=== PATIENT | female | born 1950 | race Caucasian/White ===

== ENCOUNTER 2016-10-19 23:00 | Inpatient (IN) | payer MEDICARE, OTHER ==
[2016-10-19] MEDS ORDERED: SODIUM CHLORIDE 0.9% 1,000 ML IV ONE ×2 (23:15→23:16)
[2016-10-19] MEDS ORDERED: INSULIN REGULAR HUMAN 100 UNIT/1 ML 10 ML MDV IVP STA (23:16)
[2016-10-19] MEDS ORDERED: INSULIN REGULAR HUMAN 100 UNIT/1 ML 10 ML MDV ONE (23:39)
[2016-10-20] MEDS ORDERED: INSULIN REGULAR HUMAN 100 UNIT/1 ML 10 ML MDV IVP STA (01:10)
[2016-10-20] MEDS ORDERED: INSULIN REGULAR HUMAN 100 UNIT/1 ML 10 ML MDV ONE (01:14)
[2016-10-20] MEDS ORDERED: MORPHINE 2 MG/ML SYRINGE IVP PRN (04:02)
[2016-10-20] MEDS ORDERED: SODIUM CHLORIDE FLUSH 0.9% 10 ML SYRINGE IVP PRN (04:02)
[2016-10-20] MEDS ORDERED: ONDANSETRON 4 MG/2 ML VIAL IVP PRN (04:02)
[2016-10-20] MEDS ORDERED: MAGNESIUM SULFATE 5 GM/10 ML VIAL IV STA (04:02)
[2016-10-20] MEDS ORDERED: ACETAMINOPHEN 325 MG TABLET PO PRN (04:02)
[2016-10-20] MEDS ORDERED: BENZONATATE 100 MG CAPSULE PO PRN (04:02)
[2016-10-20] MEDS ORDERED: MAGNESIUM SULFATE 2 GRAM 50 ML IV ONE (04:51)
[2016-10-20] MEDS: SODIUM CHLORIDE 0.9% 1,000 ML IV SCH ×2 (04:55→18:15)
[2016-10-20] MEDS: SODIUM CHLORIDE FLUSH 0.9% 10 ML SYRINGE IVP SCH ×3 (05:05→20:53)
[2016-10-20] MEDS ORDERED: INSULIN ASPART 300 UNIT/3 ML PEN SUBQ STA (05:14)
[2016-10-20] MEDS: MAGNESIUM SULFATE 2 GRAM 2 GM/50 ML BAG IV SCH ×2 (05:15→06:17)
[2016-10-20] MEDS: ENOXAPARIN 40 MG/0.4 ML SYRINGE SUBQ SCH (08:10)
[2016-10-20] MEDS: hydroCHLOROthiazide 12.5 MG CAPSULE PO SCH (08:11)
[2016-10-20] MEDS: ATORVASTATIN 10 MG TABLET PO SCH (08:11)
[2016-10-20] MEDS: FLUoxetine 10 MG CAPSULE PO SCH (08:11)
[2016-10-20] MEDS: LISINOPRIL 5 MG TABLET PO SCH (08:11)
[2016-10-20] MEDS: SACCHAROMYCES BOULARDII 250 MG CAPSULE PO SCH ×2 (08:11→18:14)
[2016-10-20] MEDS: INSULIN ASPART 300 UNIT/3 ML PEN SUBQ SCH ×4 (08:13→21:45)
[2016-10-20] MEDS ORDERED: [UNRECOGNIZED DRUG - OTHER] PO SCH (09:00)
[2016-10-20] MEDS ORDERED: HYDROCHLOROTHIAZIDE PO SCH (09:00)
[2016-10-20] MEDS ORDERED: LISINOPRIL PO SCH (09:00)
[2016-10-20] MEDS: POLYETHYLENE GLYCOL 3350 17 GM PACKET PO SCH (10:48)
[2016-10-20] MEDS ORDERED: INSULIN GLARGINE 300 UNIT/3 ML PEN SUBQ SCH (21:00)
[2016-10-21] MEDS: SODIUM CHLORIDE 0.9% 1,000 ML IV SCH (04:03)
[2016-10-21] MEDS: SODIUM CHLORIDE FLUSH 0.9% 10 ML SYRINGE IVP SCH ×3 (04:05→22:37)
[2016-10-21] MEDS: SACCHAROMYCES BOULARDII 250 MG CAPSULE PO SCH ×2 (07:51→16:53)
[2016-10-21] MEDS: ENOXAPARIN 40 MG/0.4 ML SYRINGE SUBQ SCH (07:51)
[2016-10-21] MEDS: hydroCHLOROthiazide 12.5 MG CAPSULE PO SCH (07:51)
[2016-10-21] MEDS: FLUoxetine 10 MG CAPSULE PO SCH (07:51)
[2016-10-21] MEDS: LISINOPRIL 5 MG TABLET PO SCH (07:51)
[2016-10-21] MEDS: INSULIN ASPART 300 UNIT/3 ML PEN SUBQ SCH ×4 (07:55→21:09)
[2016-10-21] MEDS: ATORVASTATIN 10 MG TABLET PO SCH (07:55)
[2016-10-21] MEDS: POLYETHYLENE GLYCOL 3350 17 GM PACKET PO SCH (11:11)
[2016-10-21] MEDS ORDERED: POTASSIUM CHLORIDE 20 MEQ TABLET PO ONE (16:30)
[2016-10-21] MEDS: GLIMEPIRIDE 2 MG TABLET PO SCH (16:54)
[2016-10-22] MEDS: SODIUM CHLORIDE FLUSH 0.9% 10 ML SYRINGE IVP SCH (01:56)
[2016-10-22] MEDS: SACCHAROMYCES BOULARDII 250 MG CAPSULE PO SCH (07:59)
[2016-10-22] MEDS: FLUoxetine 10 MG CAPSULE PO SCH (07:59)
[2016-10-22] MEDS: GLIMEPIRIDE 2 MG TABLET PO SCH (07:59)
[2016-10-22] MEDS: ATORVASTATIN 10 MG TABLET PO SCH (07:59)
[2016-10-22] MEDS: LISINOPRIL 5 MG TABLET PO SCH (07:59)
[2016-10-22] MEDS: INSULIN ASPART 300 UNIT/3 ML PEN SUBQ SCH ×2 (07:59→13:20)
[2016-10-22] MEDS: ENOXAPARIN 40 MG/0.4 ML SYRINGE SUBQ SCH (07:59)
[2016-10-22] MEDS: hydroCHLOROthiazide 12.5 MG CAPSULE PO SCH (07:59)
[2016-10-22] MEDS: POLYETHYLENE GLYCOL 3350 17 GM PACKET PO SCH (08:02)
[2016-10-22] MEDS ORDERED: IOPAMIDOL-300 100 ML VIAL IVP ONE (10:03)
== END 2016-10-22 16:40 | disposition home or self-care (01) | DRG 871 ==
DX: A41.9 Sepsis, unspecified organism (principal); J18.9 Pneumonia, unspecified organism; N39.0 Urinary tract infection, site not specified; Z86.73 Personal history of transient ischemic attack (TIA), and cerebral infarction without residual deficits; N13.30 Unspecified hydronephrosis; N17.9 Acute kidney failure, unspecified; E87.1 Hypo-osmolality and hyponatremia; B95.2 Enterococcus as the cause of diseases classified elsewhere; R09.02 Hypoxemia; E11.65 Type 2 diabetes mellitus with hyperglycemia; D50.9 Iron deficiency anemia, unspecified; E87.6 Hypokalemia; E86.0 Dehydration; I10 Essential (primary) hypertension; E78.5 Hyperlipidemia, unspecified; F32.9 Major depressive disorder, single episode, unspecified; Z87.891 Personal history of nicotine dependence; Z79.84 Long term (current) use of oral hypoglycemic drugs; Z91.14 Patient's other noncompliance with medication regimen

== ENCOUNTER 2016-11-03 09:22 | Outpatient (CLI) | payer MEDICARE, OTHER | END 2016-11-03 09:23 | disposition home or self-care (01) | DX: N39.0 Urinary tract infection, site not specified (principal) ==

== ENCOUNTER 2016-11-03 09:27 | Outpatient (CLI) | payer MEDICARE, OTHER ==
[2016-11-03] MEDS ORDERED: IOPAMIDOL-300 100 ML VIAL IVP ONE (10:21)
== END 2016-11-03 09:28 | disposition home or self-care (01) ==
DX: J84.10 Pulmonary fibrosis, unspecified (principal); N39.0 Urinary tract infection, site not specified
CPT/HCPCS: 71260; 87077; 87086; 87181; Q9967

== ENCOUNTER 2016-11-05 10:37 | Outpatient (CLI) | payer MEDICARE, OTHER | END 2016-11-05 10:38 | disposition home or self-care (01) | DX: G31.9 Degenerative disease of nervous system, unspecified (principal); R90.82 White matter disease, unspecified; R41.3 Other amnesia ==

== ENCOUNTER 2016-11-18 18:47 | Outpatient (CLI) | payer MEDICARE, OTHER | END 2016-11-18 18:48 | disposition home or self-care (01) | DX: N39.0 Urinary tract infection, site not specified (principal) ==

== ENCOUNTER 2016-11-19 18:34 | Observation (INO) | payer MEDICARE, OTHER ==
[2016-11-19] MEDS ORDERED: SODIUM CHLORIDE 0.9% 1,000 ML IV ONE (19:58)
[2016-11-19] MEDS ORDERED: cefTRIAXone 1 GM in SODIUM CHLORIDE 0.9% MINIBAG 100 ML IV STA (19:58)
[2016-11-19] MEDS ORDERED: cefTRIAXone 1 GM VIAL ONE (20:15)
[2016-11-19] MEDS ORDERED: ACETAMINOPHEN 325 MG TABLET PO PRN (21:02)
[2016-11-19] MEDS ORDERED: SODIUM CHLORIDE FLUSH 0.9% 10 ML SYRINGE IVP PRN (21:02)
[2016-11-19] MEDS ORDERED: ONDANSETRON 4 MG/2 ML VIAL IVP PRN (21:02)
[2016-11-19] MEDS ORDERED: HYDROcod/ACETAM 5/325 MG TABLET PO PRN (21:02)
[2016-11-19] MEDS ORDERED: PROCHLORPERAZINE 10 MG/2 ML VIAL IVP PRN (21:02)
[2016-11-19] MEDS ORDERED: SODIUM CHLORIDE 0.9% 1,000 ML IV SCH (22:00)
[2016-11-19] MEDS: MAGNESIUM OXIDE 400 MG TABLET PO SCH (22:49)
[2016-11-19] MEDS: NS W/20 MEQ KCL 1,000 ML IV SCH (22:49)
[2016-11-19] MEDS: SODIUM CHLORIDE FLUSH 0.9% 10 ML SYRINGE IVP SCH (22:54)
[2016-11-20] MEDS: SODIUM CHLORIDE FLUSH 0.9% 10 ML SYRINGE IVP SCH (06:43)
[2016-11-20] MEDS: NS W/20 MEQ KCL 1,000 ML IV SCH (06:48)
[2016-11-20] MEDS ORDERED: PANTOPRAZOLE 40 MG TABLET PO SCH (07:00)
[2016-11-20] MEDS ORDERED: SACCHAROMYCES BOULARDII 250 MG CAPSULE PO SCH (08:00)
[2016-11-20] MEDS: INSULIN ASPART 300 UNIT/3 ML PEN SUBQ SCH ×2 (08:01→11:42)
[2016-11-20] MEDS ORDERED: cefTRIAXone 1 GM in SODIUM CHLORIDE 0.9% MINIBAG 100 ML IV SCH (09:00)
[2016-11-20] MEDS ORDERED: POLYETHYLENE GLYCOL 3350 17 GM PACKET PO SCH (09:00)
[2016-11-20] MEDS ORDERED: ASPIRIN EC 81 MG TABLET PO SCH (09:00)
[2016-11-20] MEDS ORDERED: FLUoxetine 10 MG CAPSULE PO SCH (09:00)
[2016-11-20] MEDS ORDERED: ENOXAPARIN 40 MG/0.4 ML SYRINGE SUBQ SCH (09:00)
[2016-11-20] MEDS: MAGNESIUM OXIDE 400 MG TABLET PO SCH (09:15)
[2016-11-20] MEDS ORDERED: ATORVASTATIN 10 MG TABLET PO SCH (21:00)
== END 2016-11-20 14:45 | disposition home or self-care (01) ==
DX: N39.0 Urinary tract infection, site not specified (principal); B96.20 Unspecified Escherichia coli [E. coli] as the cause of diseases classified elsewhere; N17.9 Acute kidney failure, unspecified; E87.6 Hypokalemia; E83.42 Hypomagnesemia; E11.65 Type 2 diabetes mellitus with hyperglycemia; E87.1 Hypo-osmolality and hyponatremia; I10 Essential (primary) hypertension; E78.5 Hyperlipidemia, unspecified; E86.0 Dehydration; N31.9 Neuromuscular dysfunction of bladder, unspecified; N39.490 Overflow incontinence; R33.9 Retention of urine, unspecified; F03.90 Unspecified dementia, unspecified severity, without behavioral disturbance, psychotic disturbance, mood disturbance, and anxiety; F32.9 Major depressive disorder, single episode, unspecified; Z87.891 Personal history of nicotine dependence; Z16.23 Resistance to quinolones and fluoroquinolones; Z79.84 Long term (current) use of oral hypoglycemic drugs; Z79.82 Long term (current) use of aspirin; Z87.01 Personal history of pneumonia (recurrent)
CPT/HCPCS: 36415; 51701; 71010; 80053; 81001; 83036; 83605; 83690; 83735; 85025; 87077; 87086; 87181; 96365; 96366; 96372; 99283; 99284; A9270; G0378; J1650

== ENCOUNTER 2016-11-27 16:20 | Outpatient (CLI) | payer MEDICARE, OTHER | END 2016-11-27 16:21 | disposition home or self-care (01) | DX: E78.5 Hyperlipidemia, unspecified (principal); I10 Essential (primary) hypertension; E11.9 Type 2 diabetes mellitus without complications; N39.0 Urinary tract infection, site not specified ==

== ENCOUNTER 2016-12-01 10:00 | Outpatient (CLI) | payer MEDICARE, OTHER | END 2016-12-01 23:59 | disposition home or self-care (01) | DX: R33.9 Retention of urine, unspecified (principal); N39.0 Urinary tract infection, site not specified ==

== ENCOUNTER 2016-12-19 08:08 | Outpatient (CLI) | payer MEDICARE, OTHER | END 2016-12-19 08:09 | disposition home or self-care (01) | DX: N39.0 Urinary tract infection, site not specified (principal) ==

== ENCOUNTER 2017-01-06 20:20 | Emergency (ER) | payer MEDICARE, OTHER ==
[2017-01-06] MEDS ORDERED: SODIUM CHLORIDE 0.9% 1,000 ML IV ONE (20:54)
[2017-01-06] MEDS ORDERED: cefTRIAXone 1 GM in SODIUM CHLORIDE 0.9% MINIBAG 100 ML IV STA (22:15)
[2017-01-06] MEDS ORDERED: cefTRIAXone 1 GM VIAL ONE (22:18)
== END 2017-01-06 23:20 | disposition home or self-care (01) ==
DX: N17.9 Acute kidney failure, unspecified (principal); N30.01 Acute cystitis with hematuria; D72.829 Elevated white blood cell count, unspecified; E87.1 Hypo-osmolality and hyponatremia; D64.9 Anemia, unspecified; J84.10 Pulmonary fibrosis, unspecified; N31.9 Neuromuscular dysfunction of bladder, unspecified; F03.90 Unspecified dementia, unspecified severity, without behavioral disturbance, psychotic disturbance, mood disturbance, and anxiety; I10 Essential (primary) hypertension; E11.9 Type 2 diabetes mellitus without complications; Z79.84 Long term (current) use of oral hypoglycemic drugs; M10.9 Gout, unspecified; Z79.82 Long term (current) use of aspirin; Z87.440 Personal history of urinary (tract) infections; Z87.891 Personal history of nicotine dependence

== ENCOUNTER 2017-01-08 22:09 | Outpatient (CLI) | payer MEDICARE, OTHER | END 2017-01-08 22:10 | disposition critical access hospital (66) | DX: R41.82 Altered mental status, unspecified (principal) | CPT/HCPCS: A0425; A0427 ==

== ENCOUNTER 2017-01-08 22:20 | Emergency (ER) | payer MEDICARE, OTHER ==
[2017-01-09] MEDS ORDERED: POTASSIUM BICARB 25 MEQ TABLET PO STA (02:02)
[2017-01-09] MEDS ORDERED: POTASSIUM BICARB 25 MEQ TABLET PO ONE (02:06)
== END 2017-01-09 02:25 | disposition home or self-care (01) ==
DX: D64.9 Anemia, unspecified (principal); E11.9 Type 2 diabetes mellitus without complications; I10 Essential (primary) hypertension; E78.00 Pure hypercholesterolemia, unspecified; Z79.82 Long term (current) use of aspirin; F03.90 Unspecified dementia, unspecified severity, without behavioral disturbance, psychotic disturbance, mood disturbance, and anxiety; M10.9 Gout, unspecified; Z87.891 Personal history of nicotine dependence
CPT/HCPCS: 36415; 51701; 80053; 81001; 83690; 85025; 87086; 99284; 99285; A9270

== ENCOUNTER 2017-01-15 10:30 | Outpatient (CLI) | payer MEDICARE, OTHER | END 2017-01-15 10:31 | disposition home or self-care (01) | DX: I10 Essential (primary) hypertension (principal) ==

== ENCOUNTER 2017-01-23 10:45 | Outpatient (CLI) | payer MEDICARE, OTHER | END 2017-01-23 10:46 | disposition home or self-care (01) | DX: N39.0 Urinary tract infection, site not specified (principal) ==

== ENCOUNTER 2017-02-27 08:00 | Outpatient (CLI) | payer MEDICARE, OTHER | END 2017-02-27 08:01 | disposition home or self-care (01) | LOC: LAB.R 08:00 | PROVIDERS: ATTEND Family Medicine | DX: N39.0 Urinary tract infection, site not specified (principal) | CPT/HCPCS: 87077; 87086 ==

== ENCOUNTER 2017-03-17 08:00 | Outpatient (CLI) | payer MEDICARE, OTHER | END 2017-03-17 08:01 | disposition home or self-care (01) | LOC: LAB.R 08:00 | PROVIDERS: ATTEND Family Medicine | DX: N39.0 Urinary tract infection, site not specified (principal) | CPT/HCPCS: 87077; 87086 ==

== ENCOUNTER 2017-07-08 10:50 | Outpatient (CLI) | payer MEDICARE, OTHER | END 2017-07-08 10:51 | disposition home or self-care (01) | LOC: LAB.R 10:50 | PROVIDERS: ATTEND Family Medicine | DX: N39.0 Urinary tract infection, site not specified (principal) | CPT/HCPCS: 87077; 87086 ==

== ENCOUNTER 2017-09-07 17:00 | Outpatient (CLI) | payer MEDICARE, OTHER | END 2017-09-07 17:01 | disposition home or self-care (01) | LOC: LAB.R 17:00 | PROVIDERS: ATTEND Family Medicine | DX: N39.0 Urinary tract infection, site not specified (principal) | CPT/HCPCS: 87086 ==

== ENCOUNTER 2017-10-07 12:30 | Outpatient (CLI) | payer MEDICARE, OTHER | END 2017-10-07 12:31 | disposition home or self-care (01) | LOC: LAB.WCP 12:30 | PROVIDERS: ATTEND Family Medicine | DX: N39.0 Urinary tract infection, site not specified (principal) | CPT/HCPCS: 87077; 87086 ==

== ENCOUNTER 2017-11-23 16:00 | Outpatient (CLI) | payer MEDICARE, OTHER | END 2017-11-23 16:01 | disposition home or self-care (01) | LOC: LAB.R 16:00 | PROVIDERS: ATTEND Family Medicine | DX: N39.0 Urinary tract infection, site not specified (principal) | CPT/HCPCS: 87077; 87086 ==

== ENCOUNTER 2017-12-10 16:03 | Emergency (ER) | payer MEDICARE, OTHER ==
--- NOTE | 2017-12-10 18:45 | ED Physician Documentation ---
History of Present Illness - Stated complaint Stated Complaint: FEMALE - Chief complaint Chief Complaint: General - History obtained from History obtained from: Patient, Family (daughter) - History of Present Illness Timing: Other (67-year-old woman with dementia and neurogenic bladder presents with 8 days of cloudy urine since finishing up a course of antibiotics for previous UTI. 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 - Present Medications Home Medications: Ambulatory Orders Medication Instructions Recorded Confirmed Atorvastatin [Lipitor] 20 mg PO QPM 07/23/16 08/17/17 FLUoxetine [PROzac] 20 mg PO DAILY 07/23/16 08/17/17 metFORMIN [Glucophage] 500 mg PO BIDWM 07/23/16 08/17/17 Lisinopril/Hydrochlorothiazide 1 tab PO DAILY 10/20/16 08/17/17 [Lisinopril-Hctz 20-12.5 mg Tab] Aspirin [Aspir-Low] 81 mg PO DAILY 11/19/16 08/17/17 Ferrous Sulfate 325 mg PO DAILY 11/20/16 08/17/17 Amoxicillin 200 mg PO DAILY 05/18/17 08/17/17 Ciprofloxacin HCl [Cipro] 500 mg PO BID #20 tablet 12/10/17 Oxybutynin [Ditropan] 5 mg PO BID #20 tablet 12/10/17 - Allergies Allergies/Adverse Reactions: Allergies Allergy/AdvReac Type Severity Reaction Status Date / Time No Known Drug Allergies Allergy Verified 01/08/17 22:24 - Social History Does the pt smoke?: No Smoking Status: Never smoker Does the pt drink ETOH?: Yes Does the pt have substance abuse?: No - Immunizations Immunizations are current?: Yes - POLST Patient has POLST: No PD ED PE NORMAL - Vitals Vital signs reviewed: Yes - General General: Other (She is alert and cooperative but somewhat demented and a poor historian for recent facts, she is uncomfortable because it has been 4 hours since she got cathed and is in pain because of that.) - Abdomen Abdomen: Soft, Non tender - 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 Eye Opening: Spontaneous Motor: Obeys Commands Verbal: Confused GCS Score: 14 Results - Vitals Vitals: Vital Signs - 24 hr 12/10/17 16:11 Temperature 36.9 C Heart Rate 100 Respiratory 20 Rate Blood Pressure 168/78 H O2 Saturation 94 Oxygen O2 Source Room air - Labs Labs: Laboratory Tests 12/10/17 12/10/17 12/10/17 18:50 19:04 19:04 WBC 9.8 RBC 3.92 L Hgb 11.2 L Hct 33.3 L MCV 84.8 MCH 28.6 MCHC 33.7 RDW 13.8 Plt Count 382 MPV 7.0 L Neut # 6.2 Lymph # 2.7 [place] # 0.7 Eos # 0.2 Baso # 0.1 Absolute Nucleated RBC 0.00 Nucleated RBC % 0.0 Sodium 132 L Potassium 3.9 Chloride 101 Carbon Dioxide 19 L Anion Gap 12.0 BUN 29 H Creatinine 1.1 H Estimated GFR (MDRD) 49 L Glucose 181 H Calcium 9.6 Total Bilirubin 0.7 AST 19 ALT 11 Alkaline Phosphatase 54 Total Protein 7.7 Albumin 4.0 Globulin 3.7 Albumin/Globulin Ratio 1.1 Lipase 30 Urine Color YELLOW Urine Clarity CLOUDY Urine pH 6.0 Ur Specific [place] 1.015 Urine Protein 100 H Urine Glucose (UA) NEGATIVE Urine Ketones NEGATIVE Urine Occult Blood MODERATE H Urine Nitrite POSITIVE H Urine Bilirubin NEGATIVE Urine Urobilinogen 0.2 (NORMAL) Ur Leukocyte Esterase LARGE H Urine RBC 11-25 H Urine WBC >25 H Ur Squamous Epith Cells RARE Squamous Urine Bacteria Moderate H Ur Microscopic Review INDICATED Urine Culture Comments INDICATED Departure - Departure Disposition: Home, Self Care Clinical Impression: Urinary tract infection Qualifiers: Urinary tract infection type: catheter-associated UTI Indwelling urinary catheter type: unspecified Encounter type: initial encounter Qualified Code(s): T83.511A - Infection and inflammatory reaction due to indwelling urethral catheter, initial encounter; N39.0 - Urinary tract infection, site not specified ; N39.0 - Urinary tract infection, site not specified Condition: Good Record reviewed to determine appropriate education?: Yes Instructions: ED UTI Cystitis Female Prescriptions: Ciprofloxacin HCl [Cipro] 500 mg PO BID #20 tablet Oxybutynin [Ditropan] 5 mg PO BID #20 tablet Comments: Follow-up with the urologist next week as scheduled. Return if worse or if you run a fever. We will culture your urine, the results should be done in 48-72 hours. If an antibiotic change is necessary we will call you. Return if worse in the meantime, especially if you develop increasing flank pain, fevers, or cannot keep down the medication. Your blood pressure was elevated today on check into the emergency department. This does not mean that you have hypertension, it is a common phenomenon to come to the emergency department and have elevated blood pressure. I recommend that you see your primary care physician within the week to have it rechecked when you are feeling better.
[2017-12-10 19:12] LABS: BILIRUBIN,URINE NEGATIVE (NEGATIVE); GLUCOSE, URINE (UA) NEGATIVE (NEGATIVE); KETONES,URINE (UA) NEGATIVE (NEGATIVE); LEUKOCYTE ESTERASE, URINE LARGE (NEGATIVE); NITRITE,URINE POSITIVE (NEGATIVE); OCCULT BLOOD,URINE MODERATE (NEGATIVE); PROTEIN,URINE 100 mg/dL (NEGATIVE); UROBILINOGEN,URINE 0.2 (NORMAL) E.U./dL (NORMAL)
[2017-12-10 19:14] LABS: CLARITY,URINE CLOUDY (CLEAR)
[2017-12-10 19:22] LABS: BACTERIA,URINE Moderate /HPF (None Seen); SQUAMOUS EPITHELIAL CELL,UR RARE Squamous (<= Few)
[2017-12-10 19:23] LABS: BASOPHILS # (AUTO) 0.1 10^3/uL (0.0-0.1); BASOPHILS % (AUTO) 0.7 %; EOSINOPHILS # (AUTO) 0.2 10^3/uL (0.0-0.7); EOSINOPHILS % (AUTO) 1.6 %; HGB - HEMOGLOBIN 11.2 g/dL (12.0-16.0); LYMPHOCYTES # (AUTO) 2.7 10^3/uL (1.5-3.5); LYMPHOCYTES % (AUTO) 27.5 %; MEAN CORPUSCULAR HEMOGLOBIN 28.6 pg (27.0-31.0); MEAN CORPUSCULAR HGB CONC 33.7 g/dL (32.0-36.0); MEAN CORPUSCULAR VOLUME 84.8 fL (81.0-99.0); MONOCYTES # (AUTO) 0.7 10^3/uL (0.0-1.0); MONOCYTES % (AUTO) 7.1 %; NEUTROPHILS # (AUTO) 6.2 10^3/uL (1.5-6.6); NEUTROPHILS % (AUTO) 63.1 %; PLT - PLATELET COUNT 382 10^3/uL (130-450); RED BLOOD COUNT 3.92 10^6/uL (4.20-5.40); RED CELL DISTRIBUTION WIDTH 13.8 % (12.0-15.0); WHITE BLOOD COUNT 9.8 x10^3/uL (4.8-10.8)
[2017-12-10 19:36] LABS: ALBUMIN/GLOBULIN RATIO 1.1 (1.0-2.2); BILIRUBIN,TOTAL 0.7 mg/dL (0.2-1.0); CALCIUM 9.6 mg/dL (8.5-10.3); CREATININE 1.1 mg/dL (0.4-1.0); TOTAL PROTEIN 7.7 g/dL (6.7-8.2)
[2017-12-10] MEDS ORDERED: HYDROcod/ACETAM 5/325 MG TABLET PO STA (19:45)
[2017-12-10] MEDS ORDERED: OXYBUTYNIN 5MG TABLET PO STA (19:48)
[2017-12-10] MEDS ORDERED: CIPROFLOXACIN 250 MG TABLET PO STA (19:48)
[2017-12-10 20:21] VITALS: BP 157/78
== END 2017-12-10 20:21 | disposition home or self-care (01) ==
LOC: ED 16:03
DX: T83.511A Infection and inflammatory reaction due to indwelling urethral catheter, initial encounter (principal); N39.0 Urinary tract infection, site not specified; I10 Essential (primary) hypertension; E11.9 Type 2 diabetes mellitus without complications; F03.90 Unspecified dementia, unspecified severity, without behavioral disturbance, psychotic disturbance, mood disturbance, and anxiety; Z79.84 Long term (current) use of oral hypoglycemic drugs
CPT/HCPCS: 36415; 51701; 80053; 81001; 83690; 85025; 87077; 87086; 87181; 99282; 99283; A9270; 81003

== ENCOUNTER 2018-02-02 19:12 | Emergency (ER) | payer MEDICARE, OTHER ==
--- NOTE | 2018-02-02 19:41 | ED Physician Documentation ---
History of Present Illness - Stated complaint Stated Complaint: WEAK/FEVER/L SIDE PX - Chief complaint Chief Complaint: Fever - History obtained from History obtained from: Family (daughter) - History of Present Illness Timing: Other (Recent dx UTI. Has neurogenic bladder and dementia. Cloudy urine x 2 weeks. Course of cipro without improvement. Increased confusion and fever to 101.7 this monring.) - Additonal information Additional information: Previous cultures reviewed, note made that it was intermediate to ciprofloxacin , sensitive only to IV medications and nitrofurantoin. 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 - Present Medications Home Medications: Ambulatory Orders Medication Instructions Recorded Confirmed Atorvastatin [Lipitor] 20 mg PO QPM 07/23/16 08/17/17 FLUoxetine [PROzac] 20 mg PO DAILY 07/23/16 08/17/17 metFORMIN [Glucophage] 500 mg PO BIDWM 07/23/16 08/17/17 Lisinopril/Hydrochlorothiazide 1 tab PO DAILY 10/20/16 08/17/17 [Lisinopril-Hctz 20-12.5 mg Tab] Aspirin [Aspir-Low] 81 mg PO DAILY 11/19/16 08/17/17 Ferrous Sulfate 325 mg PO DAILY 11/20/16 08/17/17 Amoxicillin 200 mg PO DAILY 05/18/17 08/17/17 Ciprofloxacin HCl [Cipro] 500 mg PO BID #20 tablet 12/10/17 Oxybutynin [Ditropan] 5 mg PO BID #20 tablet 12/10/17 Ciprofloxacin HCl [Cipro] 500 mg PO BID #20 tablet 02/02/18 - Allergies Allergies/Adverse Reactions: Allergies Allergy/AdvReac Type Severity Reaction Status Date / Time No Known Drug Allergies Allergy Verified 02/02/18 19:20 - Social History Does the pt smoke?: No Smoking Status: Never smoker Does the pt drink ETOH?: Yes Does the pt have substance abuse?: No - Immunizations Immunizations are current?: Yes - POLST Patient has POLST: No PD ED PE NORMAL - Vitals Vital signs reviewed: Yes - General General: No acute distress, Well developed/nourished, Other (pleasantly demented ) - HEENT HEENT: PERRL, EOMI - Neck Neck: Supple, no meningeal sign, No bony TTP - Cardiac Cardiac: RRR, No murmur - Respiratory Respiratory: No respiratory distress, Clear bilaterally - Abdomen Abdomen: Normal bowel sounds, Soft, Non tender - Back Back: No CVA TTP, No spinal TTP - Derm Derm: Normal color, Warm and dry - Extremities Extremities: No edema, No calf tenderness / cord - 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 Eye Opening: Spontaneous Motor: Obeys Commands Verbal: Confused GCS Score: 14 - Psych Psych: Normal mood, Normal affect Results - Vitals Vitals: Vital Signs - 24 hr 02/02/18 19:17 Temperature 37.6 C H Heart Rate 97 Respiratory 18 Rate Blood Pressure 114/70 O2 Saturation 96 Oxygen O2 Source Room air - Labs Labs: Laboratory Tests 02/02/18 02/02/18 02/02/18 19:56 20:09 20:09 WBC 9.8 RBC 3.34 L Hgb 9.9 L Hct 28.3 L MCV 84.7 MCH 29.7 MCHC 35.0 RDW 13.7 Plt Count 262 MPV 6.7 L Neut # 7.3 H Lymph # 1.7 [place] # 0.7 Eos # 0.1 Baso # 0.1 Absolute Nucleated RBC 0.00 Nucleated RBC % 0.0 Sodium 129 L Potassium 3.6 Chloride 93 L Carbon Dioxide 25 Anion Gap 11.0 BUN 23 H Creatinine 1.0 Estimated GFR (MDRD) 55 L Glucose 190 H Lactic Acid Calcium 9.1 Total Bilirubin 0.6 AST 15 ALT < 10 L Alkaline Phosphatase 57 Total Protein 7.2 Albumin 3.6 Globulin 3.6 Albumin/Globulin Ratio 1.0 Lipase 29 Urine Color YELLOW Urine Clarity CLOUDY Urine pH 6.0 Ur Specific [place] 1.020 Urine Protein NEGATIVE Urine Glucose (UA) 100 H Urine Ketones NEGATIVE Urine Occult Blood SMALL H Urine Nitrite POSITIVE H Urine Bilirubin NEGATIVE Urine Urobilinogen 0.2 (NORMAL) Ur Leukocyte Esterase MODERATE H Urine RBC 6-10 H Urine WBC >25 H Urine WBC Clumps PRESENT Ur Squamous Epith Cells MOD Squamous H Urine Bacteria Many H Ur Microscopic Review INDICATED Urine Culture Comments NOT INDICATED 02/02/18 20:20 WBC RBC Hgb Hct MCV MCH MCHC RDW Plt Count MPV Neut # Lymph # [place] # Eos # Baso # Absolute Nucleated RBC Nucleated RBC % Sodium Potassium Chloride Carbon Dioxide Anion Gap BUN Creatinine Estimated GFR (MDRD) Glucose Lactic Acid 1.5 Calcium Total Bilirubin AST ALT Alkaline Phosphatase Total Protein Albumin Globulin Albumin/Globulin Ratio Lipase Urine Color Urine Clarity Urine pH Ur Specific [place] Urine Protein Urine Glucose (UA) Urine Ketones Urine Occult Blood Urine Nitrite Urine Bilirubin Urine Urobilinogen Ur Leukocyte Esterase Urine RBC Urine WBC Urine WBC Clumps Ur Squamous Epith Cells Urine Bacteria Ur Microscopic Review Urine Culture Comments PD MEDICAL DECISION MAKING - ED course ED course: 67-year-old woman presents with UTI, fever this morning. She has been septic in the past but is afebrile with reassuring vital signs here, labs were checked without lactic acidosis or leukocytosis. Discussion with the family about whether to admit or discharge and they strongly wanted her discharged. They understand cultures are pending and may necessitate a change in treatment and will return for recurrent fever or if worse. Departure - Departure Disposition: 01 Home, Self Care Clinical Impression: Urinary tract infection Qualifiers: Urinary tract infection type: catheter-associated UTI Indwelling urinary catheter type: unspecified Encounter type: initial encounter Qualified Code(s): T83.511A - Infection and inflammatory reaction due to indwelling urethral catheter, initial encounter; N39.0 - Urinary tract infection, site not specified ; N39.0 - Urinary tract infection, site not specified Condition: Good Record reviewed to determine appropriate education?: Yes Prescriptions: Ciprofloxacin HCl [Cipro] 500 mg PO BID #20 tablet Comments: Return for any recurrent fevers or if worse in any way, otherwise follow-up with your primary care physician in 2 days for recheck, We will culture your urine, the results should be done in 48-72 hours. If an antibiotic change is necessary we will call you. Return if worse in the meantime, especially if you develop increasing flank pain, fevers, or cannot keep down the medication.
[2018-02-02] MEDS ORDERED: SODIUM CHLORIDE 0.9% 1,000 ML IV ONE (19:43)
[2018-02-02 20:24] LABS: BILIRUBIN,URINE NEGATIVE (NEGATIVE); GLUCOSE, URINE (UA) 100 mg/dL (NEGATIVE); KETONES,URINE (UA) NEGATIVE (NEGATIVE); LEUKOCYTE ESTERASE, URINE MODERATE (NEGATIVE); NITRITE,URINE POSITIVE (NEGATIVE); OCCULT BLOOD,URINE SMALL (NEGATIVE); PROTEIN,URINE NEGATIVE (NEGATIVE); UROBILINOGEN,URINE 0.2 (NORMAL) E.U./dL (NORMAL)
[2018-02-02 20:26] LABS: BASOPHILS # (AUTO) 0.1 10^3/uL (0.0-0.1); BASOPHILS % (AUTO) 0.7 %; EOSINOPHILS # (AUTO) 0.1 10^3/uL (0.0-0.7); EOSINOPHILS % (AUTO) 0.6 %; HGB - HEMOGLOBIN 9.9 g/dL (12.0-16.0); LYMPHOCYTES # (AUTO) 1.7 10^3/uL (1.5-3.5); MEAN CORPUSCULAR HEMOGLOBIN 29.7 pg (27.0-31.0); MEAN CORPUSCULAR VOLUME 84.7 fL (81.0-99.0); MEAN PLATELET VOLUME 6.7 fL (7.9-10.8); MONOCYTES # (AUTO) 0.7 10^3/uL (0.0-1.0); MONOCYTES % (AUTO) 7.2 %; NEUTROPHILS # (AUTO) 7.3 10^3/uL (1.5-6.6); NEUTROPHILS % (AUTO) 74.5 %; PLT - PLATELET COUNT 262 10^3/uL (130-450); RED BLOOD COUNT 3.34 10^6/uL (4.20-5.40); RED CELL DISTRIBUTION WIDTH 13.7 % (12.0-15.0); WHITE BLOOD COUNT 9.8 x10^3/uL (4.8-10.8)
[2018-02-02 20:32] LABS: CLARITY,URINE CLOUDY (CLEAR)
[2018-02-02 20:33] LABS: BACTERIA,URINE Many /HPF (None Seen); SQUAMOUS EPITHELIAL CELL,UR MOD Squamous (<= Few); WBC CLUMPS,URINE PRESENT
[2018-02-02 20:38] LABS: ALBUMIN 3.6 g/dL (3.2-5.5); ALKALINE PHOSPHATASE 57 IU/L (42-121); ALT ALANINE AMINOTRANSFERASE < 10 IU/L (10-60); AST ASPARTATE AMINOTRANSFERASE 15 IU/L (10-42); BILIRUBIN,TOTAL 0.6 mg/dL (0.2-1.0); BUN - BLOOD UREA NITROGEN 23 mg/dL (6-20); CALCIUM 9.1 mg/dL (8.5-10.3); CARBON DIOXIDE - CO2 25 mmol/L (21-32); CHLORIDE 93 mmol/L (101-111); GFR - MDRD 55 (>89); GLUCOSE 190 mg/dL (70-100); LIPASE 29 U/L (22-51); SODIUM 129 mmol/L (135-145); TOTAL PROTEIN 7.2 g/dL (6.7-8.2)
[2018-02-02] MEDS ORDERED: CIPROFLOXACIN 250 MG TABLET PO STA (21:02)
[2018-02-02 21:54] VITALS: BP 135/86
== END 2018-02-02 21:55 | disposition home or self-care (01) ==
LOC: ED 19:12
DX: T83.511A Infection and inflammatory reaction due to indwelling urethral catheter, initial encounter (principal); N39.0 Urinary tract infection, site not specified; N31.2 Flaccid neuropathic bladder, not elsewhere classified; F03.90 Unspecified dementia, unspecified severity, without behavioral disturbance, psychotic disturbance, mood disturbance, and anxiety; I10 Essential (primary) hypertension; E11.9 Type 2 diabetes mellitus without complications; Z79.84 Long term (current) use of oral hypoglycemic drugs
CPT/HCPCS: 80053; 81001; 83605; 83690; 85025; 87040; 96360; 99283; A9270; 36415; 81003; 87086

== ENCOUNTER 2018-02-12 16:00 | Outpatient (CLI) | payer MEDICARE, OTHER | END 2018-02-12 16:01 | disposition home or self-care (01) | LOC: LAB.R 16:00 | PROVIDERS: ATTEND Family Medicine | DX: R33.9 Retention of urine, unspecified (principal); N39.0 Urinary tract infection, site not specified | CPT/HCPCS: 87086 ==

== ENCOUNTER 2018-04-05 08:00 | Outpatient (CLI) | END 2018-04-05 08:01 | disposition home or self-care (01) ==

== ENCOUNTER 2018-06-01 17:25 | Emergency (ER) | payer MEDICARE, OTHER ==
[2018-06-01 18:19] LABS: BASOPHILS % (AUTO) 0.4 %; EOSINOPHILS # (AUTO) 0.2 10^3/uL (0.0-0.7); EOSINOPHILS % (AUTO) 2.3 %; HGB - HEMOGLOBIN 11.5 g/dL (12.0-16.0); LYMPHOCYTES # (AUTO) 1.5 10^3/uL (1.5-3.5); LYMPHOCYTES % (AUTO) 15.2 %; MEAN CORPUSCULAR HEMOGLOBIN 29.4 pg (27.0-31.0); MEAN CORPUSCULAR HGB CONC 34.3 g/dL (32.0-36.0); MEAN CORPUSCULAR VOLUME 85.6 fL (81.0-99.0); MEAN PLATELET VOLUME 6.4 fL (7.9-10.8); MONOCYTES # (AUTO) 0.6 10^3/uL (0.0-1.0); MONOCYTES % (AUTO) 5.9 %; NEUTROPHILS # (AUTO) 7.4 10^3/uL (1.5-6.6); NEUTROPHILS % (AUTO) 76.2 %; PLT - PLATELET COUNT 285 10^3/uL (130-450); WHITE BLOOD COUNT 9.7 x10^3/uL (4.8-10.8)
[2018-06-01 18:32] LABS: ALBUMIN 4.1 g/dL (3.2-5.5); ALBUMIN/GLOBULIN RATIO 1.1 (1.0-2.2); BILIRUBIN,TOTAL 0.9 mg/dL (0.2-1.0); CALCIUM 9.9 mg/dL (8.5-10.3); CREATININE 1.1 mg/dL (0.4-1.0); TOTAL PROTEIN 7.9 g/dL (6.7-8.2)
--- NOTE | 2018-06-01 18:48 | ED Physician Documentation ---
History of Present Illness - Stated complaint Stated Complaint: CATH ISS/VOM/FEMALE - Chief complaint Chief Complaint: General - History obtained from History obtained from: Patient, Family - History of Present Illness Timing: Today Pain level max: 8 Pain level now: 0 Improved by: unkinking the catheter Worsened by: kinking the carbajal - Additonal information Additional information: Patient is a 68-year-old demented female who lives at [facility]. She has an indwelling Carbajal catheter for the past 3 weeks. The catheter became kinked today and urine backed up. Staff states that the patient then experienced abdominal pain and vomited 1. The catheter was unkinked, urine flowed and she currently is asymptomatic. They state they are concerned that she may have a urinary tract infection. 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 - Present Medications Home Medications: Ambulatory Orders Medication Instructions Recorded Confirmed Atorvastatin [Lipitor] 20 mg PO QPM 07/23/16 06/01/18 FLUoxetine [PROzac] 20 mg PO DAILY 07/23/16 06/01/18 metFORMIN [Glucophage] 500 mg PO BIDWM 07/23/16 06/01/18 Lisinopril/Hydrochlorothiazide 1 tab PO DAILY 10/20/16 06/01/18 [Lisinopril-Hctz 20-12.5 mg Tab] Aspirin [Aspir-Low] 81 mg PO DAILY 11/19/16 06/01/18 Ferrous Sulfate 325 mg PO DAILY 11/20/16 06/01/18 Amox/Clav 875/125 [Augmentin 1 tab PO BID 06/01/18 06/01/18 875/125] Multivitamin [Multiple Vitamins] 1 tab PO DAILY 06/01/18 06/01/18 Omeprazole 1 tab PO DAILY 06/01/18 06/01/18 Potassium Citrate [Potassium 99 mg PO DAILY 06/01/18 06/01/18 Citrate ER] amLODIPine [Norvasc] 0.5 tab PO DAILY 06/01/18 06/01/18 - Allergies Allergies/Adverse Reactions: Allergies Allergy/AdvReac Type Severity Reaction Status Date / Time No Known Drug Allergies Allergy Verified 06/01/18 17:39 - Social History Does the pt smoke?: No Smoking Status: Never smoker Does the pt drink ETOH?: Yes Does the pt have substance abuse?: No - Immunizations Immunizations are current?: Yes - POLST Patient has POLST: No PD ED PE NORMAL - Vitals Vital signs reviewed: Yes - General General: No acute distress, Other (alert, oriented to person) - HEENT HEENT: PERRL, Moist mucous membranes, Pharynx benign - Neck Neck: Supple, no meningeal sign - Cardiac Cardiac: RRR, Strong equal pulses - Respiratory Respiratory: No respiratory distress, Clear bilaterally - Abdomen Abdomen: Soft, Non tender, Non distended - Back Back: No CVA TTP, No spinal TTP - Derm Derm: Warm and dry - Neuro Neuro: No motor deficit, No sensory deficit - Psych Psych: Normal mood, Normal affect Results - Vitals Vitals: Vital Signs - 24 hr 06/01/18 06/01/18 06/01/18 17:37 19:07 21:10 Temperature 36.6 C 37.1 C 35.9 C L Heart Rate 80 74 72 Respiratory 18 16 18 Rate Blood Pressure 137/77 H 142/67 H 146/74 H O2 Saturation 95 94 94 Oxygen O2 Source Room air - Labs Labs: Laboratory Tests 06/01/18 06/01/18 06/01/18 18:12 18:12 18:50 WBC 9.7 RBC 3.90 L Hgb 11.5 L Hct 33.4 L MCV 85.6 MCH 29.4 MCHC 34.3 RDW 14.0 Plt Count 285 MPV 6.4 L Neut # (Auto) 7.4 H Lymph # (Auto) 1.5 [place] # (Auto) 0.6 Eos # (Auto) 0.2 Baso # (Auto) 0.0 Absolute Nucleated RBC 0.00 Nucleated RBC % 0.0 Sodium 133 L Potassium 4.3 Chloride 96 L Carbon Dioxide 26 Anion Gap 11.0 BUN 24 H Creatinine 1.1 H Estimated GFR (MDRD) 49 L Glucose 151 H Calcium 9.9 Total Bilirubin 0.9 AST 19 ALT 12 Alkaline Phosphatase 58 Total Protein 7.9 Albumin 4.1 Globulin 3.8 Albumin/Globulin Ratio 1.1 Lipase 57 H Urine Color YELLOW Urine Clarity CLOUDY Urine pH 5.5 Ur Specific [place] 1.010 Urine Protein NEGATIVE Urine Glucose (UA) NEGATIVE Urine Ketones NEGATIVE Urine Occult Blood TRACE-INTA Urine Nitrite NEGATIVE Urine Bilirubin NEGATIVE Urine Urobilinogen 0.2 (NORMAL) Ur Leukocyte Esterase LARGE H Urine RBC 11-25 H Urine WBC >25 H Urine WBC Clumps PRESENT Ur Squamous Epith Cells FEW Squamous Amorphous Sediment Few Urine Bacteria Many H Urine Yeast PRESENT Ur Microscopic Review INDICATED Urine Culture Comments INDICATED 06/01/18 19:39 WBC RBC Hgb Hct MCV MCH MCHC RDW Plt Count MPV Neut # (Auto) Lymph # (Auto) [place] # (Auto) Eos # (Auto) Baso # (Auto) Absolute Nucleated RBC Nucleated RBC % Sodium Potassium Chloride Carbon Dioxide Anion Gap BUN Creatinine Estimated GFR (MDRD) Glucose Calcium Total Bilirubin AST ALT Alkaline Phosphatase Total Protein Albumin Globulin Albumin/Globulin Ratio Lipase Urine Color YELLOW Urine Clarity HAZY Urine pH 6.0 Ur Specific [place] <=1.005 Urine Protein NEGATIVE Urine Glucose (UA) NEGATIVE Urine Ketones NEGATIVE Urine Occult Blood TRACE-INTA Urine Nitrite NEGATIVE Urine Bilirubin NEGATIVE Urine Urobilinogen 0.2 (NORMAL) Ur Leukocyte Esterase SMALL H Urine RBC 11-25 H Urine WBC >25 H Urine WBC Clumps PRESENT Ur Squamous Epith Cells FEW Squamous Amorphous Sediment Urine Bacteria Many H Urine Yeast Ur Microscopic Review INDICATED Urine Culture Comments INDICATED PD MEDICAL DECISION MAKING - ED course Complexity details: reviewed results, re-evaluated patient, considered differential, d/w patient, d/w family ED course: Patient is a 68-year-old female who had a kinked catheter earlier today that caused slight urinary retention and abdominal pain. When the staff unkinked the catheter and the urine drained her symptoms resolved. Her catheter has not been changed for over 3 weeks and she is been placed on for antibiotics for UTIs despite not having symptoms. Likely that the catheter is colonized. Therefore the catheter was removed and a second urine culture was obtained after the new catheter was placed. As she is not having any leukocytosis, fever or symptoms of a UTI, will not treat at this time. We will have her follow-up with her PCP as needed for further care. Family counseled regarding signs and symptoms for which I believe and urgent re-evaluation would be necessary. Daughter with good understanding of and agreement to plan and is comfortable going home at this time This document was made in part using voice recognition software. While efforts are made to proofread this document, sound alike and grammatical errors may occur. - Sepsis Event Vital Signs: Vital Signs - 24 hr 06/01/18 06/01/18 06/01/18 17:37 19:07 21:10 Temperature 36.6 C 37.1 C 35.9 C L Heart Rate 80 74 72 Respiratory 18 16 18 Rate Blood Pressure 137/77 H 142/67 H 146/74 H O2 Saturation 95 94 94 Oxygen O2 Source Room air Departure - Departure Disposition: 01 Home, Self Care Clinical Impression: Carbajal catheter in place, Encounter for Carbajal catheter replacement Condition: Good Instructions: ED Catheter Care Carbajal Follow-Up: Randa Enciso MD [Primary Care Provider] - As Needed Comments: Return if you worsen. Your catheter was replaced today. Discharge Date/Time: 06/01/18 21:18
[2018-06-01 19:07] LABS: BILIRUBIN,URINE NEGATIVE (NEGATIVE); GLUCOSE, URINE (UA) NEGATIVE (NEGATIVE); KETONES,URINE (UA) NEGATIVE (NEGATIVE); LEUKOCYTE ESTERASE, URINE LARGE (NEGATIVE); NITRITE,URINE NEGATIVE (NEGATIVE); OCCULT BLOOD,URINE TRACE-INTA (NEGATIVE); PH,URINE 5.5 PH (5.0-7.5); PROTEIN,URINE NEGATIVE (NEGATIVE); UROBILINOGEN,URINE 0.2 (NORMAL) E.U./dL (NORMAL)
[2018-06-01 19:10] LABS: CLARITY,URINE CLOUDY (CLEAR)
[2018-06-01 19:17] LABS: BACTERIA,URINE Many /HPF (None Seen); SQUAMOUS EPITHELIAL CELL,UR FEW Squamous (<= Few); WBC CLUMPS,URINE PRESENT
[2018-06-01 19:18] LABS: AMORPHOUS SEDIMENT,UR Few /LPF; YEAST,URINE PRESENT
[2018-06-01 19:42] LABS: BILIRUBIN,URINE NEGATIVE (NEGATIVE); GLUCOSE, URINE (UA) NEGATIVE (NEGATIVE); KETONES,URINE (UA) NEGATIVE (NEGATIVE); LEUKOCYTE ESTERASE, URINE SMALL (NEGATIVE); NITRITE,URINE NEGATIVE (NEGATIVE); OCCULT BLOOD,URINE TRACE-INTA (NEGATIVE); PROTEIN,URINE NEGATIVE (NEGATIVE); UROBILINOGEN,URINE 0.2 (NORMAL) E.U./dL (NORMAL)
[2018-06-01 19:46] LABS: CLARITY,URINE HAZY (CLEAR)
[2018-06-01 19:50] LABS: BACTERIA,URINE Many /HPF (None Seen); SQUAMOUS EPITHELIAL CELL,UR FEW Squamous (<= Few); WBC CLUMPS,URINE PRESENT
[2018-06-01 21:11] VITALS: BP 146/74
== END 2018-06-01 21:18 | disposition home or self-care (01) ==
LOC: ED 17:25
DX: Z46.6 Encounter for fitting and adjustment of urinary device (principal); I10 Essential (primary) hypertension; E11.9 Type 2 diabetes mellitus without complications; Z79.84 Long term (current) use of oral hypoglycemic drugs
CPT/HCPCS: 36415; 51702; 80053; 81001; 81003; 83690; 85025; 87086; 99283

== ENCOUNTER 2018-09-29 08:47 | Outpatient (CLI) | payer MEDICARE, OTHER ==
[2018-09-29 10:51] LABS: CLARITY,URINE HAZY (CLEAR)
[2018-09-29 10:52] LABS: LEUKOCYTE ESTERASE, URINE SMALL (NEGATIVE); NITRITE,URINE POSITIVE (NEGATIVE)
[2018-09-29 10:55] LABS: BILIRUBIN,URINE NEGATIVE (NEGATIVE); GLUCOSE, URINE (UA) NEGATIVE (NEGATIVE); KETONES,URINE (UA) NEGATIVE (NEGATIVE); OCCULT BLOOD,URINE TRACE-LYSED (NEGATIVE); PROTEIN,URINE TRACE mg/dL (NEGATIVE); UROBILINOGEN,URINE 0.2 (NORMAL) E.U./dL (NORMAL)
[2018-09-29 10:56] LABS: BACTERIA,URINE Many /HPF (None Seen); RBC,URINE 0-5 /HPF (0-5); SQUAMOUS EPITHELIAL CELL,UR FEW Squamous (<= Few)
== END 2018-09-29 23:59 | disposition home or self-care (01) ==
LOC: LAB.R 08:47
PROVIDERS: ATTEND Family Medicine
DX: N39.0 Urinary tract infection, site not specified (principal)
CPT/HCPCS: 81001; 87086; 87181

== ENCOUNTER 2018-12-09 08:00 | Outpatient (CLI) | payer MEDICARE, OTHER ==
[2018-12-09 12:26] LABS: BASOPHILS # (AUTO) 0.1 10^3/uL (0.0-0.1); BASOPHILS % (AUTO) 0.8 %; EOSINOPHILS # (AUTO) 0.3 10^3/uL (0.0-0.7); EOSINOPHILS % (AUTO) 3.6 %; HGB - HEMOGLOBIN 12.1 g/dL (12.0-16.0); LYMPHOCYTES # (AUTO) 1.6 10^3/uL (1.5-3.5); LYMPHOCYTES % (AUTO) 21.4 %; MEAN CORPUSCULAR HGB CONC 35.2 g/dL (32.0-36.0); MEAN CORPUSCULAR VOLUME 85.1 fL (81.0-99.0); MEAN PLATELET VOLUME 7.3 fL (7.9-10.8); MONOCYTES # (AUTO) 0.5 10^3/uL (0.0-1.0); NEUTROPHILS # (AUTO) 5.1 10^3/uL (1.5-6.6); NEUTROPHILS % (AUTO) 68.2 %; PLT - PLATELET COUNT 270 10^3/uL (130-450); RED BLOOD COUNT 4.03 10^6/uL (4.20-5.40); RED CELL DISTRIBUTION WIDTH 13.8 % (12.0-15.0); WHITE BLOOD COUNT 7.5 x10^3/uL (4.8-10.8)
[2018-12-09 12:35] LABS: ALBUMIN 4.1 g/dL (3.2-5.5); ALBUMIN/GLOBULIN RATIO 1.2 (1.0-2.2); ALKALINE PHOSPHATASE 68 IU/L (42-121); ALT ALANINE AMINOTRANSFERASE 15 IU/L (10-60); AST ASPARTATE AMINOTRANSFERASE 20 IU/L (10-42); BILIRUBIN,TOTAL 0.7 mg/dL (0.2-1.0); BUN - BLOOD UREA NITROGEN 19 mg/dL (6-20); CALCIUM 9.7 mg/dL (8.5-10.3); CARBON DIOXIDE - CO2 26 mmol/L (21-32); CHLORIDE 94 mmol/L (101-111); CHOL/HDL RATIO 3.2 (<4.4); CHOLESTEROL 198 mg/dL; CREATININE 0.9 mg/dL (0.4-1.0); GFR - MDRD 62 (>89); GLUCOSE 255 mg/dL (70-100); HDL CHOLESTEROL 62 mg/dL; LDL CHOLESTEROL,CALCULATED 110 mg/dL; LDL/HDL RATIO 1.8 (<4.4); SODIUM 132 mmol/L (135-145); TOTAL PROTEIN 7.4 g/dL (6.7-8.2); VLDL CHOLESTEROL 26 mg/dL
[2018-12-09 12:45] LABS: HB2 TOTAL 13.2 g/dL; HEMOGLOBIN A1C 0.94 g/dL; HEMOGLOBIN A1C % 8.7 % (4.6-6.2)
== END 2018-12-09 23:59 | disposition home or self-care (01) ==
LOC: LAB.WCP 08:00
PROVIDERS: ATTEND Family Medicine
DX: I10 Essential (primary) hypertension (principal); E11.9 Type 2 diabetes mellitus without complications; N39.0 Urinary tract infection, site not specified; E78.5 Hyperlipidemia, unspecified; F03.90 Unspecified dementia, unspecified severity, without behavioral disturbance, psychotic disturbance, mood disturbance, and anxiety; D64.9 Anemia, unspecified
CPT/HCPCS: 36415; 80053; 80061; 83036; 83721; 84443; 85025; 87086

== ENCOUNTER 2018-12-20 08:00 | Outpatient (CLI) | payer MEDICARE, OTHER | END 2018-12-20 23:59 | disposition home or self-care (01) | LOC: LAB.R 08:00 | PROVIDERS: ATTEND Nurse Practitioner | DX: R05 Cough (principal) | CPT/HCPCS: 87275; 87276 ==

== ENCOUNTER 2018-12-21 07:28 | Outpatient (CLI) | payer MEDICARE, OTHER | END 2018-12-21 07:29 | disposition critical access hospital (66) | LOC: EMS 07:28 | PROVIDERS: ATTEND Surgery | DX: M25.551 Pain in right hip (principal); W18.2XXA Fall in (into) shower or empty bathtub, initial encounter; Y93.E1 Activity, personal bathing and showering; Y92.091 Bathroom in other non-institutional residence as the place of occurrence of the external cause | CPT/HCPCS: A0425; A0429 ==

== ENCOUNTER 2018-12-21 07:45 | Inpatient (IN) | payer MEDICARE, OTHER ==
--- NOTE | 2018-12-21 07:56 | ED Physician Documentation ---
History of Present Illness - Stated complaint Stated Complaint: HIP PX - Chief complaint Chief Complaint: Ext Problem - History obtained from History obtained from: Patient - History of Present Illness Timing: Today Pain level max: 9 Pain level now: 4 - Additonal information Additional information: 68-year-old female presents to the emergency department with right hip pain after a slip and fall in the shower this morning. She lives at [facility]. Has a chronic indwelling catheter. Unable to get up unassisted. EMS brought in for evaluation. An IV was started in the field. Better with rest and worse with movement Review of Systems Ten Systems: 10 systems reviewed and negative Constitutional: denies: Fever, Chills Cardiac: denies: Chest pain / pressure Respiratory: denies: Cough GI: denies: Vomiting, Diarrhea Skin: denies: Rash Musculoskeletal: denies: Neck pain, Back pain Neurologic: denies: Headache, Head injury, LOC PD PAST MEDICAL HISTORY - Past Medical History Cardiovascular: Hypertension Respiratory: None Endocrine/Autoimmune: Type 2 diabetes GI: None : None HEENT: None Psych: None Musculoskeletal: None Derm: None - Past Surgical History Past Surgical History: Yes 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 - Present Medications Home Medications: Ambulatory Orders Medication Instructions Recorded Confirmed Atorvastatin [Lipitor] 20 mg PO QPM 07/23/16 12/21/18 metFORMIN [Glucophage] 500 mg PO QID 07/23/16 12/21/18 Lisinopril/Hydrochlorothiazide 1 tab PO BID 10/20/16 12/21/18 [Lisinopril-Hctz 20-12.5 mg Tab] Aspirin [Aspir-Low] 81 mg PO DAILY 11/19/16 12/21/18 Ferrous Sulfate 325 mg PO DAILY 11/20/16 12/21/18 Multivitamin [Multiple Vitamins] 1 tab PO DAILY 06/01/18 12/21/18 Omeprazole 20 mg PO DAILY 06/01/18 12/21/18 amLODIPine [Norvasc] 2.5 mg PO BID 06/01/18 12/21/18 Benzonatate 100 mg PO Q8H PRN 12/21/18 12/21/18 Fluoxetine HCl 30 mg PO DAILY 12/21/18 12/21/18 Ibuprofen 200 mg PO Q8H PRN 12/21/18 12/21/18 Potassium Gluconate 99 mg PO DAILY 12/21/18 12/21/18 - Allergies Allergies/Adverse Reactions: Allergies Allergy/AdvReac Type Severity Reaction Status Date / Time No Known Drug Allergies Allergy Verified 12/21/18 07:52 - Social History Does the pt smoke?: No Smoking Status: Never smoker Does the pt drink ETOH?: Yes Does the pt have substance abuse?: No - Immunizations Immunizations are current?: Yes - POLST Patient has POLST: No PD ED PE NORMAL - Vitals Vital signs reviewed: Yes - General General: Alert and oriented X 3, No acute distress, Well developed/nourished - HEENT HEENT: PERRL, Moist mucous membranes - Neck Neck: Supple, no meningeal sign - Cardiac Cardiac: RRR, Strong equal pulses - Respiratory Respiratory: No respiratory distress, Clear bilaterally - Abdomen Abdomen: Soft, Non tender, Non distended - Back Back: No spinal TTP - Derm Derm: Warm and dry - Extremities Extremities: Other (Right hip is tender to palpation over the greater trochanter. Pain with range of motion. The leg is shortened and externally rotated. Neurovascularly intact) - Neuro Neuro: Alert and oriented X 3 - Psych Psych: Normal mood, Normal affect Results - Vitals Vitals: Vital Signs - 24 hr 12/21/18 12/21/18 12/21/18 07:50 07:52 08:53 Temperature 36.0 C L Heart Rate 93 91 Respiratory 18 18 Rate Blood Pressure 145/75 H 144/71 H O2 Saturation 94 86 L 95 Oxygen O2 Source Nasal cannula - Labs Labs: Laboratory Tests 12/21/18 12/21/18 12/21/18 08:10 08:11 08:11 WBC 4.8 RBC 3.82 L Hgb 11.3 L Hct 32.1 L MCV 84.2 MCH 29.6 MCHC 35.1 RDW 13.8 Plt Count 152 MPV 7.1 L Neut # (Auto) 4.1 Lymph # (Auto) 0.3 L [place] # (Auto) 0.3 Eos # (Auto) 0.0 Baso # (Auto) 0.0 Absolute Nucleated RBC 0.00 Nucleated RBC % 0.0 Sodium 125 L Potassium 3.2 L Chloride 91 L Carbon Dioxide 22 Anion Gap 12.0 BUN 24 H Creatinine 1.0 Estimated GFR (MDRD) 55 L Glucose 331 H Glycated Hemoglobin 8.8 H Estim Average Glucose 206 H Calcium 8.6 Total Bilirubin 0.9 AST 32 ALT 19 Alkaline Phosphatase 57 Total Protein 7.1 Albumin 3.6 Globulin 3.5 Albumin/Globulin Ratio 1.0 Lipase 35 - Rads (name of study) Right hip x-ray Radiology: Prelim report reviewed, EMP read contemporaneously, See rad report (Comminuted angulated intertrochanteric fracture with displacement of the lesser trochanter) Chest x-ray Radiology: Prelim report reviewed, EMP read contemporaneously, See rad report (Diffuse increase interstitial markings stable, edema versus infectious versus interstitial lung disease ) PD MEDICAL DECISION MAKING - ED course Complexity details: reviewed results, re-evaluated patient, considered differential, d/w patient, d/w senior recruitment consultant ED course: 814 - D/w Dr. Bess and will plan for OR this afternoon. 812 - D/w Dr. Gamboa, hospitalist who accepts. 68-year-old female with a right intertrochanteric fracture. Pain controlled. Interiano catheter was changed. Will admit This document was made in part using voice recognition software. While efforts are made to proofread this document, sound alike and grammatical errors may occur. Departure - Departure Disposition: [facility] DC/Xfer Clinical Impression: Intertrochanteric fracture of right hip Qualifiers: Encounter type: initial encounter Fracture type: closed Fracture alignment: displaced Qualified Code(s): S72.141A - Displaced intertrochanteric fracture of right femur, initial encounter for closed fracture Condition: Stable Discharge Date/Time: 12/21/18 10:28
[2018-12-21 08:15] LABS: BASOPHILS % (AUTO) 0.4 %; EOSINOPHILS % (AUTO) 0.1 %; HGB - HEMOGLOBIN 11.3 g/dL (12.0-16.0); LYMPHOCYTES # (AUTO) 0.3 10^3/uL (1.5-3.5); LYMPHOCYTES % (AUTO) 6.7 %; MEAN CORPUSCULAR HEMOGLOBIN 29.6 pg (27.0-31.0); MEAN CORPUSCULAR HGB CONC 35.1 g/dL (32.0-36.0); MEAN CORPUSCULAR VOLUME 84.2 fL (81.0-99.0); MEAN PLATELET VOLUME 7.1 fL (7.9-10.8); MONOCYTES # (AUTO) 0.3 10^3/uL (0.0-1.0); MONOCYTES % (AUTO) 6.6 %; NEUTROPHILS # (AUTO) 4.1 10^3/uL (1.5-6.6); NEUTROPHILS % (AUTO) 86.2 %; PLT - PLATELET COUNT 152 10^3/uL (130-450); RED BLOOD COUNT 3.82 10^6/uL (4.20-5.40); RED CELL DISTRIBUTION WIDTH 13.8 % (12.0-15.0); WHITE BLOOD COUNT 4.8 x10^3/uL (4.8-10.8)
[2018-12-21 08:27] LABS: ALBUMIN 3.6 g/dL (3.2-5.5); BILIRUBIN,TOTAL 0.9 mg/dL (0.2-1.0); CALCIUM 8.6 mg/dL (8.5-10.3); TOTAL PROTEIN 7.1 g/dL (6.7-8.2)
[2018-12-21] MEDS ORDERED: MORPHINE 2 MG/ML CARPUJECT IVP STA ×2 (08:53→09:56)
[2018-12-21] MEDS ORDERED: SODIUM CHLORIDE 0.9% 1,000 ML IV ONE ×3 (08:53→18:40)
--- NOTE | 2018-12-21 08:57 | XRAY Report ---
Reason: pre-op Procedure Date: 12/21/2018 Accession Number: [id number] / [id number] Procedure: XR - Chest 1 View X-Ray CPT Code: 39701 FULL RESULT: EXAM: CHEST RADIOGRAPHY EXAM DATE: 12/21/2018 08:19 AM. CLINICAL HISTORY: Pre-op. COMPARISON: CHEST 2 VIEW PA/LAT 12/09/2017 12:18 PM. TECHNIQUE: 1 view. FINDINGS: Lungs/Pleura: Diffuse increased interstitial infiltrates. Bibasilar atelectasis. No effusion. No pneumothorax. Mediastinum: Heart size normal. Calcified aorta. Other: None. IMPRESSION: Diffuse increase interstitial markings stable, edema versus infectious versus interstitial lung disease RADIA
[2018-12-21] MEDS ORDERED: ONDANSETRON 4 MG/2 ML VIAL IVP PRN (09:01)
--- NOTE | 2018-12-21 09:17 | HISTORY & PHYSICAL EXAMINATION ---
Chief Complaint - Chief Complaint Chief Complaint: fall and right hip pain History of Present Illness - History of Present Illness HPI Comment/Other: Ms. Boyd is 68-yrs-old female with a PMH significant for Dementia, multiple times of UTI with chronic indwelling catheter, HTN, DM2, CKD, chronic anemia, who presents to the emergency department complain of right hip pain after a slip and fall in the shower this morning. Pt is living at [facility]. Pt could not provide any medical history because of her medical condition. Pt's daughter is at pt's bedside but she also could not provide further information of pt's fall. Per ER report, Pt fall in the shower at this morning, and pt was unable to get up without assistance. EMS was called and she was brought in ER for evaluation. Pt's daughter report pt visited her PCP, she was found to have Influenza A positive. Daughter report pt had a fever at 100.5 degree with cough, nasal congestion, nausea and vomiting, and diarrhea. Xray of hip reveals comminuted angulated intertrochanteric fracture with displacement of the lesser trochanter. CXR reveals diffuse increase interstitial markings stable, edema versus infectious versus interstitial lung disease. Lab reveals Na 125, K 3.2, creatinine 1, glucose 331. UA reveals positive Ketone, possible UTI. Pt is afebrile at ER, 96% sat on 2 liter of O2. Orthopedic Dr. Bess was called by ER. 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: reports: Hysterectomy - Family & Social History Family History Comment/Other: pt could not provide any FHX information because of her dementia condition - POLST Patient has POLST: No POLST Status: DNR Meds/Allgy - Home Medications Home Medications: Ambulatory Orders Medication Instructions Recorded Confirmed Atorvastatin [Lipitor] 20 mg PO QPM 07/23/16 12/21/18 metFORMIN [Glucophage] 500 mg PO QID 07/23/16 12/21/18 Lisinopril/Hydrochlorothiazide 1 tab PO BID 10/20/16 12/21/18 [Lisinopril-Hctz 20-12.5 mg Tab] Aspirin [Aspir-Low] 81 mg PO DAILY 11/19/16 12/21/18 Ferrous Sulfate 325 mg PO DAILY 11/20/16 12/21/18 Multivitamin [Multiple Vitamins] 1 tab PO DAILY 06/01/18 12/21/18 Omeprazole 20 mg PO DAILY 06/01/18 12/21/18 amLODIPine [Norvasc] 2.5 mg PO BID 06/01/18 12/21/18 Benzonatate 100 mg PO Q8H PRN 12/21/18 12/21/18 Fluoxetine HCl 30 mg PO DAILY 12/21/18 12/21/18 Ibuprofen 200 mg PO Q8H PRN 12/21/18 12/21/18 Potassium Gluconate 99 mg PO DAILY 12/21/18 12/21/18 - Allergies Allergies/Adverse Reactions: Allergies Allergy/AdvReac Type Severity Reaction Status Date / Time No Known Drug Allergies Allergy Verified 12/21/18 07:52 Review of Systems - Constitutional Constitutional: reports: Fatigue, Fever, Chills. denies: Malaise, Weakness, Poor appetite, Diaphoresis, Night sweats - Eyes Eyes: denies: Pain, Irritation, Field loss, Vision loss, Dipolpia - Ears, Nose & Throat Ears, Nose & Throat: reports: Nasal congestion. denies: Ear pain, Hearing loss, Hearing aids, Vertigo, Nasal pain, Nasal discharge, Nosebleeds, Nasal obstruction, Dentures, Sore throat, Mouth lesions - Cardiovascular Cariovascular: denies: Irregular heart rate, Palpitations, Chest pain, Edema, Lightheadedness, Syncope, Exertional dyspnea, Decr. exercise tolerance - Respiratory Respiratory: reports: Cough. denies: Sputum production, Wheezing, Snoring, Hemoptysis, Orthopnea, SOB at rest, SOB with exertion - Gastrointestinal Gastrointestinal: reports: Diarrhea, Nausea, Vomiting. denies: Abdominal pain, Abdominal distention, Constipation, Change in bowel habits, Rectal bleeding, Black stools, Bloody stools, Bile emesis, Anam blood emesis, Coffee grounds emesis, Reflux/heartburn - Genitourinary Genitourinary: denies: Dysuria, Urgency, Hematuria, Incontinence, Flank pain - Musculoskeletal Musculoskeletal: denies: Muscle pain, Back pain, Muscle weakness - Integumentary Integumentary: denies: Pruritis, Lesions, Dryness, Acne, Pigment changes - Neurological Neurological: reports: Memory problems. denies: Focal weakness, Headache, Dizziness, Pre-existing deficit, Seizures, Incoordination, Slurred speech - Psychiatric Psychiatric: denies: Depression, Anxiety, Suicidal, Delusions, Hallucinations, Homicidal - Endocrine Endocrine: denies: Polyuria, Polydypsia, Polyphagia, Intolerance to cold - Hematologic/Lymphatic Hematologic/Lymphatic: denies: Anemia, Petechiae, Blood clots, Lymphadenopathy, Bleeding tendencies - Other Findings Other Findings: pt's daughter help provide some medical information for pt Exam - Vital Signs Reviewed Vital Signs: Yes Vital Signs: Vital Signs x48h Temp Pulse Resp BP Pulse Ox 12/21/18 08:53 95 12/21/18 07:52 91 18 144/71 H 86 L 12/21/18 07:50 36.0 C L 93 18 145/75 H 94 - Physical Exam General Appearance: positive: No acute distress, Alert. negative: Lethargic Eyes Bilateral: positive: Normal inspection, PERRL. negative: No lid inflammation, Conjunctivae nml ENT: positive: ENT inspection nml, Pharynx nml, Dry mucous membranes. negative: Purulent nasal drainage, Pharyngeal erythema, Oral lesions Neck: positive: Nml inspection, Thyroid nml, No JVD, Trachea midline. negative: Thyromegaly, Lymphadenopathy (R), Lymphadenopathy (L), Stiff neck, Swelling/bruising, Tracheal deviation Respiratory: positive: Chest non-tender, No respiratory distress, Breath sounds nml. negative: Wheezes, Rales, Rhonchi Cardiovascular: positive: Regular rate & rhythm, No murmur, No gallop. negative: Irregularly irregular, Extrasystoles, Tachycardia, Bradycardia, JVD present, Systolic murmur, Diastolic murmur Peripheral Pulses: positive: 2+ Abdomen: positive: Non-tender, No organomegaly, Nml bowel sounds, No distention. negative: Tenderness, Guarding, Rebound Back: positive: Nml inspection. negative: CVA tenderness (R), CVA tenderness (L) Skin: positive: Color nml, No rash, Warm, Dry. negative: Cyanosis, Diaphoresis, Pallor Extremities: positive: Non-tender. negative: Calf tenderness, Zulema's sign/cords Neurologic/Psychiatric: positive: Mood/affect nml. negative: Weakness, Sensory loss, Facial droop, Slurred/abnml speech, Depressed mood/affect Sepsis Event Note (H) - Evaluation Current Stage of Sepsis: Ruled out Conclusion/Plan - Problem List (1) Intertrochanteric fracture of right hip Conclusion/Plan: pt had a fall, Xray reveals intertrochanteric fracture of right hip. pain control orthopedics consult NPO and IVF of NS now DVT prophylaxis per orthopedics Pt's ECHO is unremarkable, EKG is pending. pt's daughter report pt except HTN, did not have hx of cardiac problem. pt has 6% revised cardiac risk index for pre-operative risk. Qualifiers: Encounter type: initial encounter Fracture type: closed Fracture alignment: displaced Qualified Code(s): S72.141A - Displaced intertrochanteric fracture of right femur, initial encounter for closed fracture (2) Pneumonia Conclusion/Plan: pt had positive Influenza A positive, reported fever at home, with nasal congestion, cough, N/V/D, but also CXR reveals edema versus infectious versus interstitial lung disease. treat with Tamiflu for 10 dosage treat with Azith and Rocephin Albuterol as PRN supple O2 as needed Qualifiers: Pneumonia type: due to unspecified organism (3) Diabetes Conclusion/Plan: pt has hyperglycemia at 330, with hx of DM2, and has ketone at urine test serium Ketone IVF of NS Pt is NPO now, will start slide scale, with ACHS after procedure. check A1C, hold Metformin now. (4) Electrolyte abnormality Conclusion/Plan: pt has chronic hyponatremia. Today Na 125, can be caused by uncontrolled hyperglycemia. Pt's potassium is 3.2 today IVF of NS, replacement with potassium lab monitor (5) Dehydration Conclusion/Plan: pt present dry mouth, and she ask water. BUN is slight increased start IVF of NS continue monitor (6) HTN (hypertension) Conclusion/Plan: pt has hx of HTN, now she is stable, resume home BP meds (7) Do not intubate, cardiopulmonary resuscitation (CPR)-only code status Conclusion/Plan: pt has POLST, state pt is DNR. pt's daughter confirm pt is DNR - Lab Results Fish Bones: 12/21/18 08:11 12/21/18 08:11 Core Measures - Anticipated LOS I expect patient to be DC'd or transferred within 96 hours.: Yes - DVT/VTE - Prophylaxis VTE/DVT Device ordered at admit?: Yes VTE/DVT Prophylaxis med ordered at admit?: Yes
[2018-12-21 09:36] LABS: HB2 TOTAL 12.1 g/dL; HEMOGLOBIN A1C 0.88 g/dL; HEMOGLOBIN A1C % 8.8 % (4.6-6.2)
[2018-12-21] MEDS ORDERED: cefTRIAXone 2 GM VIAL IVP SCH (10:00)
--- NOTE | 2018-12-21 10:20 | XRAY Report ---
Reason: fall, R hip pain Procedure Date: 12/21/2018 Accession Number: [id number] / [id number] Procedure: XR - Hip w/Pelvis 2-3V RT CPT Code: FULL RESULT: EXAM: RIGHT HIP RADIOGRAPHY EXAM DATE: 12/21/2018 08:19 AM. CLINICAL HISTORY: Fall, R hip pain. COMPARISON: None. TECHNIQUE: 2 views. FINDINGS: Bones: Comminuted angulated intertrochanteric fracture with lesser trochanter displaced 2.9 cm. The femoral head is within the joint. There is joint space narrowing. Osteopenia Soft Tissues: Soft tissue swelling. IMPRESSION: Comminuted angulated intertrochanteric fracture with displacement of the lesser trochanter. RADIA
[2018-12-21 10:54] LABS: BILIRUBIN,URINE NEGATIVE (NEGATIVE); GLUCOSE, URINE (UA) 500 mg/dL (NEGATIVE); KETONES,URINE (UA) 15 mg/dL (NEGATIVE); LEUKOCYTE ESTERASE, URINE NEGATIVE (NEGATIVE); NITRITE,URINE POSITIVE (NEGATIVE); OCCULT BLOOD,URINE NEGATIVE (NEGATIVE); PROTEIN,URINE NEGATIVE (NEGATIVE); UROBILINOGEN,URINE 0.2 (NORMAL) E.U./dL (NORMAL)
[2018-12-21 11:03] LABS: BACTERIA,URINE Few /HPF (None Seen); CLARITY,URINE HAZY (CLEAR); RBC,URINE 0-5 /HPF (0-5); SQUAMOUS EPITHELIAL CELL,UR FEW Squamous (<= Few)
[2018-12-21 11:04] LABS: CASTS, URINE 3-5 Hyaline Casts /LPF
--- NOTE | 2018-12-21 11:24 | ANESTHESIA ---
Pre-Anesthesia VS, & Labs - Diagnosis right hip fracture - Procedure ORIF right hip Vital Signs: Temp Pulse Resp BP Pulse Ox 36.5 C 79 18 139/61 H 96 12/21/18 10:25 12/21/18 10:25 12/21/18 10:25 12/21/18 10:25 12/21/18 10:25 Height 5 ft 3 in Weight (kg) 89 kg Body Mass Index 34.7 - NPO >8 hours - Is Patient ?: No - Lab Results Current Lab Results: Laboratory Tests 12/21/18 09:25: B-Natriuretic Peptide 16 12/21/18 08:11: Sodium 125 L, Potassium 3.2 L, Chloride 91 L, Carbon Dioxide 22, Anion Gap 12.0, BUN 24 H, Creatinine 1.0, Estimated GFR (MDRD) 55 L, Glucose 331 H, Calcium 8.6, Total Bilirubin 0.9, AST 32, ALT 19, Alkaline Phosphatase 57, Total Protein 7.1, Albumin 3.6, Globulin 3.5, Albumin/Globulin Ratio 1.0, Lipase 35 12/21/18 08:11: WBC 4.8, RBC 3.82 L, Hgb 11.3 L, Hct 32.1 L, MCV 84.2, MCH 29.6, MCHC 35.1, RDW 13.8, Plt Count 152, MPV 7.1 L, Neut # (Auto) 4.1, Lymph # (Auto) 0.3 L, Sutton # (Auto) 0.3, Eos # (Auto) 0.0, Baso # (Auto) 0.0, Absolute Nucleated RBC 0.00, Nucleated RBC % 0.0 12/21/18 08:10: Glycated Hemoglobin 8.8 H, Estim Average Glucose 206 H Fish Bones: 12/21/18 08:11 12/21/18 08:11 Home Medications and Allergies Home Medications: Ambulatory Orders Benzonatate 100 mg PO Q8H PRN 12/21/18 Fluoxetine HCl 30 mg PO DAILY 12/21/18 Ibuprofen 200 mg PO Q8H PRN 12/21/18 Potassium Gluconate 99 mg PO DAILY 12/21/18 Active Medications Acetaminophen (Tylenol) 650 mg PO Q4HR PRN PRN Reason: Pain 1 to 4 Ceftriaxone Sodium (Rocephin) 2 gm IVP DAILY [facility] Enoxaparin Sodium (Lovenox) 40 mg SUBQ DAILY [facility] Famotidine (Pepcid) 20 mg PO DAILY [facility] Sodium Chloride (Normal Saline 0.9%) 1,000 mls @ 100 mls/hr IV .Q10H [facility] Stop: 12/22/18 05:59 Azithromycin 500 mg/ Sodium (Chloride) 250 mls @ 250 mls/hr IV DAILY [facility] Insulin Aspart (Novolog) 2 - 10 unit SUBQ 0800,1200,1700,2100 [facility]; Protocol Morphine Sulfate (Morphine (Carpuject)) 2 mg IVP Q2HR PRN PRN Reason: Pain 8 to 10 Ondansetron HCl (Zofran Inj) 4 mg IVP Q6HR PRN PRN Reason: Nausea / Vomiting Oseltamivir Phosphate (Tamiflu) 30 mg PO BID [facility] Stop: 12/26/18 09:01 Oxycodone HCl (Roxicodone) 5 mg PO Q4HR PRN PRN Reason: Pain 8 to 10 Polyethylene Glycol (Miralax) 17 gm PO DAILY [facility] Sodium Chloride (Normal Saline Flush 0.9%) 10 ml IVP PRN PRN PRN Reason: NEEDED PER PROVIDER ORDERS Sodium Chloride (Normal Saline Flush 0.9%) 10 ml IVP 0100,0900,1700 [facility] Atorvastatin [Lipitor] 20 mg PO QPM 07/23/16 metFORMIN [Glucophage] 500 mg PO QID 07/23/16 Lisinopril/Hydrochlorothiazide [Lisinopril-Hctz 20-12.5 mg Tab] 1 tab PO BID 10/20/16 Aspirin [Aspir-Low] 81 mg PO DAILY 11/19/16 Ferrous Sulfate 325 mg PO DAILY 11/20/16 Multivitamin [Multiple Vitamins] 1 tab PO DAILY 06/01/18 Omeprazole 20 mg PO DAILY 06/01/18 amLODIPine [Norvasc] 2.5 mg PO BID 06/01/18 Benzonatate 100 mg PO Q8H PRN 12/21/18 Fluoxetine HCl 30 mg PO DAILY 12/21/18 Ibuprofen 200 mg PO Q8H PRN 12/21/18 Potassium Gluconate 99 mg PO DAILY 12/21/18 Allergies/Adverse Reactions: Allergies Allergy/AdvReac Type Severity Reaction Status Date / Time No Known Drug Allergies Allergy Verified 12/21/18 07:52 Anes History & Medical History - Anesthetic History Anesthesia Complications: reports: No previous complications - Medical History Cardiovascular: reports: Hypertension Pulmonary: reports: None Gastrointestinal: reports: GERD Urinary: reports: Chronic bladder infection, Indwelling catheter Neuro: reports: Dementia Musculoskeletal: reports: None Endocrine/Autoimmune: reports: Type 2 diabetes Blood Disorders: reports: Anemia Skin: reports: None Smoking Status: Former smoker - Surgical History General: Appendectomy Urologic: Bladder surgery Gynecologic: Hysterectomy Exam General: Alert, Mild distress Dental: WNL Mouth Opening: Greater than 4 Fingerbreadths Neck Mobility: Normal Mallampati classification: II Thyromental Distance: greater than 6 cm Respiratory: Lungs clear, Other (recovering from flu since thursday am) Plan Anesthesia Type: Spinal Consent for Procedure(s) Verified and Reviewed: Yes Code Status: Attempt Resuscitation ASA classification: 3-Severe systemic disease Is this case an emergency?: No
[2018-12-21] MEDS: SODIUM CHLORIDE 0.9% 1,000 ML IV SCH (12:19)
[2018-12-21] MEDS: INSULIN ASPART 300 UNIT/3 ML PEN SUBQ SCH ×3 (12:20→21:59)
[2018-12-21] MEDS ORDERED: POTASSIUM CHLORIDE 20 MEQ TABLET PO ONE ×2 (12:40→12:44)
[2018-12-21] MEDS ORDERED: ALBUTEROL NEB 2.5 MG/3 ML INH PRN (13:13)
[2018-12-21] MEDS: cefTRIAXone 2 GM in SODIUM CHLORIDE 0.9% MINIBAG 100 ML IV SCH (14:22)
[2018-12-21] MEDS ORDERED: POTASSIUM CHLOR 20 MEQ/100 ML 20 MEQ/100 ML BAG IV ONE (14:32)
[2018-12-21] MEDS: NYSTATIN POWDER 15 GM TOP SCH ×2 (15:01→21:06)
[2018-12-21] MEDS: AZITHROMYCIN INJ 500 MG in SODIUM CHLORIDE 0.9% 250 ML IV SCH (15:01)
--- NOTE | 2018-12-21 15:34 | CONSULTATION NOTE ---
Referring Provider Name of Referring Provider:: Paco Laughlin MD Consult Date: 12/21/18 Chief Complaint - Chief Complaint Chief Complaint: Asked to evaluate for right intertrochanteric femur fracture History of Present Illness - Admitted From Admitted From:: [facility] - History Obtained From History obtained from: Chart, patient, daughter Elyse, Carline Deric - History of Present Illness HPI Comment/Other: Lotus is a 68-year-old female with some dementia and multiple medical history in her usual state of health until she sustained a fall reportedly in the shower injuring her right hip. She was brought to the emergency room. Patient was found to have an intertrochanteric hip fracture and orthopedic consultation was sought. Patient report he lives in [facility]. Her daughter Elyse lives close by and [place]. Patient had just recently started to use a walking device in particular a walker for ambulation. She had been in [facility] for about 6 months. 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 - Family & Social History Family History Comment/Other: pt could not provide any FHX information because of her dementia condition - POLST Patient has POLST: No POLST Status: DNR Meds/Allgy - Home Medications Home Medications: Ambulatory Orders Medication Instructions Recorded Confirmed Atorvastatin [Lipitor] 20 mg PO QPM 07/23/16 12/21/18 metFORMIN [Glucophage] 500 mg PO QID 07/23/16 12/21/18 Lisinopril/Hydrochlorothiazide 1 tab PO BID 10/20/16 12/21/18 [Lisinopril-Hctz 20-12.5 mg Tab] Aspirin [Aspir-Low] 81 mg PO DAILY 11/19/16 12/21/18 Ferrous Sulfate 325 mg PO DAILY 11/20/16 12/21/18 Multivitamin [Multiple Vitamins] 1 tab PO DAILY 06/01/18 12/21/18 Omeprazole 20 mg PO DAILY 06/01/18 12/21/18 amLODIPine [Norvasc] 2.5 mg PO BID 06/01/18 12/21/18 Benzonatate 100 mg PO Q8H PRN 12/21/18 12/21/18 Fluoxetine HCl 30 mg PO DAILY 12/21/18 12/21/18 Ibuprofen 200 mg PO Q8H PRN 12/21/18 12/21/18 Potassium Gluconate 99 mg PO DAILY 12/21/18 12/21/18 - Allergies Allergies/Adverse Reactions: Allergies Allergy/AdvReac Type Severity Reaction Status Date / Time No Known Drug Allergies Allergy Verified 12/21/18 07:52 Exam - Vital Signs Vital Signs: Vital Signs x48h Temp Pulse Pulse Resp BP BP Pulse Ox 12/21/18 13:07 37.0 C 90 18 155/70 H 98 12/21/18 10:25 36.5 C 79 18 139/61 H 96 12/21/18 09:23 80 16 143/71 H 94 12/21/18 08:53 95 12/21/18 07:52 91 18 144/71 H 86 L 12/21/18 07:50 36.0 C L 93 18 145/75 H 94 - Physical Exam Comments/Other: Patient is a well-developed somewhat overweight 68-year-old female in mild distress with any type of movement right lower extremity. Right lower extremity has palpable dorsalis pedis she is able to flex and extend ankle her right lower extremity is in a shortened externally rotated position thigh calf soft. Skin overlying the hip and thigh is intact. Patient guarded with any hip motion on the right side. No tenderness appreciated knee leg foot or ankle on the right side. Conclusion/Plan - Diagnosis Diagnosis: Right unstable intertrochanteric femur fracture - Plan Plan: Lotus is a 68-year-old female with a displaced unstable right internal trochante gilbert femur fracture. I recommend appropriate medical risk stratification and optimization and then r ight femur cephalo-medullary nail/open reduction internal fixation. Discussed natural history and relevant literature of the injury with the patient the patient's daughter. We talked about all the literature and the potential risks not only with hip fractures in general but with the surgery including but not limited to infection wound problems nerve or blood vessel injury weakness pain stiffness decreased range of motion decreased function worsening of her ambulatory ability iatrogenic injury blood clot blood clot embolus anesthesia complications including but not limited to major cardiovascular neurovascular complications even . Talked about other potential risks not addressed here their questions were answered patient's daughter Elyse who is the medical power of staff attorney verbali zedevin their understanding above verbalize wish to proceed with operative intervention. Informed consent was given. Preoperative postoperative instructions expectations reviewed expected rehab course reviewed Proposed procedure is right femur cephalo-medullary nail placement/open reduction internal fixation. - Lab Results Fish Bones: 12/21/18 08:11 12/21/18 14:09
[2018-12-21] MEDS: SODIUM CHLORIDE FLUSH 0.9% 10 ML SYRINGE IVP SCH (15:53)
[2018-12-21] MEDS: MORPHINE 2 MG/ML CARPUJECT IVP PRN ×2 (15:53→20:33)
[2018-12-21] MEDS ORDERED: BUPIVACAINE 0.25%-EPI 1:200000 PF 30 ML VIAL ONE (16:08)
[2018-12-21] MEDS ORDERED: INSULIN REGULAR HUMAN 100 UNIT/1 ML 10 ML MDV ONE (16:29)
[2018-12-21] MEDS ORDERED: EPINEPHrine 1 MG/ML AMP IVP ONE (17:00)
[2018-12-21] MEDS ORDERED: MIDAZOLAM 2 MG/2 ML VIAL IVP ONE (17:00)
[2018-12-21] MEDS ORDERED: fentaNYL 100 MCG/2 ML VIAL IVP ONE (17:00)
[2018-12-21] MEDS ORDERED: GLYCOPYRROLATE 1 MG/5 ML VIAL IVP ONE (17:00)
[2018-12-21] MEDS ORDERED: PROPOFOL 200 MG/20 ML VIAL IVP ONE (17:00)
[2018-12-21] MEDS ORDERED: KETAMINE 500 MG/10 ML VIAL IVP ONE (17:00)
[2018-12-21] MEDS ORDERED: LIDOCAINE-MPF 2% 5 ML VIAL IM ONE (17:00)
[2018-12-21] MEDS ORDERED: PHENYLEPHRINE 10 MG/ML VIAL IV ONE (17:00)
[2018-12-21] MEDS ORDERED: BUPIVACAINE 0.25%-EPI 1:200000 PF 10 ML VIAL SUBQ ONE (17:33)
[2018-12-21] MEDS ORDERED: DOCUSATE SODIUM 100 MG CAPSULE PO PRN (18:59)
[2018-12-21] MEDS ORDERED: ACETAMINOPHEN 1,000 MG/100 ML 100 ML IV PRN (18:59)
--- NOTE | 2018-12-21 19:08 | IMMEDIATE POSTOPERATIVE NOTE ---
Immediate Postoperative Note - Procedure Note Procedure Date: 12/21/18 Pre-Op Diagnosis: RIGHT FEMUR IT FX Procedure: RIGHT LONG CEPHALOMEDULLARY NAIL Post-Op Diagnosis: SAME Primary Surgeon: ARNOLD Supervisor Paper Coating: RACQUEL Anesthesia Type: Local, Spinal Complications: No complications Estimated Blood Loss (in cc): 100 Plan of Care: PT SHERRIE PROCEDURE WELL. INST SPONG COUT CORRECT. XFER TO RR IN STABLE COND. PWB WITH ASSIST AND ASSIST DEVICE PRN RLE OOB WITH PT IS Q1H WHEN AWAKE MECH AND CHEM DVT PROPHYLAXIS ANALGESIA CONT MED MGT
[2018-12-21 19:33] LABS: HGB - HEMOGLOBIN 9.2 g/dL (12.0-16.0)
[2018-12-21 19:41] LABS: CALCIUM 7.6 mg/dL (8.5-10.3); CREATININE 1.1 mg/dL (0.4-1.0)
--- NOTE | 2018-12-21 19:43 | XRAY Report ---
Reason: RT HIP NAILING Procedure Date: 12/21/2018 Accession Number: [id number] / [id number] Procedure: XR - Hip w/Pelvis 1V RT CPT Code: FULL RESULT: EXAM: FLUOROSCOPIC GUIDANCE EXAM DATE: 12/21/2018 04:15 PM. CLINICAL HISTORY: RT HIP NAILING. COMPARISON: None. FINDINGS: Images demonstrate internal fixation of intertrochanteric fracture. IMPRESSION: Fluoroscopic guidance provided for Dr. Bess. Total fluoroscopy time: 1 minute 23 seconds. Number of images: 8. RADIA
--- NOTE | 2018-12-21 19:43 | XRAY Report ---
Reason: ORIF RIGHT HIP NAILING Procedure Date: 12/21/2018 Accession Number: [id number] / [id number] Procedure: FL - OR C-Arm Procedure CPT Code: FULL RESULT: EXAM: FLUOROSCOPIC GUIDANCE EXAM DATE: 12/21/2018 04:15 PM. CLINICAL HISTORY: RT HIP NAILING. COMPARISON: None. FINDINGS: Images demonstrate internal fixation of intertrochanteric fracture. IMPRESSION: Fluoroscopic guidance provided for Dr. Bess. Total fluoroscopy time: 1 minute 23 seconds. Number of images: 8. RADIA
[2018-12-21] MEDS: POTASSIUM CHLOR 10 MEQ/100 ML 10 MEQ/100 ML BAG IV SCH ×3 (20:19→20:37)
[2018-12-21] MEDS: ceFAZolin 2 GM/50 ML 2 GM/50 ML BAG IV SCH (20:20)
[2018-12-21] MEDS: FAMOTIDINE 20 MG TABLET PO SCH (21:03)
[2018-12-21] MEDS: LISINOPRIL 20 MG TABLET PO SCH (21:03)
[2018-12-21] MEDS: amLODIPine 5 MG TABLET PO SCH (21:03)
[2018-12-21] MEDS: OSELTAMIVIR 30 MG CAPSULE PO SCH (21:03)
[2018-12-21] MEDS: ATORVASTATIN 10 MG TABLET PO SCH (21:04)
[2018-12-21] MEDS: oxyCODONE 5 MG TABLET PO PRN (22:30)
[2018-12-22] MEDS: MORPHINE 2 MG/ML CARPUJECT IVP PRN ×3 (01:25→09:17)
[2018-12-22] MEDS: SODIUM CHLORIDE FLUSH 0.9% 10 ML SYRINGE IVP SCH ×3 (01:25→16:29)
[2018-12-22] MEDS: ceFAZolin 2 GM/50 ML 2 GM/50 ML BAG IV SCH (03:25)
[2018-12-22] MEDS: oxyCODONE 5 MG TABLET PO PRN ×4 (03:35→22:43)
[2018-12-22 05:36] LABS: BASOPHILS % (AUTO) 0.3 %; EOSINOPHILS % (AUTO) 0.1 %; HGB - HEMOGLOBIN 8.2 g/dL (12.0-16.0); LYMPHOCYTES # (AUTO) 0.7 10^3/uL (1.5-3.5); LYMPHOCYTES % (AUTO) 16.3 %; MEAN CORPUSCULAR HGB CONC 34.2 g/dL (32.0-36.0); MEAN CORPUSCULAR VOLUME 84.7 fL (81.0-99.0); MEAN PLATELET VOLUME 7.1 fL (7.9-10.8); MONOCYTES # (AUTO) 0.4 10^3/uL (0.0-1.0); NEUTROPHILS # (AUTO) 3.1 10^3/uL (1.5-6.6); NEUTROPHILS % (AUTO) 74.3 %; PLT - PLATELET COUNT 158 10^3/uL (130-450); RED BLOOD COUNT 2.83 10^6/uL (4.20-5.40); RED CELL DISTRIBUTION WIDTH 13.6 % (12.0-15.0); WHITE BLOOD COUNT 4.2 x10^3/uL (4.8-10.8)
[2018-12-22 05:45] LABS: ALBUMIN/GLOBULIN RATIO 1.1 (1.0-2.2); BILIRUBIN,TOTAL 0.5 mg/dL (0.2-1.0); CALCIUM 7.7 mg/dL (8.5-10.3); CREATININE 1.1 mg/dL (0.4-1.0); MAGNESIUM 1.6 mg/dL (1.7-2.8); TOTAL PROTEIN 5.7 g/dL (6.7-8.2)
[2018-12-22] MEDS: SODIUM CHLORIDE 0.9% 1,000 ML IV SCH ×3 (05:46→19:52)
[2018-12-22] MEDS: INSULIN ASPART 300 UNIT/3 ML PEN SUBQ SCH ×4 (07:59→21:35)
[2018-12-22] MEDS ORDERED: INSULIN ASPART 300 UNIT/3 ML PEN SUBQ ONE (08:00)
[2018-12-22 08:07] LABS: ABSOLUTE RETICS # AUTO 0.048 10^6/uL (0.020-0.110); MEAN RETIC VALUE 97.9; RED BLOOD COUNT 2.77 10^6/uL (4.20-5.40)
[2018-12-22] MEDS ORDERED: SODIUM CHLORIDE 0.9% 50 ML IV ONE (08:12)
[2018-12-22] MEDS: MULTIVITAMIN TABLET PO SCH (08:16)
[2018-12-22] MEDS: OSELTAMIVIR 30 MG CAPSULE PO SCH ×2 (08:16→20:49)
[2018-12-22] MEDS: ASPIRIN 325 MG TABLET PO SCH (08:16)
[2018-12-22] MEDS: FAMOTIDINE 20 MG TABLET PO SCH (08:16)
[2018-12-22] MEDS: LISINOPRIL 20 MG TABLET PO SCH ×2 (08:17→20:49)
[2018-12-22] MEDS: amLODIPine 5 MG TABLET PO SCH ×2 (08:17→20:50)
[2018-12-22] MEDS: FLUoxetine 10 MG CAPSULE PO SCH (08:17)
[2018-12-22] MEDS: hydroCHLOROthiazide 12.5 MG CAPSULE PO SCH (08:17)
[2018-12-22] MEDS: cefTRIAXone 2 GM in SODIUM CHLORIDE 0.9% MINIBAG 100 ML IV SCH (08:19)
[2018-12-22 08:25] LABS: FERRITIN 601.1 ng/mL (11.0-306.8)
[2018-12-22 08:49] LABS: % IRON SATURATION 6 % (20-50); IRON 12 ug/dL (28-170); TOTAL IRON BINDING CAPACITY 206 ug/dL (250-450); TRANSFERRIN 147 mg/dL (192-382)
[2018-12-22] MEDS ORDERED: ASPIRIN EC 81 MG TABLET PO SCH (09:00)
[2018-12-22] MEDS ORDERED: MAGNESIUM SULFATE 1 GM in SODIUM CHLORIDE 0.9% 50 ML IV ONE (09:00)
[2018-12-22] MEDS: AZITHROMYCIN INJ 500 MG in SODIUM CHLORIDE 0.9% 250 ML IV SCH (09:17)
[2018-12-22] MEDS: POLYETHYLENE GLYCOL 3350 17 GM PACKET PO SCH (09:20)
[2018-12-22] MEDS: NYSTATIN POWDER 15 GM TOP SCH ×2 (09:20→20:50)
--- NOTE | 2018-12-22 10:20 | OPERATIVE REPORT ---
DATE OF SERVICE: 12/21/2018 Physician: Russ Bess MD PREOPERATIVE DIAGNOSIS: Right displaced unstable intertrochanteric fracture POSTOPERATIVE DIAGNOSIS: Same PROCEDURE: Right femur cephalo-medullary nail placement, open reduction internal fixation SURGEON: Russ Bess MD. LOAN MANAGER: None. ANESTHESIA PROVIDER: Lila Bautista CRNA. ANESTHESIA TYPE: Spinal with sedation as well as 30 mL of 0.25% Marcaine with epinephrine local. ESTIMATED BLOOD LOSS: 100 mL. FLUIDS: 1000 mL lactated Ringer's. COMPRESSION DEVICE: Contralateral left calf SCD boot. PREOPERATIVE ANTIBIOTICS: Two grams weight-based IV Ancef. URINE OUTPUT: 180 mL. ORTHOPEDIC IMPLANTS: [employer] OSEI nail including 5 x 40 mm locking bolt, as well as 11.5 x 40 cm, 125 degree right, as well as a Trigen Intertan 105 lag screw, and 100 mm compression screw. INTRAOPERATIVE COMPLICATIONS: None. HISTORY OF PRESENT ILLNESS/INDICATIONS: Patient is a 68-year-old female with multiple medical history including dementia, who sustained a fall, injuring the right femur. She was found to have an unstable intertrochanteric fracture and was indicated for operative treatment. We discussed with her and her daughter, Elyse, the natural history of this type of injury and the relevant literature, and the potential for short-term and long-term problems with this injury. We talked about potential operative risks including, but not limited to infection, wound problems, nerve or blood vessel injury, numbness, tingling, pain, weakness, dysfunction, inability to return to previous level of function, iatrogenic injury, bleeding, blood loss, blood clot, blood clot embolus, positioning complications, anesthetic complications including but not limited to major cardiovascular and neurovascular complications, and even . We discussed the above and the patient's daughter, Elyse, her medical power of commonwealth attorney, had questions which were answered. She verbalized understanding of the above and verbalized her wish to proceed with operative treatment. Informed consent was given. PROCEDURE: On 12/21/2018, patient is identified in her hospital room. Patient identifies the right groin region as the location of her injury and surgery. This is signed over the right hip. She is given preoperative weight-based antibiotics, is brought to the operating room, placed supine on the hospital bed, and then a [id number] position after some sedation is performed to allow for spinal anesthesia to be administered by the [facility]. Once this is performed, patient is gently transferred to the fracture table and positioned with bilateral lower extremities, head and neck, and upper extremities in anatomically safe and comfortable positions to avoid peripheral nerve stretch and compression. Left lower extremity is placed in a maximal safe zone of hip flexion, internal rotation, and abduction in a gel-padded leg rest with an SCD boot in place. The patient's right lower extremity has reduction maneuver performed with a well- padded foot cavazos, some traction, hip flexion, and internal rotation to optimize position of the knee relative to the hip, and reduce the fracture via fluoroscopic image. At this point, right thigh and right hip region are prescrubbed with Hibiclens solution, and then prepped and draped in the usual sterile fashion. At this point, surgical pause identifies right side and right hip/femur as operative site, and then fluoroscopic images used to confirm starting position. A small incision is made. A guide pin is brought to the tip of the greater trochanter, which appears to be attached to the more proximal fragment. This soft tissue incision extended. Soft tissue protector is used and an opening reamer is used to enter the trochanteric tip. At this point, a bend was placed in a long guide wire, and entered through this tip. The reduction maneuver further pushes the shaft medially with a small open incision, a bit distally where the future trocar will be placed. This allows a Hernandez to be placed up against the bone to push medially, such that the wire could be placed into the intramedullary canal. At this point, with maintenance of reduction, appropriate reaming the length of the femur is performed, such that a size 11.5 mm nail could be placed. Once the guide wire was placed, it is measured in length, and a 41 is measured as such a length 40 cm nail is selected. At this point, the nail is placed into the canal initially with the anterior bow medially, and then this is translated to an anterior position with appropriate amount of version. Initially the guide pin for the head was very anterior. As such, it was aimed posterior and found to be approximately center-center on the lateral view. At this point, sequential reaming and placement of derotational bar are done for the two proximal screws, and fluoroscopic images checked in both views to confirm acceptable position. It is noted that initially there was some rotational instability at the fracture site, which accounts for variations in fluoroscopic appearance. Nonetheless, compression was ultimately achieved across the fracture site re-apposing the calcar fragments. It was noted that on the lateral view, the head screw was somewhat anterior, though with multiple reduction attempts prior to placement of this and placement of the nail and adjusting version, that reduction was noted to be quite good and it was not felt that additional repositioning or redrilling would be advantageous, but possibly increase morbidity operative time without offering significant benefit. As such, given the excellent purchase of the head screws, the head screws were retained in the position noted, and there was noted to be good integrity of the construct and excellent compression across the fracture. At this point, the proximal guide was removed and distal locking screw perfect- [place] technique was used to put a locking screw distally. This is through a small stab incision. Once this screw is placed and confirmed to be appropriately positioned, final images are taken. It is noted that while the nail is full length, it would offer full protection of the femur, and it was noted to be outside of any intra-articular position. At this point, fluoroscopic image confirms acceptable fracture and hardware position. Version was thought to be appropriate relative to the femoral neck and knee, and wounds were copiously irrigated, closed in a layered fashion using deep 0 Vicryl and then ultimately 2-0 Vicryl and jorge luis for skin. Skin is washed, dried, local anesthetic is placed, silver dressing placed proximally. Xeroform dressing placed in a small stab incision by the knee with a soft 4 x 4 and Itz wrap. Patient tolerated the procedure well. Instrument and sponge counts are correct. Patient transferred to recovery room in stable condition, noted to have leg length and rotation within 5 mm and 5 degrees. PLAN: Patient will follow a standard postoperative right hip protocol. She will be toe-touch weightbearing with ambulation assistance and assist device as necessary. She would be out of bed with physical therapy and occupational therapy. She would be advised to use incentive spirometer q.1 hour when awake. She would have SCD boots or foot pumps in place at all times while in bed. She would be on perioperative antibiotics for 24 hours, appropriate analgesics, and return to the medical service for close medical management, and orthopedic management as well. Patient's family, daughter Elyse, and friends are contacted in the waiting room, case was discussed. All questions were answered. Patient's daughter verbalizes understanding and satisfaction in the plan as outlined above. TD: 12/22/2018 09:40 PALLAVI
[2018-12-22] MEDS ORDERED: FERRIC GLUCONATE 62.5 MG/5 ML VIAL IVP ONE (10:24)
[2018-12-22] MEDS: KETOROLAC 15 MG/ML VIAL IVP PRN ×2 (10:45→20:08)
[2018-12-22] MEDS ORDERED: FERRIC GLUCONATE 125 MG in SODIUM CHLORIDE 0.9% 100ML 100 ML IV SCH (12:00)
[2018-12-22] MEDS ORDERED: ENOXAPARIN 40 MG/0.4 ML SYRINGE SUBQ SCH (12:00)
--- NOTE | 2018-12-22 12:03 | PROVIDER PROGRESS NOTE ---
Subjective - Prog Note Date Prog Note Date: 12/22/18 - Subjective Pt reports feeling: Improved Subjective: she state her pain is better controlled. Pt will have PT/OT Current Medications - Current Medications Current Medications: Active Medications Acetaminophen (Tylenol) 650 mg PO Q4HR PRN PRN Reason: Pain 1 to 4 Albuterol () 2.5 mg INH RTQ4H PRN PRN Reason: Wheezing Amlodipine Besylate (Norvasc) 2.5 mg PO BID [facility] Last Admin: 12/22/18 08:17 Dose: 2.5 mg Aspirin (Angella) 325 mg PO DAILYWM [facility] Last Admin: 12/22/18 08:16 Dose: 325 mg Atorvastatin Calcium (Lipitor) 20 mg PO QPM [facility] Last Admin: 12/21/18 21:04 Dose: 20 mg Docusate Sodium (Colace 100mg Capsule) 100 mg PO BID PRN PRN Reason: Constipation Enoxaparin Sodium (Lovenox) 40 mg SUBQ DAILY [facility] Famotidine (Pepcid) 20 mg PO DAILY [facility] Last Admin: 12/22/18 08:16 Dose: 20 mg Ferrous Sulfate (Feosol) 325 mg PO DAILYWM [facility] Fluoxetine HCl (Prozac) 30 mg PO DAILY [facility] Last Admin: 12/22/18 08:17 Dose: 30 mg Hydrochlorothiazide (Hydrodiuril) 12.5 mg PO DAILY [facility] Last Admin: 12/22/18 08:17 Dose: 12.5 mg Azithromycin 500 mg/ Sodium (Chloride) 250 mls @ 250 mls/hr IV DAILY [facility] Last Infusion: 12/22/18 10:30 Dose: Infused Ceftriaxone Sodium 2 gm/ (Sodium Chloride) 100 mls @ 200 mls/hr IV DAILY [facility] Last Infusion: 12/22/18 08:55 Dose: Infused Acetaminophen (Ofirmev) 100 mls @ 400 mls/hr IV Q8HR PRN PRN Reason: PAIN Last Infusion: 12/21/18 23:12 Dose: Infused Sodium Chloride (Normal Saline 0.9%) 1,000 mls @ 100 mls/hr IV .Q10H [facility] Stop: 12/23/18 03:59 Last Admin: 12/22/18 08:00 Dose: 100 mls/hr Ferric Sodium Gluconate Complex 125 mg/ Sodium Chloride 110 mls @ 100 mls/hr IV ONCE [facility] Stop: 12/22/18 13:05 Insulin Aspart (Novolog) 2 - 10 unit SUBQ 0800,1200,1700,2100 [facility]; Protocol Last Admin: 12/22/18 11:34 Dose: 6 unit Ketorolac Tromethamine (Toradol Inj (15mg)) 15 mg IVP Q6HR PRN PRN Reason: PAIN Stop: 12/27/18 10:22 Last Admin: 12/22/18 10:45 Dose: 15 mg Lisinopril (Zestril) 20 mg PO BID [facility] Last Admin: 12/22/18 08:17 Dose: 20 mg Morphine Sulfate (Morphine (Carpuject)) 2 mg IVP Q2HR PRN PRN Reason: Pain 8 to 10 Last Admin: 12/22/18 09:17 Dose: 2 mg Multivitamins (Theragran) 1 tab PO DAILY [facility] Last Admin: 12/22/18 08:16 Dose: 1 tab Nystatin (Nystop) 1 applic TOP BID [facility] Last Admin: 12/22/18 09:20 Dose: 1 applic Ondansetron HCl (Zofran Inj) 4 mg IVP Q6HR PRN PRN Reason: Nausea / Vomiting Oseltamivir Phosphate (Tamiflu) 30 mg PO BID [facility] Stop: 12/26/18 09:01 Last Admin: 12/22/18 08:16 Dose: 30 mg Oxycodone HCl (Roxicodone) 5 mg PO Q4HR PRN PRN Reason: Pain 8 to 10 Last Admin: 12/22/18 03:35 Dose: 5 mg Polyethylene Glycol (Miralax) 17 gm PO DAILY [facility] Last Admin: 12/22/18 09:20 Dose: Not Given Sodium Chloride (Normal Saline Flush 0.9%) 10 ml IVP PRN PRN PRN Reason: NEEDED PER PROVIDER ORDERS Sodium Chloride (Normal Saline Flush 0.9%) 10 ml IVP 0100,0900,1700 [facility] Last Admin: 12/22/18 05:33 Dose: 10 ml Atorvastatin [Lipitor] 20 mg PO QPM 07/23/16 metFORMIN [Glucophage] 500 mg PO QID 07/23/16 Lisinopril/Hydrochlorothiazide [Lisinopril-Hctz 20-12.5 mg Tab] 1 tab PO BID 10/20/16 Aspirin [Aspir-Low] 81 mg PO DAILY 11/19/16 Ferrous Sulfate 325 mg PO DAILY 11/20/16 Multivitamin [Multiple Vitamins] 1 tab PO DAILY 06/01/18 Omeprazole 20 mg PO DAILY 06/01/18 amLODIPine [Norvasc] 2.5 mg PO BID 06/01/18 Benzonatate 100 mg PO Q8H PRN 12/21/18 Fluoxetine HCl 30 mg PO DAILY 12/21/18 Ibuprofen 200 mg PO Q8H PRN 12/21/18 Potassium Gluconate 99 mg PO DAILY 12/21/18 Objective - Vital Signs/Intake & Output Reviewed Vital Signs: Yes Vital Signs: Vital Signs x48h Temp Pulse Resp BP Pulse Ox 12/22/18 11:51 36.6 C 79 18 123/60 95 12/22/18 07:25 36.4 C L 76 18 114/57 L 98 12/22/18 05:00 36.3 C L 80 18 127/56 L 99 Intake & Output: Intake & Output 12/19/18 12/20/18 12/21/18 12/22/18 23:59 23:59 23:59 23:59 Intake Total 2525.000 1680 Output Total 550 Balance 5746.147 7155 - Objective General Appearance: positive: No acute distress, Alert. negative: Lethargic Eyes Bilateral: positive: Normal inspection, PERRL, No lid inflammation, Conjunctivae nml ENT: positive: ENT inspection nml, Pharynx nml, No signs of dehydration. neg ative: Purulent nasal drainage, Pharyngeal erythema, Oral lesions Neck: positive: Nml inspection, Thyroid nml, No JVD, Trachea midline. negative: Thyromegaly, Lymphadenopathy (R), Lymphadenopathy (L), Stiff neck, Swelling/bruising, Tracheal deviation Respiratory: positive: Chest non-tender, No respiratory distress, Breath sounds nml. negative: Wheezes, Rales, Rhonchi Cardiovascular: positive: Regular rate & rhythm, No murmur, No gallop. negative: Irregularly irregular, Extrasystoles, Tachycardia, Bradycardia, JVD present, Systolic murmur, Diastolic murmur Peripheral Pulses: 2+ Radial (R), 2+ Radial (L), 2+ Dorsalis pedis (R), 2+ Dorsalis pedis (L) Abdomen: positive: Non-tender, No organomegaly, Nml bowel sounds, No distention. negative: Tenderness, Guarding, Rebound Back: positive: Nml inspection. negative: CVA tenderness (R), CVA tenderness (L) Skin: positive: Color nml, No rash, Warm, Dry. negative: Cyanosis, Diaphoresis, Pallor Extremities: positive: Non-tender. negative: Calf tenderness, Joint swelling, Zulema's sign/cords Neurologic/Psychiatric: positive: Sensation nml, Mood/affect nml. negative: Weakness, Sensory loss, Facial droop, Slurred/abnml speech, Depressed mood/affect - Lab Results Fish Bones: 12/22/18 05:00 12/22/18 05:00 Other Labs: Lab Results x24hrs 12/22/18 12/22/18 12/22/18 Range/Units 05:00 05:00 05:00 WBC (4.8-10.8) x10^3/uL RBC (4.20-5.40) 10^6/uL Hgb (12.0-16.0) g/dL Hct (37.0-47.0) % MCV (81.0-99.0) fL MCH (27.0-31.0) pg MCHC (32.0-36.0) g/dL RDW (12.0-15.0) % Plt Count (130-450) 10^3/uL MPV (7.9-10.8) fL Reticulocyte % (Auto) (0.5-2.3) % Neut # (Auto) (1.5-6.6) 10^3/uL Lymph # (Auto) (1.5-3.5) 10^3/uL [place] # (Auto) (0.0-1.0) 10^3/uL Eos # (Auto) (0.0-0.7) 10^3/uL Baso # (Auto) (0.0-0.1) 10^3/uL Absolute Nucleated RBC x10^3/uL Nucleated RBC % /100WBC Absolute Retic (0.020-0.110) 10^6/uL Sodium (135-145) mmol/L Potassium (3.5-5.0) mmol/L Chloride (101-111) mmol/L Carbon Dioxide (21-32) mmol/L Anion Gap (6-13) BUN (6-20) mg/dL Creatinine (0.4-1.0) mg/dL Estimated GFR (MDRD) (>89) Glucose (70-100) mg/dL Calcium (8.5-10.3) mg/dL Magnesium (1.7-2.8) mg/dL Iron 12 L (28-170) ug/dL TIBC 206 L (250-450) ug/dL % Saturation 6 L (20-50) % Transferrin 147 L (192-382) mg/dL Ferritin 601.1 H (11.0-306.8) ng/mL Total Bilirubin (0.2-1.0) mg/dL AST (10-42) IU/L ALT (10-60) IU/L Alkaline Phosphatase (42-121) IU/L Lactate Dehydrogenase 161 (91-225) IU/L B-Natriuretic Peptide (5-100) pg/mL Total Protein (6.7-8.2) g/dL Albumin (3.2-5.5) g/dL Globulin (2.1-4.2) g/dL Albumin/Globulin Ratio (1.0-2.2) Vitamin B12 629 (180-914) pg/mL Serum Ketones (NEGATIVE) 12/22/18 12/22/18 12/22/18 Range/Units 05:00 05:00 05:00 WBC (4.8-10.8) x10^3/uL RBC 2.77 L (4.20-5.40) 10^6/uL Hgb (12.0-16.0) g/dL Hct (37.0-47.0) % MCV (81.0-99.0) fL MCH (27.0-31.0) pg MCHC (32.0-36.0) g/dL RDW (12.0-15.0) % Plt Count (130-450) 10^3/uL MPV (7.9-10.8) fL Reticulocyte % (Auto) 1.74 (0.5-2.3) % Neut # (Auto) (1.5-6.6) 10^3/uL Lymph # (Auto) (1.5-3.5) 10^3/uL [place] # (Auto) (0.0-1.0) 10^3/uL Eos # (Auto) (0.0-0.7) 10^3/uL Baso # (Auto) (0.0-0.1) 10^3/uL Absolute Nucleated RBC x10^3/uL Nucleated RBC % /100WBC Absolute Retic 0.048 (0.020-0.110) 10^6/uL Sodium 128 L (135-145) mmol/L Potassium 3.6 (3.5-5.0) mmol/L Chloride 96 L (101-111) mmol/L Carbon Dioxide 22 (21-32) mmol/L Anion Gap 10.0 (6-13) BUN 24 H (6-20) mg/dL Creatinine 1.1 H (0.4-1.0) mg/dL Estimated GFR (MDRD) 49 L (>89) Glucose 299 H (70-100) mg/dL Calcium 7.7 L (8.5-10.3) mg/dL Magnesium 1.6 L (1.7-2.8) mg/dL Iron (28-170) ug/dL TIBC (250-450) ug/dL % Saturation (20-50) % Transferrin (192-382) mg/dL Ferritin (11.0-306.8) ng/mL Total Bilirubin 0.5 (0.2-1.0) mg/dL AST 28 (10-42) IU/L ALT 14 (10-60) IU/L Alkaline Phosphatase 41 L (42-121) IU/L Lactate Dehydrogenase (91-225) IU/L B-Natriuretic Peptide 9 (5-100) pg/mL Total Protein 5.7 L (6.7-8.2) g/dL Albumin 3.0 L (3.2-5.5) g/dL Globulin 2.7 (2.1-4.2) g/dL Albumin/Globulin Ratio 1.1 (1.0-2.2) Vitamin B12 (180-914) pg/mL Serum Ketones (NEGATIVE) 12/22/18 12/21/18 12/21/18 Range/Units 05:00 19:28 19:28 WBC 4.2 L (4.8-10.8) x10^3/uL RBC 2.83 L (4.20-5.40) 10^6/uL Hgb 8.2 L 9.2 L (12.0-16.0) g/dL Hct 24.0 L 26.2 L (37.0-47.0) % MCV 84.7 (81.0-99.0) fL MCH 29.0 (27.0-31.0) pg MCHC 34.2 (32.0-36.0) g/dL RDW 13.6 (12.0-15.0) % Plt Count 158 (130-450) 10^3/uL MPV 7.1 L (7.9-10.8) fL Reticulocyte % (Auto) (0.5-2.3) % Neut # (Auto) 3.1 (1.5-6.6) 10^3/uL Lymph # (Auto) 0.7 L (1.5-3.5) 10^3/uL [place] # (Auto) 0.4 (0.0-1.0) 10^3/uL Eos # (Auto) 0.0 (0.0-0.7) 10^3/uL Baso # (Auto) 0.0 (0.0-0.1) 10^3/uL Absolute Nucleated RBC 0.00 x10^3/uL Nucleated RBC % 0.1 /100WBC Absolute Retic (0.020-0.110) 10^6/uL Sodium 131 L (135-145) mmol/L Potassium 3.2 L (3.5-5.0) mmol/L Chloride 99 L (101-111) mmol/L Carbon Dioxide 22 (21-32) mmol/L Anion Gap 10.0 (6-13) BUN 22 H (6-20) mg/dL Creatinine 1.1 H (0.4-1.0) mg/dL Estimated GFR (MDRD) 49 L (>89) Glucose 187 H (70-100) mg/dL Calcium 7.6 L (8.5-10.3) mg/dL Magnesium (1.7-2.8) mg/dL Iron (28-170) ug/dL TIBC (250-450) ug/dL % Saturation (20-50) % Transferrin (192-382) mg/dL Ferritin (11.0-306.8) ng/mL Total Bilirubin (0.2-1.0) mg/dL AST (10-42) IU/L ALT (10-60) IU/L Alkaline Phosphatase (42-121) IU/L Lactate Dehydrogenase (91-225) IU/L B-Natriuretic Peptide (5-100) pg/mL Total Protein (6.7-8.2) g/dL Albumin (3.2-5.5) g/dL Globulin (2.1-4.2) g/dL Albumin/Globulin Ratio (1.0-2.2) Vitamin B12 (180-914) pg/mL Serum Ketones (NEGATIVE) 12/21/18 12/21/18 Range/Units 14:09 14:09 WBC (4.8-10.8) x10^3/uL RBC (4.20-5.40) 10^6/uL Hgb (12.0-16.0) g/dL Hct (37.0-47.0) % MCV (81.0-99.0) fL MCH (27.0-31.0) pg MCHC (32.0-36.0) g/dL RDW (12.0-15.0) % Plt Count (130-450) 10^3/uL MPV (7.9-10.8) fL Reticulocyte % (Auto) (0.5-2.3) % Neut # (Auto) (1.5-6.6) 10^3/uL Lymph # (Auto) (1.5-3.5) 10^3/uL [place] # (Auto) (0.0-1.0) 10^3/uL Eos # (Auto) (0.0-0.7) 10^3/uL Baso # (Auto) (0.0-0.1) 10^3/uL Absolute Nucleated RBC x10^3/uL Nucleated RBC % /100WBC Absolute Retic (0.020-0.110) 10^6/uL Sodium 126 L (135-145) mmol/L Potassium (3.5-5.0) mmol/L Chloride (101-111) mmol/L Carbon Dioxide (21-32) mmol/L Anion Gap (6-13) BUN (6-20) mg/dL Creatinine (0.4-1.0) mg/dL Estimated GFR (MDRD) (>89) Glucose (70-100) mg/dL Calcium (8.5-10.3) mg/dL Magnesium (1.7-2.8) mg/dL Iron (28-170) ug/dL TIBC (250-450) ug/dL % Saturation (20-50) % Transferrin (192-382) mg/dL Ferritin (11.0-306.8) ng/mL Total Bilirubin (0.2-1.0) mg/dL AST (10-42) IU/L ALT (10-60) IU/L Alkaline Phosphatase (42-121) IU/L Lactate Dehydrogenase (91-225) IU/L B-Natriuretic Peptide (5-100) pg/mL Total Protein (6.7-8.2) g/dL Albumin (3.2-5.5) g/dL Globulin (2.1-4.2) g/dL Albumin/Globulin Ratio (1.0-2.2) Vitamin B12 (180-914) pg/mL Serum Ketones SMALL H (NEGATIVE) ABX Reporting Has patient been on IV antibiotics over the past 48 hours?: Yes Sepsis Event Note (H) - Evaluation Current Stage of Sepsis: Ruled out Assessment/Plan - Problem List (1) Intertrochanteric fracture of right hip Impression: 12/22. status post of right hip repair day one. pt is doing fine continue PT/OT continue pain control followup orthopedics ASA for DVT prophylaxis per orthopedics pt had a fall, Xray reveals intertrochanteric fracture of right hip. pain control orthopedics consult NPO and IVF of NS now DVT prophylaxis per orthopedics Pt's ECHO is unremarkable, EKG is pending. pt's daughter report pt except HTN, did not have hx of cardiac problem. pt has 6% revised cardiac risk index for pre-operative risk. Qualifiers: (2) Pneumonia Conclusion/Plan: 12/22 better and stable. continue treat with Tamiflu for 10 dosage continue treat with Azith and Rocephin Albuterol as PRN supple O2 as needed blood culture is pending pt had positive Influenza A positive, reported fever at home, with nasal co ngestion, cough, N/V/D, but also CXR reveals edema versus infectious versus interstitial lung disease. treat with Tamiflu for 10 dosage treat with Azith and Rocephin Albuterol as PRN supple O2 as needed (3) Diabetes Conclusion/Plan: 3/13. add 5 unit of insulin slide scale, ACHS pt has hyperglycemia at 330, with hx of DM2, and has ketone at urine test serium Ketone IVF of NS Pt is NPO now, will start slide scale, with ACHS after procedure. check A1C, hold Metformin now. (4) Electrolyte abnormality Conclusion/Plan: Na 128, slight improved, continue IVF of NS pt has chronic hyponatremia. Today Na 125, can be caused by uncontrolled hyperglycemia. Pt's potassium is 3.2 today IVF of NS, replacement with potassium lab monitor (5) Dehydration Conclusion/Plan: pt present dry mouth, and she ask water. BUN is slight increased start IVF of NS continue monitor (6) HTN (hypertension) Conclusion/Plan: pt has hx of HTN, now she is stable, resume home BP meds (7) anemia HGB is 8.2, significant drop down, may caused by acute blood loss Iron study reveals significant iron deficiency H&H IV of Iron, iron pill Qualifiers: Encounter type: initial encounter Fracture type: closed Fracture alignment: displaced Qualified Code(s): S72.141A - Displaced intertrochanteric fracture of right femur, initial encounter for closed fracture (2) Pneumonia Qualifiers: Pneumonia type: due to unspecified organism
--- NOTE | 2018-12-22 15:54 | PROVIDER PROGRESS NOTE ---
Subjective - Prog Note Date Prog Note Date: 12/22/18 - Subjective Pt reports feeling: Improved (Patient says she is more comfortable than before still has some soreness on the outside of her right hip denies other setbacks new complaints accompanied by daughter at bedside.) Objective - Vital Signs/Intake & Output Vital Signs: Vital Signs x48h Temp Pulse Pulse Pulse Pulse Resp BP 12/22/18 15:21 36.5 C 78 18 12/22/18 12:55 89 96 80 92/69 12/22/18 12:50 89 96 80 92/69 12/22/18 11:51 36.6 C 79 18 BP BP BP Pulse Ox 12/22/18 15:21 128/63 98 12/22/18 12:55 122/81 H 103/50 L 12/22/18 12:50 122/81 H 103/50 L 12/22/18 11:51 123/60 95 Intake & Output: Intake & Output 12/19/18 12/20/18 12/21/18 12/22/18 23:59 23:59 23:59 23:59 Intake Total 2525.000 2468.533 Output Total 550 400 Balance 7276.749 4474.533 - Lab Results Fish Bones: 12/22/18 05:00 12/22/18 05:00 Other Labs: Lab Results x24hrs 12/22/18 12/22/18 12/22/18 Range/Units 05:00 05:00 05:00 WBC (4.8-10.8) x10^3/uL RBC (4.20-5.40) 10^6/uL Hgb (12.0-16.0) g/dL Hct (37.0-47.0) % MCV (81.0-99.0) fL MCH (27.0-31.0) pg MCHC (32.0-36.0) g/dL RDW (12.0-15.0) % Plt Count (130-450) 10^3/uL MPV (7.9-10.8) fL Reticulocyte % (Auto) (0.5-2.3) % Neut # (Auto) (1.5-6.6) 10^3/uL Lymph # (Auto) (1.5-3.5) 10^3/uL [place] # (Auto) (0.0-1.0) 10^3/uL Eos # (Auto) (0.0-0.7) 10^3/uL Baso # (Auto) (0.0-0.1) 10^3/uL Absolute Nucleated RBC x10^3/uL Nucleated RBC % /100WBC Absolute Retic (0.020-0.110) 10^6/uL Sodium (135-145) mmol/L Potassium (3.5-5.0) mmol/L Chloride (101-111) mmol/L Carbon Dioxide (21-32) mmol/L Anion Gap (6-13) BUN (6-20) mg/dL Creatinine (0.4-1.0) mg/dL Estimated GFR (MDRD) (>89) Glucose (70-100) mg/dL Calcium (8.5-10.3) mg/dL Magnesium (1.7-2.8) mg/dL Iron 12 L (28-170) ug/dL TIBC 206 L (250-450) ug/dL % Saturation 6 L (20-50) % Transferrin 147 L (192-382) mg/dL Ferritin 601.1 H (11.0-306.8) ng/mL Total Bilirubin (0.2-1.0) mg/dL AST (10-42) IU/L ALT (10-60) IU/L Alkaline Phosphatase (42-121) IU/L Lactate Dehydrogenase 161 (91-225) IU/L B-Natriuretic Peptide (5-100) pg/mL Total Protein (6.7-8.2) g/dL Albumin (3.2-5.5) g/dL Globulin (2.1-4.2) g/dL Albumin/Globulin Ratio (1.0-2.2) Vitamin B12 629 (180-914) pg/mL 12/22/18 12/22/18 12/22/18 Range/Units 05:00 05:00 05:00 WBC (4.8-10.8) x10^3/uL RBC 2.77 L (4.20-5.40) 10^6/uL Hgb (12.0-16.0) g/dL Hct (37.0-47.0) % MCV (81.0-99.0) fL MCH (27.0-31.0) pg MCHC (32.0-36.0) g/dL RDW (12.0-15.0) % Plt Count (130-450) 10^3/uL MPV (7.9-10.8) fL Reticulocyte % (Auto) 1.74 (0.5-2.3) % Neut # (Auto) (1.5-6.6) 10^3/uL Lymph # (Auto) (1.5-3.5) 10^3/uL [place] # (Auto) (0.0-1.0) 10^3/uL Eos # (Auto) (0.0-0.7) 10^3/uL Baso # (Auto) (0.0-0.1) 10^3/uL Absolute Nucleated RBC x10^3/uL Nucleated RBC % /100WBC Absolute Retic 0.048 (0.020-0.110) 10^6/uL Sodium 128 L (135-145) mmol/L Potassium 3.6 (3.5-5.0) mmol/L Chloride 96 L (101-111) mmol/L Carbon Dioxide 22 (21-32) mmol/L Anion Gap 10.0 (6-13) BUN 24 H (6-20) mg/dL Creatinine 1.1 H (0.4-1.0) mg/dL Estimated GFR (MDRD) 49 L (>89) Glucose 299 H (70-100) mg/dL Calcium 7.7 L (8.5-10.3) mg/dL Magnesium 1.6 L (1.7-2.8) mg/dL Iron (28-170) ug/dL TIBC (250-450) ug/dL % Saturation (20-50) % Transferrin (192-382) mg/dL Ferritin (11.0-306.8) ng/mL Total Bilirubin 0.5 (0.2-1.0) mg/dL AST 28 (10-42) IU/L ALT 14 (10-60) IU/L Alkaline Phosphatase 41 L (42-121) IU/L Lactate Dehydrogenase (91-225) IU/L B-Natriuretic Peptide 9 (5-100) pg/mL Total Protein 5.7 L (6.7-8.2) g/dL Albumin 3.0 L (3.2-5.5) g/dL Globulin 2.7 (2.1-4.2) g/dL Albumin/Globulin Ratio 1.1 (1.0-2.2) Vitamin B12 (180-914) pg/mL 12/22/18 12/21/18 12/21/18 Range/Units 05:00 19:28 19:28 WBC 4.2 L (4.8-10.8) x10^3/uL RBC 2.83 L (4.20-5.40) 10^6/uL Hgb 8.2 L 9.2 L (12.0-16.0) g/dL Hct 24.0 L 26.2 L (37.0-47.0) % MCV 84.7 (81.0-99.0) fL MCH 29.0 (27.0-31.0) pg MCHC 34.2 (32.0-36.0) g/dL RDW 13.6 (12.0-15.0) % Plt Count 158 (130-450) 10^3/uL MPV 7.1 L (7.9-10.8) fL Reticulocyte % (Auto) (0.5-2.3) % Neut # (Auto) 3.1 (1.5-6.6) 10^3/uL Lymph # (Auto) 0.7 L (1.5-3.5) 10^3/uL [place] # (Auto) 0.4 (0.0-1.0) 10^3/uL Eos # (Auto) 0.0 (0.0-0.7) 10^3/uL Baso # (Auto) 0.0 (0.0-0.1) 10^3/uL Absolute Nucleated RBC 0.00 x10^3/uL Nucleated RBC % 0.1 /100WBC Absolute Retic (0.020-0.110) 10^6/uL Sodium 131 L (135-145) mmol/L Potassium 3.2 L (3.5-5.0) mmol/L Chloride 99 L (101-111) mmol/L Carbon Dioxide 22 (21-32) mmol/L Anion Gap 10.0 (6-13) BUN 22 H (6-20) mg/dL Creatinine 1.1 H (0.4-1.0) mg/dL Estimated GFR (MDRD) 49 L (>89) Glucose 187 H (70-100) mg/dL Calcium 7.6 L (8.5-10.3) mg/dL Magnesium (1.7-2.8) mg/dL Iron (28-170) ug/dL TIBC (250-450) ug/dL % Saturation (20-50) % Transferrin (192-382) mg/dL Ferritin (11.0-306.8) ng/mL Total Bilirubin (0.2-1.0) mg/dL AST (10-42) IU/L ALT (10-60) IU/L Alkaline Phosphatase (42-121) IU/L Lactate Dehydrogenase (91-225) IU/L B-Natriuretic Peptide (5-100) pg/mL Total Protein (6.7-8.2) g/dL Albumin (3.2-5.5) g/dL Globulin (2.1-4.2) g/dL Albumin/Globulin Ratio (1.0-2.2) Vitamin B12 (180-914) pg/mL - Other Results/Comments Other Results/Comments: She is able to flex and extend ankle and initiate flexion extension knee. She denies pain with gentle logrolling of the hip thigh calf soft nontender lateral incisions demonstrate dressings clean dry and intact. SCD/foot pumps in place. Sepsis Event Note (H) - Evaluation Current Stage of Sepsis: Ruled out Assessment/Plan - Problem List (1) Intertrochanteric fracture of right hip Impression: Patient doing well from orthopedic perspective with regards to right hip. Recommend continued DVT prophylaxis mechanical and chemical. Recommend toe- touch weightbearing right lower extremity with assistance and assistive device as necessary. We did discuss with the physical therapist that this will likely be weightbearing as tolerated as evidenced by significant literature to support this. Recommend out of bed with physical therapy recommend incentive spirometer every hour when awake analgesic medication as necessary may consider Toradol to minimize narcotic use recommends senior care facility placement when med ically stable. Orthopedically stable for discharge pending Hospitalist input and SNF availability. Qualifiers: Encounter type: subsequent encounter Fracture type: closed Fracture alignment: displaced Fracture healing: with routine healing Qualified Code(s): S72.141D - Displaced intertrochanteric fracture of right femur, subsequent encounter for closed fracture with routine healing
[2018-12-22] MEDS: ATORVASTATIN 10 MG TABLET PO SCH (20:49)
[2018-12-22] MEDS: ACETAMINOPHEN 325 MG TABLET PO PRN (21:36)
[2018-12-23] MEDS: SODIUM CHLORIDE FLUSH 0.9% 10 ML SYRINGE IVP SCH ×3 (02:18→20:53)
[2018-12-23] MEDS: oxyCODONE 5 MG TABLET PO PRN ×3 (04:40→20:52)
[2018-12-23 05:02] LABS: BASOPHILS % (AUTO) 0.4 %; EOSINOPHILS % (AUTO) 0.6 %; HGB - HEMOGLOBIN 7.3 g/dL (12.0-16.0); LYMPHOCYTES # (AUTO) 1.1 10^3/uL (1.5-3.5); LYMPHOCYTES % (AUTO) 16.4 %; MEAN CORPUSCULAR HEMOGLOBIN 29.4 pg (27.0-31.0); MEAN CORPUSCULAR HGB CONC 34.8 g/dL (32.0-36.0); MEAN CORPUSCULAR VOLUME 84.6 fL (81.0-99.0); MEAN PLATELET VOLUME 7.5 fL (7.9-10.8); MONOCYTES # (AUTO) 0.5 10^3/uL (0.0-1.0); MONOCYTES % (AUTO) 8.3 %; NEUTROPHILS # (AUTO) 4.8 10^3/uL (1.5-6.6); NEUTROPHILS % (AUTO) 74.3 %; PLT - PLATELET COUNT 150 10^3/uL (130-450); RED BLOOD COUNT 2.47 10^6/uL (4.20-5.40); RED CELL DISTRIBUTION WIDTH 13.9 % (12.0-15.0); WHITE BLOOD COUNT 6.4 x10^3/uL (4.8-10.8)
[2018-12-23] MEDS: KETOROLAC 15 MG/ML VIAL IVP PRN ×2 (05:45→11:18)
[2018-12-23] MEDS: SODIUM CHLORIDE FLUSH 0.9% 10 ML SYRINGE IVP PRN (05:45)
[2018-12-23 06:53] LABS: PLATELET ESTIMATE, MANUAL NORMAL (130-450,000) (NORMAL); RBC MORPHOLOGY (MULTIPLE) NORMAL APPEARANCE (NORMAL)
[2018-12-23] MEDS ORDERED: POTASSIUM CHLOR 10 MEQ/100 ML 10 MEQ/100 ML BAG IV SCH (08:00)
[2018-12-23] MEDS: INSULIN ASPART 300 UNIT/3 ML PEN SUBQ SCH ×4 (08:14→21:01)
[2018-12-23] MEDS ORDERED: POTASSIUM CHLORIDE 20 MEQ TABLET PO ONE (08:39)
[2018-12-23] MEDS ORDERED: INSULIN ASPART 300 UNIT/3 ML PEN SUBQ ONE ×2 (08:41→12:11)
[2018-12-23] MEDS: LISINOPRIL 20 MG TABLET PO SCH ×2 (09:21→20:52)
[2018-12-23] MEDS: ACETAMINOPHEN 325 MG TABLET PO PRN ×3 (09:21→18:06)
[2018-12-23] MEDS: OSELTAMIVIR 30 MG CAPSULE PO SCH ×2 (09:25→20:52)
[2018-12-23] MEDS: FLUoxetine 10 MG CAPSULE PO SCH (09:25)
[2018-12-23] MEDS: FERROUS SULFATE 325 MG TABLET PO SCH (09:25)
[2018-12-23] MEDS: FAMOTIDINE 20 MG TABLET PO SCH (09:25)
[2018-12-23] MEDS: MULTIVITAMIN TABLET PO SCH (09:25)
[2018-12-23] MEDS: amLODIPine 5 MG TABLET PO SCH ×2 (09:26→20:52)
[2018-12-23] MEDS: hydroCHLOROthiazide 12.5 MG CAPSULE PO SCH (09:26)
[2018-12-23] MEDS: ASPIRIN 325 MG TABLET PO SCH (09:27)
[2018-12-23] MEDS: cefTRIAXone 2 GM in SODIUM CHLORIDE 0.9% MINIBAG 100 ML IV SCH (09:29)
[2018-12-23] MEDS: NYSTATIN POWDER 15 GM TOP SCH ×2 (09:31→20:51)
[2018-12-23] MEDS: POLYETHYLENE GLYCOL 3350 17 GM PACKET PO SCH (09:32)
[2018-12-23] MEDS ORDERED: CALAMINE/ZINC OXIDE 118 ML BOTTLE TOP PRN (09:47)
[2018-12-23] MEDS: AZITHROMYCIN INJ 500 MG in SODIUM CHLORIDE 0.9% 250 ML IV SCH (10:19)
[2018-12-23] MEDS: SENNA 8.6 MG TABLET PO SCH (12:12)
--- NOTE | 2018-12-23 12:12 | PROVIDER PROGRESS NOTE ---
Subjective - Prog Note Date Prog Note Date: 12/23/18 - Subjective Pt reports feeling: Improved Subjective: pt is comfortable sitting in the bed to eat. she report her pain is better controlled. pt denies chest pain, palpitation, fever, chill. Current Medications - Current Medications Current Medications: Active Medications Acetaminophen (Tylenol) 650 mg PO Q4HR PRN PRN Reason: Pain 1 to 4 Last Admin: 12/23/18 12:12 Dose: 650 mg Albuterol () 2.5 mg INH RTQ4H PRN PRN Reason: Wheezing Amlodipine Besylate (Norvasc) 2.5 mg PO BID [facility] Last Admin: 12/23/18 09:26 Dose: 2.5 mg Aspirin (Angella) 325 mg PO DAILYWM [facility] Last Admin: 12/23/18 09:27 Dose: 325 mg Atorvastatin Calcium (Lipitor) 20 mg PO QPM [facility] Last Admin: 12/22/18 20:49 Dose: 20 mg Azithromycin (Zithromax) 250 mg PO DAILY [facility] Docusate Sodium (Colace 100mg Capsule) 100 mg PO BID PRN PRN Reason: Constipation Docusate Sodium (Colace 250mg Capsule) 250 - 500 mg PO DAILY [facility] Last Admin: 12/23/18 12:13 Dose: 250 mg Famotidine (Pepcid) 20 mg PO DAILY [facility] Last Admin: 12/23/18 09:25 Dose: 20 mg Ferrous Sulfate (Feosol) 325 mg PO DAILYWM [facility] Last Admin: 12/23/18 09:25 Dose: 325 mg Fluoxetine HCl (Prozac) 30 mg PO DAILY [facility] Last Admin: 12/23/18 09:25 Dose: 30 mg Hydrochlorothiazide (Hydrodiuril) 12.5 mg PO DAILY [facility] Last Admin: 12/23/18 09:26 Dose: 12.5 mg Ceftriaxone Sodium 2 gm/ (Sodium Chloride) 100 mls @ 200 mls/hr IV DAILY [facility] Last Infusion: 12/23/18 10:20 Dose: Infused Acetaminophen (Ofirmev) 100 mls @ 400 mls/hr IV Q8HR PRN PRN Reason: PAIN Last Infusion: 12/21/18 23:12 Dose: Infused Insulin Aspart (Novolog) 3 - 11 unit SUBQ 0800,1200,1700,2100 [facility]; Protocol Last Admin: 03/14/19 11:19 Dose: 9 unit Ketorolac Tromethamine (Toradol Inj (15mg)) 15 mg IVP Q6HR PRN PRN Reason: PAIN Stop: 12/27/18 10:22 Last Admin: 12/23/18 11:18 Dose: 15 mg Lisinopril (Zestril) 20 mg PO BID [facility] Last Admin: 12/23/18 09:21 Dose: 20 mg Mineral Oil (Cavilon) 1 applic TOP PRN PRN PRN Reason: Skin Care Morphine Sulfate (Morphine (Carpuject)) 2 mg IVP Q2HR PRN PRN Reason: Pain 8 to 10 Last Admin: 12/22/18 09:17 Dose: 2 mg Multivitamins (Theragran) 1 tab PO DAILY [facility] Last Admin: 12/23/18 09:25 Dose: 1 tab Nystatin (Nystop) 1 applic TOP BID [facility] Last Admin: 12/23/18 09:31 Dose: 1 applic Ondansetron HCl (Zofran Inj) 4 mg IVP Q6HR PRN PRN Reason: Nausea / Vomiting Oseltamivir Phosphate (Tamiflu) 30 mg PO BID [facility] Stop: 12/26/18 09:01 Last Admin: 12/23/18 09:25 Dose: 30 mg Oxycodone HCl (Roxicodone) 5 mg PO Q4HR PRN PRN Reason: Pain 8 to 10 Last Admin: 12/23/18 12:13 Dose: 5 mg Polyethylene Glycol (Miralax) 17 gm PO DAILY [facility] Last Admin: 12/23/18 09:32 Dose: 17 gm Senna (Senokot) 8.6 - 17.2 mg PO DAILY [facility] Last Admin: 12/23/18 12:12 Dose: 8.6 mg Sodium Chloride (Normal Saline Flush 0.9%) 10 ml IVP PRN PRN PRN Reason: NEEDED PER PROVIDER ORDERS Last Admin: 12/23/18 05:45 Dose: 10 ml Sodium Chloride (Normal Saline Flush 0.9%) 10 ml IVP 0100,0900,1700 [facility] Last Admin: 12/23/18 09:33 Dose: 10 ml Atorvastatin [Lipitor] 20 mg PO QPM 07/23/16 metFORMIN [Glucophage] 500 mg PO QID 07/23/16 Lisinopril/Hydrochlorothiazide [Lisinopril-Hctz 20-12.5 mg Tab] 1 tab PO BID 10/20/16 Aspirin [Aspir-Low] 81 mg PO DAILY 11/19/16 Ferrous Sulfate 325 mg PO DAILY 11/20/16 Multivitamin [Multiple Vitamins] 1 tab PO DAILY 06/01/18 Omeprazole 20 mg PO DAILY 06/01/18 amLODIPine [Norvasc] 2.5 mg PO BID 06/01/18 Benzonatate 100 mg PO Q8H PRN 12/21/18 Fluoxetine HCl 30 mg PO DAILY 12/21/18 Ibuprofen 200 mg PO Q8H PRN 12/21/18 Potassium Gluconate 99 mg PO DAILY 12/21/18 Objective - Vital Signs/Intake & Output Reviewed Vital Signs: Yes Vital Signs: Vital Signs x48h Temp Pulse Resp BP Pulse Ox 12/23/18 11:21 36.7 C 81 18 109/42 L 96 12/23/18 07:30 36.4 C L 79 18 108/47 L 95 12/23/18 04:44 94 12/23/18 04:32 36.7 C 88 20 132/57 H 90 L Intake & Output: Intake & Output 12/20/18 12/21/18 12/22/18 12/23/18 23:59 23:59 23:59 23:59 Intake Total 2525.000 5340.333 1290 Output Total 550 900 800 Balance 8917.787 2791.333 490 - Objective General Appearance: positive: No acute distress, Alert. negative: Lethargic Eyes Bilateral: positive: Normal inspection, PERRL, No lid inflammation, Conjunctivae nml ENT: positive: ENT inspection nml, Pharynx nml, No signs of dehydration. negative: Purulent nasal drainage, Pharyngeal erythema, Oral lesions Neck: positive: Nml inspection, Thyroid nml, No JVD, Trachea midline. negative: Thyromegaly, Lymphadenopathy (R), Lymphadenopathy (L), Stiff neck, Swelling/bruising, Tracheal deviation Respiratory: positive: Chest non-tender, No respiratory distress, Breath sounds nml. negative: Wheezes, Rales, Rhonchi Cardiovascular: positive: Regular rate & rhythm, No murmur, No gallop. negative: Irregularly irregular, Extrasystoles, Tachycardia, Bradycardia, JVD present, Systolic murmur, Diastolic murmur Peripheral Pulses: 2+ Radial (R), 2+ Radial (L), 2+ Dorsalis pedis (R), 2+ Dorsalis pedis (L) Abdomen: positive: Non-tender, No organomegaly, Nml bowel sounds, No distention. negative: Tenderness, Guarding, Rebound Back: positive: Nml inspection. negative: CVA tenderness (R), CVA tenderness (L) Skin: positive: Color nml, No rash, Warm, Dry. negative: Cyanosis, Diaphoresis, Pallor Extremities: positive: Non-tender, Nml appearance. negative: Calf tenderness, Joint swelling, Zulema's sign/cords Neurologic/Psychiatric: positive: Mood/affect nml. negative: Weakness, Sensory loss, Facial droop, Slurred/abnml speech, Depressed mood/affect - Lab Results Fish Bones: 12/23/18 12:08 12/23/18 04:15 Other Labs: Lab Results x24hrs 12/23/18 12/23/18 12/23/18 Range/Units 11:10 07:30 04:15 WBC (4.8-10.8) x10^3/uL RBC (4.20-5.40) 10^6/uL Hgb (12.0-16.0) g/dL Hct (37.0-47.0) % MCV (81.0-99.0) fL MCH (27.0-31.0) pg MCHC (32.0-36.0) g/dL RDW (12.0-15.0) % Plt Count (130-450) 10^3/uL MPV (7.9-10.8) fL Neut # (Auto) (1.5-6.6) 10^3/uL Lymph # (Auto) (1.5-3.5) 10^3/uL Sabine # (Auto) (0.0-1.0) 10^3/uL Eos # (Auto) (0.0-0.7) 10^3/uL Baso # (Auto) (0.0-0.1) 10^3/uL Absolute Nucleated RBC x10^3/uL Nucleated RBC % /100WBC Manual Slide Review Platelet Estimate (NORMAL) RBC Morph Micro Appear (NORMAL) Sodium (135-145) mmol/L Potassium (3.5-5.0) mmol/L Chloride (101-111) mmol/L Carbon Dioxide (21-32) mmol/L Anion Gap (6-13) BUN (6-20) mg/dL Creatinine (0.4-1.0) mg/dL Estimated GFR (MDRD) (>89) Glucose (70-100) mg/dL POC Whole Bld Glucose 316 H 257 H (70 - 100) mg/dL Calcium (8.5-10.3) mg/dL Magnesium 1.8 (1.7-2.8) mg/dL 12/23/18 12/23/18 12/22/18 Range/Units 04:15 04:15 20:17 WBC 6.4 (4.8-10.8) x10^3/uL RBC 2.47 L (4.20-5.40) 10^6/uL Hgb 7.3 L (12.0-16.0) g/dL Hct 20.9 L (37.0-47.0) % MCV 84.6 (81.0-99.0) fL MCH 29.4 (27.0-31.0) pg MCHC 34.8 (32.0-36.0) g/dL RDW 13.9 (12.0-15.0) % Plt Count 150 (130-450) 10^3/uL MPV 7.5 L (7.9-10.8) fL Neut # (Auto) 4.8 (1.5-6.6) 10^3/uL Lymph # (Auto) 1.1 L (1.5-3.5) 10^3/uL [place]ine # (Auto) 0.5 (0.0-1.0) 10^3/uL Eos # (Auto) 0.0 (0.0-0.7) 10^3/uL Baso # (Auto) 0.0 (0.0-0.1) 10^3/uL Absolute Nucleated RBC 0.00 x10^3/uL Nucleated RBC % 0.0 /100WBC Manual Slide Review Indicated Platelet Estimate NORMAL (130-450,000) (NORMAL) RBC Morph Micro Appear NORMAL APPEARANCE (NORMAL) Sodium 128 L (135-145) mmol/L Potassium 3.3 L (3.5-5.0) mmol/L Chloride 97 L (101-111) mmol/L Carbon Dioxide 23 (21-32) mmol/L Anion Gap 8.0 (6-13) BUN 22 H (6-20) mg/dL Creatinine 1.0 (0.4-1.0) mg/dL Estimated GFR (MDRD) 55 L (>89) Glucose 231 H (70-100) mg/dL POC Whole Bld Glucose 231 H (70 - 100) mg/dL Calcium 8.0 L (8.5-10.3) mg/dL Magnesium (1.7-2.8) mg/dL 12/22/18 12/22/18 12/22/18 Range/Units 19:13 16:33 11:27 WBC (4.8-10.8) x10^3/uL RBC (4.20-5.40) 10^6/uL Hgb 8.0 L (12.0-16.0) g/dL Hct 22.7 L (37.0-47.0) % MCV (81.0-99.0) fL MCH (27.0-31.0) pg MCHC (32.0-36.0) g/dL RDW (12.0-15.0) % Plt Count (130-450) 10^3/uL MPV (7.9-10.8) fL Neut # (Auto) (1.5-6.6) 10^3/uL Lymph # (Auto) (1.5-3.5) 10^3/uL Sabine # (Auto) (0.0-1.0) 10^3/uL Eos # (Auto) (0.0-0.7) 10^3/uL Baso # (Auto) (0.0-0.1) 10^3/uL Absolute Nucleated RBC x10^3/uL Nucleated RBC % /100WBC Manual Slide Review Platelet Estimate (NORMAL) RBC Morph Micro Appear (NORMAL) Sodium (135-145) mmol/L Potassium (3.5-5.0) mmol/L Chloride (101-111) mmol/L Carbon Dioxide (21-32) mmol/L Anion Gap (6-13) BUN (6-20) mg/dL Creatinine (0.4-1.0) mg/dL Estimated GFR (MDRD) (>89) Glucose (70-100) mg/dL POC Whole Bld Glucose 269 H 223 H (70 - 100) mg/dL Calcium (8.5-10.3) mg/dL Magnesium (1.7-2.8) mg/dL 12/22/18 12/21/18 12/21/18 Range/Units 07:27 21:14 19:00 WBC (4.8-10.8) x10^3/uL RBC (4.20-5.40) 10^6/uL Hgb (12.0-16.0) g/dL Hct (37.0-47.0) % MCV (81.0-99.0) fL MCH (27.0-31.0) pg MCHC (32.0-36.0) g/dL RDW (12.0-15.0) % Plt Count (130-450) 10^3/uL MPV (7.9-10.8) fL Neut # (Auto) (1.5-6.6) 10^3/uL Lymph # (Auto) (1.5-3.5) 10^3/uL Sabine # (Auto) (0.0-1.0) 10^3/uL Eos # (Auto) (0.0-0.7) 10^3/uL Baso # (Auto) (0.0-0.1) 10^3/uL Absolute Nucleated RBC x10^3/uL Nucleated RBC % /100WBC Manual Slide Review Platelet Estimate (NORMAL) RBC Morph Micro Appear (NORMAL) Sodium (135-145) mmol/L Potassium (3.5-5.0) mmol/L Chloride (101-111) mmol/L Carbon Dioxide (21-32) mmol/L Anion Gap (6-13) BUN (6-20) mg/dL Creatinine (0.4-1.0) mg/dL Estimated GFR (MDRD) (>89) Glucose (70-100) mg/dL POC Whole Bld Glucose 263 H 214 H 187 H (70 - 100) mg/dL Calcium (8.5-10.3) mg/dL Magnesium (1.7-2.8) mg/dL 12/21/18 12/21/18 12/21/18 Range/Units 17:45 17:08 11:11 WBC (4.8-10.8) x10^3/uL RBC (4.20-5.40) 10^6/uL Hgb (12.0-16.0) g/dL Hct (37.0-47.0) % MCV (81.0-99.0) fL MCH (27.0-31.0) pg MCHC (32.0-36.0) g/dL RDW (12.0-15.0) % Plt Count (130-450) 10^3/uL MPV (7.9-10.8) fL Neut # (Auto) (1.5-6.6) 10^3/uL Lymph # (Auto) (1.5-3.5) 10^3/uL Sabine # (Auto) (0.0-1.0) 10^3/uL Eos # (Auto) (0.0-0.7) 10^3/uL Baso # (Auto) (0.0-0.1) 10^3/uL Absolute Nucleated RBC x10^3/uL Nucleated RBC % /100WBC Manual Slide Review Platelet Estimate (NORMAL) RBC Morph Micro Appear (NORMAL) Sodium (135-145) mmol/L Potassium (3.5-5.0) mmol/L Chloride (101-111) mmol/L Carbon Dioxide (21-32) mmol/L Anion Gap (6-13) BUN (6-20) mg/dL Creatinine (0.4-1.0) mg/dL Estimated GFR (MDRD) (>89) Glucose (70-100) mg/dL POC Whole Bld Glucose 228 H 242 H 318 H (70 - 100) mg/dL Calcium (8.5-10.3) mg/dL Magnesium (1.7-2.8) mg/dL ABX Reporting Has patient been on IV antibiotics over the past 48 hours?: Yes Sepsis Event Note (H) - Evaluation Current Stage of Sepsis: Ruled out Assessment/Plan - Problem List (1) Intertrochanteric fracture of right hip Impression: 12/23 pt present some anxiety and fear to have PT/OT, per PT report, order once Xanax to control her anxiety. continue PT/OT continue pain control followup orthopedics ASA for DVT prophylaxis per orthopedics 12/22. status post of right hip repair day one. pt is doing fine continue PT/OT continue pain control followup orthopedics ASA for DVT prophylaxis per orthopedics pt had a fall, Xray reveals intertrochanteric fracture of right hip. pain control orthopedics consult NPO and IVF of NS now DVT prophylaxis per orthopedics Pt's ECHO is unremarkable, EKG is pending. pt's daughter report pt except HTN, did not have hx of cardiac problem. pt has 6% revised cardiac risk index for pre-operative risk. Qualifiers: (2) Pneumonia Conclusion/Plan: 12/23. great improved. 96% sats on room air. continue antibiotics, add probiotics 12/22 better and stable. continue treat with Tamiflu for 10 dosage continue treat with Azith and Rocephin Albuterol as PRN supple O2 as needed blood culture is pending pt had positive Influenza A positive, reported fever at home, with nasal congestion, cough, N/V/D, but also CXR reveals edema versus infectious versus interstitial lung disease. treat with Tamiflu for 10 dosage treat with Azith and Rocephin Albuterol as PRN supple O2 as needed (3) Diabetes Conclusion/Plan: 12/23, poor controlled hyperglycemia. pt has no insulin taken at home switch diet to carbo controlled add 5 unit for each meal if indicated 12/22. add 5 unit of insulin slide scale, ACHS pt has hyperglycemia at 330, with hx of DM2, and has ketone at urine test serium Ketone IVF of NS Pt is NPO now, will start slide scale, with ACHS after procedure. check A1C, hold Metformin now. (4) Electrolyte abnormality Conclusion/Plan: 12/23, chronic hyponatremia, continue gently IVF of NS lab monitor Na 128, slight improved, continue IVF of NS pt has chronic hyponatremia. Today Na 125, can be caused by uncontrolled hyperglycemia. Pt's potassium is 3.2 today IVF of NS, replacement with potassium lab monitor (5) Dehydration Conclusion/Plan: pt present dry mouth, and she ask water. BUN is slight increased start IVF of NS continue monitor (6) HTN (hypertension) Conclusion/Plan: pt has hx of HTN, now she is stable, resume home BP meds (7) anemia 12/23 her HGB is down to 7.3 today. iron deficiency anemia. pt is asymptomatic anemia, no chest pain, palpitation, SOB. continue Iron pill lab monitor, H&H cross match as needed for blood transfusion HGB is 8.2, significant drop down, may caused by acute blood loss Iron study reveals significant iron deficiency H&H IV of Iron, iron pill (8) Influenza A positive at PCP office before admission continue Tamiflu (9) UTI UA indicate UTI, we treated with Rocephin UA culture reveals positive for Ecoli, sensitive to Rocephin Qualifiers: Encounter type: subsequent encounter Fracture type: closed Fracture a lignment: displaced Fracture healing: with routine healing Qualified Code(s): S72.141D - Displaced intertrochanteric fracture of right femur, subsequent encounter for closed fracture with routine healing (2) Pneumonia Qualifiers: Pneumonia type: due to unspecified organism
[2018-12-23 12:13] LABS: HGB - HEMOGLOBIN 7.6 g/dL (12.0-16.0)
[2018-12-23] MEDS: DOCUSATE SODIUM 250 MG CAPSULE PO SCH (12:13)
--- NOTE | 2018-12-23 13:45 | PROVIDER PROGRESS NOTE ---
Subjective - Prog Note Date Prog Note Date: 12/23/18 - Subjective Pt reports feeling: Improved (Patient out of bed in a chair saying that she is better but still sore in the right hip pointing to the lateral aspect of the right proximal thigh.) Objective - Vital Signs/Intake & Output Vital Signs: Vital Signs x48h Temp Pulse Resp BP Pulse Ox 12/23/18 11:21 36.7 C 81 18 109/42 L 96 12/23/18 07:30 36.4 C L 79 18 108/47 L 95 Intake & Output: Intake & Output 12/20/18 12/21/18 12/22/18 12/23/18 23:59 23:59 23:59 23:59 Intake Total 2525.000 5340.333 1530 Output Total 550 900 800 Balance 8031.554 3435.333 730 - Lab Results Fish Bones: 12/23/18 12:08 12/23/18 04:15 Other Labs: Lab Results x24hrs 12/23/18 12/23/18 12/23/18 Range/Units 12:08 11:10 07:30 WBC (4.8-10.8) x10^3/uL RBC (4.20-5.40) 10^6/uL Hgb 7.6 L (12.0-16.0) g/dL Hct 21.6 L (37.0-47.0) % MCV (81.0-99.0) fL MCH (27.0-31.0) pg MCHC (32.0-36.0) g/dL RDW (12.0-15.0) % Plt Count (130-450) 10^3/uL MPV (7.9-10.8) fL Neut # (Auto) (1.5-6.6) 10^3/uL Lymph # (Auto) (1.5-3.5) 10^3/uL [place] # (Auto) (0.0-1.0) 10^3/uL Eos # (Auto) (0.0-0.7) 10^3/uL Baso # (Auto) (0.0-0.1) 10^3/uL Absolute Nucleated RBC x10^3/uL Nucleated RBC % /100WBC Manual Slide Review Platelet Estimate (NORMAL) RBC Morph Micro Appear (NORMAL) Sodium (135-145) mmol/L Potassium (3.5-5.0) mmol/L Chloride (101-111) mmol/L Carbon Dioxide (21-32) mmol/L Anion Gap (6-13) BUN (6-20) mg/dL Creatinine (0.4-1.0) mg/dL Estimated GFR (MDRD) (>89) Glucose (70-100) mg/dL POC Whole Bld Glucose 316 H 257 H (70 - 100) mg/dL Calcium (8.5-10.3) mg/dL Magnesium (1.7-2.8) mg/dL 12/23/18 12/23/18 12/23/18 Range/Units 04:15 04:15 04:15 WBC 6.4 (4.8-10.8) x10^3/uL RBC 2.47 L (4.20-5.40) 10^6/uL Hgb 7.3 L (12.0-16.0) g/dL Hct 20.9 L (37.0-47.0) % MCV 84.6 (81.0-99.0) fL MCH 29.4 (27.0-31.0) pg MCHC 34.8 (32.0-36.0) g/dL RDW 13.9 (12.0-15.0) % Plt Count 150 (130-450) 10^3/uL MPV 7.5 L (7.9-10.8) fL Neut # (Auto) 4.8 (1.5-6.6) 10^3/uL Lymph # (Auto) 1.1 L (1.5-3.5) 10^3/uL [place] # (Auto) 0.5 (0.0-1.0) 10^3/uL Eos # (Auto) 0.0 (0.0-0.7) 10^3/uL Baso # (Auto) 0.0 (0.0-0.1) 10^3/uL Absolute Nucleated RBC 0.00 x10^3/uL Nucleated RBC % 0.0 /100WBC Manual Slide Review Indicated Platelet Estimate NORMAL (130-450,000) (NORMAL) RBC Morph Micro Appear NORMAL APPEARANCE (NORMAL) Sodium 128 L (135-145) mmol/L Potassium 3.3 L (3.5-5.0) mmol/L Chloride 97 L (101-111) mmol/L Carbon Dioxide 23 (21-32) mmol/L Anion Gap 8.0 (6-13) BUN 22 H (6-20) mg/dL Creatinine 1.0 (0.4-1.0) mg/dL Estimated GFR (MDRD) 55 L (>89) Glucose 231 H (70-100) mg/dL POC Whole Bld Glucose (70 - 100) mg/dL Calcium 8.0 L (8.5-10.3) mg/dL Magnesium 1.8 (1.7-2.8) mg/dL 12/22/18 12/22/18 12/22/18 Range/Units 20:17 19:13 16:33 WBC (4.8-10.8) x10^3/uL RBC (4.20-5.40) 10^6/uL Hgb 8.0 L (12.0-16.0) g/dL Hct 22.7 L (37.0-47.0) % MCV (81.0-99.0) fL MCH (27.0-31.0) pg MCHC (32.0-36.0) g/dL RDW (12.0-15.0) % Plt Count (130-450) 10^3/uL MPV (7.9-10.8) fL Neut # (Auto) (1.5-6.6) 10^3/uL Lymph # (Auto) (1.5-3.5) 10^3/uL [place] # (Auto) (0.0-1.0) 10^3/uL Eos # (Auto) (0.0-0.7) 10^3/uL Baso # (Auto) (0.0-0.1) 10^3/uL Absolute Nucleated RBC x10^3/uL Nucleated RBC % /100WBC Manual Slide Review Platelet Estimate (NORMAL) RBC Morph Micro Appear (NORMAL) Sodium (135-145) mmol/L Potassium (3.5-5.0) mmol/L Chloride (101-111) mmol/L Carbon Dioxide (21-32) mmol/L Anion Gap (6-13) BUN (6-20) mg/dL Creatinine (0.4-1.0) mg/dL Estimated GFR (MDRD) (>89) Glucose (70-100) mg/dL POC Whole Bld Glucose 231 H 269 H (70 - 100) mg/dL Calcium (8.5-10.3) mg/dL Magnesium (1.7-2.8) mg/dL 12/22/18 12/22/18 12/21/18 Range/Units 11:27 07:27 21:14 WBC (4.8-10.8) x10^3/uL RBC (4.20-5.40) 10^6/uL Hgb (12.0-16.0) g/dL Hct (37.0-47.0) % MCV (81.0-99.0) fL MCH (27.0-31.0) pg MCHC (32.0-36.0) g/dL RDW (12.0-15.0) % Plt Count (130-450) 10^3/uL MPV (7.9-10.8) fL Neut # (Auto) (1.5-6.6) 10^3/uL Lymph # (Auto) (1.5-3.5) 10^3/uL [place] # (Auto) (0.0-1.0) 10^3/uL Eos # (Auto) (0.0-0.7) 10^3/uL Baso # (Auto) (0.0-0.1) 10^3/uL Absolute Nucleated RBC x10^3/uL Nucleated RBC % /100WBC Manual Slide Review Platelet Estimate (NORMAL) RBC Morph Micro Appear (NORMAL) Sodium (135-145) mmol/L Potassium (3.5-5.0) mmol/L Chloride (101-111) mmol/L Carbon Dioxide (21-32) mmol/L Anion Gap (6-13) BUN (6-20) mg/dL Creatinine (0.4-1.0) mg/dL Estimated GFR (MDRD) (>89) Glucose (70-100) mg/dL POC Whole Bld Glucose 223 H 263 H 214 H (70 - 100) mg/dL Calcium (8.5-10.3) mg/dL Magnesium (1.7-2.8) mg/dL 12/21/18 12/21/18 12/21/18 Range/Units 19:00 17:45 17:08 WBC (4.8-10.8) x10^3/uL RBC (4.20-5.40) 10^6/uL Hgb (12.0-16.0) g/dL Hct (37.0-47.0) % MCV (81.0-99.0) fL MCH (27.0-31.0) pg MCHC (32.0-36.0) g/dL RDW (12.0-15.0) % Plt Count (130-450) 10^3/uL MPV (7.9-10.8) fL Neut # (Auto) (1.5-6.6) 10^3/uL Lymph # (Auto) (1.5-3.5) 10^3/uL [place] # (Auto) (0.0-1.0) 10^3/uL Eos # (Auto) (0.0-0.7) 10^3/uL Baso # (Auto) (0.0-0.1) 10^3/uL Absolute Nucleated RBC x10^3/uL Nucleated RBC % /100WBC Manual Slide Review Platelet Estimate (NORMAL) RBC Morph Micro Appear (NORMAL) Sodium (135-145) mmol/L Potassium (3.5-5.0) mmol/L Chloride (101-111) mmol/L Carbon Dioxide (21-32) mmol/L Anion Gap (6-13) BUN (6-20) mg/dL Creatinine (0.4-1.0) mg/dL Estimated GFR (MDRD) (>89) Glucose (70-100) mg/dL POC Whole Bld Glucose 187 H 228 H 242 H (70 - 100) mg/dL Calcium (8.5-10.3) mg/dL Magnesium (1.7-2.8) mg/dL 12/21/18 Range/Units 11:11 WBC (4.8-10.8) x10^3/uL RBC (4.20-5.40) 10^6/uL Hgb (12.0-16.0) g/dL Hct (37.0-47.0) % MCV (81.0-99.0) fL MCH (27.0-31.0) pg MCHC (32.0-36.0) g/dL RDW (12.0-15.0) % Plt Count (130-450) 10^3/uL MPV (7.9-10.8) fL Neut # (Auto) (1.5-6.6) 10^3/uL Lymph # (Auto) (1.5-3.5) 10^3/uL [place] # (Auto) (0.0-1.0) 10^3/uL Eos # (Auto) (0.0-0.7) 10^3/uL Baso # (Auto) (0.0-0.1) 10^3/uL Absolute Nucleated RBC x10^3/uL Nucleated RBC % /100WBC Manual Slide Review Platelet Estimate (NORMAL) RBC Morph Micro Appear (NORMAL) Sodium (135-145) mmol/L Potassium (3.5-5.0) mmol/L Chloride (101-111) mmol/L Carbon Dioxide (21-32) mmol/L Anion Gap (6-13) BUN (6-20) mg/dL Creatinine (0.4-1.0) mg/dL Estimated GFR (MDRD) (>89) Glucose (70-100) mg/dL POC Whole Bld Glucose 318 H (70 - 100) mg/dL Calcium (8.5-10.3) mg/dL Magnesium (1.7-2.8) mg/dL - Other Results/Comments Other Results/Comments: Patient demonstrates right hip dressings clean dry and intact right knee dressing clean dry and intact no erythema appreciated calf soft nontender bilaterally. Patient is able to initiate flexion extension right ankle and initiate flexion extension right knee as well as hip flexion and has no significant pain with passive internal and external rotation of the right hip. Sepsis Event Note (H) - Evaluation Current Stage of Sepsis: Ruled out Assessment/Plan - Problem List (1) Intertrochanteric fracture of right hip Impression: Patient is 5-year-old female improving after right hip intertrochanteric fracture and surgery. No signs or symptoms of infection or DVT at this time. I recommend continued partial weightbearing right lower extremity with assistance and assistive device as necessary. Continued occupational therapy physical therapy incentive spirometer. Recommend continued [facility] facility discharge planning. Continued DVT prophylaxis mechanical and chemical. Upon discharge recommend follow-up 10-14 days orthopedic clinic or sooner on an as-needed basis. Patient's daughter's questions were answered verbalize understanding and satisfaction the plan as outlined. Qualifiers: Qualified Code(s): S72.141D - Displaced intertrochanteric fracture of right femur, subsequent encounter for closed fracture with routine healing
[2018-12-23] MEDS ORDERED: ALPRAZolam 0.25 MG TABLET PO SCH (14:00)
[2018-12-23] MEDS ORDERED: MIN OIL/DIMETHICON/COCONUT OIL 92 GM TUBE TOP PRN ×2 (14:00)
[2018-12-23] MEDS: SACCHAROMYCES BOULARDII 250 MG CAPSULE PO SCH (16:52)
[2018-12-23] MEDS: ATORVASTATIN 10 MG TABLET PO SCH (20:52)
[2018-12-24] MEDS: SODIUM CHLORIDE FLUSH 0.9% 10 ML SYRINGE IVP SCH ×3 (00:42→16:34)
[2018-12-24] MEDS: KETOROLAC 15 MG/ML VIAL IVP PRN ×3 (00:42→16:32)
[2018-12-24 06:14] LABS: BASOPHILS % (AUTO) 0.3 %; EOSINOPHILS # (AUTO) 0.1 10^3/uL (0.0-0.7); EOSINOPHILS % (AUTO) 2.1 %; LYMPHOCYTES # (AUTO) 1.2 10^3/uL (1.5-3.5); LYMPHOCYTES % (AUTO) 23.5 %; MEAN CORPUSCULAR HEMOGLOBIN 29.6 pg (27.0-31.0); MEAN CORPUSCULAR HGB CONC 35.5 g/dL (32.0-36.0); MEAN CORPUSCULAR VOLUME 83.3 fL (81.0-99.0); MEAN PLATELET VOLUME 7.1 fL (7.9-10.8); MONOCYTES # (AUTO) 0.4 10^3/uL (0.0-1.0); MONOCYTES % (AUTO) 7.7 %; NEUTROPHILS # (AUTO) 3.3 10^3/uL (1.5-6.6); NEUTROPHILS % (AUTO) 66.4 %; PLT - PLATELET COUNT 144 10^3/uL (130-450); RED BLOOD COUNT 2.24 10^6/uL (4.20-5.40); RED CELL DISTRIBUTION WIDTH 13.6 % (12.0-15.0)
[2018-12-24 06:19] LABS: CALCIUM 8.1 mg/dL (8.5-10.3)
[2018-12-24 06:24] LABS: HGB - HEMOGLOBIN 6.6 g/dL (12.0-16.0)
[2018-12-24 06:40] LABS: PLATELET ESTIMATE, MANUAL NORMAL (130-450,000) (NORMAL); RBC MORPHOLOGY (MULTIPLE) NORMAL APPEARANCE (NORMAL)
[2018-12-24] MEDS: SODIUM CHLORIDE FLUSH 0.9% 10 ML SYRINGE IVP PRN ×2 (06:59→10:22)
[2018-12-24] MEDS ORDERED: FERRIC GLUCONATE 62.5 MG/5 ML VIAL IVP ONE (07:36)
[2018-12-24] MEDS ORDERED: FERRIC GLUCONATE 125 MG in SODIUM CHLORIDE 0.9% 100ML 100 ML IV ONE ×3 (08:30→17:00)
[2018-12-24] MEDS ORDERED: INSULIN ASPART 300 UNIT/3 ML PEN SUBQ ONE (08:40)
[2018-12-24] MEDS: cefTRIAXone 2 GM in SODIUM CHLORIDE 0.9% MINIBAG 100 ML IV SCH (10:00)
[2018-12-24] MEDS: INSULIN ASPART 300 UNIT/3 ML PEN SUBQ SCH ×4 (10:11→20:37)
[2018-12-24] MEDS: LISINOPRIL 20 MG TABLET PO SCH ×2 (10:17→20:38)
[2018-12-24] MEDS: amLODIPine 5 MG TABLET PO SCH ×2 (10:19→20:39)
[2018-12-24] MEDS: hydroCHLOROthiazide 12.5 MG CAPSULE PO SCH (10:19)
[2018-12-24] MEDS: SACCHAROMYCES BOULARDII 250 MG CAPSULE PO SCH ×2 (10:20→17:54)
[2018-12-24] MEDS: ASPIRIN 325 MG TABLET PO SCH (10:20)
[2018-12-24] MEDS: FERROUS SULFATE 325 MG TABLET PO SCH (10:20)
[2018-12-24] MEDS: NYSTATIN POWDER 15 GM TOP SCH ×2 (10:20→20:39)
[2018-12-24] MEDS: FAMOTIDINE 20 MG TABLET PO SCH (10:20)
[2018-12-24] MEDS: MULTIVITAMIN TABLET PO SCH (10:20)
[2018-12-24] MEDS: AZITHROMYCIN 250 MG TABLET PO SCH (10:20)
[2018-12-24] MEDS: FLUoxetine 10 MG CAPSULE PO SCH (10:21)
[2018-12-24] MEDS: POLYETHYLENE GLYCOL 3350 17 GM PACKET PO SCH (10:30)
--- NOTE | 2018-12-24 11:17 | PROVIDER PROGRESS NOTE ---
Subjective - Prog Note Date Prog Note Date: 12/24/18 - Subjective Pt reports feeling: Improved (Pt says ok. No new c/o. OOB in chair. Says still pain, but may be less than yesterday.) Objective - Vital Signs/Intake & Output Vital Signs: Vital Signs x48h Temp Pulse Pulse Resp BP Pulse Ox 12/24/18 09:38 36.6 C 88 20 96 12/24/18 08:00 36.6 C 88 18 121/73 95 12/24/18 04:00 36.8 C 86 20 120/62 93 Intake & Output: Intake & Output 12/21/18 12/22/18 12/23/18 12/24/18 23:59 23:59 23:59 23:59 Intake Total 2525.000 5340.333 2570 100 Output Total 445 073 1103 1600 Balance 6839.655 5440.333 470 -1500 - Lab Results Fish Bones: 12/24/18 05:26 12/24/18 05:26 Other Labs: Lab Results x24hrs 12/24/18 12/24/18 12/24/18 Range/Units 07:32 06:55 05:26 WBC (4.8-10.8) x10^3/uL RBC (4.20-5.40) 10^6/uL Hgb (12.0-16.0) g/dL Hct (37.0-47.0) % MCV (81.0-99.0) fL MCH (27.0-31.0) pg MCHC (32.0-36.0) g/dL RDW (12.0-15.0) % Plt Count (130-450) 10^3/uL MPV (7.9-10.8) fL Neut # (Auto) (1.5-6.6) 10^3/uL Lymph # (Auto) (1.5-3.5) 10^3/uL [place] # (Auto) (0.0-1.0) 10^3/uL Eos # (Auto) (0.0-0.7) 10^3/uL Baso # (Auto) (0.0-0.1) 10^3/uL Absolute Nucleated RBC x10^3/uL Nucleated RBC % /100WBC Manual Slide Review Platelet Estimate (NORMAL) RBC Morph Micro Appear (NORMAL) Sodium (135-145) mmol/L Potassium (3.5-5.0) mmol/L Chloride (101-111) mmol/L Carbon Dioxide (21-32) mmol/L Anion Gap (6-13) BUN (6-20) mg/dL Creatinine (0.4-1.0) mg/dL Estimated GFR (MDRD) (>89) Glucose (70-100) mg/dL POC Whole Bld Glucose 266 H (70 - 100) mg/dL Calcium (8.5-10.3) mg/dL Blood Type A POSITIVE Blood Type Recheck A POSITIVE Antibody Screen NEGATIVE Crossmatch IS Only See Detail 12/24/18 12/24/18 12/23/18 Range/Units 05:26 05:26 20:47 WBC 5.0 (4.8-10.8) x10^3/uL RBC 2.24 L (4.20-5.40) 10^6/uL Hgb 6.6 L* (12.0-16.0) g/dL Hct 18.6 L* (37.0-47.0) % MCV 83.3 (81.0-99.0) fL MCH 29.6 (27.0-31.0) pg MCHC 35.5 (32.0-36.0) g/dL RDW 13.6 (12.0-15.0) % Plt Count 144 (130-450) 10^3/uL MPV 7.1 L (7.9-10.8) fL Neut # (Auto) 3.3 (1.5-6.6) 10^3/uL Lymph # (Auto) 1.2 L (1.5-3.5) 10^3/uL [place] # (Auto) 0.4 (0.0-1.0) 10^3/uL Eos # (Auto) 0.1 (0.0-0.7) 10^3/uL Baso # (Auto) 0.0 (0.0-0.1) 10^3/uL Absolute Nucleated RBC 0.00 x10^3/uL Nucleated RBC % 0.0 /100WBC Manual Slide Review Indicated Platelet Estimate NORMAL (130-450,000) (NORMAL) RBC Morph Micro Appear NORMAL APPEARANCE (NORMAL) Sodium 129 L (135-145) mmol/L Potassium 3.7 (3.5-5.0) mmol/L Chloride 99 L (101-111) mmol/L Carbon Dioxide 23 (21-32) mmol/L Anion Gap 7.0 (6-13) BUN 21 H (6-20) mg/dL Creatinine 1.0 (0.4-1.0) mg/dL Estimated GFR (MDRD) 55 L (>89) Glucose 266 H (70-100) mg/dL POC Whole Bld Glucose 339 H (70 - 100) mg/dL Calcium 8.1 L (8.5-10.3) mg/dL Blood Type Blood Type Recheck Antibody Screen Crossmatch IS Only 12/23/18 12/23/18 Range/Units 16:42 12:08 WBC (4.8-10.8) x10^3/uL RBC (4.20-5.40) 10^6/uL Hgb 7.6 L (12.0-16.0) g/dL Hct 21.6 L (37.0-47.0) % MCV (81.0-99.0) fL MCH (27.0-31.0) pg MCHC (32.0-36.0) g/dL RDW (12.0-15.0) % Plt Count (130-450) 10^3/uL MPV (7.9-10.8) fL Neut # (Auto) (1.5-6.6) 10^3/uL Lymph # (Auto) (1.5-3.5) 10^3/uL [place] # (Auto) (0.0-1.0) 10^3/uL Eos # (Auto) (0.0-0.7) 10^3/uL Baso # (Auto) (0.0-0.1) 10^3/uL Absolute Nucleated RBC x10^3/uL Nucleated RBC % /100WBC Manual Slide Review Platelet Estimate (NORMAL) RBC Morph Micro Appear (NORMAL) Sodium (135-145) mmol/L Potassium (3.5-5.0) mmol/L Chloride (101-111) mmol/L Carbon Dioxide (21-32) mmol/L Anion Gap (6-13) BUN (6-20) mg/dL Creatinine (0.4-1.0) mg/dL Estimated GFR (MDRD) (>89) Glucose (70-100) mg/dL POC Whole Bld Glucose 224 H (70 - 100) mg/dL Calcium (8.5-10.3) mg/dL Blood Type Blood Type Recheck Antibody Screen Crossmatch IS Only - Other Results/Comments Other Results/Comments: OOB in chair. Appears comfortable. palp dp pulse RLE. ankle/knee flex/ex. no pain noted with passive IR/ER hip. Dressings clean dry intact. no surrounding erythema. calves soft/nt b/l. Sepsis Event Note (H) - Evaluation Current Stage of Sepsis: Ruled out Assessment/Plan - Problem List (1) Intertrochanteric fracture of right hip Impression: Pt doing well regarding right femur fracture. No signs or symptoms of infection of her DVT at this time. Recommend continued out of bed with physical therapy assistance and assistive device as necessary. Partial weightbearing right lower extremity. Recommend continued DVT prophylaxis chemical and mechanical. Recommend incentive spirometer every hour when awake. Recommend social work nursing home facility placement. Continued hospitalist management. May discharge from orthopedic perspective. Upon discharge patient's follow-up 7-10 days orthopedic clinic or sooner as needed. Qualifiers: Encounter type: subsequent encounter Fracture type: closed Fracture alignment: displaced Fracture healing: with routine healing Qualified Code(s): S72.141D - Displaced intertrochanteric fracture of right femur, subsequent encounter for closed fracture with routine healing
[2018-12-24] MEDS: OSELTAMIVIR 30 MG CAPSULE PO SCH ×2 (12:10→20:38)
[2018-12-24] MEDS: DOCUSATE SODIUM 250 MG CAPSULE PO SCH (12:11)
[2018-12-24] MEDS ORDERED: MORPHINE 2 MG/ML SYRINGE IVP PRN (12:32)
[2018-12-24] MEDS: SENNA 8.6 MG TABLET PO SCH (12:34)
[2018-12-24] MEDS: oxyCODONE 5 MG TABLET PO PRN ×2 (13:19→19:38)
--- NOTE | 2018-12-24 14:23 | PROVIDER PROGRESS NOTE ---
Subjective - Subjective Pt reports feeling: Improved Subjective: pt worked with PT, and walked. pt denies CP, SOB. pt's HGB is 6.6, had a blood transfusion. pt may finish blood transfusion until 5pm, [facility] can not accept today now. Current Medications - Current Medications Current Medications: Active Medications Acetaminophen (Tylenol) 650 mg PO Q4HR PRN PRN Reason: Pain 1 to 4 Last Admin: 12/23/18 18:06 Dose: 650 mg Albuterol () 2.5 mg INH RTQ4H PRN PRN Reason: Wheezing Alprazolam (Xanax) 0.25 mg PO ONCE ONE Stop: 12/24/18 15:01 Amlodipine Besylate (Norvasc) 2.5 mg PO BID [facility] Last Admin: 12/24/18 10:19 Dose: 2.5 mg Aspirin (Angella) 325 mg PO DAILYWM [facility] Last Admin: 12/24/18 10:20 Dose: 325 mg Atorvastatin Calcium (Lipitor) 20 mg PO QPM [facility] Last Admin: 12/23/18 20:52 Dose: 20 mg Azithromycin (Zithromax) 250 mg PO DAILY [facility] Last Admin: 12/24/18 10:20 Dose: 250 mg Docusate Sodium (Colace 100mg Capsule) 100 mg PO BID PRN PRN Reason: Constipation Docusate Sodium (Colace 250mg Capsule) 250 - 500 mg PO DAILY [facility] Last Admin: 12/24/18 12:11 Dose: 250 mg Famotidine (Pepcid) 20 mg PO DAILY [facility] Last Admin: 12/24/18 10:20 Dose: 20 mg Ferrous Sulfate (Feosol) 325 mg PO DAILYWM [facility] Last Admin: 12/24/18 10:20 Dose: 325 mg Fluoxetine HCl (Prozac) 30 mg PO DAILY [facility] Last Admin: 12/24/18 10:21 Dose: 30 mg Hydrochlorothiazide (Hydrodiuril) 12.5 mg PO DAILY [facility] Last Admin: 12/24/18 10:19 Dose: 12.5 mg Ceftriaxone Sodium 2 gm/ (Sodium Chloride) 100 mls @ 200 mls/hr IV DAILY [facility] Last Admin: 12/24/18 10:00 Dose: 200 mls/hr Acetaminophen (Ofirmev) 100 mls @ 400 mls/hr IV Q8HR PRN PRN Reason: PAIN Last Infusion: 12/21/18 23:12 Dose: Infused Ferric Sodium Gluconate Complex 125 mg/ Sodium Chloride 110 mls @ 100 mls/hr IV ONCE ONE Stop: 12/24/18 18:05 Insulin Aspart (Novolog) 3 - 11 unit SUBQ 0800,1200,1700,2100 [facility]; Protocol Last Admin: 12/24/18 12:29 Dose: 7 unit Ketorolac Tromethamine (Toradol Inj (15mg)) 15 mg IVP Q6HR PRN PRN Reason: PAIN Stop: 12/27/18 10:22 Last Admin: 12/24/18 06:58 Dose: 15 mg Lisinopril (Zestril) 20 mg PO BID [facility] Last Admin: 12/24/18 10:17 Dose: 20 mg Mineral Oil (Cavilon) 1 applic TOP PRN PRN PRN Reason: Skin Care Morphine Sulfate (Morphine) 2 mg IVP Q2HR PRN PRN Reason: Pain 8 to 10 Multivitamins (Theragran) 1 tab PO DAILY [facility] Last Admin: 12/24/18 10:20 Dose: 1 tab Nystatin (Nystop) 1 applic TOP BID [facility] Last Admin: 12/24/18 10:20 Dose: 1 applic Ondansetron HCl (Zofran Inj) 4 mg IVP Q6HR PRN PRN Reason: Nausea / Vomiting Oseltamivir Phosphate (Tamiflu) 30 mg PO BID [facility] Stop: 12/26/18 09:01 Last Admin: 12/24/18 12:10 Dose: 30 mg Oxycodone HCl (Roxicodone) 5 mg PO Q4HR PRN PRN Reason: Pain 8 to 10 Last Admin: 12/24/18 13:19 Dose: 5 mg Polyethylene Glycol (Miralax) 17 gm PO DAILY [facility] Last Admin: 12/24/18 10:30 Dose: 17 gm Saccharomyces Boulardii (Florastor) 250 mg PO BIDWM [facility] Last Admin: 12/24/18 10:20 Dose: 250 mg Senna (Senokot) 8.6 - 17.2 mg PO DAILY [facility] Last Admin: 12/24/18 12:34 Dose: Not Given Sodium Chloride (Normal Saline Flush 0.9%) 10 ml IVP PRN PRN PRN Reason: NEEDED PER PROVIDER ORDERS Last Admin: 12/24/18 10:22 Dose: 10 ml Sodium Chloride (Normal Saline Flush 0.9%) 10 ml IVP 0100,0900,1700 [facility] Last Admin: 12/24/18 10:35 Dose: Not Given Atorvastatin [Lipitor] 20 mg PO QPM 07/23/16 metFORMIN [Glucophage] 500 mg PO QID 07/23/16 Lisinopril/Hydrochlorothiazide [Lisinopril-Hctz 20-12.5 mg Tab] 1 tab PO BID 10/20/16 Aspirin [Aspir-Low] 81 mg PO DAILY 11/19/16 Ferrous Sulfate 325 mg PO DAILY 11/20/16 Multivitamin [Multiple Vitamins] 1 tab PO DAILY 06/01/18 Omeprazole 20 mg PO DAILY 06/01/18 amLODIPine [Norvasc] 2.5 mg PO BID 06/01/18 Benzonatate 100 mg PO Q8H PRN 12/21/18 Fluoxetine HCl 30 mg PO DAILY 12/21/18 Ibuprofen 200 mg PO Q8H PRN 12/21/18 Potassium Gluconate 99 mg PO DAILY 12/21/18 Objective - Vital Signs/Intake & Output Reviewed Vital Signs: Yes Vital Signs: Vital Signs x48h Temp Pulse Pulse Resp BP BP Pulse Ox 12/24/18 12:52 36.6 C 84 18 128/87 H 96 12/24/18 12:22 36.6 C 90 16 137/55 H 12/24/18 09:38 36.6 C 88 20 96 12/24/18 08:00 36.6 C 90 16 137/55 H 98 Intake & Output: Intake & Output 12/21/18 12/22/18 12/23/18 12/24/18 23:59 23:59 23:59 23:59 Intake Total 2525.000 5340.333 2570 220 Output Total 110 016 1092 1600 Balance 4902.350 8795.333 470 -1380 - Objective General Appearance: positive: No acute distress, Alert. negative: Lethargic Eyes Bilateral: positive: Normal inspection, PERRL, No lid inflammation, Conjunctivae nml ENT: positive: ENT inspection nml, Pharynx nml, No signs of dehydration. negative: Purulent nasal drainage, Pharyngeal erythema, Oral lesions Neck: positive: Nml inspection, Thyroid nml, No JVD, Trachea midline. negative: Thyromegaly, Lymphadenopathy (R), Lymphadenopathy (L), Stiff neck, Swelling/bruising, Tracheal deviation Respiratory: positive: Chest non-tender, No respiratory distress, Breath sounds nml. negative: Wheezes, Rales, Rhonchi Cardiovascular: positive: Regular rate & rhythm, No murmur, No gallop. negative: Irregularly irregular, Extrasystoles, Tachycardia, Bradycardia, JVD present, Systolic murmur, Diastolic murmur Peripheral Pulses: 2+ Radial (R), 2+ Radial (L), 2+ Dorsalis pedis (R), 2+ Dorsalis pedis (L) Abdomen: positive: Non-tender, No organomegaly, Nml bowel sounds, No distention. negative: Tenderness, Guarding, Rebound Back: positive: Nml inspection. negative: CVA tenderness (R), CVA tenderness (L) Skin: positive: Color nml, No rash, Warm, Dry. negative: Cyanosis, Diaphoresis, Pallor Extremities: positive: Non-tender. negative: Calf tenderness, Joint swelling, Zulema's sign/cords Neurologic/Psychiatric: positive: Sensation nml, Mood/affect nml. negative: Weakness, Sensory loss, Facial droop, Slurred/abnml speech, Depressed mood/affect - Lab Results Fish Bones: 12/24/18 05:26 12/24/18 05:26 Other Labs: Lab Results x24hrs 12/24/18 12/24/18 12/24/18 Range/Units 11:59 07:32 06:55 WBC (4.8-10.8) x10^3/uL RBC (4.20-5.40) 10^6/uL Hgb (12.0-16.0) g/dL Hct (37.0-47.0) % MCV (81.0-99.0) fL MCH (27.0-31.0) pg MCHC (32.0-36.0) g/dL RDW (12.0-15.0) % Plt Count (130-450) 10^3/uL MPV (7.9-10.8) fL Neut # (Auto) (1.5-6.6) 10^3/uL Lymph # (Auto) (1.5-3.5) 10^3/uL [place] # (Auto) (0.0-1.0) 10^3/uL Eos # (Auto) (0.0-0.7) 10^3/uL Baso # (Auto) (0.0-0.1) 10^3/uL Absolute Nucleated RBC x10^3/uL Nucleated RBC % /100WBC Manual Slide Review Platelet Estimate (NORMAL) RBC Morph Micro Appear (NORMAL) Sodium (135-145) mmol/L Potassium (3.5-5.0) mmol/L Chloride (101-111) mmol/L Carbon Dioxide (21-32) mmol/L Anion Gap (6-13) BUN (6-20) mg/dL Creatinine (0.4-1.0) mg/dL Estimated GFR (MDRD) (>89) Glucose (70-100) mg/dL POC Whole Bld Glucose 257 H 266 H (70 - 100) mg/dL Calcium (8.5-10.3) mg/dL Blood Type A POSITIVE Blood Type Recheck Antibody Screen NEGATIVE Crossmatch IS Only See Detail 12/24/18 12/24/18 12/24/18 Range/Units 05:26 05:26 05:26 WBC 5.0 (4.8-10.8) x10^3/uL RBC 2.24 L (4.20-5.40) 10^6/uL Hgb 6.6 L* (12.0-16.0) g/dL Hct 18.6 L* (37.0-47.0) % MCV 83.3 (81.0-99.0) fL MCH 29.6 (27.0-31.0) pg MCHC 35.5 (32.0-36.0) g/dL RDW 13.6 (12.0-15.0) % Plt Count 144 (130-450) 10^3/uL MPV 7.1 L (7.9-10.8) fL Neut # (Auto) 3.3 (1.5-6.6) 10^3/uL Lymph # (Auto) 1.2 L (1.5-3.5) 10^3/uL [place] # (Auto) 0.4 (0.0-1.0) 10^3/uL Eos # (Auto) 0.1 (0.0-0.7) 10^3/uL Baso # (Auto) 0.0 (0.0-0.1) 10^3/uL Absolute Nucleated RBC 0.00 x10^3/uL Nucleated RBC % 0.0 /100WBC Manual Slide Review Indicated Platelet Estimate NORMAL (130-450,000) (NORMAL) RBC Morph Micro Appear NORMAL APPEARANCE (NORMAL) Sodium 129 L (135-145) mmol/L Potassium 3.7 (3.5-5.0) mmol/L Chloride 99 L (101-111) mmol/L Carbon Dioxide 23 (21-32) mmol/L Anion Gap 7.0 (6-13) BUN 21 H (6-20) mg/dL Creatinine 1.0 (0.4-1.0) mg/dL Estimated GFR (MDRD) 55 L (>89) Glucose 266 H (70-100) mg/dL POC Whole Bld Glucose (70 - 100) mg/dL Calcium 8.1 L (8.5-10.3) mg/dL Blood Type Blood Type Recheck A POSITIVE Antibody Screen Crossmatch IS Only 12/23/18 12/23/18 Range/Units 20:47 16:42 WBC (4.8-10.8) x10^3/uL RBC (4.20-5.40) 10^6/uL Hgb (12.0-16.0) g/dL Hct (37.0-47.0) % MCV (81.0-99.0) fL MCH (27.0-31.0) pg MCHC (32.0-36.0) g/dL RDW (12.0-15.0) % Plt Count (130-450) 10^3/uL MPV (7.9-10.8) fL Neut # (Auto) (1.5-6.6) 10^3/uL Lymph # (Auto) (1.5-3.5) 10^3/uL [place] # (Auto) (0.0-1.0) 10^3/uL Eos # (Auto) (0.0-0.7) 10^3/uL Baso # (Auto) (0.0-0.1) 10^3/uL Absolute Nucleated RBC x10^3/uL Nucleated RBC % /100WBC Manual Slide Review Platelet Estimate (NORMAL) RBC Morph Micro Appear (NORMAL) Sodium (135-145) mmol/L Potassium (3.5-5.0) mmol/L Chloride (101-111) mmol/L Carbon Dioxide (21-32) mmol/L Anion Gap (6-13) BUN (6-20) mg/dL Creatinine (0.4-1.0) mg/dL Estimated GFR (MDRD) (>89) Glucose (70-100) mg/dL POC Whole Bld Glucose 339 H 224 H (70 - 100) mg/dL Calcium (8.5-10.3) mg/dL Blood Type Blood Type Recheck Antibody Screen Crossmatch IS Only ABX Reporting Has patient been on IV antibiotics over the past 48 hours?: Yes Sepsis Event Note (H) - Evaluation Current Stage of Sepsis: Ruled out Assessment/Plan - Problem List (1) Intertrochanteric fracture of right hip Impression: 12/24, per PT report, pt walk with him. pt's pain is good controlled, plan [facility] because of delay of blood transfusion. 12/23 pt present some anxiety and fear to have PT/OT, per PT report, order once Xanax to control her anxiety. continue PT/OT continue pain control followup orthopedics ASA for DVT prophylaxis per orthopedics 12/22. status post of right hip repair day one. pt is doing fine continue PT/OT continue pain control followup orthopedics ASA for DVT prophylaxis per orthopedics pt had a fall, Xray reveals intertrochanteric fracture of right hip. pain control orthopedics consult NPO and IVF of NS now DVT prophylaxis per orthopedics Pt's ECHO is unremarkable, EKG is pending. pt's daughter report pt except HTN, did not have hx of cardiac problem. pt has 6% revised cardiac risk index for pre-operative risk. Qualifiers: (2) Pneumonia Conclusion/Plan: 12/23. great improved. 96% sats on room air. continue antibiotics, add probiotics 12/22 better and stable. continue treat with Tamiflu for 10 dosage continue treat with Azith and Rocephin Albuterol as PRN supple O2 as needed blood culture is pending pt had positive Influenza A positive, reported fever at home, with nasal congestion, cough, N/V/D, but also CXR reveals edema versus infectious versus interstitial lung disease. treat with Tamiflu for 10 dosage treat with Azith and Rocephin Albuterol as PRN supple O2 as needed (3) Diabetes Conclusion/Plan: 12/23, poor controlled hyperglycemia. pt has no insulin taken at home switch diet to carbo controlled add 5 unit for each meal if indicated 12/22. add 5 unit of insulin slide scale, ACHS pt has hyperglycemia at 330, with hx of DM2, and has ketone at urine test serium Ketone IVF of NS Pt is NPO now, will start slide scale, with ACHS after procedure. check A1C, hold Metformin now. (4) Electrolyte abnormality Conclusion/Plan: 12/23, chronic hyponatremia, continue gently IVF of NS lab monitor Na 128, slight improved, continue IVF of NS pt has chronic hyponatremia. Today Na 125, can be caused by uncontrolled hyperglycemia. Pt's potassium is 3.2 today IVF of NS, replacement with potassium lab monitor (5) Dehydration Conclusion/Plan: pt present dry mouth, and she ask water. BUN is slight increased start IVF of NS continue monitor (6) HTN (hypertension) Conclusion/Plan: pt has hx of HTN, now she is stable, resume home BP meds (7) anemia 12/24, worsen today, HGB is down to 6.6. pt has severe iron deficiency anemia. Occult stool test is negative blood transfusion Iron, IV lab monitor, H&H 12/23 her HGB is down to 7.3 today. iron deficiency anemia. pt is asymptomatic anemia, no chest pain, palpitation, SOB. continue Iron pill lab monitor, H&H cross match as needed for blood transfusion HGB is 8.2, significant drop down, may caused by acute blood loss Iron study reveals significant iron deficiency H&H IV of Iron, iron pill (8) Influenza A positive at PCP office before admission continue Tamiflu (9) UTI UA indicate UTI, we treated with Rocephin UA culture reveals positive for Ecoli, sensitive to Rocephin (10) anxiety pt present anxiety, add once of Xanax. will re-assess if anxiety is controlled. Qualifiers: Encounter type: subsequent encounter Fracture type: closed Fracture alignment: displaced Fracture healing: with routine healing Qualified Code(s): S72.141D - Displaced intertrochanteric fracture of right femur, subsequent encounter for closed fracture with routine healing (2) Pneumonia Qualifiers: Pneumonia type: due to unspecified organism
[2018-12-24] MEDS ORDERED: ALPRAZolam 0.25 MG TABLET PO ONE (15:00)
[2018-12-24] MEDS: ACETAMINOPHEN 325 MG TABLET PO PRN (17:54)
[2018-12-24] MEDS: ATORVASTATIN 10 MG TABLET PO SCH (20:39)
[2018-12-25] MEDS: SODIUM CHLORIDE FLUSH 0.9% 10 ML SYRINGE IVP SCH ×2 (00:31→08:13)
[2018-12-25] MEDS: oxyCODONE 5 MG TABLET PO PRN ×3 (00:43→13:14)
[2018-12-25 06:16] LABS: BASOPHILS % (AUTO) 0.4 %; EOSINOPHILS # (AUTO) 0.1 10^3/uL (0.0-0.7); EOSINOPHILS % (AUTO) 2.5 %; HGB - HEMOGLOBIN 7.3 g/dL (12.0-16.0); LYMPHOCYTES % (AUTO) 22.5 %; MEAN CORPUSCULAR HGB CONC 34.6 g/dL (32.0-36.0); MEAN CORPUSCULAR VOLUME 83.8 fL (81.0-99.0); MEAN PLATELET VOLUME 6.9 fL (7.9-10.8); MONOCYTES # (AUTO) 0.3 10^3/uL (0.0-1.0); NEUTROPHILS # (AUTO) 2.9 10^3/uL (1.5-6.6); NEUTROPHILS % (AUTO) 66.6 %; PLT - PLATELET COUNT 175 10^3/uL (130-450); RED CELL DISTRIBUTION WIDTH 13.8 % (12.0-15.0); WHITE BLOOD COUNT 4.3 x10^3/uL (4.8-10.8)
[2018-12-25 06:22] LABS: CALCIUM 8.4 mg/dL (8.5-10.3); CREATININE 0.7 mg/dL (0.4-1.0)
[2018-12-25] MEDS: INSULIN ASPART 300 UNIT/3 ML PEN SUBQ SCH ×2 (08:09→12:22)
[2018-12-25] MEDS: ASPIRIN 325 MG TABLET PO SCH (08:11)
[2018-12-25] MEDS: OSELTAMIVIR 30 MG CAPSULE PO SCH (08:11)
[2018-12-25] MEDS: SACCHAROMYCES BOULARDII 250 MG CAPSULE PO SCH (08:11)
[2018-12-25] MEDS: amLODIPine 5 MG TABLET PO SCH (08:11)
[2018-12-25] MEDS: AZITHROMYCIN 250 MG TABLET PO SCH (08:11)
[2018-12-25] MEDS: FERROUS SULFATE 325 MG TABLET PO SCH (08:12)
[2018-12-25] MEDS: MULTIVITAMIN TABLET PO SCH (08:12)
[2018-12-25] MEDS: LISINOPRIL 20 MG TABLET PO SCH (08:12)
[2018-12-25] MEDS: SENNA 8.6 MG TABLET PO SCH (08:12)
[2018-12-25] MEDS: FLUoxetine 10 MG CAPSULE PO SCH (08:12)
[2018-12-25] MEDS: DOCUSATE SODIUM 250 MG CAPSULE PO SCH (08:12)
[2018-12-25] MEDS: POLYETHYLENE GLYCOL 3350 17 GM PACKET PO SCH (08:13)
[2018-12-25] MEDS: hydroCHLOROthiazide 12.5 MG CAPSULE PO SCH (08:13)
[2018-12-25] MEDS: FAMOTIDINE 20 MG TABLET PO SCH (08:15)
[2018-12-25] MEDS: NYSTATIN POWDER 15 GM TOP SCH (08:24)
[2018-12-25] MEDS ORDERED: NITROFURANTOIN MACRO 100 MG CAPSULE PO SCH (09:00)
[2018-12-25] MEDS: SODIUM CHLORIDE FLUSH 0.9% 10 ML SYRINGE IVP PRN (09:16)
[2018-12-25 11:55] LABS: HGB - HEMOGLOBIN 7.9 g/dL (12.0-16.0)
[2018-12-25 11:58] VITALS: BP 152/77
--- NOTE | 2018-12-25 12:04 | DISCHARGE SUMMARY ---
"Discharge Summary Admit Date: 12/21/18 Discharge Date: 12/25/18 Discharging Provider: Korin Power [facility] Primary Care Provider: Dr. Randa Enciso Code Status: Do Not Attempt Resuscitation Condition at Discharge: Good Discharge Disposition: SNF DC/Xfer Discharge Facility Name: [facility] - DIAGNOSES Admission Diagnoses: (1) Intertrochanteric fracture of right hip (2) Pneumonia (3) Diabetes (4) Electrolyte abnormality (5) Dehydration (6) HTN (hypertension) (7) Do not intubate, cardiopulmonary resuscitation (CPR)-only code status Discharge Diagnoses with Status of Each Condition: (1) Intertrochanteric fracture of right hip, s/p surgery, recovering well (2) Pneumonia, improved (3) Diabetes, stable (4) Hypokalemia, resolved (5) Hyponatremia, chronic, stable (6) Dehydration, resolved (7) HTN (hypertension), stable (8) Anemia, improved (9) Iron deficiency anemia, stable (10) Influenza A, improved (11) UTI, improved (12) Chronic indwelling carbajal catheter (13) anxiety, stable (14) dementia, stable - HPI History of Present Illness: As Per Marcial Lynn [facility] H&P dated 12/21/2018: 'Ms. Boyd is 68-yrs-old female with a PMH significant for Dementia, multiple times of UTI with chronic indwelling catheter, HTN, DM2, CKD, chronic anemia, who presents to the emergency department complain of right hip pain after a slip and fall in the shower this morning. Pt is living at [facility]. Pt could not provide any medical history because of her medical condition. Pt's daughter is at pt's bedside but she also could not provide further information of pt's fall. Per ER report, Pt fall in the shower at this morning, and pt was unable to get up without assistance. EMS was called and she was brought in ER for evaluation. Pt's daughter report pt visited her PCP, she was found to have Influenza A positive. Daughter report pt had a fever at 100.5 degree with cough, nasal congestion, nausea and vomiting, and diarrhea. Xray of hip reveals comminuted an gulated intertrochanteric fracture with displacement of the lesser trochanter. CXR reveals diffuse increase interstitial markings stable, edema versus infectious versus interstitial lung disease. Lab reveals Na 125, K 3.2, creatinine 1, glucose 331. UA reveals positive Ketone, possible UTI. Pt is af ebrile at ER, 96% sat on 2 liter of O2. Orthopedic Dr. Bess was called by ER.' - CONSULTS | PROCEDURES Consultations: Dr. Russ Bess, orthopedic surgery Procedures: Right long cephalomedullary nail on 12/21/2018 - HOSPITAL COURSE Hospital Course: by problem: (1) Intertrochanteric fracture of right hip Patient underwent surgery to repair fracture on 12/21/[address] Bess. PT/OT were consulted after surgery. She was given ASA and SCDs for DVT prophylaxis. P ain improved. She was up walking with assistive devices with PT on the day of discharge. Her surgical dressing is c/d/i. She is to follow-up with orthopedics in clinic in 7-10 days, or sooner if indicated. Aspirin DVT prophylaxis dosing to be continued for 10-14 days after surgery. She is discharged on vitamin d and calcium supplementation. (2) Pneumonia (3) Influenza A Patient had positive Influenza A positive, reported fever at home, with nasal congestion, cough, N/V/D, but also CXR reveals edema versus infectious versus interstitial lung disease. She was placed on droplet precautions. She was treated with rocephin and azithromycin and tamiflu. Blood cultures no growth. She will continue tamiflu to end 12/26/2018 after AM dose. She will continue azithromycin for 3 more doses. She is stable on RA. (4) Diabetes Patient hyperglycemic with blood sugar in 300s with ketones in her urine on admission. Her Hgb A1c was 8.8. She is on metformin at home, it was held during her hospitalization. She was on a carb controlled diet. Blood sugars remained elevated in 200-250 range. She was on SSI. (5) Chronic hyponatremia She was given IV hydration, sodium 128 on the day of discharge (6) Hypokalemia This was repleted, K 3.6 on the day of discharge (7) Dehydration She was given IV fluid hydration. This has resolved. (8) HTN (hypertension) stable. Home BP meds were resumed. (9) Anemia (10) Iron deficiency anemia Asymptomatic. Occult stool test is negative. She received 1 unit of blood and IV iron transfusion. On the day of discharge her H&H was 7.9/22.8. She is on iron supplementation. (11) UTI (12) Chronic indwelling urinary catheter UA indicate UTI, we treated with Rocephin. UA culture reveals positive for Ecoli, sensitive to Rocephin. This was changed to macrobid on the day of discharge, she will complete 5 days treatment of macrobid. Patient with n eurogenic bladder, per daughter, with a chronic indwelling carbajal catheter since May. This was last changed in the ER on 12/21/2018. She sees outpatient provider for monthly catheter changes. (13) anxiety, intermittent She receive one time dose of xanax. She did not need further treatment (14) Dementia Stable. - ALLERGIES Allergies/Adverse Reactions: Allergies Allergy/AdvReac Type Severity Reaction Status Date / Time No Known Drug Allergies Allergy Verified 12/21/18 07:52 - MEDICATIONS Home Medications: Ambulatory Orders Medication Instructions Recorded Confirmed Multivitamin [Multiple Vitamins] 1 tab PO DAILY 06/01/18 12/21/18 Acetaminophen [Tylenol] 650 mg PO Q4HR PRN #10 tablet 12/25/18 Albuterol 2.5 mg INH RTQ4H PRN #3 neb 12/25/18 Aspirin [Angella] 325 mg PO DAILYWM #20 tablet 12/25/18 Atorvastatin [Lipitor] 20 mg PO QPM #30 tablet 12/25/18 Azithromycin [Zithromax] 250 mg PO DAILY #3 tablet 12/25/18 Calcium Carbonate [[id number]] 500 mg PO BID #30 tablet 12/25/18 Cholecalciferol (Vitamin D3) 1,000 unit PO DAILY #30 capsule 12/25/18 [Vitamin D3] Ferrous Sulfate 325 mg PO DAILY #30 tablet 12/25/18 Fluoxetine HCl 30 mg PO DAILY #30 solution 12/25/18 Insulin Aspart [NovoLOG] 3 - 11 unit SUBQ 12/25/18 0800,1200,1700,2100 #1 pen Lisinopril/Hydrochlorothiazide 1 tab PO BID #30 tablet 12/25/18 [Lisinopril-Hctz 20-12.5 mg Tab] Nitrofurantoin [Macrobid] 100 mg PO BID #10 capsule 12/25/18 Nystatin [Nystop] 1 applic TOP BID #1 bottle 12/25/18 Omeprazole 20 mg PO DAILY #30 capsule. 12/25/18 Ondansetron Odt [Zofran Odt] 4 mg PO Q8H PRN #10 tablet 12/25/18 Oseltamivir [Tamiflu] 30 mg PO BID #1 capsule 12/25/18 Polyethylene Glycol 3350 [Miralax] 17 gm PO DAILY #30 packet 12/25/18 amLODIPine [Norvasc] 2.5 mg PO BID #30 tablet 12/25/18 metFORMIN [Glucophage] 500 mg PO QID #30 tablet 12/25/18 oxyCODONE [Roxicodone] 5 mg PO Q4HR PRN #10 tablet 12/25/18 Home Medications Other | Comments: Patient also prescribed vitamin D and calcium upon discharge - PHYSICAL EXAM AT DISCHARGE General Appearance: positive: No acute distress, Alert Eyes Bilateral: positive: Normal inspection, PERRL, EOMI ENT: positive: ENT inspection nml, Pharynx nml, No signs of dehydration Neck: positive: Nml inspection, Trachea midline Respiratory: positive: Chest non-tender, No respiratory distress. negative: Wheezes, Rales, Rhonchi Cardiovascular: positive: Regular rate & rhythm, No murmur, No gallop Peripheral Pulses: positive: 2+ Abdomen: positive: Non-tender, No organomegaly, Nml bowel sounds, No distention, Other (reports nausesa) Skin: positive: Warm, Dry Extremities: positive: Nml appearance, No pedal edema, Other (Patient with wrap on right knee. Right hip dressing c/d/i. With slight tenderness to palpation around surgical incision/dressing.). negative: Calf tenderness Neurologic/Psychiatric: positive: Sensation nml, Mood/affect nml, Weakness, Other (She is oriented to self. States that she is in [place]. Does not know what building she is in. Frequently says 'i dont know' to questions asked. Has baseline dementia. ) Physical Exam Other/Comments: Patient with chronic indwelling carbajal catheter - LABS Result Diagrams: 12/25/18 11:47 12/25/18 05:29 - DIAGNOSTIC IMAGING Diagnostic Imaging Results: Final report reviewed Diagnostic Imaging Results Comments: Right Hip Xray 12/21/2018: Internal fixation of intertrochanteric fracture 1-view CXR 12/21/2018: Diffuse interstitial markings stable, edema vs infectious vs interstitial lung disease 2-view Right Hip Xray 12/21/2018: Comminuted angulated interotrochanteric fracture with displacement of the lesser trochanter - QUALITY (Female Hip Fx Only) Was patient sent home on osteoporosis medication?: Yes - FOLLOW UP Follow Up: Follow-up CBC and BMP within 2-3 days after SNF admission Follow-up with orthopedics in 7-10 days after discharge, or soon if needed Follow-up with PCP within 1 week after discharge from SNF - TIME SPENT Time Spent in Discharge (Minutes): 60"
--- NOTE | 2018-12-25 12:04 | Discharge Plan ---
"Discharge Plan for SNF / [facility] - Discharge Plan And Transition Orders Disposition: 03 SNF DC/Xfer Condition: Good Allergies and Adverse Reactions: Allergies Allergy/AdvReac Type Severity Reaction Status Date / Time No Known Drug Allergies Allergy Verified 12/21/18 07:52 - SNF / [facility] Transition Orders Admit to (Facility): [facility] Discharge Diagnosis: Intertrochanteric fracture of right hip Medicare Certification Statement: I certify that [facility] is medically necessary on a continuing basis for any of the conditions for which she/he is receiving care during hospitalization. Notify PCP of admission and forward orders to primary provider for signature. Weight on admission and: Weekly Other Notification Orders: Call PCP immediately if patient develops dyspnea, chest pain/tightness or edema. House Bowel Program: Yes Additional Bowel Program Orders: If no BM after 2 days, nurse may give M.O.M. 30ml PO PRN and/or ducolax Supp 1 [place] and/or NADIYA 250mg P.O., and/or senna 1-2 tabs PO. On day 3 nurse may give repeat above order until residents constipation is resolved. Annual Influenza Vaccine (between Jun 12 and January 09): Yes Two-step PPD per [facility] [id number] or approved exception documents: Yes Treatments & Other Orders: Keep carbajal catheter -- patient with neurogenic bladder. Carbajal catheter last changed in ER on 12/21/2018. Droplet precautions for influenza. ACHS blood glucose monitoring, patient with blood sugars over 200 Lab Tests or X-ray Orders: CBC and BMP within 2 days of arrival to SNF Orthopedic Orders: Partial weightbearing right lower extremity. PT/OT. Incentive spirometer every hour while awake. Follow-up in orthopedic clinic in 7-10 days or sooner if needed Medication Orders: PLEASE REFER TO THE DISCHARGE MEDICATION LIST. - Medications New Prescriptions: Acetaminophen [Tylenol] 650 mg PO Q4HR PRN #10 tablet PRN Reason: Pain 1 to 4 oxyCODONE [Roxicodone] 5 mg PO Q4HR PRN #10 tablet PRN Reason: Pain 8 to 10 Albuterol 2.5 mg INH RTQ4H PRN #3 neb PRN Reason: Wheezing amLODIPine [Norvasc] 2.5 mg PO BID #30 tablet Aspirin [Angella] 325 mg PO DAILYWM #20 tablet Atorvastatin [Lipitor] 20 mg PO QPM #30 tablet Azithromycin [Zithromax] 250 mg PO DAILY #3 tablet Ferrous Sulfate 325 mg PO DAILY #30 tablet Fluoxetine HCl 30 mg PO DAILY #30 solution Insulin Aspart [NovoLOG] 3 - 11 unit SUBQ 0800,1200,1700,2100 #1 pen Lisinopril/Hydrochlorothiazide [Lisinopril-Hctz 20-12.5 mg Tab] 1 tab PO BID #30 tablet metFORMIN [Glucophage] 500 mg PO QID #30 tablet Nitrofurantoin [Macrobid] 100 mg PO BID #10 capsule Nystatin [Nystop] 1 applic TOP BID #1 bottle Omeprazole 20 mg PO DAILY #30 capsule. Ondansetron Odt [Zofran Odt] 4 mg PO Q8H PRN #10 tablet PRN Reason: Nausea / Vomiting Oseltamivir [Tamiflu] 30 mg PO BID #1 capsule Polyethylene Glycol 3350 [Miralax] 17 gm PO DAILY #30 packet - Diet Type: Consistent Carbohydrate Texture: Regular Liquids: Thin - Therapies | Activity Therapy: Evaluation | Treat if indicated: PT, OT Rehabilitation Potential: Maximize functional status, Return to independent living Weight Bearing: Partial Weight (RLE) Assistance Devices: Walker Follow Up: Follow-up in orthopedic clinic per above. Follow-up CBC per above. Follow-up with PCP within 1 week of discharge per SNF"
[2018-12-25] MEDS ORDERED: CALCIUM CARBONATE CHEW 500 MG TABLET PO SCH (21:00)
[2018-12-26] MEDS ORDERED: CHOLECALCIFEROL 1,000 UNIT TABLET PO SCH (09:00)
== END 2018-12-25 14:02 | DRG 480 ==
LOC: EDUNIT# → ED 07:45 → MS2 09:01
PROVIDERS: ADMIT Nurse Practitioner Gerontology; ATTEND Nurse Practitioner Gerontology
PROC: 0QS606Z Reposition Right Upper Femur with Intramedullary Internal Fixation Device, Open Approach (ICD-10-PCS; principal; 2018-12-21 16:15)
DX: S72.141A Displaced intertrochanteric fracture of right femur, initial encounter for closed fracture (principal); J10.00 Influenza due to other identified influenza virus with unspecified type of pneumonia; E87.1 Hypo-osmolality and hyponatremia; N39.0 Urinary tract infection, site not specified; W18.2XXA Fall in (into) shower or empty bathtub, initial encounter; I10 Essential (primary) hypertension; E11.9 Type 2 diabetes mellitus without complications; Z90.49 Acquired absence of other specified parts of digestive tract; Z90.710 Acquired absence of both cervix and uterus; E87.6 Hypokalemia; E86.0 Dehydration; D50.9 Iron deficiency anemia, unspecified; F41.9 Anxiety disorder, unspecified; F03.90 Unspecified dementia, unspecified severity, without behavioral disturbance, psychotic disturbance, mood disturbance, and anxiety; Z66 Do not resuscitate
CPT/HCPCS: 36415; 51702; 71045; 73501; 73502; 80048; 80053; 81001; 82009; 82272; 82607; 82728; 83036; 83540; 83615; 83690; 83735; 83880; 84295; 84466; 85014; 85018; 85025; 85044; 86850; 86900; 86901; 86920; 87040; 87077; 87086; 87181; 93005; 93306; 94640; 97162; 97166; 97530; 99283; 99285; A6250; A9270; C1713; J0131; J0690; J1815; J2916; J7040; P9016

== ENCOUNTER 2019-02-07 08:09 | Outpatient (CLI) | payer MEDICARE, OTHER | END 2019-02-07 08:10 | disposition critical access hospital (66) | LOC: EMS 08:09 | PROVIDERS: ATTEND Surgery | DX: R10.30 Lower abdominal pain, unspecified (principal) | CPT/HCPCS: A0425; A0429 ==

== ENCOUNTER 2019-02-07 08:26 | Observation (INO) | payer MEDICARE, OTHER ==
[2019-02-07] MEDS ORDERED: SODIUM CHLORIDE 0.9% 1,000 ML IV ONE (08:53)
--- NOTE | 2019-02-07 08:57 | ED Physician Documentation ---
PD HPI ABD PAIN - Stated complaint Stated Complaint: ABD PX - Chief complaint Chief Complaint: Abd Pain - History obtained from History obtained from: Patient, EMS - History of Present Illness Timing - onset: How many days ago (2) Timing - details: Still present Quality: Pain Location: Other (lower abdomen) Associated symptoms: Dysuria Similar symptoms before: Diagnosis (Prior history of UTI's.) - Additional information Additional information: The patient is a 68-year-old female who arrives via ambulance from [facility] complaining of lower abdominal pain. History is limited from the patient due to her dementia. Her abdominal pain started about 2 days ago. She reports associated dysuria. She denies fever, nausea, vomiting, or diarrhea. She has a chronic indwelling Interiano catheter. She also has history of insulin-dependent diabetes and was hospitalized 6 weeks ago for right hip fracture and pneumonia with positive influenza A. Review of Systems Constitutional: denies: Fever Ears: denies: Tinnitus/ringing Nose: denies: Congestion Throat: denies: Sore throat Cardiac: denies: Chest pain / pressure Respiratory: denies: Dyspnea, Cough GI: reports: Abdominal Pain. 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 - Present Medications Home Medications: Ambulatory Orders Medication Instructions Recorded Confirmed Multivitamin [Multiple Vitamins] 1 tab PO DAILY 06/01/18 02/07/19 Acetaminophen [Tylenol] 650 mg PO Q4HR PRN #10 tablet 12/25/18 02/07/19 Albuterol 2.5 mg INH RTQ4H PRN #3 neb 12/25/18 02/07/19 Aspirin [Angella] 325 mg PO DAILYWM #20 tablet 12/25/18 02/07/19 Atorvastatin [Lipitor] 20 mg PO QPM #30 tablet 12/25/18 02/07/19 Calcium Carbonate [[id number]] 500 mg PO BID #30 tablet 12/25/18 02/07/19 Cholecalciferol (Vitamin D3) 1,000 unit PO DAILY #30 capsule 12/25/18 02/07/19 [Vitamin D3] Ferrous Sulfate 325 mg PO DAILY #30 tablet 12/25/18 02/07/19 Fluoxetine HCl 30 mg PO DAILY #30 solution 12/25/18 02/07/19 Insulin Aspart [NovoLOG] 3 - 11 unit SUBQ 12/25/18 02/07/19 0800,1200,1700,2100 #1 pen Lisinopril/Hydrochlorothiazide 1 tab PO BID #30 tablet 12/25/18 02/07/19 [Lisinopril-Hctz 20-12.5 mg Tab] Nystatin [Nystop] 1 applic TOP BID #1 bottle 12/25/18 02/07/19 Omeprazole 20 mg PO DAILY #30 capsule. 12/25/18 02/07/19 Ondansetron Odt [Zofran Odt] 4 mg PO Q8H PRN #10 tablet 12/25/18 02/07/19 Polyethylene Glycol 3350 [Miralax] 17 gm PO DAILY #30 packet 12/25/18 02/07/19 amLODIPine [Norvasc] 2.5 mg PO BID #30 tablet 12/25/18 02/07/19 metFORMIN [Glucophage] 500 mg PO QID #30 tablet 12/25/18 02/07/19 oxyCODONE [Roxicodone] 5 mg PO Q4HR PRN #10 tablet 12/25/18 02/07/19 - Allergies Allergies/Adverse Reactions: Allergies Allergy/AdvReac Type Severity Reaction Status Date / Time No Known Drug Allergies Allergy Verified 02/07/19 08:33 - Social History Does the pt smoke?: No Smoking Status: Never smoker Does the pt drink ETOH?: Yes Does the pt have substance abuse?: No - Immunizations Immunizations are current?: Yes - POLST Patient has POLST: No POLST Status: DNR PD ED PE NORMAL - Vitals Vital signs reviewed: Yes (Normal) - General General: Well developed/nourished, Other (Alert, but confused female, who expresses discomfort.) - HEENT HEENT: Atraumatic, Moist mucous membranes - Neck Neck: Supple, no meningeal sign, No adenopathy, No JVD - Cardiac Cardiac: RRR - Respiratory Respiratory: No respiratory distress, Clear bilaterally - Abdomen Abdomen: Soft, Other (Soft, rotund abdomen, with diffuse tenderness to palpation, more in the lower abdomen and elsewhere.) - Female Female : Other (Indwelling Interiano catheter.) - Back Back: No spinal TTP, Other (Mild right CVA tenderness.) - Derm Derm: No rash - Extremities Extremities: No edema, No calf tenderness / cord - Neuro Neuro: No motor deficit, Normal speech, Other (Alert, confused, unable to indicate the year. No focal motor deficit detected) Results - Vitals Vitals: Vital Signs - 24 hr 02/07/19 02/07/19 02/07/19 08:29 09:31 11:02 Temperature 36.6 C Heart Rate 81 75 76 Respiratory 20 15 18 Rate Blood Pressure 128/63 126/63 137/78 H O2 Saturation 95 93 94 02/07/19 02/07/19 13:57 15:00 Temperature Heart Rate 87 89 Respiratory 18 18 Rate Blood Pressure 148/78 H 137/78 H O2 Saturation 99 96 Oxygen O2 Source Nasal cannula - Labs Labs: Laboratory Tests 02/07/19 02/07/19 02/07/19 09:00 09:00 09:00 WBC 6.4 RBC 3.84 L Hgb 11.0 L Hct 32.6 L MCV 85.0 MCH 28.7 MCHC 33.7 RDW 15.0 Plt Count 266 MPV 6.3 L Neut # (Auto) 4.6 Lymph # (Auto) 1.2 L Randall # (Auto) 0.4 Eos # (Auto) 0.2 Baso # (Auto) 0.1 Absolute Nucleated RBC 0.00 Nucleated RBC % 0.0 Sodium 134 L Potassium 4.0 Chloride 94 L Carbon Dioxide 29 Anion Gap 11.0 BUN 19 Creatinine 0.8 Estimated GFR (MDRD) 71 L Glucose 200 H Lactic Acid Calcium 9.7 Total Bilirubin 0.8 AST 14 ALT < 10 L Alkaline Phosphatase 61 Total Protein 7.0 Albumin 3.6 Globulin 3.4 Albumin/Globulin Ratio 1.1 Lipase 25 Urine Color YELLOW Urine Clarity SL. CLOUDY Urine pH 6.0 Ur Specific Newborn 1.015 Urine Protein NEGATIVE Urine Glucose (UA) NEGATIVE Urine Ketones NEGATIVE Urine Occult Blood TRACE-INTA Urine Nitrite POSITIVE H Urine Bilirubin NEGATIVE Urine Urobilinogen 0.2 (NORMAL) Ur Leukocyte Esterase LARGE H Urine RBC 6-10 H Urine WBC >25 H Ur Squamous Epith Cells FEW Squamous Urine Bacteria Few Urine Yeast PRESENT Ur Microscopic Review INDICATED Urine Culture Comments INDICATED 02/07/19 14:52 WBC RBC Hgb Hct MCV MCH MCHC RDW Plt Count MPV Neut # (Auto) Lymph # (Auto) Randall # (Auto) Eos # (Auto) Baso # (Auto) Absolute Nucleated RBC Nucleated RBC % Sodium Potassium Chloride Carbon Dioxide Anion Gap BUN Creatinine Estimated GFR (MDRD) Glucose Lactic Acid 0.7 Calcium Total Bilirubin AST ALT Alkaline Phosphatase Total Protein Albumin Globulin Albumin/Globulin Ratio Lipase Urine Color Urine Clarity Urine pH Ur Specific Newborn Urine Protein Urine Glucose (UA) Urine Ketones Urine Occult Blood Urine Nitrite Urine Bilirubin Urine Urobilinogen Ur Leukocyte Esterase Urine RBC Urine WBC Ur Squamous Epith Cells Urine Bacteria Urine Yeast Ur Microscopic Review Urine Culture Comments - Rads (name of study) CT abd/pelvis Radiology: Prelim report reviewed, EMP read contemporaneously, See rad report (1) Large volume of feces throughout the colon. 2) Severe hydronephrosis of the kidneys has resolved since the prior examination done 10/22/2016. Bilateral renal cortical scarring as a result of the previous severe hydronephrosis. Punctate left renal nonobstructing calculi are unchanged. 3) Hepatomegaly and splenomegaly are unchanged. 4) Infraumbilical midline fat-containing ventral hernia is unchanged. No bowel within the hernia.) PD MEDICAL DECISION MAKING - ED course Complexity details: reviewed old records, reviewed results, re-evaluated patient, considered differential, d/w patient, d/w family, d/w device sales consultant ED course: The patient's presentation is significant for urinary tract infection with associated abdominal pain. Clinically she does not appear septic, and her white blood cell count is normal at 6.4, and lactate level 0.7. Because of the extent of her abdominal pain a CT scan of her abdomen and pelvis was performed. It reveals large amount of fecal matter within the colon, but no other acute intra-abdominal abnormality is detected. Treatment in the emergency department included administration of normal saline 1 L IV, ceftriaxone 1 g IV, and morphine 2 mg IV x3. Fleets mineral oil enema and hot water enema were performed, without significant results. The patient continued to complain of abdominal pain with episodes of moaning due to pain. Repeated examinations of her abdomen reveal diffuse mild tenderness to palpation without focal tenderness or rebound. I discussed her condition with Dr. Avila, who accepts her for further evaluation and treatment. Departure - Departure Disposition: ED Place in Observation Clinical Impression: Urinary tract infection Qualifiers: Urinary tract infection type: acute cystitis Hematuria presence: without hematuria Qualified Code(s): N30.00 - Acute cystitis without hematuria Abdominal pain Qualifiers: Abdominal location: generalized Qualified Code(s): R10.84 - Generalized abdominal pain Constipation Qualifiers: Constipation type: unspecified constipation type Qualified Code(s): K59.00 - Constipation, unspecified Diabetes Qualifiers: Diabetes mellitus type: type 2 Diabetes mellitus roasterman insulin use: with penitentiary use Diabetes mellitus complication status: with unspecified complications Qualified Code(s): E11.8 - Type 2 diabetes mellitus with unspecified complications; Z79.4 - correction (current) use of insulin Dementia Qualifiers: Dementia type: unspecified type Dementia behavioral disturbance: without behavioral disturbance Qualified Code(s): F03.90 - Unspecified dementia without behavioral disturbance Condition: Stable
[2019-02-07 09:12] LABS: BASOPHILS # (AUTO) 0.1 10^3/uL (0.0-0.1); BASOPHILS % (AUTO) 0.8 %; EOSINOPHILS # (AUTO) 0.2 10^3/uL (0.0-0.7); EOSINOPHILS % (AUTO) 2.8 %; LYMPHOCYTES # (AUTO) 1.2 10^3/uL (1.5-3.5); LYMPHOCYTES % (AUTO) 18.6 %; MEAN CORPUSCULAR HEMOGLOBIN 28.7 pg (27.0-31.0); MEAN CORPUSCULAR HGB CONC 33.7 g/dL (32.0-36.0); MEAN PLATELET VOLUME 6.3 fL (7.9-10.8); MONOCYTES # (AUTO) 0.4 10^3/uL (0.0-1.0); MONOCYTES % (AUTO) 6.2 %; NEUTROPHILS # (AUTO) 4.6 10^3/uL (1.5-6.6); NEUTROPHILS % (AUTO) 71.6 %; PLT - PLATELET COUNT 266 10^3/uL (130-450); RED BLOOD COUNT 3.84 10^6/uL (4.20-5.40); WHITE BLOOD COUNT 6.4 x10^3/uL (4.8-10.8)
[2019-02-07] MEDS ORDERED: MORPHINE 2 MG/ML SYRINGE IVP STA ×4 (09:12→14:30)
[2019-02-07 09:13] LABS: BILIRUBIN,URINE NEGATIVE (NEGATIVE); CLARITY,URINE SL. CLOUDY (CLEAR); GLUCOSE, URINE (UA) NEGATIVE (NEGATIVE); KETONES,URINE (UA) NEGATIVE (NEGATIVE); LEUKOCYTE ESTERASE, URINE LARGE (NEGATIVE); NITRITE,URINE POSITIVE (NEGATIVE); OCCULT BLOOD,URINE TRACE-INTA (NEGATIVE); PROTEIN,URINE NEGATIVE (NEGATIVE); UROBILINOGEN,URINE 0.2 (NORMAL) E.U./dL (NORMAL)
[2019-02-07 09:24] LABS: ALBUMIN 3.6 g/dL (3.2-5.5); ALBUMIN/GLOBULIN RATIO 1.1 (1.0-2.2); ALKALINE PHOSPHATASE 61 IU/L (42-121); ALT ALANINE AMINOTRANSFERASE < 10 IU/L (10-60); AST ASPARTATE AMINOTRANSFERASE 14 IU/L (10-42); BILIRUBIN,TOTAL 0.8 mg/dL (0.2-1.0); BUN - BLOOD UREA NITROGEN 19 mg/dL (6-20); CALCIUM 9.7 mg/dL (8.5-10.3); CARBON DIOXIDE - CO2 29 mmol/L (21-32); CHLORIDE 94 mmol/L (101-111); CREATININE 0.8 mg/dL (0.4-1.0); GFR - MDRD 71 (>89); GLUCOSE 200 mg/dL (70-100); LIPASE 25 U/L (22-51); SODIUM 134 mmol/L (135-145)
[2019-02-07 09:25] LABS: BACTERIA,URINE Few /HPF (None Seen); SQUAMOUS EPITHELIAL CELL,UR FEW Squamous (<= Few); YEAST,URINE PRESENT
[2019-02-07] MEDS ORDERED: IOVERSOL 320 100 ML VIAL IVP ONE ×2 (10:01→15:22)
[2019-02-07] MEDS ORDERED: cefTRIAXone 1 GM in SODIUM CHLORIDE 0.9% MINIBAG 100 ML IV STA (10:18)
--- NOTE | 2019-02-07 11:05 | CT Report ---
Reason: abdominal pain Procedure Date: 02/07/2019 Accession Number: [id number] / [id number] Procedure: CT - Abdomen/Pelvis W CPT Code: FULL RESULT: EXAM: CT ABDOMEN AND PELVIS WITH IV CONTRAST EXAM DATE: 02/07/2019. CLINICAL HISTORY: Abdominal pain. COMPARISONS: Abdomen and pelvis CT without and with IV contrast on 10/22/2016. TECHNIQUE: Routine helical CT imaging was performed through the abdomen and pelvis. IV contrast: 100 cc of Optiray 320. Enteric contrast: None. Reconstructions: Coronal and sagittal. In accordance with CT protocol optimization, one or more of the following dose reduction techniques were utilized for this exam: automated exposure control, adjustment of mA and/or KV based on patient size, or use of iterative reconstructive technique. FINDINGS: Lung Bases: Bibasilar fibrosis and bronchiectasis appears unchanged. No pleural or pericardial effusion. 3 cm hiatal hernia is unchanged. Liver: Enlarged, right lobe 20.3 cm in length. No focal abnormality. Gallbladder/Bile Ducts: Normal. No bile duct dilatation. Spleen: Enlarged, 15.9 cm length. No focal abnormality. Pancreas: Normal. Adrenal Glands: Normal. Kidneys: Severe hydronephrosis present on the prior examination has resolved. Bilateral cortical scarring. Punctate nonobstructing left renal calculi are unchanged. Peritoneal Cavity/Bowel: Large-volume of feces throughout the colon. Otherwise no bowel dilatation. No mass, adenopathy, inflammatory changes or fluid collections. Infraumbilical fat-containing midline ventral hernia is unchanged. Pelvic Organs: Interiano catheter in the urinary bladder. Gas in the bladder most likely from the presence of the catheter. Hysterectomy. No mass, adenopathy, or fluid collections. Vasculature: Atherosclerosis of the aorta and branch arteries. Bones: Zickel nail fixing an old right intertrochanteric hip fracture. Degenerative changes of the spine. IMPRESSION: Large volume of feces throughout the colon. Severe hydronephrosis of the kidneys has resolved since the prior examination done 10/22/2016. Bilateral renal cortical scarring as a result of the previous severe hydronephrosis. Punctate left renal nonobstructing calculi are unchanged. Hepatomegaly and splenomegaly are unchanged. Infraumbilical midline fat-containing ventral hernia is unchanged. No bowel within the hernia. Other chronic findings as described in the report. [facility]
[2019-02-07] MEDS ORDERED: MINERAL OIL ENEMA 133 ML BOTTLE RC STA (12:14)
[2019-02-07] MEDS ORDERED: SODIUM CHLORIDE FLUSH 0.9% 10 ML SYRINGE IVP PRN (16:04)
[2019-02-07] MEDS ORDERED: TEMAZEPAM 15 MG CAPSULE PO PRN (16:04)
[2019-02-07] MEDS ORDERED: ONDANSETRON 4 MG/2 ML VIAL IVP PRN (16:04)
[2019-02-07] MEDS ORDERED: ACETAMINOPHEN 325 MG TABLET PO PRN (16:04)
--- NOTE | 2019-02-07 16:10 | HISTORY & PHYSICAL EXAMINATION ---
Chief Complaint - Chief Complaint Chief Complaint: abdominal pain, dysuria History of Present Illness - Admitted From Admitted From:: ED - History Obtained From Records Reviewed: yes History obtained from: POA- daughter, patient, chart review Exam Limitations: baseline dementia - History of Present Illness HPI Comment/Other: Lotus Boyd is a 68-year old female who was recently placed in [facility] with a past medical history of hypertension, hyperlipidemia, chronic kidney disease stage 1, diabetes mellitus type 2, Alzheimer's dementia, osteoarthritis, osteoporosis, Influenza A, recurrent pneumonia, status post right hip repair after a fall in December of 2018, chronic constipation, neurogenic bladder requiring a chronic indwelling carbajal, iron deficiency anemia, and chronic pain. The patient arrived from [facility] via EMS complaining of lower abdominal pain, which started about 2 days ago. She also complained of dysuria despite having an indwelling carbajal. Reports from facility, per her daughter note that her sleep and appetite have been poor. Since arriving in the ED a CT abdomen/pelvis showed large volume of feces throughout the colon. This may have been a result of her chronic narcotic use since her right hip repair in December 2018. The patient and her daughter denied recent falls, dizziness, vomiting, diarrhea, hemorrhoids, bleeding, rashes, increased confusion, fevers, chills, or a new cough, although the patient is a very poor historian given her dementia. Labs show a normal WBC count of 6.4, a hemoglobin of 11.0, hematocrit of 32.6, MCV of 85.0, platelet count of 266, a normal lactic acid of 0.7 (despite taking metformin), a sodium of 134, potassium of 4.0, chloride of 94, BUN of 19, creatinine of 0.9, GFR of 71, glucose of 200, normal LFTs, and after a carbajal change out a new urine sample showed likely e. coli strain UTI with cloudy appearing urine, positive for nitrites, large urine leukocyte esterase, WBCs greater than 25, and a culture was indicated. The patient had been in the ED for greater than 6 hours and had no improvement in her symptoms and no stool out, so was admitted to observation for symptom management and to get treated for her UTI. History - Past Medical History Cardiovascular: reports: Hypertension, High cholesterol, Coronary artery disease, Peripheral Vascular Disease Respiratory: reports: Asthma, COPD, Emphysema, Pneumonia Neuro: reports: Alzhiemer's, Dementia, Headaches, Peripheral neuropathy, Tremors Endocrine/Autoimmune: reports: Type 2 diabetes GI: reports: GERD, Hiatal hernia, Chronic constipation : reports: Incontinence, Nocturia, Frequency, Other (neurogenic bladder) HEENT: reports: Chronic vision loss, Chronic sinusitis, Chronic hearing loss Psych: reports: Depression, Anxiety Musculoskeletal: reports: Osteoarthritis, Osteoporosis, Chronic back pain Derm: reports: None MRSA Hx?: No Other Past Medical History: enlarged spleen on imaging, resolved hydronephrosis, renal calculi bilaterally - Past Surgical History General: reports: Appendectomy Ortho: reports: Hip replacement (right hip repair- December 2018) /[employer] PRODUCTION [employer]IST: reports: Hysterectomy - Family & Social History Family History: Mother: , Father: , CAD Family History Comment/Other: pt could not provide any FHX information because of her dementia condition Living arrangement: Assisted living ([facility]) Social History Notes: 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 Her daughter remains very supportive, which is why she and her moved to the [place], and recently was placed at [facility] (memory care) due to her quickly advancing Alzheimer's dementia. Her daughter is now her POA and activated spokes person and denies alcholism, illicit drug use, but admits to her mother having a tobacco history from age 13 to 48. She states she has a POLST form indicating DNR/DNI. - Substance History Use: Uses substance without health or social issues: NONE Abuse: Recurrent use of substance despite neg consequences: NONE Dependence: Experiences withdrawal or developed tolerances: NONE - POLST Patient has POLST: Yes POLST Status: DNR Meds/Allgy - Home Medications Home Medications: Ambulatory Orders Medication Instructions Recorded Confirmed Multivitamin [Multiple Vitamins] 1 tab PO DAILY 06/01/18 02/07/19 Albuterol 2.5 mg INH RTQ4H PRN #3 neb 12/25/18 02/07/19 Atorvastatin [Lipitor] 20 mg PO QPM #30 tablet 12/25/18 02/07/19 Lisinopril/Hydrochlorothiazide 1 tab PO BID #30 tablet 12/25/18 02/07/19 [Lisinopril-Hctz 20-12.5 mg Tab] Ondansetron Odt [Zofran Odt] 4 mg PO Q8H PRN #10 tablet 12/25/18 02/07/19 ALPRAZolam [Alprazolam] 0.25 mg PO Q8H PRN 02/07/19 02/07/19 Acetaminophen 1,000 mg PO Q8H PRN 02/07/19 02/07/19 Fluoxetine HCl 30 mg PO DAILY 02/07/19 02/07/19 Omeprazole 20 mg PO QDAC 02/07/19 02/07/19 amLODIPine [Norvasc] 5 mg PO BID 02/07/19 02/07/19 Ferrous Gluconate 240 mg PO DAILY #30 tablet 02/08/19 Insulin Glargine [Lantus Solostar] 10 unit INJ DAILY PM #1 pen 02/08/19 Magnesium Oxide [Mag Ox] 400 mg PO 0800 #30 tablet 02/08/19 Polyethylene Glycol 3350 [Miralax] 17 gm PO DAILY #30 packet 02/08/19 Saccharomyces Boulardii [Florastor] 250 mg PO BID #60 capsule 02/08/19 Sulfamethox/Trimeth 800/160 1 each PO BID #14 tablet 02/08/19 [Bactrim Ds] metFORMIN [Glucophage] 1,000 mg PO BIDWM #60 tablet 02/08/19 oxyCODONE [Roxicodone] 5 mg PO BIDWM #60 tablet 02/08/19 oxyCODONE [Roxicodone] 5 mg PO Q4H PRN #30 tablet 02/08/19 - Allergies Allergies/Adverse Reactions: Allergies Allergy/AdvReac Type Severity Reaction Status Date / Time No Known Drug Allergies Allergy Verified 02/07/19 08:33 Review of Systems - Constitutional Constitutional: reports: Fatigue, Weakness, Poor appetite - Eyes Eyes: reports: Vision loss - Ears, Nose & Throat Ears, Nose & Throat: reports: Hearing loss, Postnasal drainage, Dental decay - Cardiovascular Cariovascular: reports: Edema, Lightheadedness, Decr. exercise tolerance - Respiratory Respiratory: reports: Cough, SOB with exertion - Gastrointestinal Gastrointestinal: reports: Abdominal pain, Abdominal distention, Constipation, Change in bowel habits, Nausea, Reflux/heartburn, Bloating, Poor appetite - Genitourinary Genitourinary: reports: Dysuria, Frequency, Urgency, Incontinence, Nocturia - Musculoskeletal Musculoskeletal: reports: Back pain, Stiffness, Muscle weakness, Joint pain - Integumentary Integumentary: reports: Dryness - Neurological Neurological: reports: General weakness, Headache, Memory problems, Pre-existing deficit, Abnormal gait, Incoordination, Slurred speech - Psychiatric Psychiatric: reports: Depression, Anxiety - Hematologic/Lymphatic Hematologic/Lymphatic: reports: Anemia, Recurrent infections - All Other Systems All Other Systems: reports: Reviewed and negative Prior Level of Functionality: Status post skilled rehab post right hip fracture. Uses a walker with stand by assist, no recent falls. Moved to a dementia unit just last week- [facility]. Exam - Vital Signs Reviewed Vital Signs: Yes Vital Signs: Vital Signs x48h Temp Pulse Resp BP Pulse Ox 02/07/19 15:00 89 18 137/78 H 96 02/07/19 13:57 87 18 148/78 H 99 02/07/19 11:02 76 18 137/78 H 94 02/07/19 09:31 75 15 126/63 93 02/07/19 08:29 36.6 C 81 20 128/63 95 - Physical Exam General Appearance: positive: Alert, Moderate distress Eyes Bilateral: positive: PERRL ENT: positive: Pharynx nml, Dry mucous membranes Neck: positive: Thyroid nml, No JVD, Trachea midline Respiratory: positive: No respiratory distress, Rhonchi Cardiovascular: positive: No gallop, Irregularly irregular, Systolic murmur Peripheral Pulses: positive: 2+ Abdomen: positive: Tenderness, Guarding, Hepatomegaly, Abnml bowel sounds Back: positive: Nml inspection Skin: positive: Color nml, No rash, Warm, Dry Extremities: positive: Non-tender, No pedal edema Neurologic/Psychiatric: positive: Motor nml, Disoriented to time, Weakness, Sensory loss, Slurred/abnml speech, Depressed mood/affect, Other (poor speech) Reflexes: Bicep (R): 2+, Bicep (L): 2+ Conclusion/Plan - Problem List (1) Abdominal pain Conclusion/Plan: - Due to poor memory, patient cannot remember where her pain primarily is - Daughter notes her to have complained of low abdominal pain - CT of abdomen/pelvis confirmed the likely cause being large stool burden Plan: Continue to treat pain, give relistor to block the narcotic effects, bowel protocol Qualifiers: Abdominal location: generalized Qualified Code(s): R10.84 - Generalized abdominal pain (2) Urinary tract infection Conclusion/Plan: - + nitrites, so likely an e. coli strain - Start and continue daily Rocephin Plan: Await final culture results, continue antibiotic Qualifiers: Urinary tract infection type: acute cystitis Hematuria presence: without hematuria Qualified Code(s): N30.00 - Acute cystitis without hematuria (3) Dehydration Conclusion/Plan: - mucous membranes dry on exam, poor skin tone, dry Plan: Continue gentle IV fluids, routine labs in the AM (4) Carbajal catheter in place Conclusion/Plan: - Chronic carbajal due to ongoing urinary retention - Recurrent UTIs as a result - Chronic sediment noted - Recommend PCP or urology follow up regarding daily prophylaxis after this acute infection Plan: Continue indwelling carbajal, changed in the ED (02/07/2019), monitor for worsening (5) HTN (hypertension) Conclusion/Plan: - Norvasc, lisinopril/HCTZ at home - Continued here - B/P 137/78 on admission Plan: Continue to monitor, continue meds, gentle IV fluids Qualifiers: Hypertension type: essential hypertension Qualified Code(s): I10 - Essential (primary) hypertension (6) Constipation Conclusion/Plan: - Imaging of abdomen and pelvis (CT) was done in the ED - Showed large volume feces throughout the colon, no obstruction - Enema administered while in the ED with no luck Plan: Lactulose scheduled, suppositories if needed, reduce narcotics, encourage ambulation, and Relistor injection x1 Qualifiers: Constipation type: slow transit constipation Qualified Code(s): K59.01 - Slow transit constipation (7) Dementia Conclusion/Plan: - Recently placed at [facility] (memory care) - Memory and dementia symptoms have become significantly worse since her in April 2018 - Multiple falls, with the last being in December 2018, now status post right hip repair - Not medically managed, likely as this may cause increased falls and only recommended in early dementia Plan: Continue frequent nursing cares, bed alarm Qualifiers: Dementia type: Alzheimer's disease Dementia behavioral disturbance: without behavioral disturbance - Lab Results Lab results reviewed: Yes Fish Bones: 02/08/19 05:43 02/08/19 05:43 - Diagnostic Imaging Results Diagnostic Imaging Results: positive: Prelim report reviewed Core Measures - Anticipated LOS I expect patient to be DC'd or transferred within 96 hours.: Yes - DVT/VTE - Prophylaxis VTE/DVT Device ordered at admit?: Yes VTE/DVT Prophylaxis med ordered at admit?: Yes - Stroke - Rehab Assessment Rehab services assessment to be ordered?: Yes - AMI - Statin at Admit Aspirin Prescribed on Admit: Yes
[2019-02-07] MEDS ORDERED: HYDROmorphone 1 MG/ML CARPUJECT IVP PRN (17:01)
[2019-02-07] MEDS ORDERED: oxyCODONE 5 MG TABLET PO PRN (17:01)
[2019-02-07] MEDS ORDERED: ALBUTEROL NEB 2.5 MG/3 ML INH PRN (17:01)
[2019-02-07] MEDS ORDERED: ALPRAZolam 0.25 MG TABLET PO PRN (17:01)
[2019-02-07] MEDS ORDERED: METHYLNALTREXONE 12 MG/0.6 ML VIAL SUBQ SCH (17:01)
[2019-02-07] MEDS: LACTULOSE 10 GM /15 ML UDC PO SCH (17:14)
[2019-02-07] MEDS: ACETAMINOPHEN 1,000 MG/100 ML 100 ML IV PRN ×2 (17:15→23:42)
[2019-02-07] MEDS: SODIUM CHLORIDE FLUSH 0.9% 10 ML SYRINGE IVP SCH ×2 (17:20→23:49)
[2019-02-07] MEDS: LISINOPRIL 5 MG TABLET PO SCH (19:24)
[2019-02-07] MEDS: SODIUM CHLORIDE 0.9% 1,000 ML IV SCH (19:33)
[2019-02-07] MEDS ORDERED: ATORVASTATIN 10 MG TABLET PO SCH (21:00)
[2019-02-07] MEDS ORDERED: INSULIN GLARGINE 300 UNIT/3 ML PEN SUBQ SCH (21:00)
[2019-02-07] MEDS: FAMOTIDINE 20 MG TABLET PO SCH (21:41)
[2019-02-07] MEDS: INSULIN ASPART 300 UNIT/3 ML PEN SUBQ SCH (21:41)
[2019-02-08 05:57] LABS: BASOPHILS % (AUTO) 0.6 %; EOSINOPHILS # (AUTO) 0.2 10^3/uL (0.0-0.7); EOSINOPHILS % (AUTO) 2.9 %; HGB - HEMOGLOBIN 10.5 g/dL (12.0-16.0); LYMPHOCYTES # (AUTO) 0.7 10^3/uL (1.5-3.5); MEAN CORPUSCULAR HEMOGLOBIN 28.5 pg (27.0-31.0); MEAN CORPUSCULAR HGB CONC 33.4 g/dL (32.0-36.0); MEAN CORPUSCULAR VOLUME 85.4 fL (81.0-99.0); MEAN PLATELET VOLUME 6.4 fL (7.9-10.8); MONOCYTES # (AUTO) 0.3 10^3/uL (0.0-1.0); NEUTROPHILS # (AUTO) 4.8 10^3/uL (1.5-6.6); NEUTROPHILS % (AUTO) 79.5 %; PLT - PLATELET COUNT 255 10^3/uL (130-450); RED BLOOD COUNT 3.69 10^6/uL (4.20-5.40); RED CELL DISTRIBUTION WIDTH 15.1 % (12.0-15.0)
[2019-02-08 06:09] LABS: ALBUMIN 3.2 g/dL (3.2-5.5); ALKALINE PHOSPHATASE 54 IU/L (42-121); ALT ALANINE AMINOTRANSFERASE < 10 IU/L (10-60); AST ASPARTATE AMINOTRANSFERASE 14 IU/L (10-42); BILIRUBIN,TOTAL 0.8 mg/dL (0.2-1.0); BUN - BLOOD UREA NITROGEN 13 mg/dL (6-20); CALCIUM 9.4 mg/dL (8.5-10.3); CARBON DIOXIDE - CO2 27 mmol/L (21-32); CHLORIDE 98 mmol/L (101-111); CREATININE 0.6 mg/dL (0.4-1.0); GFR - MDRD 99 (>89); GLUCOSE 171 mg/dL (70-100); MAGNESIUM 1.4 mg/dL (1.7-2.8); PHOSPHORUS 3.3 mg/dL (2.5-4.6); SODIUM 135 mmol/L (135-145); TOTAL PROTEIN 6.5 g/dL (6.7-8.2)
[2019-02-08] MEDS: SODIUM CHLORIDE 0.9% 1,000 ML IV SCH (06:15)
[2019-02-08 06:23] LABS: HB2 TOTAL 11.3 g/dL; HEMOGLOBIN A1C 0.48 g/dL
[2019-02-08] MEDS: FAMOTIDINE 20 MG TABLET PO SCH (07:54)
[2019-02-08] MEDS: LISINOPRIL 5 MG TABLET PO SCH (07:54)
[2019-02-08] MEDS: LACTULOSE 10 GM /15 ML UDC PO SCH (07:54)
[2019-02-08] MEDS: INSULIN ASPART 300 UNIT/3 ML PEN SUBQ SCH ×2 (07:56→12:34)
[2019-02-08] MEDS: SODIUM CHLORIDE FLUSH 0.9% 10 ML SYRINGE IVP SCH ×2 (07:58→08:04)
[2019-02-08] MEDS ORDERED: cefTRIAXone 2 GM in SODIUM CHLORIDE 0.9% MINIBAG 100 ML IV SCH (09:00)
[2019-02-08] MEDS ORDERED: POLYETHYLENE GLYCOL 3350 17 GM PACKET PO SCH ×2 (09:00)
[2019-02-08 11:39] VITALS: BP 143/65
--- NOTE | 2019-02-08 11:51 | Discharge Plan ---
"Discharge Plan for SNF / RETIREMENT - Discharge Plan And Transition Orders Disposition: 03 SNF DC/Xfer Condition: Good Allergies and Adverse Reactions: Allergies Allergy/AdvReac Type Severity Reaction Status Date / Time No Known Drug Allergies Allergy Verified 02/07/19 08:33 - SNF / RETIREMENT Transition Orders Admit to (Facility): [facility] Under the care of (Name): Randa Enciso Discharge Diagnosis: Urinary tract infection, site not specified (N39.0) new on this admission, + nitrites, so likely e. coli strain. Started on Rocephin, changed to Bactrim to be continued at [facility] Unspecified abdominal pain (R10.9) resolved, several BMs Constipation, unspecified (K59.00) chronic, stable, continue Miralax daily Alzheimer's disease, unspecified (G30.9) chronic, stable Dehydration (E86.0) Carbajal catheter in place (Z96.0)chronic, stable, new indwelling carbajal placed on 02/07/2019 Narcotic drug use (F11.90) chronic, stable, reduced to 2.5mg Q4H Right hip pain (M25.551) chronic, stable Weight on admission and: Monthly Medication Orders: PLEASE REFER TO THE DISCHARGE MEDICATION LIST. - Medications New Prescriptions: oxyCODONE [Roxicodone] 2.5 mg PO Q4HR PRN #30 tablet PRN Reason: Pain Ferrous Gluconate 240 mg PO DAILY #30 tablet Magnesium Oxide [Mag Ox] 400 mg PO 0800 #30 tablet Polyethylene Glycol 3350 [Miralax] 17 gm PO DAILY #30 packet Sulfamethox/Trimeth 800/160 [Bactrim Ds] 1 each PO BID #14 tablet - Diet Type: Geriatric Texture: Regular Liquids: Thin May have monthly special meal: Yes - Therapies | Activity Rehabilitation Potential: Maximize functional status Activity: Activity as Tolerated Weight Bearing: Full Weight Assistance Devices: Wheelchair, Walker"
[2019-02-08] MEDS ORDERED: MAGNESIUM OXIDE 400 MG TABLET PO SCH (14:00)
--- NOTE | 2019-02-08 15:12 | ADVANCE CARE PLANNING NOTE ---
Advance Care Planning - Date/Time Date: 02/07/19 Time: 17:00 - Purpose of encounter Text: Establish plan of care, confirm desired end of life wishes in the event of a change of condition, and confirm code status. - Parties in attendance Parties in attendance: The patient- Lotus Boyd, her daughter and POA Elyse, and myself- CAITLYN Hathaway - Decisional capacity Decisional capacity of: The patient has no decisional capacity (due to her medical diagnosis of Alzheimer's dementia) and cannot function on her own independently, leading to her recent memory care placement at [facility]. Her spokes person is appropriately her daughter, Elyse who has her mother's best interest in mind. 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 Her daughter, Elyse, remains very supportive and lives near by and is the reason she and her moved to the [place]. She has recently been placed at [facility] (memory care) due to her quickly advancing Alzheimer's dementia. Her daughter is now her POA and activated spokes person and denies alcoholism, illicit drug use, but admits to her mother having a tobacco history from age 13 to 48. She states she has a POLST form indicating DNR/DNI. Elyse states that she does not want any heroic measures if her mother's heart would stop and answered NO to all 4 questions surrounding rescue efforts; Do you want chest compressions-NO, do you want shocking-NO, do you want cardiac medications-NO, & do you want intubation in the event you stop breathing-NO. Elyse state she wants her mother not to suffer from pain, and wants her mother to be safe and happy. She states that her mother still enjoys eating and being around others. She denies a Palliative care consult for this admission, and feels well supported by [facility] staff. Elyse is happy that her mother can recognize her with each visit and dreads the day that this may no longer be the case. - Objective/Medical story Objective/Medical Story: Lotus Boyd [facility] a 68-[facility] of hypertension, hyperlipidemia, chronic kidney disease stage 1, diabetes mellitus type 2, Alzheimer's dementia, osteoarthritis, osteoporosis, Influenza A, recurrent pneumonia, status post right hip repair after a fall in December of 2018, chronic constipation, neurogenic bladder requiring a chronic indwelling carbajal, iron deficiency anemia, and chronic pain. The patient arrived from [facility] via EMS complaining of lower abdominal pain, which started about 2 days ago. She also complained of dysuria despite having an indwelling carbajal. Reports from facility, per her daughter note that her sleep and appetite have been poor. Since arriving in the ED a CT abdomen/pelvis showed large volume of feces throughout the colon. This may have been a result of her chronic narcotic use since her right hip repair in December 2018. The patient and her daughter denied recent falls, dizziness, vomiting, diarrhea, hemorrhoids, bleeding, rashes, increased confusion, fevers, chills, or a new cough, although the patient is a very poor historian given her dementia. Labs show a normal WBC count of 6.4, a hemoglobin of 11.0, hematocrit of 32.6, MCV of 85.0, platelet count of 266, a normal lactic acid of 0.7 (despite taking metformin), a sodium of 134, potassium of 4.0, chloride of 94, BUN of 19, creatinine of 0.9, GFR of 71, glucose of 200, normal LFTs, and after a carbajal change out a new urine sample showed likely e. coli strain UTI with cloudy appearing urine, positive for nitrites, large urine leukocyte esterase, WBCs greater than 25, and a culture was indicated. The patient had been in the ED for greater than 6 hours and had no improvement in her symptoms and no stool out, so was admitted to observation for symptom management and to get treated for her UTI. - Goals of Care Goals of care determinations: If this situation becomes a possible surgical intervention, more discussion would take place to weigh benefits and risks for unresolved constipation and or progression to a bowel obstruction. If the patient becomes septic, has sudden or continues to decline, this may determine next steps in plan of care. There is no reason upon admission that the patient is likely to deteriorate and will likely improve after medical management. Steps will be taken to prevent this event in the future such as reducing the dosing or frequency of the narcotics, or adding other bowel meds upon discharge back to [facility]. - Plan Plan: Manage symptoms, monitor for improvement, take measures upon discharge to prevent a recurrence of such profound constipation. - Code Status Code Status: Do Not Attempt Resuscitation - Time Spent on Advance Care Planning Time spent on advance care plannin
--- NOTE | 2019-02-08 15:13 | DISCHARGE SUMMARY ---
"Discharge Summary Admit Date: 02/07/19 Discharge Date: 02/08/19 Discharging Provider: CAITLYN Hathaway Primary Care Provider: Randa Enciso Code Status: Do Not Attempt Resuscitation Condition at Discharge: Good Discharge Disposition: SNF DC/Xfer Discharge Facility Name: [facility] - DIAGNOSES Admission Diagnoses: Urinary tract infection, site not specified (N39.0) Unspecified abdominal pain (R10.9) Constipation, unspecified (K59.00) Alzheimer's disease, unspecified (G30.9) Dehydration (E86.0) Carbajal catheter in place (Z96.0) Discharge Diagnoses with Status of Each Condition: Urinary tract infection, site not specified (N39.0) new on this admission, + nitrites, so likely e. coli strain. Started on Rocephin, changed to Bactrim to be continued at [facility] Unspecified abdominal pain (R10.9) resolved, several BMs Constipation, unspecified (K59.00) chronic, stable, continue Miralax daily Alzheimer's disease, unspecified (G30.9) chronic, stable Dehydration (E86.0) Carbajal catheter in place (Z96.0)chronic, stable, new indwelling carbajal placed on 02/07/2019 Narcotic drug use (F11.90) chronic, stable, reduced to 2.5mg Q4H Right hip pain (M25.551) chronic, stable - HPI History of Present Illness: Lotus Boyd is a 68-year old female who was recently placed in [facility] with a past medical history of hypertension, hyperlipidemia, chronic kidney disease stage 1, diabetes mellitus type 2, Alzheimer's dementia, osteoarthritis, osteoporosis, Influenza A, recurrent pneumonia, status post right hip repair after a fall in December of 2018, chronic constipation, neurogenic bladder requiring a chronic indwelling carbajal, iron deficiency anemia, and chronic pain. The patient arrived from [facility] via EMS complaining of lower abdominal pain, which started about 2 days ago. She also complained of dysuria despite having an indwelling carbajal. Reports from facility, per her daughter note that her sleep and appetite have been poor. Since arriving in the ED a CT abdomen/pelvis showed large volume of feces throughout the colon. This may have been a result of her chronic narcotic use since her right hip repair in December 2018. The patient and her daughter denied recent falls, dizziness, vomiting, diarrhea, hemorrhoids, bleeding, rashes, increased confusion, fevers, chills, or a new cough, although the patient is a very poor historian given her dementia. Labs show a normal WBC count of 6.4, a hemoglobin of 11.0, hematocrit of 32.6, MCV of 85.0, platelet count of 266, a normal lactic acid of 0.7 (despite taking metformin), a sodium of 134, potassium of 4.0, chloride of 94, BUN of 19, creatinine of 0.9, GFR of 71, glucose of 200, normal LFTs, and after a carbajal change out a new urine sample showed likely e. coli strain UTI with cloudy appearing urine, positive for nitrites, large urine leukocyte esterase, WBCs greater than 25, and a culture was indicated. The patient had been in the ED for greater than 6 hours and had no improvement in her symptoms and no stool out, so was admitted to observation for symptom management and to get treated for her UTI. - CONSULTS | PROCEDURES Consultations: none - HOSPITAL COURSE Hospital Course: The patient had an expected recovery of her profound constipation after consuming 2 doses of lactulose, an enema in the ED, a one time injection of Relistor to bypass the narcotic effects of the IV dilaudid, and was consuming food by her morning meal. No imaging was necessary as she had several bowel movements overnight and a resolution of her abdominal pain. I personally called [facility] to clarify orders and add Magnesium oxide that was discovered to be low at 1.4. She is recommended to follow up with her PCP because her insulin and Metformin routine was changed based on early AM sugars and to ensure less error by staff at [facility]. New medication prescriptions were faxed for updates. - ALLERGIES Allergies/Adverse Reactions: Allergies Allergy/AdvReac Type Severity Reaction Status Date / Time No Known Drug Allergies Allergy Verified 02/07/19 08:33 - MEDICATIONS Home Medications: Ambulatory Orders Medication Instructions Recorded Confirmed Multivitamin [Multiple Vitamins] 1 tab PO DAILY 06/01/18 02/07/19 Albuterol 2.5 mg INH RTQ4H PRN #3 neb 12/25/18 02/07/19 Atorvastatin [Lipitor] 20 mg PO QPM #30 tablet 12/25/18 02/07/19 Lisinopril/Hydrochlorothiazide 1 tab PO BID #30 tablet 12/25/18 02/07/19 [Lisinopril-Hctz 20-12.5 mg Tab] Ondansetron Odt [Zofran Odt] 4 mg PO Q8H PRN #10 tablet 12/25/18 02/07/19 ALPRAZolam [Alprazolam] 0.25 mg PO Q8H PRN 02/07/19 02/07/19 Acetaminophen 1,000 mg PO Q8H PRN 02/07/19 02/07/19 Fluoxetine HCl 30 mg PO DAILY 02/07/19 02/07/19 Omeprazole 20 mg PO QDAC 02/07/19 02/07/19 amLODIPine [Norvasc] 5 mg PO BID 02/07/19 02/07/19 Ferrous Gluconate 240 mg PO DAILY #30 tablet 02/08/19 Insulin Glargine [Lantus Solostar] 10 unit INJ DAILY PM #1 pen 02/08/19 Magnesium Oxide [Mag Ox] 400 mg PO 0800 #30 tablet 02/08/19 Polyethylene Glycol 3350 [Miralax] 17 gm PO DAILY #30 packet 02/08/19 Saccharomyces Boulardii [Florastor] 250 mg PO BID #60 capsule 02/08/19 Sulfamethox/Trimeth 800/160 1 each PO BID #14 tablet 02/08/19 [Bactrim Ds] metFORMIN [Glucophage] 1,000 mg PO BIDWM #60 tablet 02/08/19 oxyCODONE [Roxicodone] 5 mg PO BIDWM #60 tablet 02/08/19 oxyCODONE [Roxicodone] 5 mg PO Q4H PRN #30 tablet 02/08/19 - PHYSICAL EXAM AT DISCHARGE General Appearance: positive: No acute distress, Alert Eyes Bilateral: positive: Normal inspection, PERRL ENT: positive: ENT inspection nml, Pharynx nml, No signs of dehydration Neck: positive: Thyroid nml, No JVD, Trachea midline Respiratory: positive: Chest non-tender, No respiratory distress, Breath sounds nml Cardiovascular: positive: Regular rate & rhythm, No gallop, Systolic murmur Peripheral Pulses: positive: 2+ Abdomen: positive: Non-tender, Nml bowel sounds, Other (rounded, soft) Back: positive: Nml inspection Skin: positive: Color nml, No rash, Warm, Dry Extremities: positive: Non-tender, Full ROM, Nml appearance, No pedal edema Neurologic/Psychiatric: positive: CN's nml (2-12), Disoriented to place, Disoriented to time, Weakness, Slurred/abnml speech, Depressed mood/affect, Other (baseline advanced dementia) Reflexes: Bicep (R): 3+, Bicep (L): 3+ - LABS Result Diagrams: 02/08/19 05:43 02/08/19 05:43 - DIAGNOSTIC IMAGING Diagnostic Imaging Results: Final report reviewed Diagnostic Imaging Results Comments: EXAM: CT ABDOMEN AND PELVIS WITH IV CONTRAST EXAM DATE: 02/07/2019. FINDINGS: Lung Bases: Bibasilar fibrosis and bronchiectasis appears unchanged. No pleural or pericardial effusion. 3 cm hiatal hernia is unchanged. Liver: Enlarged, right lobe 20.3 cm in length. No focal abnormality. Gallbladder/Bile Ducts: Normal. No bile duct dilatation. Spleen: Enlarged, 15.9 cm length. No focal abnormality. Pancreas: Normal. Adrenal Glands: Normal. Kidneys: Severe hydronephrosis present on the prior examination has resolved. Bilateral cortical scarring. Punctate nonobstructing left renal calculi are unchanged. Peritoneal Cavity/Bowel: Large-volume of feces throughout the colon. Otherwise no bowel dilatation. No mass, adenopathy, inflammatory changes or fluid collections. Infraumbilical fat-containing midline ventral hernia is unchanged. Pelvic Organs: Carbajal catheter in the urinary bladder. Gas in the bladder most likely from the presence of the catheter. Hysterectomy. No mass, adenopathy, or fluid collections. Vasculature: Atherosclerosis of the aorta and branch arteries. Bones: Zickel nail fixing an old right intertrochanteric hip fracture. Degenerative changes of the spine. IMPRESSION: Large volume of feces throughout the colon. Severe hydronephrosis of the kidneys has resolved since the prior examination done 10/22/2016. Bilateral renal cortical scarring as a result of the previous severe hydronephrosis. Punctate left renal nonobstructing calculi are unchanged. Hepatomegaly and splenomegaly are unchanged. Infraumbilical midline fat-containing ventral hernia is unchanged. No bowel within the hernia. - FOLLOW UP Follow Up: Admit to: [facility] Under the care of : Randa Enciso Discharge Diagnosis: Urinary tract infection, site not specified (N39.0) new on this admission, + nitrites, so likely e. coli strain. Started on Rocephin, changed to Bactrim to be continued at [facility] Unspecified abdominal pain (R10.9) resolved, several BMs Constipation, unspecified (K59.00) chronic, stable, continue Miralax daily Alzheimer's disease, unspecified (G30.9) chronic, stable Dehydration (E86.0) Carbajal catheter in place (Z96.0)chronic, stable, new indwelling carbajal placed on 02/07/2019 Narcotic drug use (F11.90) chronic, stable, reduced to 2.5mg Q4H Right hip pain (M25.551) chronic, stable New Prescriptions: oxyCODONE [Roxicodone] 2.5 mg PO Q4HR PRN #30 tablet PRN Reason: Pain Ferrous Gluconate 240 mg PO DAILY #30 tablet Magnesium Oxide [Mag Ox] 400 mg PO 0800 #30 tablet Polyethylene Glycol 3350 [Miralax] 17 gm PO DAILY #30 packet Sulfamethox/Trimeth 800/160 [Bactrim Ds] 1 each PO BID #14 tablet - TIME SPENT Time Spent in Discharge (Minutes): 45"
== END 2019-02-08 13:15 ==
LOC: EDUNIT# → ED 08:26 → MS2 16:04
PROVIDERS: ADMIT Nurse Practitioner; ATTEND Nurse Practitioner
DX: N39.0 Urinary tract infection, site not specified (principal); K59.00 Constipation, unspecified; G30.9 Alzheimer's disease, unspecified; F02.80 Dementia in other diseases classified elsewhere, unspecified severity, without behavioral disturbance, psychotic disturbance, mood disturbance, and anxiety; E86.0 Dehydration; Z96.0 Presence of urogenital implants; N31.9 Neuromuscular dysfunction of bladder, unspecified; R32 Unspecified urinary incontinence; M25.551 Pain in right hip; Z79.891 Long term (current) use of opiate analgesic; E11.22 Type 2 diabetes mellitus with diabetic chronic kidney disease; I12.9 Hypertensive chronic kidney disease with stage 1 through stage 4 chronic kidney disease, or unspecified chronic kidney disease; N18.1 Chronic kidney disease, stage 1; Z79.4 Long term (current) use of insulin; E78.5 Hyperlipidemia, unspecified; Z66 Do not resuscitate; D50.9 Iron deficiency anemia, unspecified; G89.29 Other chronic pain
CPT/HCPCS: 36415; 74177; 80053; 81001; 83036; 83605; 83690; 83735; 84100; 85025; 87086; 96365; 96366; 96372; 96375; 96376; 99284; A9270; G0378; J0131; J1815; J2212; J2270; Q9967; 81003

== ENCOUNTER 2019-03-02 14:18 | Emergency (ER) | payer MEDICARE, OTHER ==
--- NOTE | 2019-03-02 14:46 | ED Physician Documentation ---
PD HPI LOWER EXT INJURY - Stated complaint Stated Complaint: RT LEG POST PROCEDURE - History obtained from History obtained from: Patient, Caregiver - History of Present Illness PD HPI LOW EXT INJURY LOCATION: Right (She had a right intertrochanteric fracture couple months ago. Reportedly now has about a week's worth of increased pain in the upper leg. There was no new injury noted. History is limited because of dementia.) Review of Systems Unable to obtain: Dementia PD PAST MEDICAL HISTORY - Past Medical History Cardiovascular: Hypertension, High cholesterol, Coronary artery disease, Peripheral Vascular Disease Respiratory: Asthma, COPD, Emphysema, Pneumonia Neuro: Alzhiemer's, Dementia, Headaches, Peripheral neuropathy, Tremors Endocrine/Autoimmune: Type 2 diabetes GI: GERD, Hiatal hernia, Chronic constipation : Incontinence, Nocturia, Frequency, Other (neurogenic bladder) HEENT: Chronic vision loss, Chronic sinusitis, Chronic hearing loss Psych: Depression, Anxiety Musculoskeletal: Osteoarthritis, Osteoporosis, Chronic back pain Derm: None - Past Surgical History Past Surgical History: Yes General: Appendectomy Ortho: Hip replacement (right hip repair- December 2018) /CHIP [employer]ER: Hysterectomy - Present Medications Home Medications: Ambulatory Orders Medication Instructions Recorded Confirmed Multivitamin [Multiple Vitamins] 1 tab PO DAILY 06/01/18 02/07/19 Albuterol 2.5 mg INH RTQ4H PRN #3 neb 12/25/18 02/07/19 Atorvastatin [Lipitor] 20 mg PO QPM #30 tablet 12/25/18 02/07/19 Lisinopril/Hydrochlorothiazide 1 tab PO BID #30 tablet 12/25/18 02/07/19 [Lisinopril-Hctz 20-12.5 mg Tab] Ondansetron Odt [Zofran Odt] 4 mg PO Q8H PRN #10 tablet 12/25/18 02/07/19 ALPRAZolam [Alprazolam] 0.25 mg PO Q8H PRN 02/07/19 02/07/19 Acetaminophen 1,000 mg PO Q8H PRN 02/07/19 02/07/19 Fluoxetine HCl 30 mg PO DAILY 02/07/19 02/07/19 Omeprazole 20 mg PO QDAC 02/07/19 02/07/19 amLODIPine [Norvasc] 5 mg PO BID 02/07/19 02/07/19 Ferrous Gluconate 240 mg PO DAILY #30 tablet 02/08/19 Insulin Glargine [Lantus Solostar] 10 unit INJ DAILY PM #1 pen 02/08/19 Magnesium Oxide [Mag Ox] 400 mg PO 0800 #30 tablet 02/08/19 Polyethylene Glycol 3350 [Miralax] 17 gm PO DAILY #30 packet 02/08/19 Saccharomyces Boulardii [Florastor] 250 mg PO BID #60 capsule 02/08/19 metFORMIN [Glucophage] 1,000 mg PO BIDWM #60 tablet 02/08/19 oxyCODONE [Roxicodone] 5 mg PO BIDWM #60 tablet 02/08/19 oxyCODONE [Roxicodone] 5 mg PO Q4H PRN #30 tablet 02/08/19 Amox/Clav 875/125 [Augmentin 1 tab BID 03/02/19 03/02/19 875/125] QUEtiapine [SEROquel] 25 mg QPM PRN 03/02/19 03/02/19 - Allergies Allergies/Adverse Reactions: Allergies Allergy/AdvReac Type Severity Reaction Status Date / Time No Known Drug Allergies Allergy Verified 03/02/19 14:56 - Social History Does the pt smoke?: No Smoking Status: Never smoker Does the pt drink ETOH?: Yes Does the pt have substance abuse?: No - Immunizations Immunizations are current?: Yes - POLST Patient has POLST: Yes POLST Status: DNR PD ED PE NORMAL - Vitals Vital signs reviewed: Yes - General General: Other (She is alert and cooperative but confused) - Extremities Extremities: Other (Right knee, lower leg and ankle are nontender. There is no calf swelling or tenderness. She has significant pain with internal and external rotation of the hip but no hip tenderness primarily.) Results - Vitals Vitals: Vital Signs - 24 hr 03/02/19 14:29 Temperature 36.9 C Heart Rate 89 Respiratory 20 Rate Blood Pressure 137/72 H O2 Saturation 97 Oxygen O2 Source Room air - Rads (name of study) RLE DVT sono and Femur XR Radiology: EMP read contemporaneously (no DVT or hardware issue) Departure - Departure Disposition: 01 Home, Self Care Clinical Impression: Right leg pain Condition: Good Record reviewed to determine appropriate education?: Yes Follow-Up: Russ Bess MD [Provider Admit Priv/Credential] - Within 1 week Comments: She can take the oxycodone that is ordered as needed for pain per the instructions of her physician. Return for new worsening symptoms. Follow-up with your orthopedic surgeon in a week.
--- NOTE | 2019-03-02 16:12 | Ultrasound Report ---
Reason: leg pain Procedure Date: 03/02/2019 Accession Number: [id number] / [id number] Procedure: US - Duplex Ext Veins Right CPT Code: FULL RESULT: EXAM: RIGHT LOWER EXTREMITY VENOUS ULTRASOUND EXAM DATE: 03/02/2019 03:55 PM. CLINICAL HISTORY: Leg pain. COMPARISON: None. TECHNIQUE: Real-time sonographic vascular imaging was performed by the equity trader through the lower extremity utilizing both color-flow and Doppler spectral analysis. Multiple hardware supplies sales representative static images were saved for review. Difficult exam due to body habitus. FINDINGS: Common Femoral Vein (CFV): Normal. CFV-GSV Junction: Normal. Profunda Femoral Vein (PFV): Normal. Femoral Vein (FV) Prox: Normal. Femoral Vein (FV) Mid: Normal. Femoral Vein (FV) Dist: Normal. Popliteal Vein: Normal. Posterior Tibial Veins: Normal. Peroneal Veins: Normal. Contralateral Side CFV: Normal. Other: Superficial edema. IMPRESSION: Superficial edema. Negative for DVT at this time. RADIA
--- NOTE | 2019-03-02 16:39 | XRAY Report ---
Reason: leg pain Procedure Date: 03/02/2019 Accession Number: [id number] / [id number] Procedure: XR - Femur 2V RT CPT Code: FULL RESULT: EXAM: RIGHT FEMUR RADIOGRAPHY EXAM DATE: 03/02/2019 04:23 PM. CLINICAL HISTORY: Leg pain. COMPARISON: HIP W/PELVIS 2-3V RT 12/21/2018 7:58 AM. TECHNIQUE: 2 views. FINDINGS: Bones: Interval placement of a gamma nail transfixing intertrochanteric right hip fracture. Gamma nail is locked distally. Joints: Hip joint space narrowing as before. Soft Tissues: Normal. No soft tissue swelling. IMPRESSION: 1. Interval placement of a gamma nail transfixing an intertrochanteric right hip fracture. Gamma nail is locked distally. RADIA
[2019-03-02 17:00] VITALS: BP 135/66
== END 2019-03-02 17:01 | disposition home or self-care (01) ==
LOC: ED 14:18
DX: M79.604 Pain in right leg (principal); F03.90 Unspecified dementia, unspecified severity, without behavioral disturbance, psychotic disturbance, mood disturbance, and anxiety; I10 Essential (primary) hypertension; E11.9 Type 2 diabetes mellitus without complications; Z79.4 Long term (current) use of insulin
CPT/HCPCS: 99283

== ENCOUNTER 2019-07-12 15:31 | Outpatient (CLI) | payer MEDICARE, OTHER ==
--- NOTE | 2019-07-14 08:08 | DEXA Report ---
Reason: POSTMENOPAUSAL STATUS Procedure Date: 07/12/2019 Accession Number: [id number] / [id number] Procedure: DEX - Dexa Spine and/or Hip CPT Code: FULL RESULT: EXAM: Dexa Spine and/or Hip DATE: 07/12/2019 4:01 PM CLINICAL HISTORY: POSTMENOPAUSAL STATUS TECHNIQUE: Dual energy x-ray absorptiometry (DXA) was performed on a [employer] System. Regions measured are the AP Spine, femoral neck, and if needed forearm. COMPARISON: None. In accordance with the International Society for Clinical Densitometry (ISCD) guidelines, data from previous exams may be reanalyzed using current recommendations and techniques. This is done to allow a more accurate basis for comparison with the current study. FINDINGS: The data for the lumbar spine is as follows: BMD (g/cm/cm) T-SCORE Z-SCORE REGION L1 0.820 -2.6 -1.8 L2 0.768 -3.6 -2.8 L3 0.705 -4.1 -3.3 L4 0.739 -3.8 -3.0 TOTAL 0.755 -3.5 -2.7 NOTE: All evaluable vertebrae are used for classification The data for the hip is as follows: BMD (g/cm/cm) T-SCORE Z-SCORE REGION Neck 0.665 -2.7 -1.5 TOTAL 0.637 -2.9 -2.0 NOTE: The femoral neck or total proximal femur, whichever is lowest, is used for classification. IMPRESSION: THE WHO CLASSIFICATION BASED ON THE INTERNATIONAL REFERENCE STANDARD IS OSTEOPOROSIS. THE FRACTURE RISK IS HIGH. RECOMMENDATION: Patients with diagnosis of osteoporosis or osteopenia should have regular bone mineral density assessment. For those eligible for Medicare, routine testing is allowed once every 2 years. Testing frequency can be increased for patients who have rapidly progressing disease or for those who are receiving medical therapy to restore bone mass. COMMENT: World Health Organization (WHO) definitions for osteoporosis and osteopenia: NORMAL BMD: T-score at -1.0 or higher, fracture risk is low OSTEOPENIA BMD: T-score between -1.0 and -2.5, fracture risk is increased. OSTEOPOROSIS BMD: T-score at -2.5 or lower, fracture risk is high. National Osteoporosis Foundation recommends: 1. Obtain adequate dietary calcium (at least 1200 mg per day) and vitamin D (400-800 international units per day). 2. Participate, as appropriate, in regular weightbearing and muscle-strengthening exercise. 3. Avoid tobacco use and reduce alcohol and caffeine intake. 4. For more detailed information see the website at www.NOF.org.
== END 2019-07-12 15:32 | disposition home or self-care (01) ==
LOC: DI 15:31
PROVIDERS: ATTEND Physician Assistant Medical
DX: M81.0 Age-related osteoporosis without current pathological fracture (principal)
CPT/HCPCS: 77080

== ENCOUNTER 2019-11-29 08:54 | Outpatient (CLI) | payer MEDICARE, OTHER | END 2019-11-29 08:55 | disposition home or self-care (01) | LOC: DI 08:54 | PROVIDERS: ATTEND Physician Assistant Medical | DX: R01.1 Cardiac murmur, unspecified (principal); I51.7 Cardiomegaly | CPT/HCPCS: 93306 ==

== ENCOUNTER 2019-12-21 15:00 | Outpatient (CLI) | payer MEDICARE, OTHER ==
--- NOTE | 2019-12-21 18:11 | CONSULTATION NOTE ---
Palliative Care Consultation - Referral Referring Provider: Keya Bravo PA-C Time of Visit: [id number] Referral setting: Assisted living ([facility]) - Information Sources Records reviewed: RN notes reviewed, Previous records reviewed History/Review of Systems obtained from: Patient, Family (daughter/JORDAN Pappas), Caregiver (facility staff) Exam limitations: Clinical condition (memory impairment due to dementia) - History of Present Illness Brief History of Present Illness: This is a 69-year-old female with a history of Alzheimer's dementia who is seen and evaluated today for initial palliative care consultation with her daughter/D IVANIAA, Elyse present. The patient resides in [facility] memory unit at [facility]. Her daughter/Ronnell AVALOS reports that the patient was noticed to have memory changes approximately 8 years ago that was noticed by family members while she was residing in [place]. The patient and her relocated to [facility] to be closer to their daughter and the patient's spouse was her primary caregiver until he unexpectedly in April 2018. The patient has been evaluated by a neurologist with an MRI performed that demonstrated "shrinkage of the brain" that the neurologist believed was secondary due to uncontrolled diabetes. The daughter/Ronnell AVALOS reports that the patient was without insurance for some time and therefore was without medication while residing in [place]. Overall the patient has demonstrated a more sharp cognitive decline after the of her . The patient sustained a fall with a fracture in December 2018 and since that time has had chronic pain to her right hip after the repair. After the patient had repair of her right hip, she stayed at a rehab facility in [place] until she transitioned to [facility]. She has been on oxycodone and Tylenol for her pain with overall control on most days. After the fall, she was noted to have anxiety where she would be screaming and yelling at the rehab facility. She was then initiated on Seroquel with a noted response and reduction in her labile mood. The patient also has a longstanding history of depression and has been on fluoxetine for many years. In the last year her dosage was increased to 30 mg of fluoxetine daily. The patient continues to work with physical therapy at the assisted living facility in will become anxious prior to physical therapy due to her fear of falling. Her daughter/Ronnell AVALOS reports that the patient previously did not demonstrate any anxiety in the past prior to her injury. The pain in her right hip has decreased but the pain remains. The patient presently will only walk with physical therapy. She reports she will get a sharp shooting pain that runs from her hip down to her mid thigh. At rest she will have intermittent pain. She has returned to orthopedics on multiple occasions with stable x-ray reports per the daughter. The last time the patient was out of the facility was around Thanksgiving at her daughter's home. Medical/Surgical History - Past Medical History Cardiovascular: reports: Hypertension, High cholesterol, Murmur (Echo preformed 11/29/2019) Respiratory: reports: Pneumonia Neuro: Alzhiemer's, Dementia Neuro: reports: Dementia Endocrine/Autoimmune: reports: Type 2 diabetes GI: reports: GERD, Chronic constipation : reports: Other (neurogenic bladder with chronic indwelling catheter due to retention with history of frequent UTIs) HEENT: reports: Chronic vision loss, Chronic sinusitis, Chronic hearing loss Psych: reports: Depression, Anxiety Musculoskeletal: reports: Osteoarthritis, Osteoporosis, Chronic back pain Derm: reports: None MRSA Hx?: No Other Past Medical History: Anemia; Adenomatous colonic polyp - Past Surgical History General: reports: Appendectomy Ortho: reports: Hip replacement (right femur nail placement, ORIF 12/25/2018), Rotator cuff repair (Right 2015) /COAT FITTER: reports: Hysterectomy (2013), Other (Bladder repair 2013) HEENT: reports: Cataracts (2015) - Substance History Use: Uses substance without health or social issues: Tobacco (Former smoker, quit in 1989) Social History - Living Situation Living arrangement: Assisted living Support System: The patient grew up in [place], [place]. She was to her for 10 years and then they were for 37 until they remarried approx imately 4 years before his . Her unexpectedly due to lung cancer in April 2018. The patient has been residing at [facility] in May 2018. She and her moved to [facility] in April 2015 to be closer to their daughter, Elyse. Elyse is the patient's D POA ([phone]). The patient has 2 other children. She has a son who resides in [place] who is estranged from the family at times and a daughter that she placed for adoption at when she was age 14. The daughter that was adopted recently connected with the patient and her daughter/DPOA in the last year. Her daughter/DPOA is very involved in the patient's care. The patient also has a great granddaughter who is 10 months who she is fond of and looks forward to visits from. She participates in the activities at [facility] and enjoys going out on the bus for outings. She loves coffee, and will drink it black throughout the day. Her daughter, Elyse, is an RN at a local intermediate school. Family History - Family History Family History: Mother: , Father: Family History Comment/Other: Father-Alzheimers dementia Mother-Lung and Breast Cancer Medications/Allergies - Medications Home Medications: Ambulatory Orders Medication Instructions Recorded Confirmed Multivitamin [Multiple Vitamins] 1 tab PO DAILY 06/01/18 12/22/19 Albuterol 2.5 mg INH RTQ4H PRN #3 neb 12/25/18 12/22/19 Atorvastatin [Lipitor] 20 mg PO QPM #30 tablet 12/25/18 02/07/19 Ondansetron Odt [Zofran Odt] 4 mg PO Q8H PRN #10 tablet 12/25/18 12/22/19 Acetaminophen 1,000 mg PO Q8H PRN 02/07/19 12/22/19 Fluoxetine HCl 20 mg PO DAILY MDD for 7 days then 02/07/19 02/07/19 d/c Omeprazole 20 mg PO QDAC 02/07/19 12/22/19 amLODIPine [Norvasc] 5 mg PO BID 02/07/19 12/22/19 Ferrous Gluconate 240 mg PO DAILY #30 tablet 02/08/19 12/22/19 Insulin Glargine [Lantus Solostar] 10 unit INJ DAILY PM #1 pen 02/08/19 12/22/19 Magnesium Oxide [Mag Ox] 400 mg PO 0800 #30 tablet 02/08/19 12/22/19 metFORMIN [Glucophage] 1,000 mg PO BIDWM #60 tablet 02/08/19 12/22/19 oxyCODONE [Roxicodone] 5 mg PO BIDWM #60 tablet 02/08/19 12/22/19 polyethylene glycoL 3350 [Miralax] 17 gm PO DAILY #30 packet 02/08/19 12/22/19 QUEtiapine [SEROquel] 25 mg PO BID 03/02/19 12/22/19 Alendronate Sodium 70 mg PO OAW MDD Every Thursday12/22/19 12/22/19 Ascorbic Acid [Vitamin C] 500 mg PO DAILY 12/22/19 12/22/19 Calcium Carbonate [Calcium] 500 mg PO DAILY 12/22/19 12/22/19 Cholecalciferol (Vitamin D3) 1 tab PO DAILY 12/22/19 12/22/19 [Vitamin D3] DULoxetine [Cymbalta] 20 mg PO DAILY MDD after 12/22/19 12/22/19 fluoxetine d/c start Lisinopril/Hydrochlorothiazide 1 tab PO BID MDD 20/12.5mg tablet 12/22/19 [Lisinopril-Hctz 20-12.5 mg Tab] Nystatin 1 applic TP BID MDD to groin 12/22/19 12/22/19 hydrOXYzine HCL [Hydroxyzine HCl] 25 mg PO Q8H PRN 12/22/19 12/22/19 - Allergies Allergies/Adverse Reactions: Allergies Allergy/AdvReac Type Severity Reaction Status Date / Time No Known Drug Allergies Allergy Verified 12/22/19 07:10 Review of Systems - Constitutional Constitutional: reports: Other (weight 214.2lb; weight most of adult life 200- 225lb). denies: Fatigue, Fever, Poor appetite - Eyes Eyes: reports: Corrective lenses - Ears, Nose & Throat Ears, Nose & Throat: denies: Nasal congestion - Cardiovascular Cardiovascular: reports: Exertional dyspnea (reports some SOB with exertion at times). denies: Palpitations, Chest pain - Respiratory Respiratory: denies: Cough - Gastrointestinal Gastrointestinal: reports: Good appetite, Other (at times has urgency with bowel movements). denies: Abdominal pain, Constipation, Nausea, Vomiting - Genitourinary Genitourinary: reports: Other (+carbajal catheter) - Musculoskeletal Musculoskeletal: reports: Joint pain (right hip and left shoulder), Assistive devices (walker or wheelchair) - Integumentary Integumentary: denies: Rash - Neurological Neurological: reports: Memory problems. denies: Dizziness - Psychiatric Psychiatric: reports: Depression, Anxiety - Endocrine Endocrine: reports: Diabetes type 2 - Hematologic/Lymphatic Hematologic/Lymphatic: reports: Recurrent infections (frequent UTIs) - All Other Systems All Other Systems: reports: Reviewed and negative (reviewed with patient and daughter/JORDAN Pappas) Physical Exam - Vital Signs Temperature: 36.7 C Pulse Rate: 79 O2 Saturation: 98 (on RA at rest) Blood Pressure: 135/68 (left wrist cuff) - Physical Exam General Appearance: positive: No acute distress, Alert, Other (OOB in wheelchair, well groomed, overweight) Eyes Bilateral: positive: Other (+corretive lenses) ENT: positive: Pharynx nml, No signs of dehydration Neck: positive: Thyroid nml, No JVD, Trachea midline Cardiovascular: positive: Regular rate & rhythm, No gallop, Systolic murmur (1/6 AGUSTO) Respiratory: positive: No respiratory distress, Breath sounds nml. negative: Wheezes, Rales Abdomen: positive: Non-tender, Soft, Nml bowel sounds, Obese, Other (+carbajal catheter draining clear yellow urine) Skin: negative: Rash Extremities: positive: Other (Trace to +1 pitting edema pedal to above ankles to bilateral extremities; Moves all extremities. +Crepitus with right shoulder noted) Neurologic/Psychiatric: positive: Disoriented to place, Disoriented to time, Depressed mood/affect (multiple times she became tearful during examination), Other (BUE strength equal and symmetric RLE 4/5, LLE 5/5 strength; CN II-XII grossly intact). negative: Facial droop Palliative Care - POLST Patient has POLST: Yes POLST Status: DNR, Selective Treatment Pain: Pain unchanged (right hip that will be present intermittently at rest or with movement. With movement she reports a sharp pain that radiates down her right thigh.) Tiredness/Fatigue: None Nausea: None Anorexia: None Dyspnea: Mild (1-3) (noted at times with exertion) Depression: Moderate (4-6) (improved some with initiation of seroquel but continues to have labile mood with crying spells. Long standing history of depression.) Anxiety: Mild (1-3) Sleep: Variable sleep pattern Constipation: No, Managed Performance Status: The patient is presently ambulatory with physical therapy with a walker. Otherwise she is in a wheelchair and self propels using her feet. She requires extensive assistance with 1-2 persons with transfers. She has fallen occasionally typically due to her not waiting for assistance. She has poor overall safety awareness. She has a chronic indwelling Carbajal catheter. She is able to consume her meals independently. - Palliative Care Discussion: The patient has had a progressive cognitive decline that presented more sharply after the of her in April 2018 and then again after her surgery and hospitalization due to her right hip fracture in December 2018. She continues to report pain to her right hip that will radiate down her thigh. She has subsequently since her fall and fracture of her right hip developed anxiety. She also continues to have a labile mood which stabilized some after introduction of Seroquel to her SSRI. The patient is frustrated in regards to the amount of medications that she takes. Overall she is adjusted well to the memory care unit at [facility] and participates in most of the activities. However she continues to be quite tearful with depressive symptoms and reports that she gets lonely. Acute goals at this time would be to improve pain management as we ll as depressive symptoms. MATTHIEU reviewed with patient and daughter/D BAILEY Pappas today and confirmed DN AR with limited interventions with use of antibiotics with comfort as the goal with no medically assisted nutrition by tube. Impression and Recommendations - Palliative Care Impression: This is a 69-year-old woman with Alzheimer's dementia with a longstanding history of depression and recent anxiety with chronic pain to her right hip status post fall with right hip fracture and repair. Palliative care to continue to rebuild rapport, development of goals, and provide pain and symptom management. Recommendations/Counseling Done: 1. Depression with anxiety. Patient has a longstanding history of depression and has been on fluoxetine for many years per the daughter's report with last dose adjustment approximately 1 year ago. The patient continues to have evidence of a labile mood with frequent crying spells and reports of loneliness. Discussed management with daughter and in agreement to DC fluoxetine and try duloxetine for depression anxiety and pain management after review of purpose and side effects with understanding verbalized. DC current dose of fluoxetine. Start fluoxetine 20 mg once daily for 7 days then DC and start duloxetine. Start duloxetine 20 mg every morning for depression and anxiety. Will monitor tolerance and effects and adjust dose accordingly. Obtain BMP in 3 weeks with request for the results to be faxed to this [employer]OOK[employer]ER to monitor for hyponatremia. Continue hydroxyzine as needed through breakthrough anxiety. Continue quetipaine 25mg BID as ordered. 2.Chronic Pain. Patient continues to have right hip pain status post ORIF approximately 1 year ago due to a fall. She has had some improvement with her overall pain but the pain continues to linger. She will have pain at rest that worsens with movement, especially when working with physical therapy which is limiting her ability to walk without their assistance. There does appear to be some neuropathic component given some of her reports regarding the pain. See diagnosis depression with anxiety for additional information regarding introduction of duloxetine. Continue oxycodone 5 mg twice daily, acetaminophen as needed. Continue to monitor response to duloxetine and adjust medication regiment appropriately. 3. Bilateral lower leg edema. Mild noted on assessment. Patient is on HCTZ for hypertension. Start compression stockings to be applied to the bilateral lower extremities every morning and remove every evening. Continue to monitor. 4. Advance care planning. Palliative care to continue to build rapport and develop goals of care. POLST reviewed with patient and daughter/D POA today and updated. Patient is DN AR with selective treatments, antibiotic for symptom management, and no medically assisted nutrition by tube. Patient is bothered by her overall pill burden and palliative care will continue to evaluate her medications to reduce the volume weighing the benefits versus burdens of the treatment. CURTIS Amanda. Time Spent: Total time spent 90 minutes with greater than 50% of this spent in counseling and coordination of care with patient, daughter/DPNORI Mcintyrea and facility staff; examination of patient; medication reconciliation; review of palliative philosophy; review of pain and symptom management and anticipatory guidance. disclaimer: The chart note was formulated using voice recognition technology and unfortunately sound alike errors may occur.
== END 2019-12-21 15:01 | disposition home or self-care (01) ==
LOC: PC 15:00
PROVIDERS: ATTEND Nurse Practitioner Family
DX: Z51.5 Encounter for palliative care (principal); G30.9 Alzheimer's disease, unspecified; F02.80 Dementia in other diseases classified elsewhere, unspecified severity, without behavioral disturbance, psychotic disturbance, mood disturbance, and anxiety; F41.8 Other specified anxiety disorders; G89.29 Other chronic pain; I10 Essential (primary) hypertension; R06.09 Other forms of dyspnea; E11.9 Type 2 diabetes mellitus without complications; R60.0 Localized edema; Z79.899 Other long term (current) drug therapy; Z79.891 Long term (current) use of opiate analgesic; Z87.891 Personal history of nicotine dependence; Z79.4 Long term (current) use of insulin; Z87.440 Personal history of urinary (tract) infections; Z87.81 Personal history of (healed) traumatic fracture; Z66 Do not resuscitate

== ENCOUNTER 2020-01-10 02:49 | Outpatient (CLI) | payer MEDICARE, OTHER | END 2020-01-10 02:50 | disposition critical access hospital (66) | LOC: EMS 02:49 | PROVIDERS: ATTEND Surgery | DX: M25.512 Pain in left shoulder (principal); R51 Headache; W06.XXXA Fall from bed, initial encounter; Y92.122 Bedroom in nursing home as the place of occurrence of the external cause | CPT/HCPCS: A0425; A0429 ==

== ENCOUNTER 2020-01-10 03:04 | Emergency (ER) | payer MEDICARE, OTHER ==
--- NOTE | 2020-01-10 03:05 | ED Physician Documentation ---
PD HPI Fall - Stated complaint Stated Complaint: GLF, SHOULDER PAIN, HIP PAIN - History obtained from History obtained from: Patient, EMS - History of Present Illness Mechanism of injury: Other (fell out of bed) Fall distance: From bed Where injury occurred: Other (alf) Timing - onset: How many minutes ago (approximately 30-40 minutes [employer]) Injury(ies) location: Left Uppper Extremity Quality of pain: Pain Contributing factors: No: Anticoagulated Recently seen: Not recently seen - Additional information Additional information: [facility] from [facility], reportedly fell out of bed onto padding on floor, c/o left shoulder pain. per medics, patient was able to stand to pivot onto stretcher, did not appear to have any pain with weight bearing on either lower extremity Review of Systems Cardiac: denies: Chest pain / pressure Respiratory: denies: Cough GI: denies: Abdominal Pain Musculoskeletal: reports: Neck pain PD PAST MEDICAL HISTORY - Past Medical History Past Medical History: Yes - Present Medications Home Medications: Ambulatory Orders Medication Instructions Recorded Confirmed Multivitamin [Multiple Vitamins] 1 tab PO DAILY 06/01/18 01/10/20 Albuterol 2.5 mg INH RTQ4H PRN #3 neb 12/25/18 01/10/20 Atorvastatin [Lipitor] 20 mg PO QPM #30 tablet 12/25/18 01/10/20 Ondansetron Odt [Zofran Odt] 4 mg PO Q8H PRN #10 tablet 12/25/18 01/10/20 Acetaminophen 1,000 mg PO Q8H PRN 02/07/19 01/10/20 Omeprazole 20 mg PO DAILY 02/07/19 01/10/20 amLODIPine [Norvasc] 5 mg PO BID 02/07/19 01/10/20 Ferrous Gluconate 240 mg PO DAILY #30 tablet 02/08/19 01/10/20 Insulin Glargine [Lantus Solostar] 10 unit INJ DAILY PM #1 pen 02/08/19 01/10/20 Magnesium Oxide [Mag Ox] 400 mg PO 0800 #30 tablet 02/08/19 01/10/20 metFORMIN [Glucophage] 1,000 mg PO BIDWM #60 tablet 02/08/19 01/10/20 oxyCODONE [Roxicodone] 5 mg PO BIDWM #60 tablet 02/08/19 01/10/20 polyethylene glycoL 3350 [Miralax] 17 gm PO DAILY #30 packet 02/08/19 01/10/20 QUEtiapine [SEROquel] 25 mg PO BID 03/02/19 01/10/20 Alendronate Sodium 70 mg PO DAILY MDD Every Thursday12/22/19 01/10/20 Ascorbic Acid [Vitamin C] 500 mg PO DAILY 12/22/19 01/10/20 Calcium Carbonate [Calcium] 500 mg PO DAILY 12/22/19 01/10/20 DULoxetine [Cymbalta] 20 mg PO DAILY 12/22/19 01/10/20 Lisinopril/Hydrochlorothiazide 1 tab PO BID MDD 20/12.5mg tablet 12/22/19 01/10/20 [Lisinopril-Hctz 20-12.5 mg Tab] Nystatin 1 applic TP BID MDD to groin 12/22/19 01/10/20 Ascorbic Acid [Vitamin C] 500 mg DAILY 01/10/20 01/10/20 Cholecalciferol (Vitamin D3) 50 mcg DAILY 01/10/20 01/10/20 [Vitamin D3] Saccharomyces Boulardii [Florastor] 250 mg BID 01/10/20 01/10/20 - Allergies Allergies/Adverse Reactions: Allergies Allergy/AdvReac Type Severity Reaction Status Date / Time No Known Drug Allergies Allergy Verified 01/10/20 03:20 PD ED PE NORMAL - Vitals Vital signs reviewed: Yes - General General: No acute distress (NAD at rest, but appears to have painful distress with movement involving LUE at shoulder), Well developed/nourished - Neck Neck: Supple, no meningeal sign, No bony TTP - Cardiac Cardiac: RRR, No murmur - Respiratory Respiratory: No respiratory distress, Clear bilaterally PD ED PE EXPANDED - Extremities Extremities: Tenderness, Limited ROM, Left shoulder Results - Vitals Vitals: Vital Signs - 24 hr 01/10/20 01/10/20 01/10/20 03:14 04:01 05:08 Temperature 36.6 C Heart Rate 104 H 101 H 98 Respiratory 18 18 16 Rate Blood Pressure 144/72 H 141/78 H 164/85 H O2 Saturation 95 94 94 01/10/20 05:59 Temperature Heart Rate 75 Respiratory 16 Rate Blood Pressure 176/90 H O2 Saturation 99 Oxygen O2 Source Room air - Rads (name of study) left shoulder xrays Radiology: Prelim report reviewed, See rad report PD MEDICAL DECISION MAKING - ED course Complexity details: reviewed results, re-evaluated patient, considered differential, d/w patient Departure - Departure Disposition: 01 Home, Self Care Clinical Impression: Proximal humerus fracture Condition: Good Instructions: ED Fx Shoulder, ED Sling Follow-Up: Russ Bess MD [Provider Admit Priv/Credential] - Randi Bravo PA-C [Primary Care Provider] - Discharge Date/Time: 01/10/20 05:58
[2020-01-10] MEDS ORDERED: oxyCODONE 5 MG TABLET PO STA ×2 (03:21→04:06)
--- NOTE | 2020-01-10 03:52 | XRAY Report ---
Reason: fall, injury, left shoulder pain and tenderness Procedure Date: 01/10/2020 Accession Number: [id number] / [id number] Procedure: XR - Shoulder 3 View LT CPT Code: Final Report FULL RESULT: EXAM: LEFT SHOULDER RADIOGRAPHY EXAM DATE: 01/10/2020 03:41 AM. CLINICAL HISTORY: Fall, injury, left shoulder pain and tenderness. COMPARISON: None. TECHNIQUE: 3 views. FINDINGS: Bones: Comminuted and mildly displaced fracture of the humeral neck. The bones are osteopenic. Joints: There is no evidence of glenohumeral joint dislocation. It is unclear whether there is intra-articular extension of the fracture. The, clavicular joint is within normal limits. Soft tissues: Soft tissue swelling is present adjacent to the fracture. Diffuse interstitial opacities are seen in both lungs. IMPRESSION: Comminuted and mildly displaced humeral neck fracture. Bilateral interstitial opacities. RADIA
[2020-01-10 06:03] VITALS: BP 176/90
== END 2020-01-10 05:58 | disposition home or self-care (01) ==
LOC: EDUNIT# → ED 03:04
DX: S42.292A Other displaced fracture of upper end of left humerus, initial encounter for closed fracture (principal); W06.XXXA Fall from bed, initial encounter; Y92.122 Bedroom in nursing home as the place of occurrence of the external cause
CPT/HCPCS: 73030; 99283; 99284; A9270

== ENCOUNTER 2020-01-17 11:00 | Outpatient (CLI) | payer MEDICARE, OTHER ==
--- NOTE | 2020-01-17 15:49 | CONSULTATION NOTE ---
Palliative Care Follow Up - Referral Referring Provider: Randi Bravo PA-C Time of Visit: [id number] Referral setting: Assisted living ([facility] at [facility]) Referral Reason: f/u chronic pain, depression and anxiety/ s/p fracture/dementia - Information Sources Records reviewed: Previous records reviewed History/Review of Systems obtained from: Patient, Family (daughter/DPElyse JULIO via phone), Caregiver, Nursing Exam limitations: Clinical condition (Memory impairment due to dementia) - History of Present Illness Update Brief HPI Update: This is a 69-year-old female with a history of Alzheimer's dementia who is seen in follow-up today work regarding her recent left proximal humerus fracture after a fall, chronic pain management, and depression and anxiety. The patient sustained a fall on 01/09. She fell out of bed landing on her left side. She reported left arm pain with decreased range of motion. She was seen at [facility] ER and was diagnosed with a left proximal humerus fracture and was placed in a sling. She had a follow-up with Orthopedist, Dr. Russ Bess on 01/11 with continued use of the sling with range of motion exercises to her left elbow wrist and hand. In 2 weeks she is to start passive left shoulder motion with physical therapy and a follow-up with orthopedics in 3 to 4 weeks.The patient has a history of a right hip fracture with repair 12/25/2018. She had a difficult rehabilitation given her pain level as well as her anxiety. At the present time the patient has been reporting to staff regarding pain to her left shoulder. She continues on routine oxycodone twice daily and as needed oxycodone and Tylenol for pain management. She has been receiving PRN oxycodone with relief of her symptoms. Unfortunately, the patient is left-handed limiting her ability to perform tasks independently. The staff at [facility] are assisting the patient with her meals. She is also requiring increased assistance with transferring from her wheelchair to her bed as well as to the bathroom. Staff report that the patient is demonstrating a fear of falling when standing up adamantly telling them "I cannot." She is needing lots of her encouragement to perform tasks and per the daughter/D POAElyse is reports this seems similar to what the patient experienced after her right hip fracture and rehabilitation. With physical therapy the patient is typically able to ambulate approximately 80 feet. Over the weekend when standing up the patient was reporting to pain all over and wanting to sit back down for fear of falling. However, the patient does not recall how she sustained the injury to her left shoulder. Upon evaluation today the patient reports pain in her left shoulder and right hip. Since her fall that resulted in her right hip fracture she has had continued reports of pain to her right hip. And therefore this complaint is at her baseline. When the patient was seen and evaluated for initial consultation in December 2019 the patient was switched from fluoxetine to Cymbalta for pain management as well as her depressive symptoms. Caregiving staff as well as nursing report that prior to the fall her mood had appeared more stable with less complaints of pain upon the initiation of the Cymbalta. The patient has a longstanding history of depression and had been on fluoxetine for many years. She also is on Seroquel 25 mg twice daily which assisted with some of the lability to her mood. The patient had a BMP performed on January 13 demonstrating a sodium level of 128 and potassium level of 4.5. Per the daughter's report the patient has had a history of hyponatremia in the past unclear regarding the underlying cause. The patient is not demonstrating any increased confusion and denies headaches or dizziness. The patient's blood glucose levels have increased since her fall. Her blood glucose levels have been as follows: 280, 293, 328, 375, and 371. The patient denies polydipsia, suprapubic or flank pain. She denies any generalized pain. The patient's daughter reports in the past when the patient's blood glucose levels have trended upward and she reported generalized pain to her daughter it typically indicated as a urinary tract infection. There has been no change in the patient's appetite per staff report. The patient has a past medical history of hypertension, hyperlipidemia, cardiac murmur, Alzheimer's dementia, type 2 diabetes, GERD, constipation, neurogenic bladder with chronic indwelling catheter, depression, anxiety, osteoarthritis, osteoporosis, chronic pain, anemia, right hip fracture with repair , and left proximal humerus fracture 01/10/2020. Social History - Living Situation Living arrangement: Assisted living Support System: The patient resides in [facility] at [facility]. She has resided at [facility] facility since May 2018 after her unexpectedly due to lung cancer in April 2018. The patient's daughter, Elyse is her D POA ([phone] (. The patient's daughter is very involved in her care. It has been difficult given the coronavirus pandemic that the patient's daughter has been unable to visit the patient in the facility. The patient's daughter is a registered nurse at the local intermediate school. Medications/Allergies - Medications Home Medications: Ambulatory Orders Medication Instructions Recorded Confirmed Multivitamin [Multiple Vitamins] 1 tab PO DAILY 06/01/18 01/17/20 Albuterol 2.5 mg INH RTQ4H PRN #3 neb 12/25/18 01/17/20 Atorvastatin [Lipitor] 20 mg PO QPM #30 tablet 12/25/18 01/17/20 Ondansetron Odt [Zofran Odt] 4 mg PO Q8H PRN #10 tablet 12/25/18 01/17/20 Acetaminophen 1,000 mg PO TID 02/07/19 01/17/20 Omeprazole 20 mg PO DAILY 02/07/19 01/17/20 amLODIPine [Norvasc] 5 mg PO BID 02/07/19 01/17/20 Ferrous Gluconate 240 mg PO DAILY #30 tablet 02/08/19 01/17/20 Magnesium Oxide [Mag Ox] 400 mg PO 0800 #30 tablet 02/08/19 01/17/20 metFORMIN [Glucophage] 1,000 mg PO BIDWM #60 tablet 02/08/19 01/17/20 oxyCODONE [Roxicodone] 5 mg PO BIDWM #60 tablet 02/08/19 01/17/20 polyethylene glycoL 3350 [Miralax] 17 gm PO DAILY #30 packet 02/08/19 01/17/20 QUEtiapine [SEROquel] 25 mg PO BID 03/02/19 01/17/20 Alendronate Sodium 70 mg PO .EVERY WEEK MDD Every 12/22/19 01/17/20Thursday Ascorbic Acid [Vitamin C] 500 mg PO DAILY 12/22/19 01/17/20 Calcium Carbonate [Calcium] 500 mg PO DAILY 12/22/19 01/17/20 DULoxetine [Cymbalta] 20 mg PO DAILY 12/22/19 01/17/20 Lisinopril/Hydrochlorothiazide 1 tab PO BID MDD 20/12.5mg tablet 12/22/19 [Lisinopril-Hctz 20-12.5 mg Tab] Nystatin 1 applic TP BID MDD to groin 12/22/19 01/17/20 Cholecalciferol (Vitamin D3) 50 mcg DAILY 01/10/20 01/17/20 [Vitamin D3] Saccharomyces Boulardii [Florastor] 250 mg BID 01/10/20 01/17/20 Insulin Glargine [Lantus Solostar] 12 unit INJ DAILY PM 01/17/20 01/17/20 QUEtiapine [SEROquel] 12.5 mg PO DAILY MDD at 1400 01/17/20 01/17/20 hydrOXYzine HCL [Hydroxyzine HCl] 25 mg PO Q8H PRN 01/17/20 01/17/20 oxyCODONE [Roxicodone] 5 mg PO Q6H PRN 01/17/20 01/17/20 - Allergies Allergies/Adverse Reactions: Allergies Allergy/AdvReac Type Severity Reaction Status Date / Time No Known Drug Allergies Allergy Verified 01/10/20 03:20 Review of Systems - Constitutional Constitutional: reports: Weight gain (weight 220lb; previous 215 on 12/15/2019). denies: Fever, Chills, Poor appetite - Eyes Eyes: reports: Corrective lenses - Ears, Nose & Throat Ears, Nose & Throat: denies: Dry mouth - Cardiovascular Cardiovascular: denies: Palpitations, Chest pain - Respiratory Respiratory: denies: Cough, Wheezing - Gastrointestinal Gastrointestinal: reports: Good appetite. denies: Abdominal pain, Constipation, Diarrhea, Vomiting - Genitourinary Genitourinary: reports: Other (+carbajal catheter). denies: Hematuria - Musculoskeletal Musculoskeletal: reports: Limited range of motion, Joint pain (left shoulder and right hip), Assistive devices - Integumentary Integumentary: denies: Rash - Neurological Neurological: reports: General weakness, Memory problems. denies: Dizziness - Psychiatric Psychiatric: reports: Depression, Anxiety - Endocrine Endocrine: reports: Diabetes type 2 - Hematologic/Lymphatic Hematologic/Lymphatic: reports: Recurrent infections (frequent UTIs) - All Other Systems All Other Systems: reports: Reviewed and negative (ROS limited as patient is a poor historian due to dementia. ROS obtained from caregiver and nursing.) Physical Exam - Vital Signs Temperature: 98.1 C Pulse Rate: 95 O2 Saturation: 97 (on RA at rest) Blood Pressure: 140/73 (right wrist cuff) - Physical Exam General Appearance: positive: No acute distress, Alert, Other (OOB sitting in common area table in wheelchair, well groomed and appears stated age) Eyes Bilateral: positive: Other (+corrective lenses) ENT: positive: No signs of dehydration Neck: positive: No JVD Cardiovascular: positive: Regular rate & rhythm, No gallop, Systolic murmur (+AGUSTO 10/17) Respiratory: positive: No respiratory distress, Breath sounds nml Abdomen: positive: Non-tender, Soft, Nml bowel sounds, Obese, Other (bladder nondistended; no suprapubic tenderness; no CVA tenderness bilaterally). negative: Tenderness (to palpation of abdomen) Skin: negative: Pressure wound Extremities: positive: Other (+left UE in sling with noted +1 edema to left hand elevated on pillow in patient's lap; BLE +1 pitting edema) Neurologic/Psychiatric: positive: Disoriented to place, Disoriented to time, Depressed mood/affect, Other (+labile mood; when asked regarding pain became tearful discussing pain in her left shoulder then would resolve when switched topics) Palliative Care - POLST Patient has POLST: Yes POLST Status: DNR, Selective Treatment Pain: Pain worsening (pain to left shoulder s/p fall with left proximal humerus fracture that responds to oxycodone administration for pain.) Drowsiness/Sedation: None Nausea: None Anorexia: None Dyspnea: None Depression: Moderate (4-6) Anxiety: Moderate (4-6) (increased since recent fall on 01/10/2020 with fear of falling when standing with staff) Sleep: Sleeps well Constipation: No, Managed Performance Status: The patient has had a acute decline in her function secondary to her recent left proximal humerus fracture and due to the fact that the patient is left-handed. She is unable to perform tasks that she typically is able to do independently such as feeding herself. She is wheelchair dependent and is able to self propel using her feet. She is requiring more assistance with transfers now with two- person assistance. She has poor overall safety and awareness. Her last fall on 01/09 resulted in her most recent fracture. She has a chronic indwelling Carbajal catheter. - Palliative Care Discussion: The patient has had a progressive cognitive decline that sharply deteriorated further after the of her in April 2018 and then again after her surgery and hospitalization due to her right hip fracture in December 2018. She continues to report pain to her right hip. Now she has sustained another fall on 01/09 resulting in a left proximal humerus fracture the patient's anxiety regarding activity has increased again due to her fear of falling. Her daughter/D Elyse AVALOS reports that the patient's anxiety when working with physical therapy and rehabilitation after her hip fracture was quite high resu lting in medication adjustments. The patient has had some improvement to her pain as well as her mood after initiation of duloxetine prior to her left proximal humerus fracture. Her pain is being managed with routine and as needed oxycodone as well as as needed Tylenol. The patient's blood glucose levels have increased since her fall most likely due to to stress induced hyper glycemia. Her daughter reports in the past the patient has developed urinary tract infections when with cues given with elevated blood glucose levels as well as generalized body pains. The patient's daughter is having some difficulty with not being able to see her mother at the present time given the coronavirus pandemic and plans on calling the facility to see if she can speak to her mother directly. At the present time the goals remain to improve pain management as well as the patient's labile mood with depression and anxiety symptoms. Results - Lab Results Lab results reviewed: Yes Lab and Imaging Results: 01/14/2020: Sodium 128, potassium 4.5, calcium 9, glucose 396, BUN 23, creatinine 1.29, estimated GFR 42 Impression and Recommendations - Palliative Care Impression: This is a 69-year-old woman with advancing Alzheimer's dementia who was unf ortunate to sustain a left proximal humerus fracture resulting in increased pain under her underlying chronic pain. She is a longstanding history of depression and more recently with anxiety that has been exacerbated with movement secondary to her recent fall and her fear of falling. She has had recent increase in her fasting blood glucose levels secondary to stress-induced hyperglycemia with adjustment to her diabetic regiment. Palliative care to continue to provide pain and symptom management as well as anticipatory guidance. Recommendations/Counseling Done: 1. Left proximal humerus fracture. Patient is left handed. Continue sling and recommendations as per orthopedic recommendations with f/u with orthopedics via telemedicine on 02/14/2020 or sooner if new/worsening symptoms. Start tylenol 1g TID for pain and d/c PRN tylenol. Continue oxycodone 5mg BID and every 6 hours as needed for pain. CTM pain regimen effectiveness and adjust accordingly. 2. Hyponatremia. Sodium level 128 without change in mental status from baseline. Patient has a history of hyponatremia. Repeat sodium level on 01/26/2020 and follow with result. If reduction in sodium level will discontinue cymbalta as would not wish to discontinue lisinopril and/or HCTZ given the patient's HTN and LE edema, which was reviewed with the daughter/DPOA with questions answered and addressed. 3.Depression with anxiety. Patient has a longstanding history of depression and has been on fluoxetine for many years. The patient has a labile mood with frequent choir and spells that improved after switching fluoxetine to duloxetine for depression, anxiety, and pain management. However, due to noted hypernatremia it is unclear if duloxetine is the underlying cause and if sodium level decreases further then will discontinue duloxetine despite its benefit and pursue other treatment options. In the interim, will increase quetiapine to 62.5 mg daily in 3 divided doses for anxiety and labile mood. Continue hydroxyzine as needed for breakthrough anxiety. Continue to monitor and readjust regiment as needed. 4. Chronic pain. Patient continues to have right hip pain status post ORIF 1 year ago after a fall. The patient has had improvement with her right hip pain after initiation of duloxetine. She has pain that worsens with movement with some underlying anxiety that limits her from progressing further in physical therapy. See diagnosis depression with anxiety for additional details. At the present time continue duloxetine as ordered. Continue oxycodone 5 mg twice daily and Tylenol 1 g 3 times daily. Fall precautions. Continue to monitor. 5. diabetes mellitus type 2. No episodes of hypoglycemia. Patient to have hemoglobin A1c obtained on 01/26/2020. potential recent increase of blood glucose levels 2/2 to response to stress due to pain given correlation with increase in levels and date of humerus fracture. Increase Lantus to 12 units nightly due to recent increase in fasting blood glucose levels. Continue metformin 1000 mg twice daily. Continue to monitor blood glucose trends and adjust medication regimen accordingly with goal A1C 7-8% given patient's age and co-morbidities. Time Spent: CPT 37137 Coordination of care with nursing staff at [facility]. Reviewed present concerns with daughter/D BAILEY Pappas via phone call and reviewed medication adjustments as well as plans for pain management with questions answered and addressed. Reviewed medications adjustments with purpose and side effects with daughter/D IVANIAA. Provided review of pain and symptom management and anticipatory guidance. Disclaimer: The chart note was formulated using voice recognition technology and unfortunately sound alike errors may occur.
== END 2020-01-17 11:01 | disposition home or self-care (01) ==
LOC: PC 11:00
PROVIDERS: ATTEND Nurse Practitioner Family
DX: Z51.5 Encounter for palliative care (principal); S42.202D Unspecified fracture of upper end of left humerus, subsequent encounter for fracture with routine healing; G30.9 Alzheimer's disease, unspecified; F02.80 Dementia in other diseases classified elsewhere, unspecified severity, without behavioral disturbance, psychotic disturbance, mood disturbance, and anxiety; G89.29 Other chronic pain; E87.1 Hypo-osmolality and hyponatremia; F41.8 Other specified anxiety disorders; E11.9 Type 2 diabetes mellitus without complications; Z79.899 Other long term (current) drug therapy; Z79.4 Long term (current) use of insulin; Z99.3 Dependence on wheelchair; Z66 Do not resuscitate; Z87.440 Personal history of urinary (tract) infections; Z87.81 Personal history of (healed) traumatic fracture; Z91.81 History of falling

== ENCOUNTER 2020-01-24 14:47 | Outpatient (CLI) | payer MEDICARE, OTHER ==
--- NOTE | 2020-01-25 04:48 | Ultrasound Report ---
Reason: LEFT HUMERUS FRACTURE Procedure Date: 01/24/2020 Accession Number: [id number] / [id number] Procedure: US - Duplex Venous Limited CPT Code: Final Report FULL RESULT: EXAM: LEFT UPPER EXTREMITY VENOUS ULTRASOUND EXAM DATE: 01/24/2020 03:16 PM. CLINICAL HISTORY: LEFT HUMERUS FRACTURE. COMPARISON: None. TECHNIQUE: Real-time sonographic vascular imaging was performed by the teaching assistant through the upper extremity utilizing both color-flow and Doppler spectral analysis. Multiple senior sales representative static images were saved for review. Examination limited by positioning and pain. FINDINGS: Internal Jugular Vein (IJV): Normal. Subclavian Vein (SCV): Normal. Axillary Vein : Limited visualization. No thrombus visualized. Cephalic Vein (superficial vein): Normal. Basilic Vein (superficial vein): Limited visualization. No thrombus visualized. Brachial Vein: Limited visualization. No thrombus visualized. Other: None. IMPRESSION: No evidence for deep vein thrombosis in the visualized segments. RADIA
== END 2020-01-24 14:48 | disposition home or self-care (01) ==
LOC: DI 14:47
PROVIDERS: ATTEND Orthopaedic Surgery Sports Medicine
DX: S42.292A Other displaced fracture of upper end of left humerus, initial encounter for closed fracture (principal)
CPT/HCPCS: 93971

== ENCOUNTER 2020-01-25 13:30 | Outpatient (CLI) | payer MEDICARE, OTHER ==
--- NOTE | 2020-01-25 15:38 | CONSULTATION NOTE ---
Palliative Care Follow Up - Referral Referring Provider: Randi Bravo PA-C Time of Visit: [id number] Referral setting: Assisted living Referral Reason: Pain, f/u UTI - Information Sources Records reviewed: Previous records reviewed History/Review of Systems obtained from: Patient, Caregiver Exam limitations: Clinical condition (poor historian due to dementia) - History of Present Illness Update Brief HPI Update: This is a 69-year-old female with a history of Alzheimer's dementia who is seen in follow-up today for pain management due to her recent left proximal humerus fracture and urinary tract infection. The patient sustained a fall on 01/10/2020 after falling out of bed landing on her left side. She was seen and evaluated at [facility] and was diagnosed with a left proximal humerus fracture and placed in a sling. She has had a follow-up with orthopedist, Dr. Russ Bess on 01/11. Due to some noted upper extremity edema Dr. Bess is to evaluate the patient tomorrow, 01/25 via telehealth with nursing staff from [facility] care unit as well as on site physical therapy and Occupational Therapy. The patient's upper extremity edema has decreased since last week. She had a venous duplex performed on 01/23 without evidence of deep vein thrombosis. She reports pain to her left upper sh oulder that is typically sharp in nature that will radiate down her left arm. Staff continue to have her left arm propped on pillow with her sling in place to decrease edema while she is out of bed in her wheelchair.She is presently on oxycodone 5 mg twice daily and oxycodone 5 mg every 6 hours as needed for pain. Staff report that she has pain relief from the oxycodone when administered. She is also on acetaminophen 1000 mg 3 times daily. Unfortunately, the patient is left-handed which is limiting her ability to perform tasks independently. Presently the staff at the assisted living facility are assisting the patient with meals and transferring. Since the patient's fall she has had an increase in her blood glucose levels ranging in the low to mid 300s. Her Lantus dose was increased to 12 units nightly. The patient continues to deny polydipsia and generalized pain. Given the patient's increase in the blood glucose levels a urinalysis with culture was obtained which grew 2 organisms with none predominant. She was initiated on Bactrim. While on the Bactrim the patient continued to have a low-grade temperature with increased reports of complaining of pain all over and crying out in addition her blood glucose levels remaining elevated. The Bactrim was discontinued and she was initiated on Cipro for complicated UTI given her chronic catheter. After discontinuation of the Bactrim the patient's return back to baseline without crying out reports of pain all over. Her duloxetine is presently being held during administration of the Cipro. Per the daughter/D POA Elyse the patient has had Bactrim in the past with no reports of issues. Since initiating oral antibiotic therapy the patient's blood glucose levels have improved as the following fasting 302, 331, 278, 294, and 246.No reports of hypoglycemia. Patient's appetite remains stable. The patient has a past medical history of hypertension, hyperlipidemia, cardiac murmur, Alzheimer's dementia, type 2 diabetes, GERD, constipation, neurogenic bladder with chronic indwelling catheter, depression, anxiety, osteoarthritis, osteoporosis, chronic pain, anemia, right hip fracture with repair 12/25/2018, and left proximal humerus fracture 01/10/2020. Social History - Living Situation Living arrangement: Assisted living Support System: The patient resides at [facility]. The patient has resided at this facility since May 2018, after her unexpectedly due to lung cancer in April 2018. The patient's daughter, Elyse is her D POA ([phone] (. Medications/Allergies - Medications Home Medications: Ambulatory Orders Medication Instructions Recorded Confirmed Multivitamin [Multiple Vitamins] 1 tab PO DAILY 06/01/18 01/25/20 Albuterol 2.5 mg INH RTQ4H PRN #3 neb 12/25/18 01/25/20 Atorvastatin [Lipitor] 20 mg PO QPM #30 tablet 12/25/18 01/25/20 Ondansetron Odt [Zofran Odt] 4 mg PO Q8H PRN #10 tablet 12/25/18 01/25/20 Acetaminophen 1,000 mg PO TID 02/07/19 01/25/20 Omeprazole 20 mg PO DAILY 02/07/19 01/25/20 amLODIPine [Norvasc] 5 mg PO BID 02/07/19 01/25/20 Ferrous Gluconate 240 mg PO DAILY #30 tablet 02/08/19 01/25/20 Magnesium Oxide [Mag Ox] 400 mg PO 0800 #30 tablet 02/08/19 01/25/20 metFORMIN [Glucophage] 1,000 mg PO BIDWM #60 tablet 02/08/19 01/25/20 polyethylene glycoL 3350 [Miralax] 17 gm PO DAILY #30 packet 02/08/19 01/25/20 QUEtiapine [SEROquel] 25 mg PO BID 03/02/19 01/25/20 Alendronate Sodium 70 mg PO .EVERY WEEK MDD Every 12/22/19 01/25/20Thursday Ascorbic Acid [Vitamin C] 500 mg PO DAILY 12/22/19 01/25/20 Calcium Carbonate [Calcium] 500 mg PO DAILY 12/22/19 01/25/20 DULoxetine [Cymbalta] 20 mg PO DAILY 12/22/19 01/25/20 Lisinopril/Hydrochlorothiazide 1 tab PO BID MDD 20/12.5mg tablet 12/22/19 01/25/20 [Lisinopril-Hctz 20-12.5 mg Tab] Nystatin 1 applic TP BID MDD to groin 12/22/19 01/25/20 Cholecalciferol (Vitamin D3) 50 mcg DAILY 01/10/20 01/25/20 [Vitamin D3] Insulin Glargine [Lantus Solostar] 14 unit INJ DAILY PM 01/17/20 01/25/20 QUEtiapine [SEROquel] 12.5 mg PO DAILY MDD at 1400 01/17/20 01/25/20 hydrOXYzine HCL [Hydroxyzine HCl] 25 mg PO Q8H PRN 01/17/20 01/25/20 oxyCODONE [Roxicodone] 5 mg PO Q6H PRN 01/17/20 01/25/20 Ciprofloxacin HCl [Cipro] 500 mg PO BID MDD x 7days for UTI 01/25/20 01/25/20 oxyCODONE [Roxicodone] 5 mg PO TID 01/25/20 01/25/20 - Allergies Allergies/Adverse Reactions: Allergies Allergy/AdvReac Type Severity Reaction Status Date / Time sulfamethoxazole Allergy Unknown Verified 01/25/20 16:47 [From Bactrim] trimethoprim [From Bactrim] Allergy Unknown Verified 01/25/20 16:47 Review of Systems - Constitutional Constitutional: denies: Fever, Weight loss - Eyes Eyes: reports: Corrective lenses - Ears, Nose & Throat Ears, Nose & Throat: denies: Hearing loss - Cardiovascular Cardiovascular: denies: Palpitations, Chest pain - Respiratory Respiratory: denies: Cough, Wheezing - Gastrointestinal Gastrointestinal: reports: Good appetite. denies: Constipation, Diarrhea, Vomiting - Genitourinary Genitourinary: reports: Other (chronic indwelling carbajal cather). denies: Flank pain - Musculoskeletal Musculoskeletal: reports: Stiffness, Limited range of motion, Joint pain, Assistive devices - Integumentary Integumentary: denies: Rash - Neurological Neurological: reports: General weakness, Memory problems - Psychiatric Psychiatric: reports: Depression, Anxiety - Endocrine Endocrine: reports: Diabetes type 2 - Hematologic/Lymphatic Hematologic/Lymphatic: reports: Recurrent infections (frequent UTIs) - All Other Systems All Other Systems: reports: Reviewed and negative - Other Findings Other Findings: ROS limited as patient is a poor historian due to dementia. ROS obtained from caregiver and nursing. Physical Exam - Vital Signs Temperature: 36.5 C Pulse Rate: 93 O2 Saturation: 98 (on RA at rest) Blood Pressure: 129/62 (right wrist cuff) - Physical Exam General Appearance: positive: Alert, Other (OOB in wheelchair with left sling in place and left arm elevated on a pillow; patient initially tearful as another resident "called her a name" and was able to calm down after a few minutes) Eyes Bilateral: positive: Other (+corrective lenses) ENT: positive: No signs of dehydration Neck: positive: Trachea midline Cardiovascular: positive: Regular rate & rhythm, No murmur (mumur not appreciated on examination today) Respiratory: positive: No respiratory distress, Breath sounds nml. negative: Rales Abdomen: positive: Non-tender, Soft, Nml bowel sounds, Obese, Other (Carbajal catheter to gravity with clear yellow urine. Bladder nondistended to palpation.) Skin: negative: No symptoms Extremities: positive: Pedal edema (Trace to +1 pedal edema with compression stockings in place to BLE (noted improvement).), Other (LUE in a sling. Resolution of left hand edema with trace edema noted to proximal left upper arm compared to right.) Neurologic/Psychiatric: positive: Disoriented to place, Disoriented to time, Depressed mood/affect. negative: Unintelligible speech Palliative Care - POLST Patient has POLST: Yes POLST Status: DNR, Selective Treatment Pain: Pain unchanged (Pain to left shoulder s/p fall with left proximal humerus fractue that responds to oxycodone administration for pain.) Tiredness/Fatigue: None Depression: Moderate (4-6) Anxiety: Mild (1-3) (increased since recent fall on 01/10/2020 due to her fear of falling when working with staff or therapy), Moderate (4-6) Constipation: No, Managed Performance Status: The patient has had an acute decline in her function secondary to a recent left proximal humerus fracture and due to the fact that she is left-handed. She is unable to perform tasks that typically she is able to perform independently. She is wheelchair dependent and is able to self propel using her feet. She has poor overall safety awareness. Her last fall on 01/09 resulted in her most recent fracture. She has a chronic indwelling Carbajal catheter. - Palliative Care Discussion: The patient has sustained 2 fractures after falls in the last 12 months. Her most recent fracture resulted in a left proximal humerus fracture after rolling/falling out of bed on 01/09. Since that time the patient has had an increase in her anxiety. Her blood glucose levels have also increased possibly stress reduced however, the patient's daughter reported that typically in the past when the patient's blood glucose levels have trended upwards and she reports pain all over it is been indicative of a urinary tract infection. A urinalysis with culture was obtained with 2 organisms with none predominant. She was initiated on Bactrim for the treatment of her symptoms and subsequently developed a possible reaction where she had an increase in her temperature, agitation, and reports of pain all all all over with her crying out. She was subsequently transitioned to Cipro and her Bactrim was discontinued. Since initiating the Cipro the patient has had overall general improvement. She has returned to her baseline and her mood appears more stable. Her pain is responding to scheduled and as needed oxycodone. However, for the patient to initiate more intensive therapy with physical therapy after lunch it would be more effective to schedule a dose of oxycodone for adequate pain m anagement.Swelling to her left upper extremity has improved since last week and she had a venous duplex performed which was negative for a deep vein thrombosis. At the present time, the goals remain to improve pain management as well as a symptom patient's labile mood with depression and anxiety symptoms. Results - Lab Results Lab results reviewed: Yes Lab and Imaging Results: 01/19/2020: UA with microscopy WBC esterase +3, +Nitrite, WBC >30/hpf; Bacteria moderate;Urine culture: greater than 2 organisms recovered, none predominant Impression and Recommendations - Palliative Care Impression: This is a 69-year-old woman with Alzheimer's dementia who has unfortunately sustained a second fracture in 12 months time presently to her left proximal humerus with increased pain on top of her underlying chronic pain. She has a chronic indwelling Carbajal due to neurogenic bladder and is presently clinically responding to a course of ciprofloxacin for a urinary tract infection. In addition to her urinary tract infection with the treatment her blood glucose levels have improved after initial elevation post fracture. Palliative care to continue to provide pain and symptom management and anticipatory guidance. Recommendations/Counseling Done: 1. Left proximal humerus fracture.The patient is left-handed. Continue sling and recommendations as per orthopedic recommendations. Follow-up with orthopedics via telemedicine on 01/26/2020. Venous duplex performed on 01/23- for DVT. Start oxycodone 5 mg daily at 12 noon to reduce pain prior to physical therapy initiation. Reevaluate in the future need for continuation of oxycodone administration midday. Continue oxycodone 5 mg twice daily at 8 AM and 8 PM and every 6 hours as needed for pain. Continue acetaminophen 1 g 3 times daily for pain management. Continue to monitor pain regimen effectiveness and adjust accordingly. 2. Diabetes mellitus type 2. No episodes of hypoglycemia. Patient has had elevated fasting blood glucose levels status post fall with fracture ranging low 300s to mid 300s possibly due to underlying urinary tract infection and or stress response. Increase Lantus to 14 units nightly. Continue metformin 1000 mg twice daily. Patient is scheduled to have a hemoglobin A1c performed on 01/26/2020. Continue to monitor blood glucose trends and adjust medication regimen accordingly with goal hemoglobin A1c 7-8% given patient's age and comorbidities. 3. UTI in setting of chronic indwelling catheter due to neurogenic bladder. Patient had a possible intolerance to Bactrim for treatment of her urinary tract infection that has not previously occurred. Given the patient had increased pain and an elevated blood temperature will add Bactrim to list of patient's allergies. Patient has clinically improved on Cipro administration complete 7- day course as prescribed. Encourage adequate oral hydration. 4. Depression with anxiety. Patient has a longstanding history of depression and has been on fluoxetine for many years. The patient has a labile mood which has improved since changing her medication from fluoxetine to duloxetine for depression, anxiety, and pain management. Presently duloxetine is on hold and will resume after completion of ciprofloxacin antibiotic course. Continue quetiapine 62.5 mg daily in 3 divided divided doses for anxiety and labile mood. Continue hydroxyzine as needed for breakthrough anxiety. Continue to monitor and readjust regiment as needed. 5. Bilateral lower extremity edema. Noted improvement. Continue compression stockings to bilateral lower extremities every morning and remove every evening. Continue HCTZ. Continue to monitor. 6. Advanced care planning. POLST is DN AR with selective treatments. Patient has a significant amount of medications on board and discussed with daughter/D POA today regarding polypharmacy and moving forward we will continue to weigh the benefits versus burdens of the treatment specific for the patient and discontinuation of medications based on overall benefit versus burden and daughter aware and in agreement. Palliative care to continue to build rapport and develop goals of care. Time Spent: CPT 14287 Coordination care with nursing staff at [facility]. Reviewed presents examination and clinical findings with daughter/D BAILEY Pappas via phone. Reviewed medication purpose dose and side effects with questions answered and addressed. Reviewed plan of care with daughter and nursing staff. Disclaimer: The chart note was formulated using voice recognition technology and unfortunately sound alike errors may occur.
== END 2020-01-25 13:31 | disposition home or self-care (01) ==
LOC: PC 13:30
PROVIDERS: ATTEND Nurse Practitioner Family
DX: Z51.5 Encounter for palliative care (principal); S42.202D Unspecified fracture of upper end of left humerus, subsequent encounter for fracture with routine healing; N39.0 Urinary tract infection, site not specified; G30.9 Alzheimer's disease, unspecified; F02.80 Dementia in other diseases classified elsewhere, unspecified severity, without behavioral disturbance, psychotic disturbance, mood disturbance, and anxiety; N31.9 Neuromuscular dysfunction of bladder, unspecified; E11.9 Type 2 diabetes mellitus without complications; F41.8 Other specified anxiety disorders; R60.0 Localized edema; Z79.899 Other long term (current) drug therapy; Z79.4 Long term (current) use of insulin; Z79.891 Long term (current) use of opiate analgesic; Z99.3 Dependence on wheelchair; Z91.81 History of falling; Z87.81 Personal history of (healed) traumatic fracture; Z66 Do not resuscitate

== ENCOUNTER 2020-02-06 12:00 | Outpatient (CLI) | payer MEDICARE, OTHER ==
--- NOTE | 2020-02-06 17:00 | CONSULTATION NOTE ---
Palliative Care Follow Up - Referral Referring Provider: Randi Bravo PA-C Time of Visit: [id number] Referral setting: Assisted living Referral Reason: Chronic/Dementia/Depression/Anxiety - Information Sources Records reviewed: Previous records reviewed History/Review of Systems obtained from: Patient, Caregiver, Nursing Exam limitations: Clinical condition (Poor historian due to dementia) - History of Present Illness Update Brief HPI Update: This is a 69-year-old female with a history of Alzheimer's dementia who is seen in follow-up today for pain management due to her recent left proximal humerus fracture and evaluation of her depression and anxiety symptoms. The patient sustained a fall on 01/10/2020 after falling out of bed landing on her left side. She was seen and evaluated at [facility] and was diagnosed with a left proximal humerus fracture and placed in a sling. She was evaluated by orthopedist, Dr. Russ Calderon on 01/11 in person as well as via telehealth on 01/25. The patient is presently working with physical therapy and Occupational Therapy. She is presently on routine oxycodone 5 mg 3 times daily. Since the addition of the noon dose of oxycodone she has had improvement with working with physical therapy due to the reduction in her pain. The edema to her right upper extremity has since resolved. She had a venous duplex performed on 01/23 without evidence of deep vein thrombosis. She also continues on routine acetaminophen 1000 mg 3 times daily as well as oxycodone 5 mg every 6 hours as needed for pain. The patient herself reports that the pain overall is better but it still "comes and goes." The patient has had difficulty with pain management since she sustained a fall and fracture of her right hip with repair. She continues to have ambulation only with physical therapy. She has a longstanding history of depression and was on fluoxetine for many years. She was recently changed to duloxetine, but this was held during her treatment of her urinary tract infection with ciprofloxacin. Since resuming the duloxetine caregiving and nursing staff report an improvement in the patient's overall lability in her mood swings. She is also on Seroquel 3 times dailly. She was started on Seroquel initially while she was having rehabilitation after her right hip fracture in December 2018 which assisted in reduction in her labile mood. The patient's last hemoglobin A1c was obtained on 01/28/2020 and was 8.8%. Her Lantus dosage has been recently increased to 14 units nightly and continues on metformin routinely. Her Lantus dosage has steadily increased due to the patient's increased fasting blood glucose levels after she sustained her left proximal humerus fracture. The increase in her blood glucose levels were likely multifactorial due to pain response as well as due to recent urinary tract infection. Her recent blood glucose levels have been as follows: 234, 236, 217, 210, 230, 217, 210, 216, 216, 218. Patient has a past medical history of hypertension, hyperlipidemia, cardiac murmur, Alzheimer's dementias, type 2 diabetes, GERD, constipation, neurogenic bladder with chronic indwelling catheter, depression, anxiety, osteoarthritis, osteoporosis, chronic pain, anemia, right hip fracture with repair 12/25/2018, left proximal humerus fracture 01/10/2020. Social History - Living Situation Living arrangement: Assisted living Support System: The patient resides at [facility]. She has resided this facility since May 2018, after her unexpectedly due to lung cancer in April 2018. The patient's was previously her primary caregiver. The patient's daughter, Elyse is her D POA ([phone] (. Medications/Allergies - Medications Home Medications: Ambulatory Orders Medication Instructions Recorded Confirmed Multivitamin [Multiple Vitamins] 1 tab PO DAILY 06/01/18 02/06/20 Albuterol 2.5 mg INH RTQ4H PRN #3 neb 12/25/18 02/06/20 Atorvastatin [Lipitor] 20 mg PO QPM #30 tablet 12/25/18 02/06/20 Ondansetron Odt [Zofran Odt] 4 mg PO Q8H PRN #10 tablet 12/25/18 02/06/20 Acetaminophen 1,000 mg PO TID 02/07/19 02/06/20 Omeprazole 20 mg PO DAILY 02/07/19 02/06/20 amLODIPine [Norvasc] 5 mg PO BID 02/07/19 02/06/20 Ferrous Gluconate 240 mg PO DAILY #30 tablet 02/08/19 02/06/20 Magnesium Oxide [Mag Ox] 400 mg PO 0800 #30 tablet 02/08/19 02/06/20 metFORMIN [Glucophage] 1,000 mg PO BIDWM #60 tablet 02/08/19 02/06/20 polyethylene glycoL 3350 [Miralax] 17 gm PO DAILY #30 packet 02/08/19 02/06/20 QUEtiapine [SEROquel] 25 mg PO BID 03/02/19 02/06/20 Alendronate Sodium 70 mg PO .EVERY WEEK MDD Every 12/22/19 02/06/20Thursday Ascorbic Acid [Vitamin C] 500 mg PO DAILY 12/22/19 02/06/20 Calcium Carbonate [Calcium] 500 mg PO DAILY 12/22/19 02/06/20 DULoxetine [Cymbalta] 20 mg PO DAILY 12/22/19 02/06/20 Lisinopril/Hydrochlorothiazide 1 tab PO BID MDD 20/12.5mg tablet 12/22/19 02/06/20 [Lisinopril-Hctz 20-12.5 mg Tab] Nystatin 1 applic TP BID MDD to groin 12/22/19 02/06/20 Cholecalciferol (Vitamin D3) 50 mcg DAILY 01/10/20 02/06/20 [Vitamin D3] Insulin Glargine [Lantus Solostar] 16 unit INJ DAILY PM 01/17/20 02/06/20 QUEtiapine [SEROquel] 12.5 mg PO DAILY MDD at 1400 01/17/20 02/06/20 hydrOXYzine HCL [Hydroxyzine HCl] 25 mg PO Q8H PRN 01/17/20 02/06/20 oxyCODONE [Roxicodone] 5 mg PO Q6H PRN 01/17/20 02/06/20 oxyCODONE [Roxicodone] 5 mg PO TID 01/25/20 02/06/20 - Allergies Allergies/Adverse Reactions: Allergies Allergy/AdvReac Type Severity Reaction Status Date / Time sulfamethoxazole Allergy Unknown Verified 01/25/20 16:47 [From Bactrim] trimethoprim [From Bactrim] Allergy Unknown Verified 01/25/20 16:47 Review of Systems - Constitutional Constitutional: reports: Weight gain (weight 220lb on 01/12/2020). denies: Fatigue, Fever - Eyes Eyes: reports: Corrective lenses - Ears, Nose & Throat Ears, Nose & Throat: denies: Dry mouth - Cardiovascular Cardiovascular: denies: Palpitations, Chest pain - Respiratory Respiratory: denies: Cough - Gastrointestinal Gastrointestinal: reports: Good appetite. denies: Abdominal pain, Constipation, Diarrhea, Vomiting - Genitourinary Genitourinary: reports: Other (chronic indwelling carbajal catheter) - Musculoskeletal Musculoskeletal: reports: Limited range of motion (left shoulder 2/2 humerus fracture), Muscle weakness, Joint pain, Assistive devices. denies: Joint swelling - Integumentary Integumentary: denies: Rash - Neurological Neurological: reports: General weakness, Memory problems. denies: Headache, Dizziness - Psychiatric Psychiatric: reports: Depression, Anxiety - Endocrine Endocrine: reports: Diabetes type 2 - Hematologic/Lymphatic Hematologic/Lymphatic: reports: Anemia - All Other Systems All Other Systems: reports: Reviewed and negative (ROS limited as patient is a poor historian due to dementia. ROS obtained from caregiver and nursing.) Physical Exam - Vital Signs Temperature: 36.4 C Pulse Rate: 79 O2 Saturation: 98 (on RA at rest) Blood Pressure: 119/65 (right wrist cuff) - Physical Exam General Appearance: positive: No acute distress, Alert, Other (OOB in wheelchair at dining table, well groomed, overweight) Eyes Bilateral: positive: Normal inspection, Other (+corrective lenses) ENT: positive: No signs of dehydration Neck: positive: No JVD, Trachea midline. negative: Lymphadenopathy (R), Lymphadenopathy (L) Cardiovascular: positive: Regular rate & rhythm, No murmur, No gallop Respiratory: positive: No respiratory distress, Breath sounds nml. negative: Rales Abdomen: positive: Non-tender, Soft, Nml bowel sounds, Obese Extremities: positive: Pedal edema (trace BLE edema without compression stockings in place), Other (strong bilateral radial pulses that are equal; LUE in a sling with no evidence of LUE edema) Neurologic/Psychiatric: positive: Disoriented to place, Disoriented to time, Depressed mood/affect (improved from last visit with no tearful responses when discussing pain) Palliative Care - POLST Patient has POLST: Yes POLST Status: DNR, Selective Treatment Pain: Pain improved (Pain to left shoulder status post left proximal humerus fracture that has responded to oxycodone routine administration and acetaminophen routine administration.Pain to left shoulder status post left proximal humerus fracture that has responded to oxycodone routine administration and acetaminophen routine administration.) Tiredness/Fatigue: None Anorexia: None Anxiety: Mild (1-3) (Improvements since reintroduction of duloxetine after increase of anxiety since her recent fall on 01/10/2020 due to her fear of falling. She responds to as needed hydroxyzine for anxiety.) Sleep: Sleeps well Constipation: No, Managed (on bowel regimen) Performance Status: Patient has had a decline in her functional status secondary to her sustaining a left proximal humerus fracture and at baseline the patient is left-handed. She is unable to perform tasks that she typically is able to perform independently. She is wheelchair dependent and is able to self propel using her feet. She has overall poor safety awareness. Her last fall on 01/09 resulted in a fracture. She has a chronic indwelling Carbajal catheter. - Palliative Care Discussion: The patient has sustained 2 fractures after falls in the last 12 months. She presently has a left proximal humerus fracture that resulted after rolling/falling out of bed on 01/09. She recently completed a course of antibiotics for a urinary tract infection and has had improvement of her blood glucose levels that have been obtained fasting. Her Lantus dosage has steadily been increased due to her recent elevations of fasting blood glucose levels that began after she sustained a fall on 01/09. She has a history of chronic pain most notably to her right hip due to her previous hip fracture and repair. Her pain is presently controlled with oxycodone 5 mg 3 times daily. Since the initiation of the mid day oxycodone scheduled dose she has had improvement with her ability to function with physical therapy services within the facility. The patient's duloxetine was held while she was on ciprofloxacin for the treatment of her urinary tract infection. Since the reintroduction of her duloxetine her lability in her mood has greatly increased per staff report. At the present time, the goals remain to improve pain management as well as improvement of the patient's depression and anxiety symptoms. Results - Lab Results Lab results reviewed: Yes Lab and Imaging Results: 01/28/2020: Sodium 132, potassium 4.9, BUN 19, creatinine 1.07, estimated GFR 52, AST T10, ALT 8, alk phos 140, WBC 7, RBC 3.15, hemoglobin 9.0, hematocrit 27.1%, platelets 438, Hemoglobin A1c 8.8%, serum osmolality 289 Impression and Recommendations - Palliative Care Impression: This is a 69-year-old woman with Alzheimer's dementia who was unfortunately sustained a section fracture in 12 months time presently with a fracture to her left proximal humerus with improvement of acute pain and continued underlying chronic pain. Her blood glucose levels have had some improvement with adjustment in her Lantus dosing but continues to remain slightly above of 200 while fasting. No episodes of hypoglycemia reported. There is also been noted improvement in the patient's overall lability in her mood with duloxetine and quetiapine scheduled. Palliative care to continue to provide pain and symptom management and anticipatory guidance. Recommendations/Counseling Done: 1. Left proximal humerus fracture. The patient is left-handed. Continue sling and recommendations PER orthopedic recommendations. Follow-up with orthopedics via telemedicine 02/16/2020. Continue oxycodone 5 mg 3 times daily for pain management. Continue oxycodone 5 mg every 6 hours as needed for pain. Continue acetaminophen 1 g 3 times daily for pain management. Will reevaluate in the future the need for continuation of oxycodone administration midday and potential introduction of taper. Continue to monitor pain regimen effectiveness and adjust accordingly. 2. Depression and anxiety. Patient has a longstanding history of depression and had been on fluoxetine for many years. The patient has had an improvement in her overall labile mood since reintroducing duloxetine for depression, anxiety, and chronic pain management. Continue quetiapine 62.5 mg daily in 3 divided doses for anxiety and labile mood. Continue hydroxyzine as needed for breakthrough anxiety. Continue to monitor and adjust regimen as needed. 3. Hyponatremia. Sodium level previously was 128 without change in mental status from baseline. CMP was obtained on 01/27 with improvement of sodium to 132. We will continue duloxetine at the present time as patient has had improvement of her overall mood. Serum osmolality was obtained and within normal limits. Will reassess sodium level on 02/15/2020 and follow with results. Patient has a history of hyponatremia in the past. 4. Bilateral lower extremity edema. Remains at baseline. Noted increase in weight to 220 pounds. Encouraged compression stockings to be applied to bilateral lower extremities every morning and remove every evening. Continue HCTZ. Continue to monitor weight trends and consider adjustment in diuretic moving forward. 5. Diabetes mellitus type 2. No evidence of hypoglycemia. Patient was having elevated fasting blood glucose levels status post her fall with fracture and urinary tract infection in the low to mid 300s. Presently improved after Lantus adjustment but blood glucose levels remain above 200. Initiate diabetic diet if not already on this diet. Increase Lantus 6 to 16 units nightly. Continue metformin 1000 mg twice daily. Last hemoglobin A1c 8.8% performed on 01/28/2020. Continue to monitor blood glucose trends and adjust medication regimen accordingly with goal hemoglobin A1c 7 to 8% given the patient's age and comorbidities. 6. Alzheimer's dementia. Chronic. Progressive. Supportive Care. Fall and Aspiration precautions. On no disease modifying agents. Given the patient's dementia and chronic co-morbidities, a gradual decline is expected. Time Spent: CPT 37133 Coordination of care with nursing staff. Message left for daughter/D BAILEY Pappas via phone to update regarding plan of care at [phone]. Disclaimer: The chart note was formulated using voice recognition technology and unfortunately sound alike errors may occur.
== END 2020-02-06 12:01 | disposition home or self-care (01) ==
LOC: PC 12:00
PROVIDERS: ATTEND Nurse Practitioner Family
DX: Z51.5 Encounter for palliative care (principal); S42.202D Unspecified fracture of upper end of left humerus, subsequent encounter for fracture with routine healing; G89.29 Other chronic pain; G30.9 Alzheimer's disease, unspecified; F02.80 Dementia in other diseases classified elsewhere, unspecified severity, without behavioral disturbance, psychotic disturbance, mood disturbance, and anxiety; F32.9 Major depressive disorder, single episode, unspecified; R60.0 Localized edema; F41.9 Anxiety disorder, unspecified; R63.5 Abnormal weight gain; E87.1 Hypo-osmolality and hyponatremia; Z79.899 Other long term (current) drug therapy; Z79.891 Long term (current) use of opiate analgesic; Z79.4 Long term (current) use of insulin; Z99.3 Dependence on wheelchair; Z91.81 History of falling; Z66 Do not resuscitate

== ENCOUNTER 2020-03-09 12:20 | Outpatient (CLI) | payer MEDICARE ==
--- NOTE | 2020-03-09 15:17 | CONSULTATION NOTE ---
Palliative Care Follow Up - Referral Referring Provider: Randi Bravo PA-C Time of Visit: [id number] Referral setting: Assisted living Referral Reason: Pain management/Depression/Anxiety/Dementia - Information Sources Records reviewed: Previous records reviewed History/Review of Systems obtained from: Patient, Family (daughter/JORDAN Pappas via phone), Caregiver, Nursing Exam limitations: Clinical condition (poor historian due to dementia) - History of Present Illness Update Brief HPI Update: This is a 69-year-old female with a history of Alzheimer's dementia who is seen in follow-up today for pain management due to a left proximal humerus fracture, diabetes mellitus type 2, and depression and anxiety. The patient sustained a fall on 01/10/2020 after falling out of bed landing on her left side. She was seen and evaluated at [facility] and was diagnosed with a left proximal humerus fracture and placed in a sling. She was a then evaluated by orthopedist, in person on 01/11. She is presently working with physical therapy and Occupational Therapy.She was last evaluated by orthopedics via telemedicine on 02/16/2020.She continues to wear a sling for the most part and is out of it for occupational and physical therapy.She is presently on a regimen of oxycodone 5 mg 3 times a day as well as routine acetaminophen 1000 mg 3 times a day. She has oxycodone 5 mg every 6 hours as needed for breakthrough pain.Upon review of the MAR for breakthrough oxycodone administration she received this 6 times during the last month.The patient herself has been doing well in rehabilitation services and upon review of therapy notes she has been cheerful and talkative. In the past she has been known to have labile mood swings and being extremely tearful during therapy sessions.The patient herself denies any pain on assessment today and reports that her arm will "be stiff" but this improves with therapy.The patient denies pain to her right hip. She has had a history of chronic pain to her right hip after undergoing a fall with fracture and right hip repair. She is a longstanding history of depression and was on fluoxetine for many years. She was transitioned to duloxetine in December 2019 and her Seroquel dosage was adjusted as well.Caregiving staff reports that the patient has had less wide swings and fluctuations of herDepressive symptoms and mood with crying spells. She is in better spirits overall and notably during therapy. When she does have a tearful episode it is able to be quickly rectified by redirecting the patient and the depth of change from her baseline mood is not as significant as it was previously before medication adjustments were made. The patient's daughter/Ronnell Pappas also comments that on video conferencing last few times the patient has been in better spirits and in a good mood. In January 2020 the patient experienced transient hyponatremia with a sodium low of 128 in the setting of hyperglycemia.Her insulin regimen was adjusted and she is presently on Lantus 16 units nightly and metformin 1000 mg twice daily. Her last sodium level was 130 which auto corrected for hyperglycemia is 133.Upon review of the patient's blood glucose results obtained daily fasting the results are as follows 200, 222, 188, 214, 211, 206, 238, 211, 210, 187, 191, 221, 112, 226, 210, 199, 233, 194, 189, 228, 258, 183, 238, 244, 231, 198, 186, 226, 190. The patient has a past medical history of hypertension, hyperlipidemia, cardiac murmur, Alzheimer's dementia, type 2 diabetes, GERD, constipation, neurogenic bladder with chronic indwelling catheter, depression, anxiety, osteoarthritis, osteoporosis, chronic pain, anemia, right hip fracture with repair 12/25/2018, left proximal humerus fracture 01/10/2020. Social History - Living Situation Living arrangement: Assisted living Support System: Patient resides at [facility]. She is resided at this facility since May 2018 after her unexpectedly due to lung cancer in April 2018. The patient's was previously her primary caregiver. The patient's daughter, Elyse is her Ronnell AVALOS ([phone] (. Medications/Allergies - Medications Home Medications: Ambulatory Orders Medication Instructions Recorded Confirmed Multivitamin [Multiple Vitamins] 1 tab PO DAILY 06/01/18 02/06/20 Albuterol 2.5 mg INH RTQ4H PRN #3 neb 12/25/18 02/06/20 Atorvastatin [Lipitor] 20 mg PO QPM #30 tablet 12/25/18 02/06/20 Ondansetron Odt [Zofran Odt] 4 mg PO Q8H PRN #10 tablet 12/25/18 02/06/20 Acetaminophen 1,000 mg PO TID 02/07/19 02/06/20 Omeprazole 20 mg PO DAILY 02/07/19 02/06/20 amLODIPine [Norvasc] 5 mg PO BID 02/07/19 02/06/20 Ferrous Gluconate 240 mg PO DAILY #30 tablet 02/08/19 02/06/20 Magnesium Oxide [Mag Ox] 400 mg PO 0800 #30 tablet 02/08/19 02/06/20 metFORMIN [Glucophage] 1,000 mg PO BIDWM #60 tablet 02/08/19 02/06/20 polyethylene glycoL 3350 [Miralax] 17 gm PO DAILY #30 packet 02/08/19 02/06/20 QUEtiapine [SEROquel] 25 mg PO BID 03/02/19 02/06/20 Alendronate Sodium 70 mg PO .EVERY WEEK MDD Every 12/22/19 02/06/20Thursday Ascorbic Acid [Vitamin C] 500 mg PO DAILY 12/22/19 02/06/20 Calcium Carbonate [Calcium] 500 mg PO DAILY 12/22/19 02/06/20 DULoxetine [Cymbalta] 20 mg PO DAILY 12/22/19 02/06/20 Lisinopril/Hydrochlorothiazide 1 tab PO BID MDD 20/12.5mg tablet 12/22/19 02/06/20 [Lisinopril-Hctz 20-12.5 mg Tab] Nystatin 1 applic TP BID MDD to groin 12/22/19 02/06/20 Cholecalciferol (Vitamin D3) 50 mcg DAILY 01/10/20 02/06/20 [Vitamin D3] Insulin Glargine [Lantus Solostar] 20 unit INJ DAILY PM 01/17/20 02/06/20 QUEtiapine [SEROquel] 12.5 mg PO DAILY MDD at 1400 01/17/20 02/06/20 hydrOXYzine HCL [Hydroxyzine HCl] 25 mg PO Q8H PRN 01/17/20 02/06/20 oxyCODONE [Roxicodone] 5 mg PO Q6H PRN 01/17/20 02/06/20 oxyCODONE [Roxicodone] 5 mg PO TID 01/25/20 02/06/20 - Allergies Allergies/Adverse Reactions: Allergies Allergy/AdvReac Type Severity Reaction Status Date / Time sulfamethoxazole Allergy Unknown Verified 01/25/20 16:47 [From Bactrim] trimethoprim [From Bactrim] Allergy Unknown Verified 01/25/20 16:47 Review of Systems - Constitutional Constitutional: reports: Other (weight had trended up to max of 220lb in January 11 and is presently 210.4lb February 2020). denies: Fever - Eyes Eyes: reports: Corrective lenses - Ears, Nose & Throat Ears, Nose & Throat: denies: Hearing loss - Cardiovascular Cardiovascular: reports: Edema. denies: Chest pain - Respiratory Respiratory: denies: Cough - Gastrointestinal Gastrointestinal: reports: Good appetite. denies: Abdominal pain, Constipation, Diarrhea - Genitourinary Genitourinary: reports: Other (chronic indwelling catheter) - Musculoskeletal Musculoskeletal: reports: Stiffness, Limited range of motion (left shoulder 2/2 proximal humerus fracture), Assistive devices, Transfer issues - Integumentary Integumentary: denies: Rash - Neurological Neurological: reports: General weakness, Memory problems - Psychiatric Psychiatric: reports: Depression, Anxiety - Endocrine Endocrine: reports: Diabetes type 2 - Hematologic/Lymphatic Hematologic/Lymphatic: reports: Anemia (on supplementation) - All Other Systems All Other Systems: reports: Reviewed and negative (ROS limited as patient is a poor historian due to dementia.) Physical Exam - Vital Signs Temperature: 36.6 C Pulse Rate: 93 O2 Saturation: 98 (on RA at rest) Blood Pressure: 138/69 (right wrist cuff) - Physical Exam General Appearance: positive: No acute distress, Alert, Other (OOB in wheelchair at dinning table, overweight) Eyes Bilateral: positive: Other (+corrective lenses) ENT: positive: No signs of dehydration Neck: positive: Trachea midline Cardiovascular: positive: Regular rate & rhythm, No murmur Respiratory: positive: No respiratory distress, Breath sounds nml Abdomen: positive: Non-tender, Soft, Obese, Other (carbajal catheter to gravity draining yellow urine) Skin: positive: No symptoms Extremities: positive: Pedal edema (Trace BLE edema with compression stockings in place) Neurologic/Psychiatric: positive: Mood/affect nml, Disoriented to place, Disoriented to time, Other (Talkative and in good spirits today) Palliative Care - POLST Patient has POLST: Yes POLST Status: DNR, Selective Treatment Pain: Pain improved (left shoulder pain improvved with routine tylenol and oxycodone administration) Anorexia: None Depression: Mild (1-3) Anxiety: Mild (1-3) (has PRN hydrxyzine if needed for anxiety) Sleep: Sleeps well Constipation: No, Managed (on bowel regimen) Performance Status: Patient requires full assistance with dressing and hygiene careDue to her left arm being in a sling due to a left proximal humerus fracture and at baseline the patient is left-hand dominant. She is wheelchair dependent and is able to self propel using her feet. She is able to self feed. She has a chronic indwelling Carbajal catheter. Flacker 1 Year Long Stay Revised Index 1 year mortality risk was 13% * This index was developed in 22,749 [facility] residents from [facility] in the (49% >84 years old, 74% female, 83% white, 21% 1-year mortality) * The index was internally validated in 40,328 [facility] residents from the same sample (46%>84 years old, 73% female, 82% white, 22% 1-year mortality) * This index was externally validated in 130 [facility] resident in 2006 (mean age 81, 61% female). * Discrimination: This risk calculator sorts patients who from patients who lived correctly 71% of the time (c-statistic). The discrimination was the same in the independent validation study. Risk calculators cannot predict the future for any one individual. Risk calculators give an estimate of how many people with similar risk factors will live and , but they cannot identify who will live and who will . - Palliative Care Discussion: The patient has sustained 2 fractures after falls in a span of 12 months. She is presently undergoing rehabilitation with physical therapy and Occupational Therapy after sustaining a left proximal humerus fracture that resulted in her rolling and/or falling out of bed. The patient initially had pain and her oxycodone dosage had to be adjusted. Presently she is without complaints of pain and is maintained on oxycodone 5 mg 3 times daily as well as acetaminophen 1000 mg 3 times daily. She has had lability in her mood after she sustained a right hip fracture in December 2018.The patient was has a long standing history of depression and due to her underlying reports of pain was transitioned to duloxetine. The duloxetine seems to to an adjunct to her quetiapine reduced her depressive symptoms as well as the lability in her mood.Facility staff as well as the patient's daughter/D POA have noticed an improvement of the patient's overall mood and she is typically more cheerful and talkative. As her pain is well-managed she is able to participate adequately in rehabilitation services. Results - Lab Results Lab results reviewed: Yes Lab and Imaging Results: 02/16/2020 Sodium 130 (corrected sodium 133 (, potassium 4.5, BUN 15, creatinine 0.96, AST 11, ALT 7, glucose 226 Impression and Recommendations - Palliative Care Impression: This is a 69-year-old female with Alzheimer's dementia who had recently unfortunately sustained a fracture to her left proximal humerus. She has had improvement of acute pain due to her proximal humerus as well as her underlying chronic pain.She continues to have most of her fasting blood glucose levels be above 200 and is presently on metformin and Lantus for management of her diabetes mellitus type 2.No episodes of hypoglycemia noted. The patient has had overall improvement of lability in her mood with depressive and anxiety symptoms and is presently stable on duloxetine and quetiapine. Palliative care to continue to provide pain and symptom management and anticipatory guidance. Recommendations/Counseling Done: 1. Left proximal humerus fracture. The patient is left-hand dominant. Continue to follow orthopedic recommendations. Status post follow-up with orthopedics on 02/16/2020.Continue oxycodone 5 mg 3 times daily for pain management as the patient has had functional improvement on thus regimen And has been able to participate with physical and Occupational Therapy and this regiment remains ap propriate at this time. Continue oxycodone 5 mg every 6 hours as needed for pain. Continue acetaminophen 1 g 3 times daily for pain management. If at next follow-up appointment can consider dosage reductions if patient remains comfortable regarding her pain management management weighing benefits versus burdens as we wish to balance her current regiment with function. 2.Hyponatremia, transient. Low sodium level 128 noted January 2020 in the setting of hyperglycemia. Last sodium level 130 with adjustment at 133.Patient is asymptomatic. Serum osmolality was obtained and was within normal limits. Patient has had a history of hyponatremia in the past. Continue to monitor periodically and if there is a noted change in condition. 3. Depression anxiety. Patient has a longstanding history of depression and has been on fluoxetine for many years. Patient has had improvement in lability of her mood which was evident from reports of staff, daughter, and on assessment today. Continue duloxetine 20 mg daily for depression, anxiety, and chronic pain management. Continue quetiapine 62.5 mg daily in 3 divided doses for anxiety and labile mood. Continue hydroxyzine as needed for breakthrough anxiety. Continue to monitor and adjust regimen as needed. 4. Diabetes mellitus type 2. No evidence of hypoglycemia. Patient's lowest blood glucose level noted as 112 in February 2020.Goal to have fasting blood glucose below 200. Increase Lantus to 20 units nightly. Continue metformin 1000 mg twice daily. Last hemoglobin A1c 8.8% performed on 01/28/2020. Continue to monitor blood glucose trends and request that blood glucose log be faxed to this [employer] [employer] for review in 2 weeks. Goal hemoglobin A1c 7 to 8% given the patient's age and comorbidities. 5. As hemorrhage dementia. Chronic. Progressive. Supportive care. Fall precautions. On no disease modifying agents. Given the patient's dementia and chronic comorbidities a gradual decline as expected. Time Spent: CPT 03984 Coordination and of care with nursing staff and daughter/D BAILEY Pappas. Discussed with daughter/D BAILEY Pappas at length regarding current clinical picture, disease progression and plan of care with questions answered and addressed. Disclaimer: The chart note was formulated using voice recognition technology and unfortunately sound alike errors may occur.
== END 2020-03-09 12:21 | disposition home or self-care (01) ==
LOC: PC 12:20
PROVIDERS: ATTEND Nurse Practitioner Family
DX: Z51.5 Encounter for palliative care (principal); S42.202D Unspecified fracture of upper end of left humerus, subsequent encounter for fracture with routine healing; F41.8 Other specified anxiety disorders; E11.9 Type 2 diabetes mellitus without complications; E87.1 Hypo-osmolality and hyponatremia; G89.29 Other chronic pain; F02.80 Dementia in other diseases classified elsewhere, unspecified severity, without behavioral disturbance, psychotic disturbance, mood disturbance, and anxiety; G30.9 Alzheimer's disease, unspecified; Z79.899 Other long term (current) drug therapy; Z79.891 Long term (current) use of opiate analgesic; Z79.4 Long term (current) use of insulin; Z66 Do not resuscitate

== ENCOUNTER 2020-04-19 10:24 | Outpatient (CLI) | payer MEDICARE ==
--- NOTE | 2020-04-19 18:09 | XRAY Report ---
PROCEDURE: Shoulder 3 View LT INDICATIONS: OTHER DISPLACED FX OF UPPER END LT HUMERUS TECHNIQUE: 3 views of the shoulder were acquired. COMPARISON: 01/10/2020. FINDINGS: Bones: There is interval healing at previously noted impacted and displaced proximal humeral shaft fr acture site. Alignment of left shoulder is not significantly changed from prior study. No new fractur e or dislocation. Acromioclavicular and glenohumeral joint osteoarthritic changes are seen. No suspi cious bony lesions. Visualized ribs appear intact. Soft tissues: No suspicious soft tissue calcifications. IMPRESSION: Interval healing at proximal humeral fracture site with stable shoulder alignment. Left shoulder joint osteoarthritis. No new fracture or dislocation. Reviewed by: Mp Orellana MD on 04/19/2020 6:07 PM PDT Approved by: Mp Orellana MD on 04/19/2020 6:07 PM PDT Station ID: [id number]
== END 2020-04-19 10:25 | disposition home or self-care (01) ==
LOC: DI 10:24
PROVIDERS: ATTEND Physician Assistant
DX: S42.292A Other displaced fracture of upper end of left humerus, initial encounter for closed fracture (principal); M19.012 Primary osteoarthritis, left shoulder

== ENCOUNTER 2020-04-19 13:00 | Outpatient (CLI) | payer MEDICARE ==
--- NOTE | 2020-04-19 15:22 | CONSULTATION NOTE ---
Palliative Care Follow Up - Referral Referring Provider: Randi Bravo PA-C Time of Visit: [id number] Referral setting: Assisted living Referral Reason: DM typeII/Pain management/Depression/Dementia - Information Sources Records reviewed: Previous records reviewed History/Review of Systems obtained from: Patient, Family (daughter/Elyse ORTEGA via phone), Nursing Exam limitations: Clinical condition (Poor historian due to dementia) - History of Present Illness Update Brief HPI Update: This is a 69-year-old female with a history of Alzheimer's dementia who is seen in follow-up today for pain management due to left proximal humerus fracture, diabetes mellitus type 2, depression, and follow-up on urine culture results. The patient has a chronic indwelling catheter due to neurogenic bladder. She has a history of frequent UTIs as well as a history of multidrug-resistant organisms. Her daughter reports that she almost required hospitalization for IV antibiotics due to the lack of susceptibility through oral medications. The patient recently had a UA with urine culture obtained at the [facility] due to recent changes in Lantus dosage as well as to evaluate for resolution of UTI. The patient had a urine culture that resulted in "greater than 2 organisms recovered, none predominant. Please submit another sample if clinically indicated." This was obtained from a new catheter system after her catheter had been changed. The initial urine dip that was provided from the facility was from the previous standing catheter. This entire time the patient has been afebrile. She has been on routine vital signs for several days at a time again remaining afebrile. She has not demonstrated increased anxiety which is typically indicative for her with the development of urinary tract infection nor has she had lethargy or decrease in oral intake. Patient was initiated on Macrobid on 04/19. By her PCP. Patient denies suprapubic pain. The patient sustained a fall on 01/10/2020 after falling out of bed landing on her left side. This resulted in a left proximal humerus fracture and she was placed in a sling. She has been followed by orthopedics and physical therapy on site. Her pain is presently controlled with oxycodone 5 mg 3 times a day and routine acetaminophen 1000 mg 3 times daily. The patient was seen by orthopedics today with recommendations pending. Verbally from report the patient had an x-ray obtained of her left side that demonstrated arthritis. The patient has a history of chronic pain to her right hip after undergoing a fall with fracture and right hip repair. The patient has steadily been gaining weight. She has a very vicious appetite. Her daughter, even comments that the patient enjoys her food. The patient's present weight is 230.4 pounds. She weighed 215 in December 2019. The patient has not had an increase in her lower extremity edema. She is wearing her compression stockings. The patient recently had her Lantus dose adjusted to be increased to 28 units nightly on 04/05/2020. Her blood glucose levels remain above 200. Recent blood glucose levels are as follows 288, 237, 245, 234, 214, 215, 225, 240, 232, 236, 226, 238. She also remains on metformin. She is a longstanding history of depression and had been on fluoxetine for many years. She was transitioned to duloxetine in December 2019 and her Seroquel dosage was adjusted as well. Presently the patient has had less fluctuations in her mood swings. No crying spells reported. Anxiety appears to be under control. Patient is seeing out of bed in her wheelchair in the [facility] area. She is talkative and in good spirits. Visibly overweight. Denies complaints of pain. Patient has a past medical history of hypertension, hyperlipidemia, cardiac murmur, Alzheimer's dementia, type 2 diabetes, GERD, constipation, neurogenic bladder with chronic indwelling catheter, depression, anxiety, osteoarthritis, osteoporosis, chronic pain, anemia, right hip fracture with repair 12/25/2018, left proximal humerus fracture 01/10/2020. Social History - Living Situation Living arrangement: Assisted living Support System: Patient resides at [facility] memory care unit. She is resided at [facility] since May 2018 after her unexpectedly due to lung cancer in April 2018. The patient's was her primary caregiver before his . The patient's daughter, Elyse is her D POA contact number [phone]. Medications/Allergies - Medications Home Medications: Ambulatory Orders Medication Instructions Recorded Confirmed Multivitamin [Multiple Vitamins] 1 tab PO DAILY 06/01/18 02/06/20 Albuterol 2.5 mg INH RTQ4H PRN #3 neb 12/25/18 02/06/20 Atorvastatin [Lipitor] 20 mg PO QPM #30 tablet 12/25/18 02/06/20 Ondansetron Odt [Zofran Odt] 4 mg PO Q8H PRN #10 tablet 12/25/18 02/06/20 Acetaminophen 1,000 mg PO TID 02/07/19 02/06/20 Omeprazole 20 mg PO DAILY 02/07/19 02/06/20 amLODIPine [Norvasc] 5 mg PO BID 02/07/19 02/06/20 Ferrous Gluconate 240 mg PO DAILY #30 tablet 02/08/19 02/06/20 Magnesium Oxide [Mag Ox] 400 mg PO 0800 #30 tablet 02/08/19 02/06/20 metFORMIN [Glucophage] 1,000 mg PO BIDWM #60 tablet 02/08/19 02/06/20 polyethylene glycoL 3350 [Miralax] 17 gm PO DAILY #30 packet 02/08/19 02/06/20 QUEtiapine [SEROquel] 25 mg PO BID 03/02/19 02/06/20 Alendronate Sodium 70 mg PO .EVERY WEEK MDD Every 12/22/19 02/06/20Thursday Ascorbic Acid [Vitamin C] 500 mg PO DAILY 12/22/19 02/06/20 Calcium Carbonate [Calcium] 500 mg PO DAILY 12/22/19 02/06/20 DULoxetine [Cymbalta] 20 mg PO DAILY 12/22/19 02/06/20 Lisinopril/Hydrochlorothiazide 1 tab PO BID MDD 20/12.5mg tablet 12/22/19 02/06/20 [Lisinopril-Hctz 20-12.5 mg Tab] Nystatin 1 applic TP BID MDD to groin 12/22/19 02/06/20 Cholecalciferol (Vitamin D3) 50 mcg DAILY 01/10/20 02/06/20 [Vitamin D3] Insulin Glargine [Lantus Solostar] 30 unit INJ DAILY PM 01/17/20 02/06/20 QUEtiapine [SEROquel] 12.5 mg PO DAILY MDD at 1400 01/17/20 02/06/20 hydrOXYzine HCL [Hydroxyzine HCl] 25 mg PO Q8H PRN 01/17/20 02/06/20 oxyCODONE [Roxicodone] 5 mg PO Q6H PRN 01/17/20 02/06/20 oxyCODONE [Roxicodone] 5 mg PO TID 01/25/20 02/06/20 - Allergies Allergies/Adverse Reactions: Allergies Allergy/AdvReac Type Severity Reaction Status Date / Time sulfamethoxazole Allergy Unknown Verified 01/25/20 16:47 [From Bactrim] trimethoprim [From Bactrim] Allergy Unknown Verified 01/25/20 16:47 Review of Systems - Constitutional Constitutional: reports: Weight gain (weight 230.4lb; December 2019 215lb). denies: Fever - Eyes Eyes: reports: Corrective lenses - Ears, Nose & Throat Ears, Nose & Throat: denies: Hearing loss - Cardiovascular Cardiovascular: denies: Chest pain - Respiratory Respiratory: denies: Cough - Gastrointestinal Gastrointestinal: reports: Good appetite. denies: Abdominal pain, Constipation, Diarrhea, Vomiting - Genitourinary Genitourinary: reports: Other (chronic indwelling catheter) - Musculoskeletal Musculoskeletal: reports: Limited range of motion (left shoulder due to sling 2/2 promximal humerus fracture), Joint pain, Assistive devices, Transfer issues - Integumentary Integumentary: denies: Pruritis - Neurological Neurological: reports: General weakness, Memory problems - Psychiatric Psychiatric: reports: Depression, Anxiety - Endocrine Endocrine: reports: Diabetes type 2 - Hematologic/Lymphatic Hematologic/Lymphatic: reports: Anemia - All Other Systems All Other Systems: reports: Reviewed and negative - Other Findings Other Findings: ROS limited as patient is a poor historian due to dementia. ROS obtained from nursing and daughter. Physical Exam - Vital Signs Temperature: 36.5 C Pulse Rate: 84 O2 Saturation: 98 (on RA at rest) Blood Pressure: 140/67 (right wrist cuff sitting) - Physical Exam General Appearance: positive: No acute distress, Alert, Other (OOB in wheelchair in common area, overweight) Eyes Bilateral: positive: Other (+corrective lenses) ENT: positive: Other (No signs of dehydration) Cardiovascular: positive: Regular rate & rhythm Respiratory: positive: No respiratory distress, Breath sounds nml Abdomen: positive: Non-tender, Soft, Nml bowel sounds, Obese, Other (No CVA tenderness bilaterally, no suprapubic tenderness to palpation, +carbajal catheter to gravity draining clear, yellow urine) Extremities: positive: Pedal edema (+Trace BLE edema with compression stockings in place) Neurologic/Psychiatric: positive: Disoriented to place, Disoriented to time, Other (In good spirits today and talkative; we discussed Anam Parada and his music) Palliative Care - POLST Patient has POLST: Yes POLST Status: DNR, Selective Treatment Pain: Pain improved (left shoulder pain; on scheduled oxycodone and tyelnol) Sleep: Sleeps well Constipation: No, Opoid induced, Managed - Palliative Care Discussion: The patient has a longstanding history of depression and due to her history of chronic pain was transitioned to duloxetine in December 2019. She also is on quetiapine routinely. The patient herself is in good spirits today and staff reports that her mood has been stable lately and not labile. There have been no notes of increased anxiety. The patient typically will have increased anxiety when she has a urinary tract infection. The patient also reports that her pain is well controlled at the present time on her present management for her left proximal humerus fracture. She was attended at the orthopedics office today with recommendations pending. The patient is hopeful that she will no longer have to wear her sling. The patient has a chronic indwelling catheter And has a long history of urinary tract infections. Typically she will have increased anxiety and changes in behavior when she has a urinary tract infection. The patient recent urine culture results demonstrated greater than 2 organisms but none predominant without any colony count reported. The patient has not had a change in her behavior, alertness, appetite or significant increase in her blood glucose levels indicative of urinary tract infection. The patient's daughter is concerned regarding multidrug resistance and the use of antibiotics in the future and wishes to discontinue the present Macrobid therapy and to have the patient monitored for signs and symptoms of urinary tract infection. The daughter recognizes that at some point there may come a time that there may not be an antibiotic that would be fully susceptible against an organism due to the patient's past history of antibiotic treatment for urinary tract infections. It is been 4 months since the patient's daughter/D BAILEY hasElyse has seen the patient. She has an upcoming visit at the facility for a socially distance meeting for 30 minutes that she is quite looking forward to in order to see the patient in person versus engaging over the phone. Impression and Recommendations - Palliative Care Impression: This is a 69-year-old female with Alzheimer's dementia who is seen in follow-up for her underlying chronic pain, diabetes mellitus type 2, depression, and chronic indwelling Carbajal catheter. Patient has had control of her overall pain management at the present time. Her fasting blood glucose levels remain above 200 and is presently on metformin and Lantus for management. She has had noted weight loss that does not appear to be due to lower extremity edema as that is at baseline. Palliative care to continue to provide pain and symptom management and anticipatory guidance. Recommendations/Counseling Done: 1. Asymptomatic bacteriuria due to chronic indwelling Carbajal catheter.UA with urine culture was obtained at the request of the patient's D POA due to her blood glucose levels and to ensure clearance of the patient's prior UTI in January 2020. The patient grew greater than 2 organisms with none predominant without any colony counts identified. The patient remains asymptomatic without fever, behavioral changes, or lethargy. Typically the patient will have increase in her anxiety when she has an underlying urinary tract infection. The patient has a history of multidrug resistance due to her frequency of urinary tract infections per the daughter's report. The daughter/D POA wishes to discontinue Macrobid at the present time and to monitor the patient for signs and symptoms. Obtain vital signs every shift x4 days and notify provider if temperature greater than 100, respirations greater than 25, lethargy, change in behavior or appetite. 2. Diabetes mellitus type 2. No evidence of hypoglycemia. Patient's blood glucose level remains in the 200s with goal to have fasting blood glucose level below 200. Increase Lantus to 30 units nightly. Continue metformin 1000 mg twice daily. Last hemoglobin A1c 8.8% performed on 01/28/2020. Continue to monitor blood glucose trends. Goal hemoglobin A1c 7 to 8% given the patient's age and comorbidities and wish to avoid hypoglycemic event. Continue to monitor. 3. Depression and anxiety. Patient has a longstanding history of depression and has been on fluoxetine for many years. The patient was in good spirits today and the staff reports that the patient's mood has been stable without fluctuations with lability or increased anxiety. Continue duloxetine 20 mg daily for depression anxiety and chronic pain management. Continue quetiapine 62.5 mg daily in 3 divided doses for anxiety and labile mood. Continue hydroxyzine as needed for breakthrough anxiety. Continue to monitor and adjust regimen as needed. 4. Alzheimer's dementia. Chronic. Progressive. Supportive care. Fall precautions. On no disease modifying agents. No behavioral concerns reported by facility staff at the present time. No recent falls. Given the patient's dementia and chronic comorbidities a gradual decline as expected. 5. Left proximal humerus fracture. Status post orthopedic visit on 04/19/2020 with recommendations pending. Pain is controlled. Continue oxycodone 5 mg 3 times daily for pain management. Continue acetaminophen 1 g 3 times daily for pain. Continue oxycodone 5 mg every 6 hours as needed for pain. We will continue to reevaluate continual need for oxycodone administration moving forward as the patient gradually improves. Time Spent: CPT 44546 Coordination of care with nursing staff and daughter/D Elyse AVALOS. Discussed with daughter/D BAILEY Pappas at length regarding patient's clinical picture, disease progression and plan of care with questions answered and addressed. Disclaimer: The chart note was formulated using voice recognition technology and unfortunately sound alike errors may occur.
== END 2020-04-19 13:01 | disposition home or self-care (01) ==
LOC: PC 13:00
PROVIDERS: ATTEND Nurse Practitioner Family
DX: Z51.5 Encounter for palliative care (principal); G30.9 Alzheimer's disease, unspecified; F02.80 Dementia in other diseases classified elsewhere, unspecified severity, without behavioral disturbance, psychotic disturbance, mood disturbance, and anxiety; R63.5 Abnormal weight gain; F32.9 Major depressive disorder, single episode, unspecified; F41.9 Anxiety disorder, unspecified; E11.9 Type 2 diabetes mellitus without complications; N31.9 Neuromuscular dysfunction of bladder, unspecified; G89.29 Other chronic pain; M25.551 Pain in right hip; R82.71 Bacteriuria; T83.518A Infection and inflammatory reaction due to other urinary catheter, initial encounter; S42.202D Unspecified fracture of upper end of left humerus, subsequent encounter for fracture with routine healing; H54.7 Unspecified visual loss; H91.90 Unspecified hearing loss, unspecified ear; Z66 Do not resuscitate; Z87.440 Personal history of urinary (tract) infections; Z79.51 Long term (current) use of inhaled steroids; Z79.4 Long term (current) use of insulin; Z79.891 Long term (current) use of opiate analgesic; Z79.899 Other long term (current) drug therapy; Z91.81 History of falling

== ENCOUNTER 2020-06-06 12:47 | Outpatient (CLI) | payer MEDICARE ==
--- NOTE | 2020-06-06 13:06 | CONSULTATION NOTE ---
Palliative Care Follow Up - Referral Referring Provider: Randi Bravo PA-C Time of Visit: Initiated Visit 1120 Referral setting: Assisted living Referral Reason: Type II DM/Pain management/Weight gain/Dementia - Information Sources Records reviewed: Previous records reviewed History/Review of Systems obtained from: Patient, Caregiver, Nursing Exam limitations: Clinical condition (Poor historian due to dementia) - History of Present Illness Update Brief HPI Update: This is a 70-year-old female with a history of Alzheimer's dementia who is seen in follow-up today for pain management due to left proximal humerus fracture, diabetes mellitus type 2, depression, and unintentional weight gain. The patient has had a steady weight gain in the last year. She has gained appx 43lbs from May 2018 to May 2020. She presently weighs 231.8 pounds. There has been no change in her lower extremity edema per staff report. She continues to have a voracious appetite. Her portion sizes were recently reduced on last evaluation. Staff report that today the patient had an episode where she was crying as she wanted additional breakfast after she had completed her serving from another resident. She continues to wear her compression stockings to her lower extremities most days. She is not wearing them presently today as she has a visit with the one site shaker repairer. The patient had a dose adjustment of her Lantus to 30 units nightly on last evaluation of 04/19/2020. Upon review her blood glucose levelsHave been as follows fasting 245, 248, 275, 212, 260, 223, 298, 262, 276, 262, 261, 215, 218, 215, 228, 301, 271, 2 2, 231, 265, 247, 253, 245, 254, 232, 344.With the patient's steady increase of her weight this is likely a contributing factor to her blood glucose management. She also remains on metformin. She has a longstanding history of depression. She presently is on duloxetine since December 2019 and Seroquel. The patient has demonstrated less fluctuation in her mood swings. Less crying spell reported today over requesting an additional meal portion but otherwise her anxiety and depression appears to be controlled per staff report. The patient sustained a fall on 12/31/2019 after falling out of bed landing on her left side. This resulted in a left proximal humerus fracture and she was p laced in a sling. She is been followed by orthopedics and physical therapy one site. Her pain is presently controlled with routine oxycodone 5 mg schedule III times a day as well as routine acetaminophen 1 g 3 times daily. The patient is requesting as needed oxycodone approximately 8 times this month upon review of DEC. Her left upper arm sling was recently discontinued by orthopedics. She has had improvement in her ability to move her left arm without complaints of pain. The patient also has a history of chronic pain to her right hip after she Sustained a fall resulting in a right hip fracture and repair. The patient is seen out of bed in her [facility]. She waved at this provider with her left arm at a distance with no visible distress. She is scheduled to see the podiatry after this visit today. She is in good spirits and offers no acute complaints. Patient has a past medical history of hypertension, hyperlipidemia, cardiac murmur, Alzheimer's dementia, type 2 diabetes, GERD, constipation, neurogenic bladder with chronic indwelling catheter, depression, anxiety, osteoarthritis, osteoporosis, chronic pain, anemia, right hip fracture with repair 12/25/2018, left proximal humerus fracture 01/10/2020. Social History - Living Situation Living arrangement: Assisted living Support System: Resides at [facility] She has resided at [facility] since May 2018 after her unexpectedly due to lung cancer in April 2018. The patient's was previously her primary caregiver before his . The patient's daughter, Elyse is her D POA with contact number [phone]. Medications/Allergies - Medications Home Medications: Ambulatory Orders Medication Instructions Recorded Confirmed Multivitamin [Multiple Vitamins] 1 tab PO DAILY 06/01/18 02/06/20 Albuterol 2.5 mg INH RTQ4H PRN #3 neb 12/25/18 02/06/20 Atorvastatin [Lipitor] 20 mg PO QPM #30 tablet 12/25/18 02/06/20 Ondansetron Odt [Zofran Odt] 4 mg PO Q8H PRN #10 tablet 12/25/18 02/06/20 Acetaminophen 1,000 mg PO TID 02/07/19 02/06/20 Omeprazole 20 mg PO DAILY 02/07/19 02/06/20 amLODIPine [Norvasc] 5 mg PO BID 02/07/19 02/06/20 Ferrous Gluconate 240 mg PO DAILY #30 tablet 02/08/19 02/06/20 Magnesium Oxide [Mag Ox] 400 mg PO 0800 #30 tablet 02/08/19 02/06/20 metFORMIN [Glucophage] 1,000 mg PO BIDWM #60 tablet 02/08/19 02/06/20 polyethylene glycoL 3350 [Miralax] 17 gm PO DAILY #30 packet 02/08/19 02/06/20 QUEtiapine [SEROquel] 25 mg PO BID 03/02/19 02/06/20 Alendronate Sodium 70 mg PO .EVERY WEEK MDD Every 12/22/19 02/06/20Thursday Ascorbic Acid [Vitamin C] 500 mg PO DAILY 12/22/19 02/06/20 Calcium Carbonate [Calcium] 500 mg PO DAILY 12/22/19 02/06/20 DULoxetine [Cymbalta] 20 mg PO DAILY 12/22/19 02/06/20 Lisinopril/Hydrochlorothiazide 1 tab PO BID MDD 20/12.5mg tablet 12/22/19 02/06/20 [Lisinopril-Hctz 20-12.5 mg Tab] Nystatin 1 applic TP BID MDD to groin 12/22/19 02/06/20 Cholecalciferol (Vitamin D3) 50 mcg DAILY 01/10/20 02/06/20 [Vitamin D3] Insulin Glargine [Lantus Solostar] 32 unit INJ DAILY PM 01/17/20 02/06/20 QUEtiapine [SEROquel] 12.5 mg PO DAILY MDD at 1400 01/17/20 02/06/20 hydrOXYzine HCL [Hydroxyzine HCl] 25 mg PO Q8H PRN 01/17/20 02/06/20 oxyCODONE [Roxicodone] 5 mg PO Q6H PRN 01/17/20 02/06/20 oxyCODONE [Roxicodone] 5 mg PO TID 01/25/20 02/06/20 - Allergies Allergies/Adverse Reactions: Allergies Allergy/AdvReac Type Severity Reaction Status Date / Time sulfamethoxazole Allergy Unknown Verified 01/25/20 16:47 [From Bactrim] trimethoprim [From Bactrim] Allergy Unknown Verified 01/25/20 16:47 Review of Systems - Constitutional Constitutional: reports: Weight gain (weight 231.8lb). denies: Fever - Eyes Eyes: reports: Corrective lenses - Ears, Nose & Throat Ears, Nose & Throat: denies: Hearing loss, Dentures - Cardiovascular Cardiovascular: denies: Chest pain - Respiratory Respiratory: denies: Cough, Wheezing - Gastrointestinal Gastrointestinal: reports: Good appetite. denies: Abdominal pain, Constipation (controlled), Vomiting - Genitourinary Genitourinary: reports: Other (carbajal catheter). denies: Hematuria - Musculoskeletal Musculoskeletal: reports: Limited range of motion (left shoulder, see HPI), Joint pain, Assistive devices - Integumentary Integumentary: denies: Rash - Neurological Neurological: reports: General weakness, Memory problems - Psychiatric Psychiatric: reports: Depression, Anxiety - Endocrine Endocrine: reports: Diabetes type 2 - Hematologic/Lymphatic Hematologic/Lymphatic: reports: Anemia - All Other Systems All Other Systems: reports: Reviewed and negative (Patient is a poor historian due to dementia and review of systems supplemented by nursing and caregiving staff.) Physical Exam - Vital Signs Temperature: 36.5 C Pulse Rate: 87 O2 Saturation: 98 (on RA at rest) Blood Pressure: 136/68 (left wrist cuff) - Physical Exam General Appearance: positive: No acute distress, Alert, Other (OOB in wheelchair in common area, overweight) Eyes Bilateral: positive: Other (+corrective lenses) ENT: positive: No signs of dehydration Neck: positive: Trachea midline. negative: Lymphadenopathy (R), Lymphadenopathy (L) Cardiovascular: positive: Regular rate & rhythm Respiratory: positive: No respiratory distress, Diminished in bases. negative: Wheezes Abdomen: positive: Non-tender, Soft, Nml bowel sounds, Obese, Other ( +carbajal catheter to gravity draining yellow urine) Skin: positive: No symptoms Extremities: positive: Pedal edema (+1 BLE edema without compression stockings in place), Other (Left shoulder nontender to palpation, stiffness and decraesed ROM of left arm that is unable to extend past 90degrees) Neurologic/Psychiatric: positive: Disoriented to place, Disoriented to time, Other (In good spirits; no evidence of anxiety) Palliative Care - POLST Patient has POLST: Yes POLST Status: DNR, Selective Treatment Pain: Pain improved (left shoulder pain has improved on scheduled oxycodone and tylenol; no longer wearing LUE sling) Anorexia: None Dyspnea: None Depression: None Anxiety: Mild (1-3) Sleep: Sleeps well Constipation: No, Opoid induced, Managed Performance Status: Patient is wheelchair dependent and is able to self propel using her feet. She is able to self feed. She has a chronic indwelling Carbajal catheter. - Palliative Care Discussion: The patient has a longstanding history of depression and chronic pain. Since December 2019 she developed more acute pain due to sustaining a fall that resulted in a left proximal humerus fracture. She continues to work with onsite physical therapy and this week has orders from orthopedics for her left upper extremity sling to be discontinued. The patient is quite pleased that she no longer has to wear the sling and it is denies overall discomfort on evaluation today to her left shoulder. She was able to wave at a distance using her left hand however her range of motion is reduced only able to extend her left upper extremity actively at approximately 90 degrees. The patient has had unintentional weight gain that has been trending up with her last weight of 231.8 pounds. She has recently been placed on smaller portions at meal time in the last month. The patient is a voracious eater and enjoys her meals. Her weight gain is multifactorial in nature given her sedentary lifestyle and enjoyment of food as well as her underlying dementia. This weight gain has also prompted her blood glucose levels to steadily rise and she requires an additional adjustment of her long-acting Lantus. Impression and Recommendations - Palliative Care Impression: This is a 70-year-old female with Alzheimer's dementia who was seen in follow-up today for her underlying chronic pain, diabetes mellitus type 2, unintentional weight gain and depression and anxiety. The patient's control of her pain appears to be overall controlled on the current regiment as she is able to participate in physical therapy. Her fasting blood glucose levels have continued to have a slight upward trend and requires further adjustment of her Lantus for increased management and continues on metformin. Palliative care to continue provide pain and symptom management and anticipatory guidance. Recommendations/Counseling Done: 1. Weight gain. Weight presently at 231.8 pounds. Multifactorial due to the patient's hearty appetite, sedentary lifestyle and underlying dementia. Presently on small portion sizes for meals with multivitamin on board. Continue to monitor weight trends. 2. Diabetes mellitus type 2. No evidence of hypoglycemia. The blood glucose levels fasting remain in the 200s with a goal of a fasting blood glucose level below 200. Increase Lantus to 32 units nightly. Continue metformin 1000 mg twice daily. Last hemoglobin A1c 8.8% performed on 01/28/2020. Adjustments to order clarification of checking fasting blood glucose levels to notify MD/TRAINING AND DEVELOPMENT OFFICER if blood glucose level is less than 70 or greater than 300 mg/dL. Request that blood glucose logs be sent to TRAINING AND DEVELOPMENT OFFICER to review week of 06/25/2020. Follow-up with [facility] staff after blood glucose log review if there is a pending hemoglobin A1c scheduled and if not to obtain and cc patient's PCP. Continue to monitor. 3. Depression and anxiety. Patient has a longstanding history of depression and has been on fluoxetine in the past for many years. She is in good spirits today and has had only one recent crying episode that was prompted by her not being provided a second portion at breakfast today. Overall her mood has stabilized. Continue duloxetine 20 mg daily for depression, anxiety and chronic pain management. Continue quetiapine 62.5 mg daily in 3 divided doses for anxiety and labile mood. Continue hydroxyzine as needed for breakthrough anxiety. Co ntinue to monitor and adjust regimen as needed. 4. Chronic pain. To right hip and presently to left shoulder due to history of left proximal humerus fracture sustained 01/10/2020. Status post orthopedics visit to our following. Pain is presently controlled and patient is able to participate in physical therapy on site. Upper extremity sling has been discontinued. Continue to work with onsite physical therapy as recommended by orthopedics. Continue oxycodone 5 mg 3 times daily for pain management. Continue acetaminophen 1 g 3 times daily for pain. Continue oxycodone 5 mg every 6 hours as needed for pain. We will continue to reevaluate continual need for scheduled oxycodone moving forward has the patient continues to gradually improve and has increased range of motion and function with physical therapy. Follow-up with orthopedics as scheduled. 5. Alzheimer's dementia. Chronic. Progressive. Supportive care. Fall precautions. On visit no disease modifying agents. No behavioral concerns reported by facility staff at this time. No recent falls. Given the patient's dementia and chronic comorbidities a gradual decline as expected. Time Spent: CPT 18015 Coordination of care with nursing staff. Message left for patient's daughter/D Elyse AVALOS at [phone] updating regarding plan of care and awaiting return call back if any questions or concerns. Reviewed plan of care with patient. Disclaimer: The chart note was formulated using voice recognition technology and unfortunately sound alike errors may occur.
== END 2020-06-06 12:48 | disposition home or self-care (01) ==
LOC: PC 12:47
PROVIDERS: ATTEND Nurse Practitioner Family
DX: Z51.5 Encounter for palliative care (principal); R63.5 Abnormal weight gain; E11.9 Type 2 diabetes mellitus without complications; F32.9 Major depressive disorder, single episode, unspecified; F41.9 Anxiety disorder, unspecified; G89.29 Other chronic pain; R53.1 Weakness; R60.0 Localized edema; K59.03 Drug induced constipation; T40.2X5A Adverse effect of other opioids, initial encounter; G30.9 Alzheimer's disease, unspecified; F02.80 Dementia in other diseases classified elsewhere, unspecified severity, without behavioral disturbance, psychotic disturbance, mood disturbance, and anxiety; Z79.899 Other long term (current) drug therapy; Z79.4 Long term (current) use of insulin; Z79.891 Long term (current) use of opiate analgesic; Z99.3 Dependence on wheelchair; Z87.81 Personal history of (healed) traumatic fracture; Z91.81 History of falling; Z66 Do not resuscitate

== ENCOUNTER 2020-08-02 09:30 | Outpatient (CLI) | payer MEDICARE, OTHER ==
--- NOTE | 2020-08-02 20:23 | CONSULTATION NOTE ---
Palliative Care Follow Up - Referral Referring Provider: Randi Bravo PA-C Time of Visit: Intiated 09 Referral setting: Assisted living Referral Reason: Depression/DM type II/Left shoulder Pain/Dementia - Information Sources Records reviewed: Previous records reviewed History/Review of Systems obtained from: Patient, Nursing Exam limitations: Clinical condition (Poor historian due to dementia) - History of Present Illness Update Brief HPI Update: This is a 70-year-old female with a history of Alzheimer's dementia who was seen in follow-up today at [facility] for diabetes mellitus type 2, depression, unintentional weight gain and pain management to her left shoulder status post proximal humerus fracture. The patient has had a steady weight gain in the last year. She presently weighs 232.6 pounds. Her bilateral lower extremities appears to be approximately at baseline. She has a voracious appetite. She is on a diabetic diet with small portion sizes. There has also been a increased trends with her blood glucose levels that has resulted in several adjustments to her Lantus administration. Her blood glucose level in the evening of 07/29 was 449 and her Lantus was increased to 24 units twice daily and was subsequently agreed increased again on 08/01 to 26 units. Since the last dose adjustment of her Lantus her blood glucose levels have been 245 and 260 6 in the morning with 350 in the evening. Upon discussion with Sara HOUSER the kitchen staff had not been adhering to the patient's dietary restrictions and she has been receiving sweets, carbohydrates and potentially additional portions and this has been addressed this week. The patient continues to remain on Metformin. The patient has a longstanding history of depression. She has been on duloxetine since December 2019 and is also on quetiapine. The patient had recent reported episodes of crying and labile mood resulting in an increase of her duloxetine to 30 mg daily beginning on 07/18. Staff report that they have noticed an improvement in the patient's overall mood since this dose adjustment. There has been a reduction in crying spells reported. The patient sustained a fall on 12/31/2019 after falling out of bed landing on her left side. This resulted in a left proximal humerus fracture and she was placed in a sling. She has been followed by orthopedics and fill physical therapy on site. She has had improved range of motion but continues to be stiff with the use of her left shoulder. Staff as well as her daughter/DPOA, Elyse reports that the patient is using her left arm more frequently. She is presently on oxycodone 5 mg schedule III times a day as well as routine acetaminophen 1 g 3 times daily. The patient presently denies any pain at rest and when prompted to perform active range of motion did not demonstrate any facial grimacing. The patient also has a history of chronic pain to her right hip after she sustained a fall resulting in a right hip fracture and repair. The patient is seen out of bed in her wheelchair in the common area watching [employer] boys in the television. She is in good spirits and offers no acute complaints. Social History - Living Situation Living arrangement: Assisted living Support System: Patient resides at [facility] and has been at [facility] since May 2018 after her unexpectedly due to lung cancer in April of that year. The patient's daughter, Elyse is her DPOA with contact #[phone]. Elyse is a school nurse in [place]. Medications/Allergies - Medications Home Medications: Ambulatory Orders Medication Instructions Recorded Confirmed Multivitamin [Multiple Vitamins] 1 tab PO DAILY 06/01/18 08/02/20 Albuterol 2.5 mg INH RTQ4H PRN #3 neb 12/25/18 02/06/20 Atorvastatin [Lipitor] 20 mg PO QPM #30 tablet 12/25/18 08/02/20 Ondansetron Odt [Zofran Odt] 4 mg PO Q8H PRN #10 tablet 12/25/18 08/02/20 Acetaminophen 500 mg PO TID 02/07/19 02/06/20 Omeprazole 20 mg PO DAILY 02/07/19 08/02/20 amLODIPine [Norvasc] 5 mg PO BID 02/07/19 08/02/20 Ferrous Gluconate 240 mg PO DAILY #30 tablet 02/08/19 08/02/20 Magnesium Oxide [Mag Ox] 400 mg PO 0800 #30 tablet 02/08/19 08/02/20 metFORMIN [Glucophage] 1,000 mg PO BIDWM #60 tablet 02/08/19 08/02/20 polyethylene glycoL 3350 [Miralax] 17 gm PO DAILY #30 packet 02/08/19 08/02/20 QUEtiapine [SEROquel] 25 mg PO BID 03/02/19 08/02/20 Alendronate Sodium 70 mg PO .EVERY WEEK MDD Every 12/22/19 02/06/20Thursday Ascorbic Acid [Vitamin C] 500 mg PO DAILY 12/22/19 08/02/20 Calcium Carbonate [Calcium] 500 mg PO DAILY 12/22/19 08/02/20 DULoxetine [Cymbalta] 30 mg PO DAILY 12/22/19 08/02/20 Lisinopril/Hydrochlorothiazide 1 tab PO BID MDD 20/12.5mg tablet 12/22/1908/02 [Lisinopril-Hctz 20-12.5 mg Tab] Nystatin 1 applic TP BID MDD to groin 12/22/19 08/02/20 Cholecalciferol (Vitamin D3) 50 mcg DAILY 01/10/20 08/02/20 [Vitamin D3] Insulin Glargine [Lantus Solostar] 28 unit INJ BID 01/17/20 02/06/20 QUEtiapine [SEROquel] 12.5 mg PO DAILY MDD at 1400 01/17/20 08/02/20 hydrOXYzine HCL [Hydroxyzine HCl] 25 mg PO Q8H PRN 01/17/20 08/02/20 oxyCODONE [Roxicodone] 5 mg PO Q6H PRN 01/17/20 08/02/20 oxyCODONE [Roxicodone] 5 mg PO TID 01/25/20 08/02/20 - Allergies Allergies/Adverse Reactions: Allergies Allergy/AdvReac Type Severity Reaction Status Date / Time sulfamethoxazole Allergy Unknown Verified 08/02/20 20:28 [From Bactrim] trimethoprim [From Bactrim] Allergy Unknown Verified 08/02/20 20:28 Review of Systems - Constitutional Constitutional: reports: Weight gain (weight 232.6lb; January 2020: 220lb). denies: Fever - Eyes Eyes: reports: Corrective lenses - Ears, Nose & Throat Ears, Nose & Throat: denies: Hearing loss - Cardiovascular Cardiovascular: reports: Edema. denies: Chest pain - Respiratory Respiratory: denies: Cough - Gastrointestinal Gastrointestinal: reports: Good appetite. denies: Constipation, Diarrhea, Vomiting - Genitourinary Genitourinary: reports: Other (carbajal catheter). denies: Hematuria - Musculoskeletal Musculoskeletal: reports: Limited range of motion (left shoulder after fall with proximal humerus fracture), Assistive devices, Transfer issues. denies: Joint pain - Integumentary Integumentary: denies: Rash - Neurological Neurological: reports: General weakness, Memory problems - Psychiatric Psychiatric: reports: Depression, Anxiety - Endocrine Endocrine: reports: Diabetes type 2 - Hematologic/Lymphatic Hematologic/Lymph: Anemia - All Other Systems All Other Systems: reports: Reviewed and negative (Patient is a poor historian due to dementia. Review of systems supplemented by nursing and caregiving staff.) Physical Exam - Vital Signs Temperature: 36.9 C Pulse Rate: 84 O2 Saturation: 94 (on RA) Blood Pressure: 142/70 (left wrist cuff) - Physical Exam General Appearance: positive: No acute distress, Alert, Other (OOB in wheelchair in common area, overweight) Eyes Bilateral: positive: Other (+corrective lenses) ENT: positive: No signs of dehydration Neck: positive: Trachea midline Cardiovascular: positive: Regular rate & rhythm, No murmur Respiratory: positive: No respiratory distress, Diminished in bases. negative: Wheezes Abdomen: positive: Non-tender, Soft, Nml bowel sounds, Obese, Other ( +carbajal catheter to gravity draining yellow urine) Skin: positive: Pallor Extremities: positive: Pedal edema (+2 BLE edema without compression stockings in place), Other (Left shoulder nontender to palpation, stiffness and decraesed ROM of left arm that is unable to extend past 90degrees) Neurologic/Psychiatric: positive: Disoriented to place, Disoriented to time, Other (In good spirits; no evidence of anxiety and no crying during examination) Palliative Care - POLST Patient has POLST: Yes POLST Status: DNR, Selective Treatment Pain: Pain improved (left shoulder), Location Depression: Mild (1-3) Anxiety: Mild (1-3) Sleep: Sleeps well Constipation: No, Opoid induced, Managed Performance Status: Patient is wheelchair dependent and able to self propel using her feet. Physical therapy plans to have caregivers walk the patient from her room to the dining room during lunch. Able to self feed. Has a chronic indwelling Carbajal catheter. - Palliative Care Discussion: The patient has had a steady increase of her blood glucose readings and has required frequent adjustments of her Lantus dosage. Upon further evaluation it has been noted this week that the kitchen at the facility was not adhering to the patient's dietary restrictions and this may have been contributing to her elevated blood glucose levels as well as her steady weight gain. This has been rectified with the kitchen and hopefully moving forward will assist in optimal management of the patient's blood glucose levels and weight gain. The patient's sedentary lifestyle as well as her enjoyment of food is also contributing to both chronic disease states. The patient's daughter/DPOA, Elyse becomes concerned when the patient's blood glucose level trends upwards as she is concerned regarding a urinary tract infection. The patient's temperature is taken on a daily basis and she has remained afebrile without any clinical signs or symptoms of a urinary tract infection. The patient has a longstanding history of depression and chronic pain. She initially developed more acute on chronic pain after sustaining a left proximal humerus fracture in December 2019 from a fall. Since that time she has steadily progressed and is now using her left hand more regularly however, she has limited range of motion with her left shoulder. Of note, she is left-handed. Impression and Recommendations - Palliative Care Impression: This is a 70-year-old female with Alzheimer's dementia who has a history of diabetes mellitus type 2 not presently controlled. Chronic pain, depression, and unintentional weight gain. The patient's pain appears to be well controlled on her current regimen and will reduce her acetaminophen dosage as a trial. Increase her Lantus dosage and ensure that the kitchen at the facility is adherent to dietary restrictions. Palliative care to continue to provide pain and symptom management as well as anticipatory guidance. Recommendations/Counseling Done: 1. Diabetes mellitus type 2. No evidence of hypoglycemia. Patient's blood glucose levels fasting noted to be in the high 200s to low 300s. Goal is to have the patient's fasting blood glucose level below 200. Increase Lantus to 28 units twice daily. Continue Metformin 1000 mg twice daily. Last hemoglobin A1c 8.8% performed on 01/28/2020. Obtain hemoglobin A1c on 08/15/2020 and follow with results. 2. Depression Excedrin. Patient has a longstanding history of depression and was previously on fluoxetine for many years. Her duloxetine was adjusted in early July 31 20 to 30 mg daily with positive response. Obtain BMP on 08/15 to evaluate for hyponatremia and follow with result. Patient has a history of h yponatremia. Continue quetiapine 62.5 mg daily in 3 divided doses for anxiety and labile mood. Continue hydroxyzine as needed for breakthrough anxiety. Continue to monitor and adjust regimen as needed. 3. Unintentional weight gain. Multifactorial due to the patient's appetite, sedentary lifestyle, underlying dementia as well as facility kitchen not adhering to dietary restrictions. Weight presently 232.6 pounds. Continue to request small portion sizes for meals as well as a diabetic diet. Patient has a multivitamin to be administered daily. Obtain TSH on 08/15 and follow with result to ensure that hypothyroidism is not contributing to weight gain. Request that weekly weights be obtained x4 weeks and fax to [facility] to review. 4. Chronic pain. To right hip and left shoulder. Improvement of pain to left shoulder with increased use of all status post left proximal humerus fracture 01/10/2020. Decrease acetaminophen to 500 mg 3 times daily. Continue oxycodone 5 mg 3 times daily daily for pain management. Continue oxycodone 5 mg every 6 hours as needed for pain. Monitor the patient's functional status and evaluate need to further reduce or titrate up her pain regimen based on her range of motion and function. Continue to work physical therapy on site. 5.Bilateral lower extremity edema. Appears to be At baseline overall. Weight increased to 232.6 pounds but lower extremity edema does not appear to be contributing to weight gain. Continue to encourage compression stockings to be applied to the bilateral lower extremities every morning and remove every evening. Continue to monitor weight trends. Continue lisinopril/HCTZ. Patient is also on amlodipine which may be contributing to lower extremity edema and consider if this dose may be reduced in the future based on symptom management and patient's blood pressure control. 6. Alzheimer's dementia. Chronic. Progressive. Supportive care. Fall precautions. On no disease modifying agents. No recent falls. Given the patient's dementia and chronic comorbidities a gradual decline is expected. Time Spent: CPT 41901 Discussed plan of care with patient's daughter/DPElyse JULIO at [phone] and in agreement with plan of care moving forward with questions answered and addressed. Care coordination with nursing staff. Disclaimer: The chart note was formulated using voice recognition technology and unfortunately sound alike errors may occur.
== END 2020-08-02 09:31 | disposition home or self-care (01) ==
LOC: PC 09:30
PROVIDERS: ATTEND Nurse Practitioner Family
DX: Z51.5 Encounter for palliative care (principal); F02.80 Dementia in other diseases classified elsewhere, unspecified severity, without behavioral disturbance, psychotic disturbance, mood disturbance, and anxiety; E11.65 Type 2 diabetes mellitus with hyperglycemia; R63.5 Abnormal weight gain; F32.9 Major depressive disorder, single episode, unspecified; M25.512 Pain in left shoulder; M25.551 Pain in right hip; G89.29 Other chronic pain; R60.0 Localized edema; G30.9 Alzheimer's disease, unspecified; Z99.3 Dependence on wheelchair; Z79.4 Long term (current) use of insulin; Z96.0 Presence of urogenital implants; Z66 Do not resuscitate

== ENCOUNTER 2020-08-16 07:34 | Outpatient (CLI) | payer MEDICARE, OTHER ==
--- NOTE | 2020-08-16 11:30 | XRAY Report ---
PROCEDURE: Humerus LT INDICATIONS: L HUMERUS FX TECHNIQUE: 2 views of the humerus were acquired. COMPARISON: 04/19/2020 FINDINGS: Bones: Redemonstration of known impacted, displaced proximal humeral shaft fracture which remains unc hanged in alignment. There is continued radiographic evidence of fracture healing. Increased density of callus formation. Fracture line is less visible. Minimal flattening of the humeral head contour. No suspicious bony lesions. Soft tissues: No suspicious soft tissue calcifications. IMPRESSION: Proximal left humeral shaft fracture in stable alignment with continued radiographic evidence for hea ling. Reviewed by: Juvenal Mcintosh MD on 08/16/2020 10:29 AM [facility] Approved by: Juvenal Mcintosh MD on 08/16/2020 10:29 AM [facility] Station ID: [id number]
== END 2020-08-16 23:59 | disposition home or self-care (01) ==
LOC: DI.WCP 07:34
PROVIDERS: ATTEND Physician Assistant
DX: S42.292D Other displaced fracture of upper end of left humerus, subsequent encounter for fracture with routine healing (principal)

== ENCOUNTER 2020-11-02 09:30 | Outpatient (CLI) | payer MEDICARE, OTHER ==
--- NOTE | 2020-11-02 11:24 | CONSULTATION NOTE ---
Palliative Care Follow Up - Referral Referring Provider: Randi Bravo PA-C Time of Visit: [id number] Referral setting: Assisted living Referral Reason: Depression with lability/DM type II/Chronic Pain Syndrome - Information Sources Records reviewed: Previous records reviewed History/Review of Systems obtained from: Patient, Caregiver, Nursing Exam limitations: Clinical condition (Poor historian due to dementia) - History of Present Illness Update Brief HPI Update: This is a 68-year-old female with a history of Alzheimer's dementia who was seen in follow-up today at [facility] for diabetes mellitus type 2, depression with mood lability, and chronic pain syndrome management. The patient contracted COVID-19 in August 2020 and has fared well despite her comorbidities. She denies any respiratory symptoms. Staff have noted that the patient has begun to have increased shifts in her mood in recent weeks. Typically she will be fine in the morning after medication administration and in the evening but midday and in the afternoon she will have bouts of her tearing spells. She does have a longstanding history of depression. She is been on duloxetine since December 2019 and is also on quetiapine. Her dose of quetiapine was last adjusted in July 2020. Staff are also noticing progression of her dementia overall. She is confabulating stories more and is easily distracted and will change subjects quite easily during the course of a conversation. She has had a weight gain over the last year and is presently holding steady at approximately 229 pounds. She has been resistant to walking and staff are no longer attempting to ambulate her once a day due to her resistance where she w ould just stand with her walker and not appear to understand how to move forward and then start crying. She is no longer working with onsite physical therapy as she has plateaued. The patient has had chronic pain after she sustained a fall with a fracture in December 2018 to her right hip with repair and again sustained a fall in December 2019 with resulting in a left proximal humerus fracture. She continues on routine oxycodone and acetaminophen. Her routine acetaminophen was decreased to 500 mg 3 times daily in July 2020 and has done well with this. She is unable to move her left arm and shoulder past 90 degrees after resolution of her proximal humerus fracture. The patient continues to have voracious appetite and typically consumes 100% of her meals and is on small portions. Her blood glucose trends have been increasing upon review. For this month her blood glucose fasting in the morning has been 214 2 300. And in the evening her blood glucose level has been 257 [birth year]/1989. Her last hemoglobin A1c in on 08/16/2020 was 10.1% and she had adjustment of her Lantus dosages. She also remains on Metformin. The patient [facility] area. She is in good spirits and reports to "not feeling sad." She is in her wheelchair and is able to self propel with her feet. No evidence of acute distress. Past Medical History: Patient has a past medical history of hypertension, hyperlipidemia, cardiac murmur, Alzheimer's dementia, type 2 diabetes, GERD, constipation, neurogenic bladder with chronic indwelling catheter, depression, anxiety, osteoarthritis, osteoporosis, chronic pain, anemia, right hip fracture with repair 12/25/2018, left proximal humerus fracture 01/10/2020, COVID-19 08/2020. Social History - Living Situation Living arrangement: Assisted living Support System: [place] [facility] [place] [facility] [place] [facility] at [facility] since May 2018 after her unexpectedly due to lung cancer in April 2018. The patient's was previously her primary caregiver before his . The patient's daughter, Elyse is her D POA with contact number [phone]. Elyse continues to visit her mother through window visits. The family recently had to quarantine due to a possible COVID-19 exposure but now is reported to be negative for testing and plans are going to be made to visit the patient in the near future for a window visit. Medications/Allergies - Medications Home Medications: Ambulatory Orders Medication Instructions Recorded Confirmed Multivitamin [Multiple Vitamins] 1 tab PO DAILY 06/01/18 11/03/20 Albuterol 2.5 mg INH RTQ4H PRN #3 neb 12/25/18 11/03/20 Atorvastatin [Lipitor] 20 mg PO QPM #30 tablet 12/25/18 11/03/20 Ondansetron Odt [Zofran Odt] 4 mg PO Q8H PRN #10 tablet 12/25/18 11/03/20 Acetaminophen 500 mg PO TID 02/07/19 11/03/20 Omeprazole 20 mg PO DAILY 02/07/19 11/03/20 amLODIPine [Norvasc] 5 mg PO BID 02/07/19 11/03/20 Ferrous Gluconate 240 mg PO DAILY #30 tablet 02/08/19 11/03/20 Magnesium Oxide [Mag Ox] 400 mg PO 0800 #30 tablet 02/08/19 11/03/20 metFORMIN [Glucophage] 1,000 mg PO BIDWM #60 tablet 02/08/19 11/03/20 polyethylene glycoL 3350 [Miralax] 17 gm PO DAILY #30 packet 02/08/19 11/03/20 QUEtiapine [SEROquel] 25 mg PO TID 03/02/19 08/02/20 Alendronate Sodium 70 mg PO .EVERY WEEK MDD Every 12/22/19 11/03/20Thursday Ascorbic Acid [Vitamin C] 500 mg PO DAILY 12/22/19 11/03/20 Calcium Carbonate [Calcium] 500 mg PO DAILY 12/22/19 11/03/20 DULoxetine [Cymbalta] 30 mg PO DAILY 12/22/19 11/03/20 Lisinopril/Hydrochlorothiazide 1 tab PO BID MDD 20/12.5mg tablet 12/22/19 11/03/20 [Lisinopril-Hctz 20-12.5 mg Tab] Nystatin 1 applic TP BID MDD to groin 12/22/19 11/03/20 Cholecalciferol (Vitamin D3) 50 mcg DAILY 01/10/20 11/03/20 [Vitamin D3] Insulin Glargine [Lantus Solostar] 28 unit INJ QPM 01/17/20 11/03/20 hydrOXYzine HCL [Hydroxyzine HCl] 25 mg PO Q8H PRN 01/17/20 11/03/20 oxyCODONE [Roxicodone] 5 mg PO Q6H PRN 01/17/20 11/03/20 oxyCODONE [Roxicodone] 5 mg PO TID 01/25/20 11/03/20 Insulin Glargine [Lantus Solostar] 34 units SQ DAILY MDD in AM 11/03/20 11/03/20 - Allergies Allergies/Adverse Reactions: Allergies Allergy/AdvReac Type Severity Reaction Status Date / Time sulfamethoxazole Allergy Unknown Verified 11/03/20 13:48 [From Bactrim] trimethoprim [From Bactrim] Allergy Unknown Verified 11/03/20 13:48 Review of Systems - Constitutional Constitutional: reports: Other (present weight stable at weight 229lb; January 2020: 220lb). denies: Fever - Eyes Eyes: reports: Corrective lenses - Ears, Nose & Throat Ears, Nose & Throat: denies: Dry mouth - Cardiovascular Cardiovascular: reports: Edema. denies: Chest pain - Respiratory Respiratory: denies: Cough, Wheezing - Gastrointestinal Gastrointestinal: reports: Good appetite. denies: Constipation (controlled), Vomiting, Other (increased thrist) - Genitourinary Genitourinary: reports: Other (carbajal catheter). denies: Hematuria - Musculoskeletal Musculoskeletal: reports: Limited range of motion (left shoulder after fall with proximal humerus fracture), Assistive devices, Transfer issues. denies: Joint pain - Neurological Neurological: reports: General weakness, Memory problems - Psychiatric Psychiatric: reports: Depression (see HPI), Anxiety - Endocrine Endocrine: reports: Diabetes type 2 - Hematologic/Lymphatic Hematologic/Lymph: Anemia - All Other Systems All Other Systems: reports: Reviewed and negative (Patient is a poor historian due to dementia. Review of systems supplemented by nursing and caregiving staff.) Physical Exam - Vital Signs Pulse Rate: 94 O2 Saturation: 96 (on RA) Blood Pressure: 120/70 - Physical Exam General Appearance: positive: No acute distress, Alert, Other (OOB in wheelchair, overweight, well groomed) Eyes Bilateral: positive: PERRL, Other (+corrective lenses) ENT: positive: No signs of dehydration Neck: positive: Trachea midline Cardiovascular: positive: Regular rate & rhythm, No murmur Respiratory: positive: No respiratory distress, Rales (BLL, trace). negative: Wheezes Abdomen: positive: Non-tender, Soft, Nml bowel sounds, Obese, Other ( +carbajal catheter to gravity draining yellow urine) Skin: positive: Other (visible skin intact) Extremities: positive: Pedal edema (+trace BLE edema without compression stockings in place), Other (Left shoulder nontender to palpation, stiffness and decraesed ROM of left arm that is unable to extend past 90degrees) Neurologic/Psychiatric: positive: Disoriented to place, Disoriented to time, Other (In good spirits and pleasantly confused; +confabulating stories) Palliative Care - POLST Patient has POLST: Yes POLST Status: DNR, Selective Treatment Pain: Comment (pain controlled with present regimen) Sleep: Sleeps well Constipation: Yes, Opoid induced, Managed Performance Status: The patient is wheelchair dependent and able to self propel using her feet. She did not tolerate working with daily walks with caregivers or physical therapy and this is no longer being implemented. She is no longer working with physical therapy. She is able to transfer with 1 person if there are bars otherwise and requires a two-person transfer. She is able to self feed. Has a chronic indwelling Carbajal catheter. - Palliative Care Discussion: The patient has been resilience and overcoming COVID-19 infection in August 2020. She has demonstrated an increase of her blood glucose readings more specifically in the evenings and would benefit from further dose adjustments of her Lantus. Would continue her on small portions that she has a voracious appetite and and enjoys food. The patient's weight is presently stable at 229 pounds however, she has had an increase in her weight over the last year. The patient is a longstanding history of depression and chronic pain. Her chronic pain appears to be stable on her present regimen. However, staff has been noting increased lability to her nude mood more specifically with crying spells and would benefit from adjustment of her quetiapine for mood stabilization. Results - Lab Results Lab results reviewed: Yes Lab and Imaging Results: 08/16/2020 Hemoglobin A1c 10.1%, TSH 2.19, creatinine 1.06, estimated GFR 53, BUN 20, glucose 177, sodium 132, potassium 4.7 Impression and Recommendations - Palliative Care Impression: This is a 70-year-old female with Alzheimer's dementia with a history of diabetes mellitus type 2 not presently controlled, chronic pain syndrome, d epression with mood low lability. The patient's pain appears to be well controlled on her current regimen. She requires an increase in her Lantus dosage and will continue to monitor and adjust her insulin regimen accordingly. Given the lability of her mood would recommend increasing her quetiapine for further mood stabilization. Palliative care to continue provide support for pain and symptom management, care coordination and anticipatory guidance. Recommendations/Counseling Done: 1. Diabetes mellitus type 2. No evidence of hypoglycemia. Blood glucose levels are not presently controlled. Increase the patient's Lantus to 34 units subcutaneously in the morning. Continue Lantus 28 units subcutaneously in the evening. Continue Metformin 1000 mg twice daily. Last hemoglobin A1c 10.1% performed 08/16/2020. Would recommend obtaining repeat hemoglobin A1c in December 2019. Goal hemoglobin A1c given the patient's advanced age and chronic morbidities is 7 to 8%. Her requiring increased insulin dosing is not unexpected given the length of time that the patient has had diabetes mellitus type 2. May consider sliding scale insulin for mealtimes moving forward in the future but at the present time wish to avoid further fingerstick monitoring given the patient's advancing dementia and desire for comfort. We will continue to monitor. 2. Depression. Patient has a longstanding history of depression and was previously on fluoxetine for many years. Continue on duloxetine 30 mg daily. Increase quetiapine to 25 mg 3 times daily for her underlying anxiety and labile mood. Continue hydroxyzine as needed for breakthrough anxiety. Continue to monitor and adjust regimen as needed. 3.Obesity. Has had a steady weight gain over the last year but has presently stabilized at approximately 229 pounds. This is multifactorial due to the patient's appetite, sedentary lifestyle and underlying dementia. Continue small portion sizes for meals as well as a diabetic diet. TSH obtained 08/16/2020 does not demonstrate hypothyroidism as a contributing factor for weight gain. Continue to monitor. 4. Chronic pain syndrome. Most pacifically to left hip and left shoulder with underlying osteoarthritis. Pain appears to be overall well controlled. Continue acetaminophen 500 mg 3 times daily. Continue oxycodone 5 mg 3 times daily for pain management. Continue oxycodone 5 mg every 6 hours as needed for pain. Continue to monitor the patient's functional status and evaluate need to further reduce or titrate up her pain regimen managed on her regimen function and motion. Fall precautions. 5. Alzheimer's dementia. Chronic. Progressive. Supportive care. Fall precautions. On no disease modifying agents. No recent falls. Given the patient's dementia and chronic comorbidities a gradual decline is expected. Patient is noted to be onto vitamin D supplementation doses and requested facility staff to reevaluate if this is a duplicate in error and to address. Time Spent: CPT 75912 Plan of care reviewed with ANTWAN [place] on site with understanding verbalized. Contacted the patient's daughter/Elyse ORTEGA at [phone] and reviewed plan of care at length and in agreement to proceed with medication dose adjustments. Questions answered and addressed with the daughter. Disclaimer: The chart note was formulated using voice recognition technology and unfortunately sound alike errors may occur.
== END 2020-11-02 09:31 | disposition home or self-care (01) ==
LOC: PC 09:30
PROVIDERS: ATTEND Nurse Practitioner Family
DX: Z51.5 Encounter for palliative care (principal); E11.65 Type 2 diabetes mellitus with hyperglycemia; F32.9 Major depressive disorder, single episode, unspecified; E66.9 Obesity, unspecified; G89.4 Chronic pain syndrome; G30.9 Alzheimer's disease, unspecified; F02.80 Dementia in other diseases classified elsewhere, unspecified severity, without behavioral disturbance, psychotic disturbance, mood disturbance, and anxiety; S72.001D Fracture of unspecified part of neck of right femur, subsequent encounter for closed fracture with routine healing; S42.302D Unspecified fracture of shaft of humerus, left arm, subsequent encounter for fracture with routine healing; Z86.16 Personal history of COVID-19; Z79.4 Long term (current) use of insulin; Z66 Do not resuscitate

== ENCOUNTER 2020-12-13 14:20 | Outpatient (CLI) | payer MEDICARE, OTHER ==
--- NOTE | 2020-12-13 17:59 | CONSULTATION NOTE ---
Palliative Care Follow Up - Referral Referring Provider: Randi Bravo PA-C Time of Visit: Initated 1420 Referral setting: Home Referral Reason: Depression/Anxiety/Chronic Pain Syndrome/Dementia - Information Sources Records reviewed: Previous records reviewed History/Review of Systems obtained from: Patient, Nursing Exam limitations: Clinical condition (Poor historian due to dementia) - History of Present Illness Update Brief HPI Update: This is a 70-year-old female with a history of Alzheimer's dementia who is seen in follow-up today [facility] for depression, chronic pain syndrome and dementia. The patient has had a steady weight gain in the last year but presently has stabilized to 30.6 pounds as of this month. She continues to have lower extremity edema that remains at baseline at approximately +1.She remains on a diabetic diet with small portions as she has not enjoyment for food and due to her underlying dementia cannot not always recall when she has last eaten. She does have a history of diabetes mellitus type 2 and due to her blood glucose trends her Lantus was increased to 36 units twice daily on 12/01/2020. She remains on Metformin. She is a longstanding history of depression. She has lability to her moods and her quetiapine was last adjusted in late October 2020 2 quetiapine 25 mg 3 times daily with some minor improvements noted by facility staff however, her mood tends to be most labile after breakfast and before lunch which she will have tearful spells. She continues on duloxetine 30 mg daily which is helped for her depression and underlying chronic pain syndrome to some degree. She began developing increased osteoarthritic pain and chronic pain syndrome a fter she sustained a right hip fracture with repair in December 2018 and unfortunately then sustained a left proximal humerus fracture in December 2019. She has tolerated dose reduction of her acetaminophen to 500 mg 3 times daily for pain. She continues on oxycodone 5 mg 3 times daily for pain. She intermittently requires breakthrough oxycodone typically in the porcelain mixer hours which is effective. She may benefit from further trial of a dose reduction of her oxycodone is the future based on her pain response. The patient presently denies any pain at rest and staff report that she is requiring rest intermittently in the afternoons due to reports of upper thigh discomfort due to her central obesity while sitting up in her wheelchair. Patient developed constipation without nausea or vomiting with last bowel movement 12/06 with orders to begin milk of magnesia as needed if no bowel movement x3 days with the first dose to be given on 12/12. The patient resulted in a large bowel movement on 12/12 and has been initiated on senna 8.6 mg in the evening in addition to her routine MiraLAX for bowel regimen. There has been no effect to her appetite as well as known nausea, vomiting or diarrhea. She denies any abdominal discomfort. Today she is seen resting in bed watching TV. She is conversant and in good spirits and offers up no acute complaints. Past Medical History: Patient has a past medical history of hypertension, hyperlipidemia, cardiac murmur, Alzheimer's dementia, type 2 diabetes, GERD, constipation, neurogenic bladder with chronic indwelling catheter, depression, anxiety, osteoarthritis, osteoporosis, chronic pain, anemia, right hip fracture with repair 12/25/2018, left proximal humerus fracture 01/10/2020, COVID-19 08/2020. Social History - Living Situation Living arrangement: Assisted living Support System: [place] [facility] [place] She has resided at [facility] since May 2018 after her unexpectedly due to lung cancer in April 2018. The patient's was previously her primary caregiver before his . The patient's daughter, Elyse is her D POA with contact number [phone]. Elyse continues to visit her mother through window visits. Per staff, the patient's daughter was unable to attend a recent window visit this week that resulted in tearful distress of the patient. Medications/Allergies - Medications Home Medications: Ambulatory Orders Medication Instructions Recorded Confirmed Multivitamin [Multiple Vitamins] 1 tab PO DAILY 06/01/18 11/03/20 Albuterol 2.5 mg INH RTQ4H PRN #3 neb 12/25/18 11/03/20 Atorvastatin [Lipitor] 20 mg PO QPM #30 tablet 12/25/18 11/03/20 Ondansetron Odt [Zofran Odt] 4 mg PO Q8H PRN #10 tablet 12/25/18 11/03/20 Acetaminophen 500 mg PO TID 02/07/19 11/03/20 Omeprazole 20 mg PO DAILY 02/07/19 11/03/20 amLODIPine [Norvasc] 5 mg PO BID 02/07/19 11/03/20 Ferrous Gluconate 240 mg PO DAILY #30 tablet 02/08/19 11/03/20 Magnesium Oxide [Mag Ox] 400 mg PO 0800 #30 tablet 02/08/19 11/03/20 metFORMIN [Glucophage] 1,000 mg PO BIDWM #60 tablet 02/08/19 11/03/20 polyethylene glycoL 3350 [Miralax] 17 gm PO DAILY #30 packet 02/08/19 11/03/20 QUEtiapine [SEROquel] 25 mg PO TID 03/02/19 08/02/20 Alendronate Sodium 70 mg PO .EVERY WEEK MDD Every 12/22/19 11/03/20Thursday Ascorbic Acid [Vitamin C] 500 mg PO DAILY 12/22/19 11/03/20 Calcium Carbonate [Calcium] 500 mg PO DAILY 12/22/19 11/03/20 DULoxetine [Cymbalta] 40 mg PO DAILY 12/22/19 11/03/20 Lisinopril/Hydrochlorothiazide 1 tab PO BID MDD 20/12.5mg tablet 12/22/19 11/03/20 [Lisinopril-Hctz 20-12.5 mg Tab] Nystatin 1 applic TP BID MDD to groin 12/22/19 11/03/20 Cholecalciferol (Vitamin D3) 50 mcg DAILY 01/10/20 11/03/20 [Vitamin D3] hydrOXYzine HCL [Hydroxyzine HCl] 25 mg PO Q8H PRN 01/17/20 11/03/20 oxyCODONE [Roxicodone] 5 mg PO Q6H PRN 01/17/20 11/03/20 oxyCODONE [Roxicodone] 5 mg PO TID 01/25/20 11/03/20 Insulin Glargine [Lantus Solostar] 36 units SQ BID MDD in AM 11/03/20 11/03/20 Magnesium Hydroxide [Milk of 30 ml PO DAILY PRN MDD if no BM in 12/14/20 12/14/20 Magnesia] 3 days Senna [Senokot] 8.6 mg PO QPM MDD hold for loose 12/14/20 12/14/20 stools - Allergies Allergies/Adverse Reactions: Allergies Allergy/AdvReac Type Severity Reaction Status Date / Time sulfamethoxazole Allergy Unknown Verified 11/03/20 13:48 [From Bactrim] trimethoprim [From Bactrim] Allergy Unknown Verified 11/03/20 13:48 Review of Systems - Constitutional Constitutional: reports: Other (present weight stable at weight 230.6lb; January 2020: 220lb). denies: Fever - Eyes Eyes: reports: Corrective lenses - Ears, Nose & Throat Ears, Nose & Throat: denies: Hearing aids - Cardiovascular Cardiovascular: reports: Edema, Decr. exercise tolerance. denies: Chest pain - Respiratory Respiratory: denies: Cough - Gastrointestinal Gastrointestinal: reports: Constipation (recent episode of consitpation, see hPI), Good appetite. denies: Abdominal pain, Nausea, Vomiting - Genitourinary Genitourinary: reports: Other (carbajal catheter). denies: Hematuria - Musculoskeletal Musculoskeletal: reports: Stiffness, Limited range of motion (left shoulder after fall with proximal humerus fracture), Assistive devices (wheelchair), Transfer issues. denies: Joint pain - Integumentary Integumentary: denies: Rash - Neurological Neurological: reports: General weakness, Memory problems - Psychiatric Psychiatric: reports: Depression (see HPI), Anxiety - Endocrine Endocrine: reports: Diabetes type 2. denies: Hypothyroidism - Hematologic/Lymphatic Hematologic/Lymph: reports: Anemia - All Other Systems All Other Systems: reports: Reviewed and negative (Patient is a poor historian due to dementia. Review of systems supplemented by nursing and caregiving staff.) Physical Exam - Vital Signs Temperature: 36.4 C Pulse Rate: 77 O2 Saturation: 98 (on RA) Blood Pressure: 149/76 (left wrist cuff) - Physical Exam General Appearance: positive: No acute distress, Alert, Other (overweight, well groomed restin in bed) Eyes Bilateral: positive: Normal inspection, Other (+corrective lenses) ENT: positive: No signs of dehydration Neck: positive: No JVD, Trachea midline Cardiovascular: positive: Regular rate & rhythm Respiratory: positive: No respiratory distress, Breath sounds nml. negative: Wheezes Abdomen: positive: Non-tender, Soft, Nml bowel sounds, Obese (central obesity), Other ( +carbajal catheter to gravity draining yellow urine) Skin: positive: Other (visible skin intact) Extremities: positive: Pedal edema (+1 BLE edema without compression stockings in place), Other (Actively participated in rasing both her arms without reports of pain with decreased ROM to left shoulder.) Neurologic/Psychiatric: positive: Disoriented to place, Disoriented to time, Other (In good spirits and pleasantly confused; no tearful episodes; +confabulates stories) Palliative Care - POLST Patient has POLST: Yes POLST Status: DNR, Selective Treatment Pain: Comment (controlled to right hip and left shoulder, see hPI) Constipation: Yes, Opoid induced (change to bowel regimen initiated 12/12/2020) Performance Status: Patient is wheelchair dependent and able to self propel using her feet. Able to self feed. Has a chronic indwelling Carbajal catheter. Can become fearful with ambulation if attempted for fear of falling. - Palliative Care Discussion: The patient has had steady increases in her blood glucose readings that have required adjustment of her Lantus last performed 12/01 to be followed by her new PCP moving forward. The length of time she has had diabetes mellitus type 2, sedentary lifestyle, and obesity are contributing to her blood glucose levels and this was reviewed at length with the patient's daughter/DPOA today. The patient recently experienced an increased episode of constipation and has had adjustment of her bowel regimen and will continue to monitor moving forward with addition of senna to her daily MiraLAX administration. Given her sedentary lifestyle and use of opioid medication for her chronic pain syndrome we will need to continue to monitor and adjust accordingly. The patient has a longstanding history of depression and chronic pain. She developed acute on chronic pain after sustaining a left proximal humerus fracture in December 2019 from a fall. She has had improvement of her overall pain and her overall function with the use of her left arm has improved. She may benefit from dose reduction of oxycodone in the future weighing benefits versus burdens and daughter is in agreement. However, she continues with some lability in her mood more specifically between breakfast and lunch time and would benefit from further dose adjustment of her duloxetine and daughter in agreement with this plan with questions answered and addressed. Impression and Recommendations - Palliative Care Impression: This is a 70-year-old female with a timers dementia with chronic pain syndrome, depression, and lability in mood with recent constipation. Her bowel regimen has been adjusted and we will continue to monitor as she is on opioid therapy for her chronic pain syndrome. We will increase her duloxetine for further management of her mood and comfort and monitor her response. Palliative care to continue provide pain and symptom management, care coordination and anticipatory guidance. Recommendations/Counseling Done: 1. Depression and anxiety. Patient has a long standing history of depression was previously on fluoxetine for many years. Her duloxetine was last adjusted in July 31 20 to 30 mg daily. Would benefit from further dose adjustment of her duloxetine to 40 mg daily and obtain a BMP in 4 weeks to evaluate for hyponatremia and follow with response. Patient does have a history of hyponatremia but on previous evaluations has remained stable. Continue quetiapine 25 mg 3 times daily for anxiety and labile mood. Continue hydroxyzine as needed for breakthrough anxiety. Continue to monitor and adjust regimen as needed to optimize the patient's comfort. 2. Chronic pain. To right hip and left shoulder. Noted improvement in patient's overall pain and has tolerated decrease of acetaminophen to 500 mg 3 times daily. She continues on oxycodone 5 mg 3 times daily for pain management as well as oxycodone 5 mg every 6 hours as needed for pain. Given her overall function and control of her pain may benefit from dose reduction of oxycodone to 2.5 mg in the morning and continue 5 mg in the afternoon and evening at next evaluation as a trial and monitoring her functional status weighing benefits versus burdens. This plan was reviewed with the patient's daughter/DPOA today and in agreement. 3. Constipation. Sedentary lifestyle and opioid therapy are contributory. Senna 8.6mg initiated once daily inthe evening and hold for loose stools. Continue miralax 17g daily. Patient has MOM 30mL to be administered PRN if no bowel movement in 3 days moving forward for management. Continue to monitor bowel regimen and adjust accordingly to promote defecation. 4. Diabetes mellitus type 2. No evidence of hypoglycemia. Blood glucose levels improved in AM readings but overall not controlled. Recent increase of Lantus to 36units BID. Continue Metformin 1000 mg twice daily. Last hemoglobin A1c 10.1% performed 08/16/2020. Patient is due to repeat Hemolgobin A1C and will coordinate with PCP regarding obtainment. Goal hemoglobin A1c given the patient's advanced age and chronic morbidities is 7 to 8%. Her requiring increased insulin dosing is not unexpected given the length of time that the patient has had diabetes mellitus type 2 which was reviewed with the patient's daughter/DPOA today. PCP to continue to follow. 5. Alzheimer's dementia. Chronic. Progressive. Supportive care. Fall precautions. On no disease modifying agents. No recent falls. Given the patient's dementia and chronic comorbidities a gradual decline is expected. CPT 70963 Plan of care reviewed with ANTWAN Pop on site with understanding verbalized. Contacted the patient's daughter/DPNORIElyse at [phone] and reviewed plan of care at length and in agreement to proceed with medication dose adjustments. Questions answered and addressed with the daughter. Disclaimer: The chart note was formulated using voice recognition technology and unfortunately sound alike errors may occur.
== END 2020-12-13 14:21 | disposition home or self-care (01) ==
LOC: PC 14:20
PROVIDERS: ATTEND Nurse Practitioner Family
DX: Z51.5 Encounter for palliative care (principal); F32.9 Major depressive disorder, single episode, unspecified; G89.4 Chronic pain syndrome; K59.03 Drug induced constipation; T40.2X5A Adverse effect of other opioids, initial encounter; E66.9 Obesity, unspecified; E11.65 Type 2 diabetes mellitus with hyperglycemia; G30.9 Alzheimer's disease, unspecified; F02.80 Dementia in other diseases classified elsewhere, unspecified severity, without behavioral disturbance, psychotic disturbance, mood disturbance, and anxiety; Z79.4 Long term (current) use of insulin; Z86.16 Personal history of COVID-19; Z66 Do not resuscitate

== ENCOUNTER 2021-01-24 09:05 | Outpatient (CLI) | payer MEDICARE, OTHER ==
--- NOTE | 2021-01-24 14:22 | CONSULTATION NOTE ---
Palliative Care Follow Up - Referral Referring Provider: CAITLYN Ojeda Time of Visit: Initiated 904 Referral setting: Assisted living Referral Reason: Depression/Anxiety/Chronic Pain Syndrome/Consitpation/Dementia - Information Sources Records reviewed: Previous records reviewed History/Review of Systems obtained from: Patient, Nursing Exam limitations: Clinical condition (Advanced Dementia) - History of Present Illness Update Brief HPI Update: This is a 70-year-old female with a history of Alzheimer's dementia who was seen in follow-up today at [facility] for depression, weight gain, chronic pain syndrome and dementia. The patient has had a steady weight gain over the last year and has now increased to 234.8 pounds. Her lower extremity edema remains at baseline at approximately +1. She is on a diabetic diet. She thoroughly enjoys meals and due to her underlying dementia cannot recall when she has last eaten. Clear at this time if she continues on small portions but will request that this be ensured to be implemented. She has a longstanding history of depression. She has had lability in her moods and her quetiapine was last adjusted in late October 2020. On last evaluation due to lability and tearful spells her duloxetine was increased from 30 mg to 40 mg daily. This has helped the patient's overall mood with reduction in crying per staff report. Staff are also noting that she is having increased difficulty with following directions regarding swallowing her medications. It is taking some time to administer the patient's medications do her due to her difficulty in following instructions for swallowing. On last evaluation the patient was noted to have increased episodes of constipation and she was initiated on senna 8.6 mg nightly in addition to her routine MiraLAX. This is improved her bowel regimen and she is typically having a bowel movement daily to every 3 days. The patient denies nausea, vomiting or abdominal pain. The patient has a history of diabetes mellitus and has ordered a hemoglobin A1c as well as a CMP to be obtained. However, facility staff has been unable to obtain lab work since 01/10. This [facility] was able to obtain lab work today and will follow up with us for the results. Patient is seen out of bed in her wheelchair in the [facility] area. She is conversant and in good spirits. Past Medical History: Patient has a past medical history of hypertension, hyperlipidemia, cardiac murmur, Alzheimer's dementia, type 2 diabetes, GERD, constipation, neurogenic bladder with chronic indwelling catheter, depression, anxiety, osteoarthritis, osteoporosis, chronic pain, anemia, right hip fracture with repair 12/25/2018, left proximal humerus fracture 01/10/2020, COVID-19 08/2020. Social History - Living Situation Living arrangement: Assisted living Support System: Resides at [facility]. She has resided at [facility] since May 2018 after her unexpectedly due to lung cancer in April 2018. The patient's was previously her primary caregiver before his . The patient's daughter, Elyse is her D POA with contact number [phone]. Medications/Allergies - Medications Home Medications: Ambulatory Orders Medication Instructions Recorded Confirmed Multivitamin [Multiple Vitamins] 1 tab PO DAILY 06/01/18 11/03/20 Albuterol 2.5 mg INH RTQ4H PRN #3 neb 12/25/18 11/03/20 Atorvastatin [Lipitor] 20 mg PO QPM #30 tablet 12/25/18 11/03/20 Ondansetron Odt [Zofran Odt] 4 mg PO Q8H PRN #10 tablet 12/25/18 11/03/20 Acetaminophen 500 mg PO TID 02/07/19 11/03/20 Omeprazole 20 mg PO DAILY 02/07/19 11/03/20 amLODIPine [Norvasc] 5 mg PO BID 02/07/19 11/03/20 Ferrous Gluconate 240 mg PO DAILY #30 tablet 02/08/19 11/03/20 Magnesium Oxide [Mag Ox] 400 mg PO 0800 #30 tablet 02/08/19 11/03/20 metFORMIN [Glucophage] 1,000 mg PO BIDWM #60 tablet 02/08/19 11/03/20 polyethylene glycoL 3350 [Miralax] 17 gm PO DAILY #30 packet 02/08/19 11/03/20 QUEtiapine [SEROquel] 25 mg PO TID 03/02/19 08/02/20 Alendronate Sodium 70 mg PO .EVERY WEEK MDD Every 12/22/19 11/03/20Thursday Ascorbic Acid [Vitamin C] 500 mg PO DAILY 12/22/19 11/03/20 Calcium Carbonate [Calcium] 500 mg PO DAILY 12/22/19 11/03/20 DULoxetine [Cymbalta] 40 mg PO DAILY 12/22/19 11/03/20 Lisinopril/Hydrochlorothiazide 1 tab PO BID MDD 20/12.5mg tablet 12/22/19 11/03/20 [Lisinopril-Hctz 20-12.5 mg Tab] Nystatin 1 applic TP BID MDD to groin 12/22/19 11/03/20 Cholecalciferol (Vitamin D3) 50 mcg DAILY 01/10/20 11/03/20 [Vitamin D3] hydrOXYzine HCL [Hydroxyzine HCl] 25 mg PO Q8H PRN 01/17/20 11/03/20 oxyCODONE [Roxicodone] 5 mg PO Q6H PRN 01/17/20 11/03/20 oxyCODONE [Roxicodone] 5 mg PO TID 01/25/20 11/03/20 Insulin Glargine [Lantus Solostar] 36 units SQ BID MDD in AM 11/03/20 11/03/20 Magnesium Hydroxide [Milk of 30 ml PO DAILY PRN MDD if no BM in 12/14/20 12/14/20 Magnesia] 3 days Senna [Senokot] 8.6 mg PO QPM MDD hold for loose 12/14/20 12/14/20 stools - Allergies Allergies/Adverse Reactions: Allergies Allergy/AdvReac Type Severity Reaction Status Date / Time sulfamethoxazole Allergy Unknown Verified 11/03/20 13:48 [From Bactrim] trimethoprim [From Bactrim] Allergy Unknown Verified 11/03/20 13:48 Review of Systems - Constitutional Constitutional: reports: Other (01/10/2021 234.8lb; 12/2020 230.6lb; January 2020: 220lb). denies: Fever - Eyes Eyes: reports: Corrective lenses - Ears, Nose & Throat Ears, Nose & Throat: denies: Hearing aids - Cardiovascular Cardiovascular: reports: Edema, Decr. exercise tolerance. denies: Chest pain - Respiratory Respiratory: denies: Cough, Other (no cough reported during meals) - Gastrointestinal Gastrointestinal: reports: Good appetite. denies: Abdominal pain, Constipation (controlled, see HPI), Nausea, Vomiting - Genitourinary Genitourinary: reports: Other (carbajal catheter). denies: Hematuria - Musculoskeletal Musculoskeletal: reports: Stiffness, Limited range of motion (left shoulder after fall with proximal humerus fracture), Assistive devices (wheelchair), Transfer issues. denies: Joint pain - Integumentary Integumentary: reports: Dryness - Neurological Neurological: reports: General weakness, Memory problems - Psychiatric Psychiatric: reports: Depression (see HPI), Anxiety - Endocrine Endocrine: reports: Diabetes type 2. denies: Hypothyroidism - Hematologic/Lymphatic Hematologic/Lymph: reports: Anemia - All Other Systems All Other Systems: reports: Reviewed and negative (Patient is a poor historian due to dementia. Review of systems supplemented by nursing and caregiving staff.) Physical Exam - Vital Signs Pulse Rate: 87 O2 Saturation: 96 (on RA) Blood Pressure: 146/79 (left wrist) - Physical Exam General Appearance: positive: No acute distress, Alert, Other (overweight, OOB in wheelchair) Eyes Bilateral: positive: Other (+corrective lenses) ENT: positive: No signs of dehydration Neck: positive: Trachea midline Cardiovascular: positive: Regular rate & rhythm, No murmur Respiratory: positive: No respiratory distress, Breath sounds nml, Diminished in bases Abdomen: positive: Non-tender, Soft, Nml bowel sounds, Obese (central obesity), Other ( +carbajal catheter to gravity draining yellow urine) Skin: positive: Other (general dryness) Extremities: positive: Pedal edema (+1 BLE edema without compression stockings in place), Other (denies c/o joint pain at rest) Neurologic/Psychiatric: positive: Disoriented to place, Disoriented to time, Other (In good spirits and pleasantly confused; no tearful episodes; +confabulates stories) Palliative Care - POLST Patient has POLST: Yes POLST Status: DNR, Selective Treatment Pain: Comment (controlled to left shoulder and right hip) Constipation: Opoid induced, Managed - Palliative Care Discussion: The patient has had improvement of her constipation since initiation of senna to her daily MiraLAX routine. Given her sedentary lifestyle and use of opioid medication for her chronic pain syndrome we will need to continue to monitor and adjust accordingly. The patient has a longstanding history of lability in her moods and this has been difficult to control. Her underlying dementia is also likely contributing. She has had [place] sedative benefit from dose increase of her duloxetine to 40 mg in the last month with reduction in her crying spells. Results - Lab Results Lab and Imaging Results: labwork drawn today--pending Impression and Recommendations - Palliative Care Impression: This is a 70-year-old female with Alzheimer's dementia with chronic pain syndrome, depression, and lability in mood with constipation. Her bowel regimen has been adjusted to positive effect. She has had a reduction in her crying spells with dose increase of duloxetine. Lab work obtained today is pending. Palliative care to continue provide support for pain and symptom management, care coordination and anticipatory guidance. Recommendations/Counseling Done: 1. Chronic pain. To right hip and left shoulder. She continues on acetaminophen 500 mg 3 times daily. She continues on routine oxycodone for pain management as well as oxycodone 5 mg every 6 hours as needed for pain. Given the patient's overall function and control discussed with facility staff and at this time will defer on dose reduction of oxycodone and consider trial reduction in the future weighing benefits versus burdens. 2. Diabetes mellitus type 2. Continues on Lantus and Metformin as ordered. PCP to follow and monitor. Hemoglobin A1c drawn today, 01/24 for PCP to review. 3. Depression and anxiety. Patient is a longstanding history of depression and was previously on fluoxetine for many years. Her duloxetine was last adjusted for 40 mg with positive benefit. CMP obtained today and pending to evaluate for hyponatremia. Patient does have a history of hyponatremia and previously her sodium level was stable. Continue quetiapine 25 mg 3 times daily for anxiety and labile mood. Continue hydroxyzine as needed for breakthrough anxiety. Continue to monitor and adjust regimen as needed to optimize the patient's comfort. 4. Constipation. Sedentary lifestyle and opioid therapy are contributing. Continue senna 8.6 mg daily in the evening and MiraLAX 17 g daily. Patient has milk of magnesia 30 mL to be administered as needed if there is no bowel movement in 3 days. Continue to monitor bowel regimen and adjust accordingly to promote defecation. 5.Unintentional weight gain. Multifactorial to the patient's appetite, sedentary lifestyle and underlying dementia. Weight is presently a 234.8 pounds. Unclear if she remains on small portions and will request that this be clarified with a desire for the patient to be on small portions with a diabetic diet. Previous TSH obtained was negative for hypothyroidism. Continue to monitor weight trends. Likely unavoidable to the above mentioned states and the patient's enjoyment of food. CPT 32270 Plan of care reviewed with ANTWAN Pop at the facility with understanding verbalized. Contacted the patient's daughter/JORDANElyse at [phone] and left message regarding plan of care. We will follow-up with lab results to review with patient's daughter upon receipt. Awaiting return call. Disclaimer: The chart note was formulated using voice recognition technology and unfortunately sound alike errors may occur.
== END 2021-01-24 09:06 | disposition home or self-care (01) ==
LOC: PC 09:05
PROVIDERS: ATTEND Nurse Practitioner Family
DX: Z51.5 Encounter for palliative care (principal); M25.551 Pain in right hip; M25.512 Pain in left shoulder; G89.4 Chronic pain syndrome; F45.42 Pain disorder with related psychological factors; E11.9 Type 2 diabetes mellitus without complications; F32.9 Major depressive disorder, single episode, unspecified; F41.9 Anxiety disorder, unspecified; K59.00 Constipation, unspecified; R63.5 Abnormal weight gain; G30.9 Alzheimer's disease, unspecified; F02.80 Dementia in other diseases classified elsewhere, unspecified severity, without behavioral disturbance, psychotic disturbance, mood disturbance, and anxiety; Z86.16 Personal history of COVID-19; Z79.4 Long term (current) use of insulin; Z66 Do not resuscitate

== ENCOUNTER 2021-02-10 02:07 | Outpatient (CLI) | payer MEDICARE, OTHER | END 2021-02-10 02:08 | disposition critical access hospital (66) | LOC: EMS 02:07 | DX: R11.2 Nausea with vomiting, unspecified (principal); R41.0 Disorientation, unspecified | CPT/HCPCS: A0425; A0427 ==

== ENCOUNTER 2021-02-10 02:21 | Inpatient (IN) | payer MEDICARE, OTHER ==
[2021-02-10] MEDS ORDERED: ONDANSETRON 4 MG/2 ML VIAL IVP STA (02:37)
[2021-02-10] MEDS ORDERED: MORPHINE 10 MG/ML VIAL IVP STA (02:37)
[2021-02-10] MEDS ORDERED: SODIUM CHLORIDE 0.9% 1,000 ML IV STA ×2 (02:37→03:18)
--- NOTE | 2021-02-10 02:41 | ED Physician Documentation ---
History of Present Illness - Stated complaint Stated Complaint: VOMITING - Chief complaint Chief Complaint: Abd Pain - History obtained from History obtained from: Patient - Additonal information Additional information: 70-year-old woman with history of diabetes, asthma, high blood pressure, high cholesterol, Presents from [facility] with nausea and vomiting nonbloody nonbilious over the past several hours in the evening as well as loose stool. Patient states that she is having diffuse abdominal pain but is unable to further characterize it further. She has a chronic indwelling carbajal. Review of Systems Unable to obtain: Dementia, Uncooperative PD PAST MEDICAL HISTORY - Past Medical History Cardiovascular: Hypertension, High cholesterol, Murmur Respiratory: Pneumonia Neuro: Alzhiemer's, Dementia Endocrine/Autoimmune: Type 2 diabetes GI: GERD, Chronic constipation : Other HEENT: Chronic vision loss, Chronic sinusitis, Chronic hearing loss Psych: Depression, Anxiety Musculoskeletal: Osteoarthritis, Osteoporosis, Chronic back pain Derm: None - Past Surgical History Past Surgical History: Yes General: Appendectomy Ortho: Hip replacement, Rotator cuff repair /GRAPHIC DES[employer]ER: Hysterectomy, Other HEENT: Cataracts - Present Medications Home Medications: Ambulatory Orders Medication Instructions Recorded Confirmed Multivitamin [Multiple Vitamins] 1 tab PO DAILY 06/01/18 02/10/21 Albuterol 2.5 mg INH RTQ4H PRN #3 neb 12/25/18 02/10/21 Atorvastatin [Lipitor] 20 mg PO QPM #30 tablet 12/25/18 02/10/21 Ondansetron Odt [Zofran Odt] 4 mg PO Q8H PRN #10 tablet 12/25/18 02/10/21 Acetaminophen 500 mg PO TID 02/07/19 02/10/21 Omeprazole 20 mg PO DAILY 02/07/19 02/10/21 amLODIPine [Norvasc] 5 mg PO BID 02/07/19 02/10/21 Ferrous Gluconate 240 mg PO DAILY #30 tablet 02/08/19 02/10/21 Magnesium Oxide [Mag Ox] 400 mg PO 0800 #30 tablet 02/08/19 02/10/21 metFORMIN [Glucophage] 1,000 mg PO BIDWM #60 tablet 02/08/19 02/10/21 polyethylene glycoL 3350 [Miralax] 17 gm PO DAILY #30 packet 02/08/19 02/10/21 QUEtiapine [SEROquel] 25 mg PO TID 03/02/19 02/10/21 Alendronate Sodium 70 mg PO .EVERY WEEK MDD Every 12/22/19 02/10/21Thursday Ascorbic Acid [Vitamin C] 500 mg PO DAILY 12/22/19 02/10/21 Calcium Carbonate [Calcium] 500 mg PO DAILY 12/22/19 02/10/21 DULoxetine [Cymbalta] 40 mg PO DAILY 12/22/19 02/10/21 Lisinopril/Hydrochlorothiazide 1 tab PO BID MDD 20/12.5mg tablet 12/22/19 02/10/21 [Lisinopril-Hctz 20-12.5 mg Tab] Nystatin 1 applic TP BID MDD to groin 12/22/19 02/10/21 Cholecalciferol (Vitamin D3) 50 mcg DAILY 01/10/20 02/10/21 [Vitamin D3] hydrOXYzine HCL [Hydroxyzine HCl] 25 mg PO Q8H PRN 01/17/20 02/10/21 oxyCODONE [Roxicodone] 5 mg PO Q6H PRN 01/17/20 02/10/21 oxyCODONE [Roxicodone] 5 mg PO TID 01/25/20 02/10/21 Insulin Glargine [Lantus Solostar] 36 units SQ BID MDD in AM 11/03/20 02/10/21 Magnesium Hydroxide [Milk of 30 ml PO DAILY PRN MDD if no BM in 12/14/20 02/10/21 Magnesia] 3 days Senna [Senokot] 8.6 mg PO QPM MDD hold for loose 12/14/20 02/10/21 stools - Allergies Allergies/Adverse Reactions: Allergies Allergy/AdvReac Type Severity Reaction Status Date / Time sulfamethoxazole Allergy Unknown Verified 02/10/21 02:30 [From Bactrim] trimethoprim [From Bactrim] Allergy Unknown Verified 02/10/21 02:30 - Social History Does the pt smoke?: No Smoking Status: Never smoker Does the pt drink ETOH?: Yes Does the pt have substance abuse?: No - Immunizations Immunizations are current?: Yes - POLST Patient has POLST: Yes POLST Status: DNR PD ED PE NORMAL - Vitals Vital signs reviewed: Yes - General General: Other (Eye-opening to verbal, moaning, appearing to be in moderate distress, morbidly obese) - HEENT HEENT: Atraumatic, PERRL, EOMI - Neck Neck: Supple, no meningeal sign - Cardiac Cardiac: Other (Tachycardic rate, regular rhythm) - Respiratory Respiratory: No respiratory distress, Clear bilaterally - Abdomen Abdomen: Other (diffusely ttp) - Female Female : Other (carbajal in place with straw colored urine) - Rectal Rectal: Other (brown loose stool in the diaper and in the rectal vault) - Derm Derm: Normal color - Extremities Extremities: No deformity - Neuro Neuro: Other (alert, speaking in short sentences, moaning, eye opening to verbal. moving all extremities appropriately) - Psych Psych: Other (moderate distress) Results - Vitals Vitals: Vital Signs - 24 hr 02/10/21 02/10/21 02/10/21 02:31 02:35 03:14 Temperature 36.2 C L 36.2 C L Heart Rate 120 H 120 H 120 H Respiratory 18 18 18 Rate Blood Pressure 133/75 H 133/75 H 154/76 H O2 Saturation 92 91 L 97 02/10/21 02/10/21 02/10/21 04:03 04:08 04:10 Temperature Heart Rate 105 H 105 H 97 Respiratory 22 22 20 Rate Blood Pressure 105/75 102/77 94/79 O2 Saturation 96 97 98 02/10/21 02/10/21 04:15 04:20 Temperature Heart Rate 96 95 Respiratory 18 20 Rate Blood Pressure 174/95 H 177/81 H O2 Saturation 96 97 Oxygen O2 Source Nasal cannula - Labs Labs: Laboratory Tests 02/10/21 02/10/21 02/10/21 02:40 03:40 03:40 WBC 10.0 RBC 2.35 L Hgb 6.8 L* Hct 20.7 L MCV 88.1 MCH 28.9 MCHC 32.9 RDW 13.6 Plt Count 142 MPV 8.4 Neut # (Auto) 9.0 H Lymph # (Auto) 0.6 L [place] # (Auto) 0.4 Eos # (Auto) 0.0 Baso # (Auto) 0.0 Absolute Nucleated RBC 0.00 Nucleated RBC % 0.0 PT INR APTT VBG pH VBG pCO2 VBG pO2 VBG HCO3 VBG Total CO2 VBG O2 Saturation VBG Base Excess Sodium 139 Potassium 1.8 L* Chloride 119 H Carbon Dioxide 14 L Anion Gap 6.0 BUN 11 Creatinine 0.4 Estimated GFR (MDRD) 157 Glucose 221 H Lactic Acid Calcium 4.4 L* Phosphorus Magnesium Iron TIBC % Saturation Transferrin Total Bilirubin 1.1 H AST 189 H ALT 77 H Alkaline Phosphatase 42 Total Protein 3.4 L Albumin 1.8 L Globulin 1.6 L Albumin/Globulin Ratio 1.1 Amylase Lipase 1850 H Urine Color YELLOW Urine Clarity CLEAR Urine pH 7.0 Ur Specific [place] 1.025 Urine Protein >=300 H Urine Glucose (UA) 250 H Urine Ketones TRACE Urine Occult Blood SMALL H Urine Nitrite NEGATIVE Urine Bilirubin NEGATIVE Urine Urobilinogen 1 (NORMAL) Ur Leukocyte Esterase TRACE H Urine RBC 0-5 Urine WBC 6-10 H Ur Squamous Epith Cells RARE Squamous Urine Bacteria Few Urine Mucus Moderate Strands Ur Microscopic Review INDICATED Urine Culture Comments INDICATED Serum Ketones Blood Type Antibody Screen Crossmatch IS Only 02/10/21 02/10/21 02/10/21 03:40 03:45 03:45 WBC RBC Hgb Hct MCV MCH MCHC RDW Plt Count MPV Neut # (Auto) Lymph # (Auto) [place] # (Auto) Eos # (Auto) Baso # (Auto) Absolute Nucleated RBC Nucleated RBC % PT 16.8 H INR 1.6 H APTT 26.6 VBG pH VBG pCO2 VBG pO2 VBG HCO3 VBG Total CO2 VBG O2 Saturation VBG Base Excess Sodium Potassium Chloride Carbon Dioxide Anion Gap BUN Creatinine Estimated GFR (MDRD) Glucose Lactic Acid 1.0 Calcium Phosphorus Magnesium Iron TIBC % Saturation Transferrin Total Bilirubin AST ALT Alkaline Phosphatase Total Protein Albumin Globulin Albumin/Globulin Ratio Amylase Lipase Urine Color Urine Clarity Urine pH Ur Specific [place] Urine Protein Urine Glucose (UA) Urine Ketones Urine Occult Blood Urine Nitrite Urine Bilirubin Urine Urobilinogen Ur Leukocyte Esterase Urine RBC Urine WBC Ur Squamous Epith Cells Urine Bacteria Urine Mucus Ur Microscopic Review Urine Culture Comments Serum Ketones NEGATIVE Blood Type Antibody Screen Crossmatch IS Only 02/10/21 02/10/21 02/10/21 04:15 04:15 04:16 WBC RBC Hgb Hct MCV MCH MCHC RDW Plt Count MPV Neut # (Auto) Lymph # (Auto) [place] # (Auto) Eos # (Auto) Baso # (Auto) Absolute Nucleated RBC Nucleated RBC % PT INR APTT VBG pH 7.287 L VBG pCO2 48.6 VBG pO2 43.4 VBG HCO3 22.7 L VBG Total CO2 24.2 VBG O2 Saturation 75.6 VBG Base Excess -4.2 L Sodium Potassium Chloride Carbon Dioxide Anion Gap BUN Creatinine Estimated GFR (MDRD) Glucose Lactic Acid Calcium Phosphorus Magnesium Iron 15 L TIBC 134 L % Saturation 11 L Transferrin 96 L Total Bilirubin AST ALT Alkaline Phosphatase Total Protein Albumin Globulin Albumin/Globulin Ratio Amylase Lipase Urine Color Urine Clarity Urine pH Ur Specific [place] Urine Protein Urine Glucose (UA) Urine Ketones Urine Occult Blood Urine Nitrite Urine Bilirubin Urine Urobilinogen Ur Leukocyte Esterase Urine RBC Urine WBC Ur Squamous Epith Cells Urine Bacteria Urine Mucus Ur Microscopic Review Urine Culture Comments Serum Ketones Blood Type A POSITIVE Antibody Screen NEGATIVE Crossmatch IS Only See Detail 02/10/21 04:16 WBC RBC Hgb Hct MCV MCH MCHC RDW Plt Count MPV Neut # (Auto) Lymph # (Auto) [place] # (Auto) Eos # (Auto) Baso # (Auto) Absolute Nucleated RBC Nucleated RBC % PT INR APTT VBG pH VBG pCO2 VBG pO2 VBG HCO3 VBG Total CO2 VBG O2 Saturation VBG Base Excess Sodium Potassium Chloride Carbon Dioxide Anion Gap BUN Creatinine Estimated GFR (MDRD) Glucose Lactic Acid Calcium Phosphorus 1.5 L Magnesium 0.6 L* Iron TIBC % Saturation Transferrin Total Bilirubin AST ALT Alkaline Phosphatase Total Protein Albumin Globulin Albumin/Globulin Ratio Amylase 381 H Lipase Urine Color Urine Clarity Urine pH Ur Specific [place] Urine Protein Urine Glucose (UA) Urine Ketones Urine Occult Blood Urine Nitrite Urine Bilirubin Urine Urobilinogen Ur Leukocyte Esterase Urine RBC Urine WBC Ur Squamous Epith Cells Urine Bacteria Urine Mucus Ur Microscopic Review Urine Culture Comments Serum Ketones Blood Type Antibody Screen Crossmatch IS Only PD MEDICAL DECISION MAKING - ED course ED course: 70-year-old woman presents from the long-term with nausea, vomiting and loose stools as well as diffuse abdominal pain. Will obtain lab work, CT to evaluate and will treat her symptoms. EKG possible a flutter. Will give metoprolol for rate control as well as 2nd liter ivf. patient has echo from 2019 with EF 65% Patient symptomatically improved. HR improved. d/w daughter who is POA for possible admission for transfusion, electrolyte replacement, uti treatment and she is agreeable. Departure - Departure Disposition: 66 [facility] DC/Xfer Clinical Impression: Hypokalemia, Hypocalcemia, Anemia, UTI (urinary tract infection) Condition: Stable
[2021-02-10 02:52] LABS: GLUCOSE, URINE (UA) 250 mg/dL (NEGATIVE); KETONES,URINE (UA) TRACE mg/dL (NEGATIVE); LEUKOCYTE ESTERASE, URINE TRACE (NEGATIVE); NITRITE,URINE NEGATIVE (NEGATIVE); OCCULT BLOOD,URINE SMALL (NEGATIVE); PROTEIN,URINE >=300 mg/dL (NEGATIVE); UROBILINOGEN,URINE 1 (NORMAL) E.U./dL (NORMAL)
[2021-02-10 02:54] LABS: BILIRUBIN,URINE NEGATIVE (NEGATIVE); CLARITY,URINE CLEAR (CLEAR); ICTOTEST,URINE NEGATIVE
[2021-02-10 02:58] LABS: BACTERIA,URINE Few /HPF (None Seen); MUCUS,URINE Moderate Strands; RBC,URINE 0-5 /HPF (0-5); SQUAMOUS EPITHELIAL CELL,UR RARE Squamous (<= Few)
[2021-02-10] MEDS ORDERED: cefTRIAXone 1 GM in SODIUM CHLORIDE 0.9% MINIBAG 100 ML IV STA (03:18)
[2021-02-10] MEDS ORDERED: cefTRIAXone 1 GM VIAL ONE (03:22)
[2021-02-10] MEDS ORDERED: MORPHINE 2 MG/ML CARPUJECT IVP STA (03:46)
[2021-02-10] MEDS ORDERED: METOPROLOL 5 MG/5 ML VIAL IVP STA (03:47)
[2021-02-10] MEDS ORDERED: IOPAMIDOL-300 100 ML VIAL ONE (03:52)
[2021-02-10 03:53] LABS: BASOPHILS % (AUTO) 0.2 %; EOSINOPHILS % (AUTO) 0.1 %; HCT - HEMATOCRIT 20.7 % (37.0-47.0); LYMPHOCYTES # (AUTO) 0.6 10^3/uL (1.5-3.5); LYMPHOCYTES % (AUTO) 5.7 %; MEAN CORPUSCULAR HEMOGLOBIN 28.9 pg (27.0-31.0); MEAN CORPUSCULAR HGB CONC 32.9 g/dL (32.0-36.0); MEAN CORPUSCULAR VOLUME 88.1 fL (81.0-99.0); MEAN PLATELET VOLUME 8.4 fL (7.9-10.8); MONOCYTES # (AUTO) 0.4 10^3/uL (0.0-1.0); MONOCYTES % (AUTO) 4.2 %; NEUTROPHILS % (AUTO) 89.4 %; PLT - PLATELET COUNT 142 10^3/uL (130-450); RED BLOOD COUNT 2.35 10^6/uL (4.20-5.40); RED CELL DISTRIBUTION WIDTH 13.6 % (12.0-15.0)
[2021-02-10 03:56] LABS: HGB - HEMOGLOBIN 6.8 g/dL (12.0-16.0)
[2021-02-10 04:10] LABS: INR 1.6 (0.8-1.2); PT - PROTHROMBIN TIME 16.8 secs (9.9-12.6)
[2021-02-10 04:12] LABS: ALBUMIN 1.8 g/dL (3.2-5.5); ALBUMIN/GLOBULIN RATIO 1.1 (1.0-2.2); BILIRUBIN,TOTAL 1.1 mg/dL (0.2-1.0); CREATININE 0.4 mg/dL (0.4-1.0); TOTAL PROTEIN 3.4 g/dL (6.7-8.2)
[2021-02-10 04:13] LABS: POTASSIUM 1.8 mmol/L (3.5-5.0)
[2021-02-10 04:14] LABS: CALCIUM 4.4 mg/dL (8.5-10.3)
[2021-02-10] MEDS ORDERED: CALCIUM GLUCONATE 1000 MG/10 ML VIAL IVP STA (04:14)
[2021-02-10 04:17] LABS: PARTIAL THROMBOPLASTIN TIME 26.6 secs (24.9-33.3)
[2021-02-10 04:23] LABS: VBG BASE EXCESS -4.2 mmol/L ({null, -2 - +2}); VBG HCO3 22.7 mmol/L (23-28); VBG OXYGEN SATURATION 75.6 % (60-80); VBG PCO2 48.6 mmHg (41-51); VBG PH 7.287 (7.31-7.41); VBG PO2 43.4 mmHg (25-47); VBG TOTAL CO2 24.2 mmol/L (24-29)
[2021-02-10] MEDS ORDERED: IOPAMIDOL-300 100 ML VIAL IVP ONE (05:07)
[2021-02-10] MEDS: POTASSIUM CHLOR 10 MEQ/100 ML 10 MEQ/100 ML BAG IV SCH ×4 (05:10→13:13)
[2021-02-10] MEDS ORDERED: ACETAMINOPHEN 325 MG TABLET PO PRN (06:21)
[2021-02-10 06:53] LABS: % IRON SATURATION 11 % (20-50); IRON 15 ug/dL (28-170); PHOSPHORUS 1.5 mg/dL (2.5-4.6); TOTAL IRON BINDING CAPACITY 134 ug/dL (250-450); TRANSFERRIN 96 mg/dL (192-382)
[2021-02-10 07:00] LABS: MAGNESIUM 0.6 mg/dL (1.7-2.8)
[2021-02-10] MEDS ORDERED: MAGNESIUM SULFATE 2 GRAM 2 GM/50 ML BAG IV ONE (07:04)
[2021-02-10 07:10] LABS: FERRITIN 476.1 ng/mL (11.0-306.8)
[2021-02-10 07:14] LABS: FOLATE 8.72 ng/mL ({null, 5.90 - >24.8})
[2021-02-10 07:32] LABS: B. PARAPERTUSSIS- RESP PCR PAN NOT DETECTED; B. PERTUSSIS- RESP PCR PANEL NOT DETECTED; C. PNEUMONIAE- RESP PCR PANEL NOT DETECTED; CORONAVIRUS 229E-RESP PCR NOT DETECTED; CORONAVIRUS HKU1-RESP PCR NOT DETECTED; CORONAVIRUS NL63-RESP PCR NOT DETECTED; CORONAVIRUS OC43-RESP PCR NOT DETECTED; HUMAN METAPNEUMOVIRUS NOT DETECTED; INFLUENZA A- RESP PCR PANEL NOT DETECTED; INFLUENZA B - RESP PCR PANEL NOT DETECTED; M. PNEUMONIAE- RESP PCR PANEL NOT DETECTED; PARAINFLUENZA VIRUS 1 NOT DETECTED; PARAINFLUENZA VIRUS 2 NOT DETECTED; PARAINFLUENZA VIRUS 3 NOT DETECTED; PARAINFLUENZA VIRUS 4 NOT DETECTED; RHINOVIRUS/ENTEROVIRUS NOT DETECTED; RSV- RESP PCR PANEL NOT DETECTED; SARS-CoV-2 -RESP PCR PANEL NOT DETECTED
[2021-02-10] MEDS ORDERED: CALCIUM GLUCONATE 2,000 MG in SODIUM CHLORIDE 0.9% 100ML 100 ML IV ONE (08:00)
[2021-02-10] MEDS ORDERED: POTASSIUM CHLORIDE INJ 40 MEQ in DEXTROSE 5%-0.45% NACL 980 ML IV SCH (08:00)
[2021-02-10] MEDS: MAGNESIUM OXIDE 400 MG TABLET PO SCH (08:16)
[2021-02-10] MEDS: ENOXAPARIN 40 MG/0.4 ML SYRINGE SUBQ SCH (08:19)
--- NOTE | 2021-02-10 08:23 | HISTORY & PHYSICAL EXAMINATION ---
Chief Complaint - Chief Complaint Chief Complaint: N/V/gen abd pain History of Present Illness - Admitted From Admitted From:: [facility] via EMS - History Obtained From Records Reviewed: [facility] History obtained from: ER notes, Dr. Puckett Exam Limitations: patient has dementia, daughter out of town and woken up - History of Present Illness HPI Comment/Other: 70-year-old white female who is a resident of [facility] care unit. She has been living there since May 2018 after her unexpectedly of lung cancer in April 2018. She has had dementia for quite some time. He was her primary caregiver. Mom has significant emotional lability due to major depressive disorder. The dementia only makes it worse. She is followed by palliative care and was last seen January 24. Main problem on that review of systems was weight gain and she has up to 234.8 pounds. She has chronic lower extremity edema. For her emotional lability her Seroquel has been adjusted as of October 2020. And duloxetine was increased from 30 mg to 40 mg. This helped with reducing crying episodes. Her main problem addressed during that visit was chronic pain of the right hip and shoulder for which she is treated with acetaminophen and routine oxycodone. Has chronic hydroureter on CT. With multiple episodes of UTIs. Because of the chronic hydroureter, she has a chronic indwelling Interiano catheter. Several hours prior to admission the staff at the assisted living facility report that she began having nausea and vomiting. Loose stool. The patient herself describe diffuse abdominal pain. Due to her dementia she is really unable to contribute much more to her review of systems. She was brought in by ambulance. In the ER she was moaning, groaning. Glucose was 339 with EMS. She received a fluid bolus in the emergency room and further evaluation found her to have a very low potassium of 1.8, calcium of 4.4 with a total protein of 3.4 and an albumin of 1.8. Total bili is 1.1, AST 189, ALT 77. Phosphorus is 1.5. Magnesium is 0.6. Severely low iron level at 15 with transfer in 11. Hemoglobin is 6.8. She did have a hemoglobin of 6.6 in December 2018. Her last hemoglobin prior to this illness was 10.5 on February 08. Nobody is reporting that she has black stool, vomiting of blood. Stool was brown in the emergency room. Preliminary CT report shows thickening of the urinary bladder with pericystic stranding, mild hydronephrosis, enhancement of the ureters and distended renal pelvis ease. Cystitis and pyelonephritis is a strong consideration. Interiano is now in place. Urinalysis had proteinuria, glucosuria, occult blood, trace leukocyte Estrace, 0-5 red cells, 6-10 white cells, rare squamous. Very few bacteria. Her gallbladder was visualized but there was no stones. Pancreas and spleen was unremarkable. She had a fat-containing umbilical hernia. No uterus. The patient is now placed in ICU for fluid resuscitation, antibiotics, transfusion, and correction of her severe electrolyte imbalance. The suddenness of symptoms with such severe electrolyte imbalance is not congruent. She does not appear to have had symptoms long enough to give her such severe electrolyte imbalance. I did speak to her daughter, Elyse, who is in [place] celebrating her birthday. Elyse gave me permission after obtaining consent for a central line and blood transfusion. I discussed blood transfusion reaction, central line complications including pneumothorax, bleeding, and Elyse said it was okay for me to do this. Beyond this intervention, judicious discussion should be had for all interventions as this patient is DNR with emphasis on palliative/comfort measures. History - Past Medical History Cardiovascular: reports: Hypertension, High cholesterol, Murmur Respiratory: reports: Pneumonia Neuro: reports: Alzhiemer's, Dementia Endocrine/Autoimmune: reports: Type 2 diabetes GI: reports: GERD, Chronic constipation : reports: Other HEENT: reports: Chronic vision loss, Chronic sinusitis, Chronic hearing loss Psych: reports: Depression, Anxiety Musculoskeletal: reports: Osteoarthritis, Osteoporosis, Chronic back pain Derm: reports: None MRSA Hx?: No - Past Surgical History General: reports: Appendectomy Ortho: reports: Hip replacement, Rotator cuff repair /RESOURCE MANAGER: reports: Hysterectomy, Other HEENT: reports: Cataracts - Family & Social History Family History: Mother: , Father: , CAD Family History Comment/Other: History obtained from medical record and father of complications of Alzheimer's. Mom of a combination of lung and breast cancer. 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 They were , , and she was single for 37 years when they remarried for 10 more years. Her daughter remains very supportive, which is why she and her moved to the [place], and recently was placed at [facility] (memory care) due to her quickly advancing Alzheimer's dementia. Her daughter is now her POA and activated spokes person and denies a lcholism, illicit drug use, but admits to her mother having a tobacco history from age 13 to 48. She states she has a POLST form indicating DNR/DNI.She does have another son from who she is estranged from. She also has a daughter that she placed for adoption. She had connected with her before her Alzheimer's kicked in and we do not believe that that daughter is very involved in mom's life. - Substance History Use: Uses substance without health or social issues: Tobacco (Former smoker, quit in 1989) - POLST Patient has POLST: Yes POLST Status: DNR Meds/Allgy - Home Medications Home Medications: Ambulatory Orders Medication Instructions Recorded Confirmed Multivitamin [Multiple Vitamins] 1 tab PO DAILY 06/01/18 02/10/21 Albuterol 2.5 mg INH RTQ4H PRN #3 neb 12/25/18 02/10/21 Atorvastatin [Lipitor] 20 mg PO QPM #30 tablet 12/25/18 02/10/21 Ondansetron Odt [Zofran Odt] 4 mg PO Q8H PRN #10 tablet 12/25/18 02/10/21 Acetaminophen 500 mg PO TID 02/07/19 02/10/21 Omeprazole 20 mg PO DAILY 02/07/19 02/10/21 amLODIPine [Norvasc] 5 mg PO BID 02/07/19 02/10/21 Ferrous Gluconate 240 mg PO DAILY #30 tablet 02/08/19 02/10/21 Magnesium Oxide [Mag Ox] 400 mg PO 0800 #30 tablet 02/08/19 02/10/21 metFORMIN [Glucophage] 1,000 mg PO BIDWM #60 tablet 02/08/19 02/10/21 polyethylene glycoL 3350 [Miralax] 17 gm PO DAILY #30 packet 02/08/19 02/10/21 QUEtiapine [SEROquel] 25 mg PO TID 03/02/19 02/10/21 Alendronate Sodium 70 mg PO SA 12/22/19 02/10/21 Ascorbic Acid [Vitamin C] 500 mg PO DAILY 12/22/19 02/10/21 Calcium Carbonate [Calcium] 500 mg PO DAILY 12/22/19 02/10/21 DULoxetine [Cymbalta] 40 mg PO DAILY 12/22/19 02/10/21 Lisinopril/Hydrochlorothiazide 1 tab PO BID 12/22/19 02/10/21 [Lisinopril-Hctz 20-12.5 mg Tab] Nystatin 1 applic TP BID MDD to groin 12/22/19 02/10/21 Cholecalciferol (Vitamin D3) 50 mcg DAILY 01/10/20 02/10/21 [Vitamin D3] hydrOXYzine HCL [Hydroxyzine HCl] 25 mg PO Q8H PRN 01/17/20 02/10/21 oxyCODONE [Roxicodone] 5 mg PO Q6H PRN 01/17/20 02/10/21 oxyCODONE [Roxicodone] 5 mg PO TID 01/25/20 02/10/21 Insulin Glargine [Lantus Solostar] 36 units SQ QPM 11/03/20 02/10/21 Magnesium Hydroxide [Milk of 30 ml PO DAILY PRN MDD if no BM in 12/14/20 02/10/21 Magnesia] 3 days Senna [Senokot] 8.6 mg PO QPM 12/14/20 02/10/21 Insulin Glargine [Lantus Solostar] 40 units SUBQ DAILY 02/10/21 02/10/21 - Allergies Allergies/Adverse Reactions: Allergies Allergy/AdvReac Type Severity Reaction Status Date / Time sulfamethoxazole Allergy Unknown Verified 02/10/21 02:30 [From Bactrim] trimethoprim [From Bactrim] Allergy Unknown Verified 02/10/21 02:30 Review of Systems - Other Findings Other Findings: This unfortunate demented female is unable to give me a lucid history. She is confused, slightly frightened and little bit anxious. Prior Level of Functionality: She is described as a person spends her time in a wheelchair. She is able to stand and walk a couple of steps and transfer to bed. Or transfer to toilet. There are 2 people to help her do that when she transfers. She is a chronic indwelling Interiano catheter. She is able to feed herself. However she needs help with dressing, bathing and they give her medications. . Exam - Vital Signs Reviewed Vital Signs: Yes Vital Signs: Vital Signs x48h Temp Pulse Pulse Resp BP BP Pulse Ox 02/10/21 07:24 36.7 C 108 H 18 172/82 H 93 02/10/21 06:45 36.3 C L 110 H 17 161/69 H 99 02/10/21 06:30 116 H 25 H 161/69 H 22 L 02/10/21 04:20 95 20 177/81 H 97 02/10/21 04:15 96 18 174/95 H 96 02/10/21 04:10 97 20 94/79 98 02/10/21 04:08 105 H 22 102/77 97 02/10/21 04:03 105 H 22 105/75 96 02/10/21 03:14 36.2 C L 120 H 18 154/76 H 97 02/10/21 02:35 36.2 C L 120 H 18 133/75 H 91 L 02/10/21 02:31 120 H 18 133/75 H 92 - Physical Exam General Appearance: positive: Alert, Mild distress (That appears more emotional than respiratory or abdominal), Other (5 foot 3 inch female who is 104.5 kg. Overall stature is short, and rotund.) Eyes Bilateral: positive: PERRL, EOMI ENT: positive: No signs of dehydration Neck: positive: No JVD. negative: Stiff neck Respiratory: positive: Rales (Slight tachypnea, varies between 16 to as high as 28. She is uncomfortable and wrinkles her nose and furrows her brow) Cardiovascular: positive: Regular rate & rhythm, Tachycardia Peripheral Pulses: positive: 1+ Abdomen: positive: Other (Huge abdominal pannus, generalized mild aching in all quadrants. Is not until I get to the right upper quadrant that she actively withdraws for me and tells me that it really hurts there. Hypoactive bowel sounds. No rebound or guarding. Bowel movement yesterday and today reported.) Skin: positive: Other (Paulette intertrigo of her intertriginous folds of her groin) Extremities: positive: Full ROM, Pedal edema Neurologic/Psychiatric: positive: CN's nml (2-12), Motor nml, Disoriented to place, Disoriented to time, Other (Fearful and tearful) Conclusion/Plan - Problem List (1) Nausea and vomiting Conclusion/Plan: She is not really able to give us a very good history and we are having to put together the possible diagnosis through lab findings and physical exam. Right now there are 2 diagnoses in the running which is that of pyelonephritis and/or common bile duct obstruction with elevation of liver function studies and lipase. CT scan confirms the possible pyelonephritis but urinalysis is rela tively unremarkable for this. While her laboratory studies show elevated bili and elevated liver enzymes with elevated lipase, CT scan does not show stones, thickened gallbladder or dilated common bile ducts. But she is tender and physical exam in the right upper quadrant and has significant nausea that she is miserable from. The overall arching goal of treatment for her is that of treatment that is mainly medical without a lot of procedures. I have read her palliative care notes. I have spoken to her daughter this morning and she will be here this afternoon. Plan: Inpatient admission Continue to treat and evaluate to see what the final determining cause of abdominal pain with nausea and vomiting is. Qualifiers: Vomiting type: bilious vomiting Qualified Code(s): R11.14 - Bilious vomiting (2) Right upper quadrant abdominal pain Conclusion/Plan: On neck physical exam. Lab findings show elevated white cell count, possible obstructive pattern. Get radiology does not confirm. [facility] We do not have MRCP nor do we have ERCP. But that may be moot and that the patient's daughter and POA is distressing medical management only. I would have to transfer the patient to get the above studies to determine if her right upper quadrant pain is truly surgical in nature. Plan: Single agent Zosyn and discussed with daughter this afternoon. (3) Pyelonephritis Conclusion/Plan: Seen on imaging studies. However urinalysis is relatively unimpressive. Nevertheless has been submitted for culture. Blood cultures have been done. Plan: Single agent Zosyn has been being used for her possible gallbladder disease. This should cover her urinary tract infection as well. (4) Electrolyte abnormality Conclusion/Plan: Severe with hypokalemia, hypocalcemia, hypomagnesemia, and hypophosphatemia. We will start ICU replacement protocol for all of these and recheck in the next few hours. (5) Difficult intravenous access Conclusion/Plan: Nursing and ICU is having a difficult time and amenable vein, and her IVs keep blowing. I have asked anesthesia for central line consult (6) Type 2 diabetes mellitus, controlled Conclusion/Plan: Last glycosylated hemoglobin February 08 was 6%. Prior to that she has been uncontrolled from [id number] varying between 7.2% and 9%. Medications at home are Lantus 36 units at night, 40 units in the morning, and that seems to have done the trick with the addition of Metformin as well on her old med list. Plan: We will have pharmacy verify her medication list especially with use of Metformin. If she is on it, I will hold off on it for now. I will resume her Lantus and sliding scale insulin with meals. Qualifiers: Diabetes mellitus nursing home insulin use: with nursing home use Diabetes mellitus complication status: without complication Qualified Code(s): E11.9 - Type 2 diabetes mellitus without complications; Z79.4 - extermination inspector (current) use of insulin (7) HTN (hypertension) Conclusion/Plan: Medications at her nursing facility are lisinopril with hydrochlorothiazide, Norvasc. Blood pressure is 143-158 systolic. I will resume those medications. Qualifiers: Hypertension type: essential hypertension Qualified Code(s): I10 - Essential (primary) hypertension (8) Depression with anxiety Conclusion/Plan: Medications adjusted in October of this year due to weight gain, increasing emotional lability. She is on Cymbalta 40 mg daily, hydroxyzine 25 mg every 8 hours, and Seroquel 25 mg p.o. 3 times daily. Plan: Those will be resumed (9) Candidal intertrigo Conclusion/Plan: Nystatin cream (10) Iron deficiency anemia Conclusion/Plan: At this time there is no significant history of a GI bleed. Stool is brown. But anemia is new. Iron deficiency is quite severe. Plan: Monitor for signs and symptoms of GI bleed Transfused 2 units of blood to get her above 7 g and closer to 8 g Qualifiers: Iron deficiency anemia type: unspecified iron deficiency Qualified Code(s): D50.9 - Iron deficiency anemia, unspecified - Lab Results Lab results reviewed: Yes Fish Bones: 02/10/21 03:40 02/10/21 14:45 - Diagnostic Imaging Results Diagnostic Imaging Results: positive: Final report reviewed Diagnostic Imaging Results Comments: Final report Abdomen pelvis CT: Questionable wall thickening of the gallbladder. Consider ultrasound for further evaluation. Lungs have findings consistent with known interstitial lung disease. In addition there is groundglass opacities which may represent sequela of pulmonary edema, atypical infection, or sequela of interstitial lung disease. Fat and fluid containing periumbilical hernia similar to prior exam. Inflammation surrounding the proximal duodenum with mild wall thickening representing possible duodenitis. There is also inflammation adjacent to the pancreatic head which may represent early pancreatitis. Mild distention of the renal pelvises and ureters. Similar soft tissue attenuation adjacent to the distal ureters, right greater than left likely representing sequela of remote hysterectomy. Mild inflammation adjacent to the proximal ureters as well as mild increased enhancement of the ureters. This is the final report. Preliminary report emphasized more hydronephrosis. Chest x-ray with diffuse interstitial prominence unchanged from December 21, 2018 which may represent sequela of pulmonary fibrosis. Mild enlargement of the cardiac silhouette representing possible sequela of CHF and interstitial edema versus atypical infection. - EKG Results EKG Interpreted Independently: No Core Measures - Anticipated LOS I expect patient to be DC'd or transferred within 96 hours.: Yes - DVT/VTE - Prophylaxis VTE/DVT Device ordered at admit?: Yes
[2021-02-10] MEDS: SODIUM CHLORIDE FLUSH 0.9% 10 ML SYRINGE IVP SCH ×2 (08:28→16:34)
[2021-02-10] MEDS: PANTOPRAZOLE 40 MG VIAL IVP SCH ×2 (08:28→20:31)
[2021-02-10] MEDS ORDERED: PIPERACILLIN/TAZOBACTAM 3.375 GM in SODIUM CHLORIDE 0.9% MINIBAG 100 ML IV ONE (09:00)
--- NOTE | 2021-02-10 09:23 | PHARMACY PROGRESS NOTE ---
- Best Possible Medication History Admit Date and Time: 02/10/21 0621 Processed by: Pharmacy Medication History completed: Yes Secondary Source(s): Facility MAR as ONLY source As the person ultimately responsible for medication therapy, providers are able to order a medication from an existing home medication list in [facility] via the "Reconcile Routine" prior to Confirmation of that medication by technical sales support manager. Such practice is discouraged except when the physician, in their clinical judgment, deems that a medical need exists for a medication without regard to previous use.
--- NOTE | 2021-02-10 09:31 | Ultrasound Report ---
PROCEDURE: Abdomen Limited INDICATIONS: ABN LFT'S. PANCREATITIS TECHNIQUE: Real-time focused scanning was performed of the abdomen, with image documentation. COMPARISON: CT abdomen and pelvis of the same day. FINDINGS: Exam is limited given patient's body habitus and diffuse bowel gas. The gallbladder is limited in evaluation. Wall thickness was measured by the technologist at approxim ately 3.7 mm. No definite gallstones or pericholecystic fluid. Positive sonographic Adams's sign rep orted by the technologist. Limited portions of the liver demonstrate diffuse increase in echogenicity. The pancreas, common bile duct, IVC, and aorta are not well evaluated. No discrete fluid within limits of this exam. IMPRESSION: Limited exam. Questionable wall thickening of the gallbladder without definite stones or pericholecystic fluid. Pos itive Adams's sign reported by the technologist. This is equivocal for acute cholecystitis. Diffuse increase in hepatic echotexture most commonly seen in the setting of hepatic steatosis. Reviewed by: Vern Gamble DO on 02/10/2021 8:30 AM DRE Approved by: Vern Gamble DO on 02/10/2021 8:30 AM DRE Station ID: [id number]
[2021-02-10] MEDS: MORPHINE 2 MG/ML CARPUJECT IVP PRN ×4 (09:33→22:40)
--- NOTE | 2021-02-10 10:36 | XRAY Report ---
PROCEDURE: Chest for Line Placement INDICATIONS: CVC placement TECHNIQUE: One view of the chest was acquired. COMPARISON: Chest radiographs dated 02/11/2020 oh FINDINGS: Surgical changes and devices: Right-sided internal jugular central venous catheter placement with the tip over the expected location of the inferior aspect of the superior vena cava. Lungs and pleura: Diffuse interstitial prominence and obscuration of the pulmonary vasculature. Sagit zuly perihilar opacities. No significant pleural effusion. Mediastinum: Mediastinal contours appear normal. Heart size is likely mildly enlarged. Vascular calc ifications within the aortic arch. Bones and chest wall: No suspicious bony lesions. Posttraumatic changes of the left shoulder. Ernest ing soft tissues appear unremarkable. IMPRESSION: Interval placement of right internal jugular central venous catheter with the tip over the expected l ocation of the inferior aspect of the superior vena cava. Unchanged findings suggestive of CHF with cardiomegaly, pulmonary vascular congestion and pulmonary e lina. Reviewed by: Vern Gamble DO on 02/10/2021 9:34 AM DRE Approved by: Vern Gamble DO on 02/10/2021 9:34 AM DRE Station ID: [id number]
--- NOTE | 2021-02-10 10:40 | XRAY Report ---
PROCEDURE: Chest 1 View X-Ray INDICATIONS: low o2 sats TECHNIQUE: One view of the chest was acquired. COMPARISON: 12/21/2018 FINDINGS: Surgical changes and devices: None. Lungs and pleura: There is diffuse interstitial prominence. Perihilar opacities. No significant pleur al effusion or pneumothorax. Mediastinum: Mediastinal contours appear normal. Heart size is mildly enlarged. Bones and chest wall: No suspicious bony lesions. Post traumatic changes of the left shoulder. Over lying soft tissues appear unremarkable. IMPRESSION: Diffuse interstitial prominence is again noted which may represent sequela of pulmonary fibrosis. In addition, given mild enlargement of the cardiac silhouette this may represent sequela of CHF and inte rstitial edema. Atypical infection is also within the differential. Agree with the preliminary report. Reviewed by: Vern Gamble DO on 02/10/2021 9:38 AM DRE Approved by: Vern Gamble DO on 02/10/2021 9:38 AM DRE Station ID: [id number]
--- NOTE | 2021-02-10 11:21 | ANESTHESIA PROCEDURE NOTE ---
Anesth Central Line Template - Central Line Central Line Preparation: Consent Obtained, Time out completed, Ultrasound used, Sterile prep and drape Central line location: Right IJ Central line type: Triple lumen Central line catheter tip site resides: Superior vena cava (SVC) Central line aftercare: Chlorhexidine disc placed, Secured, Placement confirmed, No complications, Pt tolerated well Other Info/Details: Consulted for central line placement. Full sterile gown/drape/gloves and mask utilized. Right IJ imaged under ultrasound. Accessed with needle and wire advanced with ease. A triple lumen central line was inserted over the wire and wire was removed. Line was sutured in place and CXR shows tip in the distal SVC. Patient tolerated well. All ports aspirate and flush with ease. Dressing and biopatch applied.
[2021-02-10] MEDS ORDERED: PIPERACILLIN/TAZOBACTAM 3.375 GM in SODIUM CHLORIDE 0.9% MINIBAG 100 ML IV STA (11:35)
--- NOTE | 2021-02-10 12:01 | CT Report ---
PROCEDURE: Abdomen/Pelvis W INDICATIONS: Abdominal pain, acute, nonlocalized CONTRAST: IV CONTRAST: Isovue 300 ml: 100 PO CONTRAST: *NO PO CONTRAST TECHNIQUE: After the administration of nonionic contrast, 5 mm thick sections acquired from the diaphragms to th e symphysis. 5 mm thick coronal and sagittal reformats were acquired. For radiation dose reduction, the following was used: automated exposure control, adjustment of mA and/or kV according to patient size. COMPARISON: CT abdomen and pelvis dated 02/07/2019 FINDINGS: Image quality: Limited given artifact from patient's lower extremities as well as patient body habitu s.. ABDOMEN: Lung bases: There is diffuse interstitial prominence. Slight groundglass opacity at the lung bases. H eart size is upper limits of normal. Advanced coronary vascular calcifications. Solid organs: There is decreased density of the liver suggestive of hepatic steatosis. The spleen is unremarkable. Gallbladder demonstrates questionable wall thickening. Biliary system is non dilated. Pancreas enhances normally. There is subtle inflammation noted adjacent to the head of the pancreas . No adrenal nodules. Kidneys are mildly atrophic. Mild distention of the renal pelvis and ureters. S imilar soft tissue attenuation adjacent to the distal ureters, right greater than left likely represe nting sequela of remote hysterectomy. There is mild inflammation adjacent to the proximal ureters as well as mild increased enhancement of the ureters. Peritoneum and bowel: Stomach is unremarkable. There is mild inflammation adjacent to the proximal du odenum with questionable wall thickening. The rest of the small bowel is unremarkable. No evidence of appendicitis. No ascites or pneumoperitoneum. The distal sigmoid and rectum is distended with stool. Stool is noted along the outside of patient. Nodes and vessels: No retroperitoneal or mesenteric adenopathy by size criteria. Aorta and inferior vena cava are normal in size. There is diffuse atherosclerotic calcifications noted throughout the abdominal and pelvic vasculature. Miscellaneous: Small to moderate periumbilical hernia which contains a small amount of fluid and fat. This similar to prior exam. PELVIS: Genitourinary: The bladder is decompressed by intraluminal Interiano. The balloon is not clearly within t he urinary bladder lumen, similar to prior exam. Questionable wall thickening. Status post hysterecto my. Miscellaneous: No inguinal hernias or adenopathy. Bones: Status post right hip fixation. Diffuse degenerative changes of the spine. No acute osseous ab normality or aggressive appearing osseous lesion. IMPRESSION: There is inflammation surrounding the proximal duodenum with mild wall thickening. This may represent duodenitis. Given information adjacent to the pancreatic head. This may also represent early pancrea titis. Recommend clinical correlation. The bladder is decompressed limiting evaluation. There is however questionable thickening of the urin trudy bladder with mild adjacent inflammation. Recommend correlation for cystitis. In addition there is mild hydroureteronephrosis with enhancement of the ureters which may represent ascending infection. Hepatic steatosis. Questionable wall thickening of the gallbladder. Consider ultrasound for further evaluation. Findings consistent with known interstitial lung disease. In addition there is groundglass opacities which may represent sequela of pulmonary edema, atypical infection or sequela of interstitial lung di sease. Fat and fluid-containing periumbilical hernia, similar to prior exam. Reviewed by: Vern Gamble DO on 02/10/2021 11:00 AM DRE Approved by: Vern Gamble DO on 02/10/2021 11:00 AM DRE Station ID: [id number]
[2021-02-10] MEDS ORDERED: PIPERACILLIN/TAZOBACTAM 3.375 GM in SODIUM CHLORIDE 0.9% MINIBAG 100 ML IV SCH (13:00)
[2021-02-10 15:06] LABS: CALCIUM 9.2 mg/dL (8.5-10.3); CREATININE 1.1 mg/dL (0.4-1.0); POTASSIUM 5.1 mmol/L (3.5-5.0)
[2021-02-10] MEDS: NYSTATIN POWDER 15 GM TOP SCH ×2 (16:10→20:32)
[2021-02-10] MEDS: INSULIN ASPART 300 UNIT/3 ML PEN SUBQ SCH ×4 (16:14→20:31)
[2021-02-10] MEDS: PIPERACILLIN/TAZOBACTAM 3.375 GM in SODIUM CHLORIDE 0.9% MINIBAG 100 ML IV SCH ×2 (16:33→23:39)
[2021-02-10 16:42] LABS: HCT - HEMATOCRIT 35.6 % (37.0-47.0); HGB - HEMOGLOBIN 12.1 g/dL (12.0-16.0); MEAN CORPUSCULAR HEMOGLOBIN 28.5 pg (27.0-31.0); MEAN PLATELET VOLUME 8.8 fL (7.9-10.8); RED BLOOD COUNT 4.24 10^6/uL (4.20-5.40); RED CELL DISTRIBUTION WIDTH 13.9 % (12.0-15.0); WHITE BLOOD COUNT 12.2 x10^3/uL (4.8-10.8)
[2021-02-10 17:32] LABS: ALBUMIN 3.5 g/dL (3.2-5.5); BILIRUBIN,DIRECT 1.3 mg/dL (0.1-0.5); BILIRUBIN,TOTAL 2.1 mg/dL (0.2-1.0); TOTAL PROTEIN 6.8 g/dL (6.7-8.2)
[2021-02-10] MEDS: INSULIN GLARGINE 300 UNIT/3 ML PEN SUBQ SCH (20:34)
[2021-02-10] MEDS ORDERED: ACETAMINOPHEN 1,000 MG/100 ML 100 ML IV PRN (23:07)
[2021-02-10] MEDS: HYDROmorphone 2 MG/ML VIAL IVP PRN (23:28)
[2021-02-11] MEDS: SODIUM CHLORIDE FLUSH 0.9% 10 ML SYRINGE IVP SCH ×3 (00:42→17:01)
[2021-02-11 05:36] LABS: BASOPHILS % (AUTO) 0.3 %; EOSINOPHILS # (AUTO) 0.1 10^3/uL (0.0-0.7); EOSINOPHILS % (AUTO) 0.7 %; HCT - HEMATOCRIT 33.9 % (37.0-47.0); HGB - HEMOGLOBIN 10.9 g/dL (12.0-16.0); LYMPHOCYTES # (AUTO) 1.1 10^3/uL (1.5-3.5); LYMPHOCYTES % (AUTO) 12.1 %; MEAN CORPUSCULAR HEMOGLOBIN 27.7 pg (27.0-31.0); MEAN CORPUSCULAR HGB CONC 32.2 g/dL (32.0-36.0); MONOCYTES # (AUTO) 0.5 10^3/uL (0.0-1.0); MONOCYTES % (AUTO) 5.7 %; NEUTROPHILS # (AUTO) 7.4 10^3/uL (1.5-6.6); NEUTROPHILS % (AUTO) 80.8 %; PLT - PLATELET COUNT 223 10^3/uL (130-450); RED BLOOD COUNT 3.94 10^6/uL (4.20-5.40); WHITE BLOOD COUNT 9.2 x10^3/uL (4.8-10.8)
[2021-02-11 05:52] LABS: CALCIUM 8.9 mg/dL (8.5-10.3); CREATININE 1.1 mg/dL (0.4-1.0); MAGNESIUM 1.9 mg/dL (1.7-2.8); PHOSPHORUS 2.9 mg/dL (2.5-4.6); POTASSIUM 3.6 mmol/L (3.5-5.0)
[2021-02-11] MEDS: ENOXAPARIN 40 MG/0.4 ML SYRINGE SUBQ SCH (07:47)
[2021-02-11] MEDS: INSULIN GLARGINE 300 UNIT/3 ML PEN SUBQ SCH ×2 (08:05→21:00)
[2021-02-11] MEDS: INSULIN ASPART 300 UNIT/3 ML PEN SUBQ SCH ×6 (08:05→21:01)
[2021-02-11] MEDS: PANTOPRAZOLE 40 MG VIAL IVP SCH (08:06)
[2021-02-11] MEDS: PIPERACILLIN/TAZOBACTAM 3.375 GM in SODIUM CHLORIDE 0.9% MINIBAG 100 ML IV SCH ×2 (08:06→15:30)
[2021-02-11] MEDS: MAGNESIUM OXIDE 400 MG TABLET PO SCH (08:06)
[2021-02-11] MEDS ORDERED: cefTRIAXone 1 GM in SODIUM CHLORIDE 0.9% MINIBAG 100 ML IV SCH (09:00)
[2021-02-11] MEDS: ACETAMINOPHEN 500 MG TABLET PO PRN (11:27)
[2021-02-11] MEDS: NYSTATIN POWDER 15 GM TOP SCH ×2 (11:27→20:59)
[2021-02-11] MEDS: HYDROmorphone 2 MG/ML VIAL IVP PRN ×2 (13:08→18:26)
--- NOTE | 2021-02-11 13:41 | PROVIDER PROGRESS NOTE ---
Subjective - Prog Note Date Prog Note Date: 02/11/21 Prog Note Time: 13:53 - Subjective Pt reports feeling: Improved Subjective: Daughter Elyse is at the bedside. Mom is back to baseline. She is a densely demented cheerful woman who is laughing and joking 1 second and crying and despondent the next. This morning she is cheerful, nonstop chattering. However none of her conversation makes any sense whatsoever. When I asked her directly about pain or discomfort she laughs and says that "everything is fine dear". But she does not really respond in a meaningful way for me to be reassured. Nevertheless she appears comfortable, nonstop talking, in no acute distress Current Medications - Current Medications Current Medications: Active Medications Acetaminophen (Acetaminophen 500 Mg Tablet) 500 mg PO Q4HR PRN PRN Reason: Pain or Fever > 38C (100.4F) Last Admin: 02/11/21 11:27 Dose: 500 mg Documented by: Enoxaparin Sodium (Enoxaparin 40 Mg/0.4 Ml Syringe) 40 mg SUBQ DAILY [facility] Last Admin: 02/11/21 07:47 Dose: 40 mg Documented by: Hydromorphone HCl (Hydromorphone 2 Mg/Ml Vial) 3 mg IVP Q2H PRN PRN Reason: PAIN Last Admin: 02/11/21 13:08 Dose: 3 mg Documented by: Piperacillin Sod/Tazobactam (Sod 3.375 gm/ Sodium Chloride) 100 mls @ 25 mls/hr IV Q8H [facility] Last Infusion: 02/11/21 12:15 Dose: Infused Documented by: Insulin Aspart (Insulin Aspart 300 Unit/3 Ml Pen) 2 - 10 unit SUBQ 0800,1200,1700,2100 [facility]; Protocol Last Admin: 02/11/21 11:51 Dose: 6 unit Documented by: Insulin Glargine (Insulin Glargine 300 Unit/3 Ml Pen) 35 unit SUBQ QDBREAKFAST [facility] Last Admin: 02/11/21 08:05 Dose: 35 unit Documented by: Insulin Glargine (Insulin Glargine 300 Unit/3 Ml Pen) 35 unit SUBQ QPM [facility] Last Admin: 02/10/21 20:34 Dose: 35 unit Documented by: Magnesium Oxide (Magnesium Oxide 400 Mg Tablet) 400 mg PO DAILYWM [facility] Last Admin: 02/11/21 08:06 Dose: 400 mg Documented by: Nystatin (Nystatin Powder 15 Gm) 1 applic TOP BID [facility] Last Admin: 02/11/21 11:27 Dose: 1 applic Documented by: Ondansetron HCl (Ondansetron 4 Mg/2 Ml Vial) 4 mg IVP Q6HR PRN PRN Reason: Nausea / Vomiting Pantoprazole Sodium (Pantoprazole 40 Mg Tablet) 40 mg PO QDAC [facility] Sodium Chloride (Sodium Chloride Flush 0.9% 10 Ml Syringe) 10 ml IVP PRN PRN PRN Reason: NEEDED PER PROVIDER ORDERS Sodium Chloride (Sodium Chloride Flush 0.9% 10 Ml Syringe) 10 ml IVP 0100,0900,1700 [facility] Last Admin: 02/11/21 08:07 Dose: 30 ml Documented by: Multivitamin [Multiple Vitamins] 1 tab PO DAILY 06/01/18 Acetaminophen 500 mg PO TID 02/07/19 Omeprazole 20 mg PO DAILY 02/07/19 amLODIPine [Norvasc] 5 mg PO BID 02/07/19 QUEtiapine [SEROquel] 25 mg PO TID 03/02/19 Alendronate Sodium 70 mg PO SA 12/22/19 Ascorbic Acid [Vitamin C] 500 mg PO DAILY 12/22/19 Calcium Carbonate [Calcium] 500 mg PO DAILY 12/22/19 DULoxetine [Cymbalta] 40 mg PO DAILY 12/22/19 Lisinopril/Hydrochlorothiazide [Lisinopril-Hctz 20-12.5 mg Tab] 1 tab PO BID 12/22/19 Nystatin 1 applic TP BID MDD to groin 12/22/19 Cholecalciferol (Vitamin D3) [Vitamin D3] 50 mcg DAILY 01/10/20 hydrOXYzine HCL [Hydroxyzine HCl] 25 mg PO Q8H PRN 01/17/20 oxyCODONE [Roxicodone] 5 mg PO Q6H PRN 01/17/20 oxyCODONE [Roxicodone] 5 mg PO TID 01/25/20 Insulin Glargine [Lantus Solostar] 36 units SQ QPM 11/03/20 Magnesium Hydroxide [Milk of Magnesia] 30 ml PO DAILY PRN MDD if no BM in 3 days 12/14/20 Senna [Senokot] 8.6 mg PO QPM 12/14/20 Insulin Glargine [Lantus Solostar] 40 units SUBQ DAILY 02/10/21 Objective - Vital Signs/Intake & Output Reviewed Vital Signs: Yes Vital Signs: Vital Signs x48h Temp Pulse Resp BP Pulse Ox 02/11/21 12:00 36.7 C 94 22 105/96 H 95 02/11/21 11:00 85 22 155/80 H 97 02/11/21 10:00 87 22 165/82 H 96 02/11/21 09:00 92 21 157/72 H 95 02/11/21 08:00 36.8 C 93 20 163/80 H 98 02/11/21 07:00 99 18 160/76 H 97 02/11/21 06:00 91 14 168/88 H 92 Intake & Output: Intake & Output 02/08/21 02/09/21 02/10/21 02/11/21 23:59 23:59 23:59 23:59 Intake Total 4547.5 1095 Output Total 3620 815 Balance 927.5 280 - Objective General Appearance: positive: No acute distress, Alert, Other (Although she is much more alert than yesterday, much more verbal than yesterday, nothing she says makes sense) Eyes Bilateral: positive: PERRL ENT: positive: No signs of dehydration Neck: positive: No JVD Respiratory: positive: No respiratory distress. negative: Wheezes, Rales, Rhonchi Cardiovascular: positive: Regular rate & rhythm, Systolic murmur. negative: Ga llop/S4, Friction rub Abdomen: positive: Nml bowel sounds, No distention, Tenderness (Epigastrium and right upper quadrant. But no rebound or guarding. It appears mild.). n egative: Guarding, Rebound Skin: positive: Other (Paulette intertrigo being treated with nystatin. Mainly in the groin and underneath her belly pannus.) Extremities: positive: Non-tender Neurologic/Psychiatric: positive: Motor nml (At baseline for her. She is able to stand but requires 2 person max assist. Usually she needs standby assist to stand and transfer to a wheelchair.), Disoriented to person, Disoriented to nidia ce, Disoriented to time, Slurred/abnml speech (Nonstop sentence structure. Daughter is able to figure out some of the topics that go all the way back to when she was and her was alive. But none of it is making sense to me. While her verbalization is normal, words are normal, the way she strings them together make no sense.) - Lab Results Fish Bones: 02/11/21 05:21 02/11/21 05:21 Other Labs: Lab Results x24hrs 02/11/21 02/11/21 02/10/21 Range/Units 05:21 05:21 16:25 WBC 9.2 12.2 H (4.8-10.8) x10^3/uL RBC 3.94 L 4.24 (4.20-5.40) 10^6/uL Hgb 10.9 L 12.1 (12.0-16.0) g/dL Hct 33.9 L 35.6 L (37.0-47.0) % MCV 86.0 84.0 (81.0-99.0) fL MCH 27.7 28.5 (27.0-31.0) pg MCHC 32.2 34.0 (32.0-36.0) g/dL RDW 14.0 13.9 (12.0-15.0) % Plt Count 223 264 (130-450) 10^3/uL MPV 9.0 8.8 (7.9-10.8) fL Neut # (Auto) 7.4 H (1.5-6.6) 10^3/uL Lymph # (Auto) 1.1 L (1.5-3.5) 10^3/uL [place] # (Auto) 0.5 (0.0-1.0) 10^3/uL Eos # (Auto) 0.1 (0.0-0.7) 10^3/uL Baso # (Auto) 0.0 (0.0-0.1) 10^3/uL Absolute Nucleated RBC 0.00 x10^3/uL Nucleated RBC % 0.0 /100WBC Sodium 134 L (135-145) mmol/L Potassium 3.6 (3.5-5.0) mmol/L Chloride 95 L (101-111) mmol/L Carbon Dioxide 30 (21-32) mmol/L Anion Gap 9.0 (6-13) BUN 16 (6-20) mg/dL Creatinine 1.1 H (0.4-1.0) mg/dL Estimated GFR (MDRD) 49 L (>89) Glucose 260 H (70-100) mg/dL Calcium 8.9 (8.5-10.3) mg/dL Phosphorus 2.9 (2.5-4.6) mg/dL Magnesium 1.9 (1.7-2.8) mg/dL Total Bilirubin (0.2-1.0) mg/dL Direct Bilirubin (0.1-0.5) mg/dL AST (10-42) IU/L ALT (10-60) IU/L Alkaline Phosphatase (42-121) IU/L Total Protein (6.7-8.2) g/dL Albumin (3.2-5.5) g/dL Globulin (2.1-4.2) g/dL Amylase 132 H (28-100) U/L Lipase 172 H (22-51) U/L Blood Type Antibody Screen Crossmatch IS Only 02/10/21 02/10/21 02/10/21 Range/Units 14:45 14:45 14:45 WBC (4.8-10.8) x10^3/uL RBC (4.20-5.40) 10^6/uL Hgb (12.0-16.0) g/dL Hct (37.0-47.0) % MCV (81.0-99.0) fL MCH (27.0-31.0) pg MCHC (32.0-36.0) g/dL RDW (12.0-15.0) % Plt Count (130-450) 10^3/uL MPV (7.9-10.8) fL Neut # (Auto) (1.5-6.6) 10^3/uL Lymph # (Auto) (1.5-3.5) 10^3/uL [place] # (Auto) (0.0-1.0) 10^3/uL Eos # (Auto) (0.0-0.7) 10^3/uL Baso # (Auto) (0.0-0.1) 10^3/uL Absolute Nucleated RBC x10^3/uL Nucleated RBC % /100WBC Sodium 133 L (135-145) mmol/L Potassium 5.1 H (3.5-5.0) mmol/L Chloride 94 L (101-111) mmol/L Carbon Dioxide 27 (21-32) mmol/L Anion Gap 12.0 (6-13) BUN 17 (6-20) mg/dL Creatinine 1.1 H (0.4-1.0) mg/dL Estimated GFR (MDRD) 49 L (>89) Glucose 476 H (70-100) mg/dL Calcium 9.2 (8.5-10.3) mg/dL Phosphorus (2.5-4.6) mg/dL Magnesium 1.9 (1.7-2.8) mg/dL Total Bilirubin 2.1 H (0.2-1.0) mg/dL Direct Bilirubin 1.3 H (0.1-0.5) mg/dL AST 571 H (10-42) IU/L ALT 285 H (10-60) IU/L Alkaline Phosphatase 97 (42-121) IU/L Total Protein 6.8 (6.7-8.2) g/dL Albumin 3.5 (3.2-5.5) g/dL Globulin 3.3 (2.1-4.2) g/dL Amylase (28-100) U/L Lipase (22-51) U/L Blood Type Antibody Screen Crossmatch IS Only 02/10/21 Range/Units 04:15 WBC (4.8-10.8) x10^3/uL RBC (4.20-5.40) 10^6/uL Hgb (12.0-16.0) g/dL Hct (37.0-47.0) % MCV (81.0-99.0) fL MCH (27.0-31.0) pg MCHC (32.0-36.0) g/dL RDW (12.0-15.0) % Plt Count (130-450) 10^3/uL MPV (7.9-10.8) fL Neut # (Auto) (1.5-6.6) 10^3/uL Lymph # (Auto) (1.5-3.5) 10^3/uL [place] # (Auto) (0.0-1.0) 10^3/uL Eos # (Auto) (0.0-0.7) 10^3/uL Baso # (Auto) (0.0-0.1) 10^3/uL Absolute Nucleated RBC x10^3/uL Nucleated RBC % /100WBC Sodium (135-145) mmol/L Potassium (3.5-5.0) mmol/L Chloride (101-111) mmol/L Carbon Dioxide (21-32) mmol/L Anion Gap (6-13) BUN (6-20) mg/dL Creatinine (0.4-1.0) mg/dL Estimated GFR (MDRD) (>89) Glucose (70-100) mg/dL Calcium (8.5-10.3) mg/dL Phosphorus (2.5-4.6) mg/dL Magnesium (1.7-2.8) mg/dL Total Bilirubin (0.2-1.0) mg/dL Direct Bilirubin (0.1-0.5) mg/dL AST (10-42) IU/L ALT (10-60) IU/L Alkaline Phosphatase (42-121) IU/L Total Protein (6.7-8.2) g/dL Albumin (3.2-5.5) g/dL Globulin (2.1-4.2) g/dL Amylase (28-100) U/L Lipase (22-51) U/L Blood Type A POSITIVE Antibody Screen NEGATIVE Crossmatch IS Only See Detail ABX Reporting Has patient been on IV antibiotics over the past 48 hours?: Yes Assessment/Plan - Problem List (1) Pancreatitis Impression: She is not really able to give us a very good history and we are having to put together the possible diagnosis through lab findings and physical exam. There were 2 diagnoses in the running which were that of pyelonephritis and/or common bile duct obstruction with elevation of liver function studies and lipase. Prelinary CT scan was interpreted as possible pyelonephritis due to the ureteral dilation but urinalysis is relatively unremarkable for this. While her laboratory studies show elevated bili and elevated liver enzymes with elevated lipase, CT scan did not show stones, thickened gallbladder or dilated common bile ducts. But she is tender on physical exam in the right upper quadrant and has significant nausea that she is miserable from. The final CT report was subtly different than the preliminary. She has chronic dilated ureters so in retrospect the dilation was not from hydronephrosis that was new. Common bile duct is not dilated. Gallbladder did demonstrate questionable wall thickening. Pancreas enhance normally. Subtle inflammation noted adjacent to the head of the pancreas. Hepatic steatosis. Mild proximal inflammation adjacent to the duodenum with questionable wall thickening. Small to moderate periumbilical hernias. Bilirubin was 1.1 on admission and later that afternoon was 2.1. AST and ALT are also more elevated. This morning amylase is 132, lipase 172. I did speak to her POA/daughter today. I mentioned that the next step would be an MRCP to delineate if this person needs her gallbladder taken out. Daughter would like to see how things go with just current medical management. She would like to avoid procedures such an MRCP because mom will probably not lie still on the table due to her dementia. And she does not know she would do well with surgery. I opted to do single agent Zosyn on this woman. In case she did have a urinary tract infection, single agent Zosyn would cover that as well as cholecystitis causing pancreatitis. Plan: IV fluids, pain management, antibiotics. No MRCP at this time. If she does not respond and has continued pain, daughter will reconsider. (2) Pyelonephritis ruled out. We initially thought she had pyelonephritis on the basis of the radiology readings. In retrospect, and comparing previous CT scans, this woman has had chronic mild hydronephrosis for decades. Because of that she has a chronic indwelling Interiano catheter. While she may have colonization, her urinalysis on admission really was not remarkable for significant infection. As such were going to take that diagnosis off of her current treatment plan. (3) Electrolyte abnormality resolved Conclusion/Plan: Admission her electrolyte abnormalities with low potassium, low magnesium, calcium, phosphorus were severe. We began resuscitating her but were having difficult IV access. As such she did not get as much of these replacements as I would have liked her to get before she had repeat labs done. The repeat labs showed her to have a completely normal potassium, calcium, magnesium. In retrospect we wonder if the initial labs were incorrect. Creatinine had gone from 0.4-1.1. That is more in keeping with her usual good urinary function. (4) Difficult intravenous access Conclusion/Plan: Right neck central line placed yesterday. Patient really does not like it there but it has provided good access for nursing to give her all of her fluids. (5) Type 2 diabetes mellitus, controlled Conclusion/Plan: Last glycosylated hemoglobin February 08 was 6%. Prior to that she has been uncontrolled from [id number] varying between 7.2% and 9%. Medications at home are Lantus 36 units at night, 40 units in the morning, and that seems to have done the trick with the addition of Metformin as well on her old med list. I resumed her Lantus and sliding scale insulin with meals.Yesterday evening her glucose was as high as 434 and I gave her 30 units of short acting insulin. This morning she is 244, and 271 for lunch. Plan: Add 3 units with each meal Qualifiers: Diabetes mellitus mcc insulin use: with mcc use Diabetes mellitus complication status: without complication Qualified Code(s): E11.9 - Type 2 diabetes mellitus without complications; Z79.4 - shelter (current) use of insulin (6) HTN (hypertension) Conclusion/Plan: Medications at her nursing facility are lisinopril with hydrochlorothiazide, Norvasc. Blood pressure is 143-158 systolic. I will resume those medications. Qualifiers: Hypertension type: essential hypertension Qualified Code(s): I10 - Essential (primary) hypertension (7) Depression with anxiety Conclusion/Plan: Medications adjusted in October of this year due to weight gain, increasing emotional lability. She is on Cymbalta 40 mg daily, hydroxyzine 25 mg every 8 hours, and Seroquel 25 mg p.o. 3 times daily. Plan: Those will be resumed (8) Candidal intertrigo Conclusion/Plan: Nystatin cream (9) Iron deficiency anemia Conclusion/Plan: On admission there was no significant history of a GI bleed. Stool was brown. But anemia is new. Iron deficiency is quite severe.On the basis of a hemoglobin of 6.8, she was transfused 1 unit. 1 unit caused her hemoglobin to rise to 12.1. As such we held off transfusing a second unit. Hemoglobin this morning is 10.9. Plan: Monitor for signs and symptoms of GI bleed Qualifiers: Iron deficiency anemia type: unspecified iron deficiency Qualified Code(s): D50.9 - Iron deficiency anemia, unspecified (10) dementia with behavioral disturbance Yesterday she was sedated enough with her infection that the severity of her dementia was not really apparent. Today it definitely is. Completely disoriented. Because of this, daughter has assumed full decisional authority over mom. At this time no MRCP for the pancreatitis. Will await to see if she gets better with just medical management. If she does not get better, then daughter may consider MRCP but it will be very difficult to sedate this patient to stay still on the table.
[2021-02-11] MEDS ORDERED: hydrOXYzine PAMOATE 25 MG CAPSULE PO PRN (14:09)
[2021-02-11] MEDS: QUEtiapine 25 MG TABLET PO SCH ×2 (15:30→20:59)
[2021-02-11] MEDS: amLODIPine 5 MG TABLET PO SCH (20:59)
[2021-02-11] MEDS: ATORVASTATIN 10 MG TABLET PO SCH (20:59)
[2021-02-12] MEDS: SODIUM CHLORIDE FLUSH 0.9% 10 ML SYRINGE IVP PRN ×4 (00:30→09:35)
[2021-02-12] MEDS: PIPERACILLIN/TAZOBACTAM 3.375 GM in SODIUM CHLORIDE 0.9% MINIBAG 100 ML IV SCH ×3 (00:31→16:17)
[2021-02-12] MEDS: SODIUM CHLORIDE FLUSH 0.9% 10 ML SYRINGE IVP SCH ×4 (01:47→23:49)
[2021-02-12] MEDS: HYDROmorphone 2 MG/ML VIAL IVP PRN ×2 (01:47→09:31)
[2021-02-12 05:23] LABS: BASOPHILS % (AUTO) 0.4 %; EOSINOPHILS # (AUTO) 0.1 10^3/uL (0.0-0.7); EOSINOPHILS % (AUTO) 1.1 %; HCT - HEMATOCRIT 34.6 % (37.0-47.0); HGB - HEMOGLOBIN 11.3 g/dL (12.0-16.0); LYMPHOCYTES # (AUTO) 1.4 10^3/uL (1.5-3.5); LYMPHOCYTES % (AUTO) 12.3 %; MEAN CORPUSCULAR HGB CONC 32.7 g/dL (32.0-36.0); MEAN CORPUSCULAR VOLUME 85.6 fL (81.0-99.0); MEAN PLATELET VOLUME 8.8 fL (7.9-10.8); MONOCYTES # (AUTO) 0.7 10^3/uL (0.0-1.0); NEUTROPHILS # (AUTO) 8.7 10^3/uL (1.5-6.6); NEUTROPHILS % (AUTO) 79.7 %; PLT - PLATELET COUNT 235 10^3/uL (130-450); RED BLOOD COUNT 4.04 10^6/uL (4.20-5.40); RED CELL DISTRIBUTION WIDTH 13.7 % (12.0-15.0)
[2021-02-12 05:45] LABS: ALBUMIN 3.3 g/dL (3.2-5.5); BILIRUBIN,DIRECT 1.1 mg/dL (0.1-0.5); BILIRUBIN,TOTAL 2.2 mg/dL (0.2-1.0); CALCIUM 8.5 mg/dL (8.5-10.3); MAGNESIUM 1.9 mg/dL (1.7-2.8); PHOSPHORUS 2.5 mg/dL (2.5-4.6); POTASSIUM 3.3 mmol/L (3.5-5.0); TOTAL PROTEIN 6.7 g/dL (6.7-8.2)
[2021-02-12] MEDS: QUEtiapine 25 MG TABLET PO SCH ×3 (06:05→21:06)
[2021-02-12] MEDS: PANTOPRAZOLE 40 MG TABLET PO SCH (06:05)
[2021-02-12] MEDS: INSULIN ASPART 300 UNIT/3 ML PEN SUBQ SCH ×7 (08:16→21:20)
[2021-02-12] MEDS: INSULIN GLARGINE 300 UNIT/3 ML PEN SUBQ SCH ×2 (08:16→21:07)
[2021-02-12] MEDS ORDERED: POTASSIUM CHLORIDE 20 MEQ TABLET PO ONE (08:20)
[2021-02-12] MEDS: DULoxetine 20 MG CAPSULE PO SCH (08:23)
[2021-02-12] MEDS: amLODIPine 5 MG TABLET PO SCH ×2 (08:23→21:06)
[2021-02-12] MEDS: MAGNESIUM OXIDE 400 MG TABLET PO SCH (08:23)
[2021-02-12] MEDS: ENOXAPARIN 40 MG/0.4 ML SYRINGE SUBQ SCH (08:23)
[2021-02-12] MEDS: NYSTATIN POWDER 15 GM TOP SCH ×2 (08:23→20:46)
[2021-02-12] MEDS: FERROUS GLUCONATE 324 MG TABLET PO SCH (08:24)
[2021-02-12] MEDS ORDERED: LORazepam 0.5 MG TABLET PO PRN (09:22)
[2021-02-12] MEDS: ONDANSETRON 4 MG/2 ML VIAL IVP PRN (09:35)
[2021-02-12] MEDS ORDERED: LORazepam 2 MG/ML VIAL IVP STA (10:14)
[2021-02-12] MEDS ORDERED: INSULIN REGULAR HUMAN 300 UNIT/3 ML VIAL SUBQ SCH (12:00)
--- NOTE | 2021-02-12 16:00 | PROVIDER PROGRESS NOTE ---
Subjective - Prog Note Date Prog Note Date: 02/12/21 - Subjective Pt reports feeling: No change Subjective: Patient is still very confused, she could not answer the questions. Patient's daughter is at the bedside, She report patient has pain. Patient could not report where the pain is. Patient did present Adams sign at assessment. Patient's daughter agree to have MRCP for patient, Also agreeing to have surgery consult. Current Medications - Current Medications Current Medications: Active Medications Acetaminophen (Acetaminophen 500 Mg Tablet) 500 mg PO Q4HR PRN PRN Reason: Pain or Fever > 38C (100.4F) Last Admin: 02/11/21 11:27 Dose: 500 mg Documented by: Amlodipine Besylate (Amlodipine 5 Mg Tablet) 5 mg PO BID [facility] Last Admin: 02/12/21 08:23 Dose: 5 mg Documented by: Atorvastatin Calcium (Atorvastatin 10 Mg Tablet) 20 mg PO QPM [facility] Last Admin: 02/11/21 20:59 Dose: 20 mg Documented by: Duloxetine HCl (Duloxetine 20 Mg Capsule) 40 mg PO DAILY [facility] Last Admin: 02/12/21 08:23 Dose: 40 mg Documented by: Enoxaparin Sodium (Enoxaparin 40 Mg/0.4 Ml Syringe) 40 mg SUBQ DAILY [facility] Last Admin: 02/12/21 08:23 Dose: 40 mg Documented by: Ferrous Gluconate (Ferrous Gluconate 324 Mg Tablet) 324 mg PO DAILYWM [facility] Last Admin: 02/12/21 08:24 Dose: 324 mg Documented by: Hydromorphone HCl (Hydromorphone 2 Mg/Ml Vial) 3 mg IVP Q2H PRN PRN Reason: PAIN Last Admin: 02/12/21 09:31 Dose: 3 mg Documented by: Hydroxyzine Pamoate (Hydroxyzine Pamoate 25 Mg Capsule) 25 mg PO Q8H PRN PRN Reason: Anxiety Piperacillin Sod/Tazobactam (Sod 3.375 gm/ Sodium Chloride) 100 mls @ 25 mls/hr IV Q8H [facility] Last Infusion: 02/12/21 12:22 Dose: Infused Documented by: Insulin Aspart (Insulin Aspart 300 Unit/3 Ml Pen) 3 unit SUBQ TIDWM [facility] Last Admin: 02/12/21 11:29 Dose: Not Given Documented by: Insulin Aspart (Insulin Aspart 300 Unit/3 Ml Pen) 3 - 11 unit SUBQ 0800,1200,1700,2100 [facility]; Protocol Insulin Glargine (Insulin Glargine 300 Unit/3 Ml Pen) 35 unit SUBQ QDBREAKFAST [facility] Last Admin: 02/12/21 08:16 Dose: 35 unit Documented by: Insulin Glargine (Insulin Glargine 300 Unit/3 Ml Pen) 35 unit SUBQ QPM [facility] Last Admin: 02/11/21 21:00 Dose: 35 unit Documented by: Lorazepam (Lorazepam 0.5 Mg Tablet) 0.5 mg PO Q6H PRN PRN Reason: Anxiety Magnesium Oxide (Magnesium Oxide 400 Mg Tablet) 400 mg PO DAILYWM [facility] Last Admin: 02/12/21 08:23 Dose: 400 mg Documented by: Nystatin (Nystatin Powder 15 Gm) 1 applic TOP BID [facility] Last Admin: 02/12/21 08:23 Dose: 1 applic Documented by: Ondansetron HCl (Ondansetron 4 Mg/2 Ml Vial) 4 mg IVP Q6HR PRN PRN Reason: Nausea / Vomiting Last Admin: 02/12/21 09:35 Dose: 4 mg Documented by: Pantoprazole Sodium (Pantoprazole 40 Mg Tablet) 40 mg PO QDAC [facility] Last Admin: 02/12/21 06:05 Dose: 40 mg Documented by: Quetiapine Fumarate (Quetiapine 25 Mg Tablet) 25 mg PO TID [facility] Last Admin: 02/12/21 13:56 Dose: 25 mg Documented by: Saccharomyces Boulardii (Saccharomyces Boulardii 250 Mg Capsule) 250 mg PO BIDWM [facility] Sodium Chloride (Sodium Chloride Flush 0.9% 10 Ml Syringe) 10 ml IVP PRN PRN PRN Reason: NEEDED PER PROVIDER ORDERS Last Admin: 02/12/21 09:35 Dose: 10 ml Documented by: Sodium Chloride (Sodium Chloride Flush 0.9% 10 Ml Syringe) 10 ml IVP 0100,0900,1700 [facility] Last Admin: 02/12/21 08:16 Dose: 10 ml Documented by: Multivitamin [Multiple Vitamins] 1 tab PO DAILY 06/01/18 Acetaminophen 500 mg PO TID 02/07/19 Omeprazole 20 mg PO DAILY 02/07/19 amLODIPine [Norvasc] 5 mg PO BID 02/07/19 QUEtiapine [SEROquel] 25 mg PO TID 05/22/19 Alendronate Sodium 70 mg PO SA 12/22/19 Ascorbic Acid [Vitamin C] 500 mg PO DAILY 12/22/19 Calcium Carbonate [Calcium] 500 mg PO DAILY 12/22/19 DULoxetine [Cymbalta] 40 mg PO DAILY 12/22/19 Lisinopril/Hydrochlorothiazide [Lisinopril-Hctz 20-12.5 mg Tab] 1 tab PO BID 12/22/19 Nystatin 1 applic TP BID MDD to groin 12/22/19 Cholecalciferol (Vitamin D3) [Vitamin D3] 50 mcg DAILY 01/10/20 hydrOXYzine HCL [Hydroxyzine HCl] 25 mg PO Q8H PRN 01/17/20 oxyCODONE [Roxicodone] 5 mg PO Q6H PRN 01/17/20 oxyCODONE [Roxicodone] 5 mg PO TID 01/25/20 Insulin Glargine [Lantus Solostar] 36 units SQ QPM 11/03/20 Magnesium Hydroxide [Milk of Magnesia] 30 ml PO DAILY PRN MDD if no BM in 3 days 12/14/20 Senna [Senokot] 8.6 mg PO QPM 12/14/20 Insulin Glargine [Lantus Solostar] 40 units SUBQ DAILY 02/10/21 Objective - Vital Signs/Intake & Output Vital Signs: Vital Signs x48h Resp Pulse Ox 02/12/21 08:15 20 92 Intake & Output: Intake & Output 02/09/21 02/10/21 02/11/21 02/12/21 23:59 23:59 23:59 23:59 Intake Total 4547.5 1795 680 Output Total 3620 965 700 Balance 927.5 830 -20 - Objective General Appearance: positive: Alert, Mild distress. negative: Lethargic Eyes Bilateral: positive: Normal inspection, No lid inflammation ENT: positive: ENT inspection nml, No signs of dehydration. negative: Purulent nasal drainage Neck: positive: Nml inspection, Trachea midline. negative: Thyromegaly, Tracheal deviation Respiratory: positive: Chest non-tender, No respiratory distress. negative: Wheezes Cardiovascular: positive: Regular rate & rhythm, No murmur, Tachycardia. negative: Bradycardia, Systolic murmur, Diastolic murmur Peripheral Pulses: 2+ Radial (R), 2+ Radial (L) Abdomen: positive: Nml bowel sounds, No distention, Tenderness. negative: Guarding, Rebound Back: positive: Nml inspection Skin: positive: Color nml, Warm, Dry. negative: Cyanosis, Diaphoresis Extremities: positive: Non-tender, Nml appearance. negative: Calf tenderness Neurologic/Psychiatric: positive: Sensation nml. negative: Weakness, Sensory loss, Facial droop, Slurred/abnml speech - Lab Results Fish Bones: 02/12/21 04:53 02/12/21 04:53 Other Labs: Lab Results x24hrs 02/12/21 02/12/21 02/12/21 Range/Units 11:19 07:39 04:53 WBC (4.8-10.8) x10^3/uL RBC (4.20-5.40) 10^6/uL Hgb (12.0-16.0) g/dL Hct (37.0-47.0) % MCV (81.0-99.0) fL MCH (27.0-31.0) pg MCHC (32.0-36.0) g/dL RDW (12.0-15.0) % Plt Count (130-450) 10^3/uL MPV (7.9-10.8) fL Neut # (Auto) (1.5-6.6) 10^3/uL Lymph # (Auto) (1.5-3.5) 10^3/uL [place] # (Auto) (0.0-1.0) 10^3/uL Eos # (Auto) (0.0-0.7) 10^3/uL Baso # (Auto) (0.0-0.1) 10^3/uL Absolute Nucleated RBC x10^3/uL Nucleated RBC % /100WBC Sodium 132 L (135-145) mmol/L Potassium 3.3 L (3.5-5.0) mmol/L Chloride 93 L (101-111) mmol/L Carbon Dioxide 29 (21-32) mmol/L Anion Gap 10.0 (6-13) BUN 15 (6-20) mg/dL Creatinine 1.0 (0.4-1.0) mg/dL Estimated GFR (MDRD) 55 L (>89) Glucose 196 H (70-100) mg/dL POC Whole Bld Glucose 199 H 195 H (70 - 100) mg/dL Calcium 8.5 (8.5-10.3) mg/dL Phosphorus 2.5 (2.5-4.6) mg/dL Magnesium 1.9 (1.7-2.8) mg/dL Total Bilirubin 2.2 H (0.2-1.0) mg/dL Direct Bilirubin 1.1 H (0.1-0.5) mg/dL AST 266 H (10-42) IU/L ALT 283 H (10-60) IU/L Alkaline Phosphatase 144 H (42-121) IU/L Total Protein 6.7 (6.7-8.2) g/dL Albumin 3.3 (3.2-5.5) g/dL Globulin 3.4 (2.1-4.2) g/dL Amylase 28 (28-100) U/L Lipase 41 (22-51) U/L 02/12/21 02/11/21 02/11/21 Range/Units 04:53 19:54 16:56 WBC 11.0 H (4.8-10.8) x10^3/uL RBC 4.04 L (4.20-5.40) 10^6/uL Hgb 11.3 L (12.0-16.0) g/dL Hct 34.6 L (37.0-47.0) % MCV 85.6 (81.0-99.0) fL MCH 28.0 (27.0-31.0) pg MCHC 32.7 (32.0-36.0) g/dL RDW 13.7 (12.0-15.0) % Plt Count 235 (130-450) 10^3/uL MPV 8.8 (7.9-10.8) fL Neut # (Auto) 8.7 H (1.5-6.6) 10^3/uL Lymph # (Auto) 1.4 L (1.5-3.5) 10^3/uL [place] # (Auto) 0.7 (0.0-1.0) 10^3/uL Eos # (Auto) 0.1 (0.0-0.7) 10^3/uL Baso # (Auto) 0.0 (0.0-0.1) 10^3/uL Absolute Nucleated RBC 0.00 x10^3/uL Nucleated RBC % 0.0 /100WBC Sodium (135-145) mmol/L Potassium (3.5-5.0) mmol/L Chloride (101-111) mmol/L Carbon Dioxide (21-32) mmol/L Anion Gap (6-13) BUN (6-20) mg/dL Creatinine (0.4-1.0) mg/dL Estimated GFR (MDRD) (>89) Glucose (70-100) mg/dL POC Whole Bld Glucose 259 H 274 H (70 - 100) mg/dL Calcium (8.5-10.3) mg/dL Phosphorus (2.5-4.6) mg/dL Magnesium (1.7-2.8) mg/dL Total Bilirubin (0.2-1.0) mg/dL Direct Bilirubin (0.1-0.5) mg/dL AST (10-42) IU/L ALT (10-60) IU/L Alkaline Phosphatase (42-121) IU/L Total Protein (6.7-8.2) g/dL Albumin (3.2-5.5) g/dL Globulin (2.1-4.2) g/dL Amylase (28-100) U/L Lipase (22-51) U/L 02/11/21 02/11/21 02/10/21 Range/Units 11:27 07:43 20:24 WBC (4.8-10.8) x10^3/uL RBC (4.20-5.40) 10^6/uL Hgb (12.0-16.0) g/dL Hct (37.0-47.0) % MCV (81.0-99.0) fL MCH (27.0-31.0) pg MCHC (32.0-36.0) g/dL RDW (12.0-15.0) % Plt Count (130-450) 10^3/uL MPV (7.9-10.8) fL Neut # (Auto) (1.5-6.6) 10^3/uL Lymph # (Auto) (1.5-3.5) 10^3/uL [place] # (Auto) (0.0-1.0) 10^3/uL Eos # (Auto) (0.0-0.7) 10^3/uL Baso # (Auto) (0.0-0.1) 10^3/uL Absolute Nucleated RBC x10^3/uL Nucleated RBC % /100WBC Sodium (135-145) mmol/L Potassium (3.5-5.0) mmol/L Chloride (101-111) mmol/L Carbon Dioxide (21-32) mmol/L Anion Gap (6-13) BUN (6-20) mg/dL Creatinine (0.4-1.0) mg/dL Estimated GFR (MDRD) (>89) Glucose (70-100) mg/dL POC Whole Bld Glucose 271 H 244 H 291 H (70 - 100) mg/dL Calcium (8.5-10.3) mg/dL Phosphorus (2.5-4.6) mg/dL Magnesium (1.7-2.8) mg/dL Total Bilirubin (0.2-1.0) mg/dL Direct Bilirubin (0.1-0.5) mg/dL AST (10-42) IU/L ALT (10-60) IU/L Alkaline Phosphatase (42-121) IU/L Total Protein (6.7-8.2) g/dL Albumin (3.2-5.5) g/dL Globulin (2.1-4.2) g/dL Amylase (28-100) U/L Lipase (22-51) U/L 02/10/21 02/10/21 Range/Units 17:50 16:01 WBC (4.8-10.8) x10^3/uL RBC (4.20-5.40) 10^6/uL Hgb (12.0-16.0) g/dL Hct (37.0-47.0) % MCV (81.0-99.0) fL MCH (27.0-31.0) pg MCHC (32.0-36.0) g/dL RDW (12.0-15.0) % Plt Count (130-450) 10^3/uL MPV (7.9-10.8) fL Neut # (Auto) (1.5-6.6) 10^3/uL Lymph # (Auto) (1.5-3.5) 10^3/uL [place] # (Auto) (0.0-1.0) 10^3/uL Eos # (Auto) (0.0-0.7) 10^3/uL Baso # (Auto) (0.0-0.1) 10^3/uL Absolute Nucleated RBC x10^3/uL Nucleated RBC % /100WBC Sodium (135-145) mmol/L Potassium (3.5-5.0) mmol/L Chloride (101-111) mmol/L Carbon Dioxide (21-32) mmol/L Anion Gap (6-13) BUN (6-20) mg/dL Creatinine (0.4-1.0) mg/dL Estimated GFR (MDRD) (>89) Glucose (70-100) mg/dL POC Whole Bld Glucose 434 H 434 H (70 - 100) mg/dL Calcium (8.5-10.3) mg/dL Phosphorus (2.5-4.6) mg/dL Magnesium (1.7-2.8) mg/dL Total Bilirubin (0.2-1.0) mg/dL Direct Bilirubin (0.1-0.5) mg/dL AST (10-42) IU/L ALT (10-60) IU/L Alkaline Phosphatase (42-121) IU/L Total Protein (6.7-8.2) g/dL Albumin (3.2-5.5) g/dL Globulin (2.1-4.2) g/dL Amylase (28-100) U/L Lipase (22-51) U/L ABX Reporting Has patient been on IV antibiotics over the past 48 hours?: Yes Assessment/Plan - Problem List (1) Right upper quadrant abdominal pain Impression: She Present right upper quadrant tenderness at the assessment, Adams sign is positive. Patient also had elevated liver enzyme, bili. CT scan did not show stones, thickened gallbladder or dilated common bile ducts. Ultrasound show questionable thickened gallbladder but without stone. Unfortunately patient is not fit to the machine size, also patient could not follow the command to finish MRCP. Consult with surgeon, surgeon recommended HIDA scan. Continue pain control, continue Zosyn antibiotics, and probiotics, clear diet. (2)elevated liver enzyme She had a slightly elevated liver enzyme in the admission, after the patient had a 1000 mg Tylenol IV. her liver enzyme is increased, now her liver enzyme is a slightly reduce. pt Also has Adams sign positive. We will hold intravenous Tylenol, and Hepatic toxic agent. Daily clinical laboratory aide (3) Pancreatitis Patient's lipase and amylase was in the normal range. Pancreatitis is likely resolved (4) UTI Urinalysis show positive E. coli and Enterococcus. continue on antibiotics Zosyn (5) Electrolyte abnormality resolved corrected. (6) Difficult intravenous access Conclusion/Plan: Right neck central line placed yesterday. Patient really does not like it there but it has provided good access for nursing to give her all of her fluids. (7) Type 2 diabetes mellitus, controlled continue lantus, slide scale, check A1C (8) HTN (hypertension) stable (9) Depression with anxiety continue home meds, stable (10) Candidal intertrigo Conclusion/Plan: Nystatin cream (11) Iron deficiency anemia occult blood stool test is negative, continue iron pill (12) dementia with behavioral disturbance pt is still confused, pt's DPOa, Her daughter is at the bedside to help patient
[2021-02-12] MEDS ORDERED: SODIUM CHLORIDE 0.9% 1,000 ML IV SCH (17:00)
[2021-02-12] MEDS: SACCHAROMYCES BOULARDII 250 MG CAPSULE PO SCH (17:05)
[2021-02-12] MEDS: ACETAMINOPHEN 500 MG TABLET PO PRN (17:15)
[2021-02-12 20:16] LABS: ESTIMATED AVERAGE GLUCOSE 214 mg/dL (70-100); HEMOGLOBIN A1c% 9.1 % (4.27-6.07)
[2021-02-12] MEDS: ATORVASTATIN 10 MG TABLET PO SCH (21:06)
[2021-02-13] MEDS: SODIUM CHLORIDE FLUSH 0.9% 10 ML SYRINGE IVP PRN ×2 (00:07→14:44)
[2021-02-13] MEDS: PIPERACILLIN/TAZOBACTAM 3.375 GM in SODIUM CHLORIDE 0.9% MINIBAG 100 ML IV SCH ×3 (00:07→21:28)
[2021-02-13] MEDS: HYDROmorphone 2 MG/ML VIAL IVP PRN ×2 (00:15→04:54)
[2021-02-13 05:18] LABS: BASOPHILS % (AUTO) 0.3 %; EOSINOPHILS # (AUTO) 0.1 10^3/uL (0.0-0.7); EOSINOPHILS % (AUTO) 1.6 %; HCT - HEMATOCRIT 34.4 % (37.0-47.0); HGB - HEMOGLOBIN 11.4 g/dL (12.0-16.0); LYMPHOCYTES # (AUTO) 1.2 10^3/uL (1.5-3.5); LYMPHOCYTES % (AUTO) 13.3 %; MEAN CORPUSCULAR HEMOGLOBIN 28.4 pg (27.0-31.0); MEAN CORPUSCULAR HGB CONC 33.1 g/dL (32.0-36.0); MEAN CORPUSCULAR VOLUME 85.8 fL (81.0-99.0); MEAN PLATELET VOLUME 8.8 fL (7.9-10.8); MONOCYTES # (AUTO) 0.6 10^3/uL (0.0-1.0); MONOCYTES % (AUTO) 6.4 %; PLT - PLATELET COUNT 199 10^3/uL (130-450); RED BLOOD COUNT 4.01 10^6/uL (4.20-5.40); RED CELL DISTRIBUTION WIDTH 13.8 % (12.0-15.0)
[2021-02-13 05:22] LABS: CALCIUM 8.3 mg/dL (8.5-10.3); CREATININE 0.9 mg/dL (0.4-1.0); PHOSPHORUS 2.1 mg/dL (2.5-4.6); POTASSIUM 3.5 mmol/L (3.5-5.0)
[2021-02-13] MEDS: PANTOPRAZOLE 40 MG TABLET PO SCH (06:02)
[2021-02-13] MEDS: QUEtiapine 25 MG TABLET PO SCH ×3 (06:02→21:23)
[2021-02-13] MEDS: INSULIN ASPART 300 UNIT/3 ML PEN SUBQ SCH ×7 (07:55→20:44)
[2021-02-13] MEDS: INSULIN GLARGINE 300 UNIT/3 ML PEN SUBQ SCH ×2 (07:55→20:45)
[2021-02-13] MEDS: NEUTRA-PHOS 250 MG TABLET PO SCH ×3 (08:00→16:50)
[2021-02-13 08:22] LABS: ALBUMIN 3.3 g/dL (3.2-5.5); BILIRUBIN,TOTAL 1.6 mg/dL (0.2-1.0); CALCIUM 8.3 mg/dL (8.5-10.3); CREATININE 0.9 mg/dL (0.4-1.0); POTASSIUM 3.5 mmol/L (3.5-5.0); TOTAL PROTEIN 6.7 g/dL (6.7-8.2)
[2021-02-13] MEDS ORDERED: MORPHINE 2 MG/ML CARPUJECT IVP STA (11:02)
[2021-02-13] MEDS: SODIUM CHLORIDE FLUSH 0.9% 10 ML SYRINGE IVP SCH ×2 (11:14→16:50)
[2021-02-13] MEDS ORDERED: SODIUM CHLORIDE 0.9% 1,000 ML IV SCH (13:00)
[2021-02-13] MEDS ORDERED: SINCALIDE 2.09 MCG in SODIUM CHLORIDE 0.9% 50 ML IV ONE (14:06)
--- NOTE | 2021-02-13 14:14 | PROVIDER PROGRESS NOTE ---
Assessment/Plan - Problem List (1) Right upper quadrant abdominal pain Assessment/Plan: 5/5 improved. Patient has good pain control. WBC and liver enzyme all reduced. We will continue finish HIDA scan on today. And advance diet as tolerated She Present right upper quadrant tenderness at the assessment, Adams sign is positive. Patient also had elevated liver enzyme, bili. CT scan did not show stones, thickened gallbladder or dilated common bile ducts. Ultrasound show questionable thickened gallbladder but without stone. Unfortunately patient is not fit to the machine size, also patient could not follow the command to finish MRCP. Consult with surgeon, surgeon recommended HIDA scan. Continue pain control, continue Zosyn antibiotics, and probiotics, clear diet. (2)elevated liver enzyme 5/5 improved. liver enzyme reduced. hold Tylenol, and Hepatic toxic agent. 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 her liver enzyme is increased, now her liver enzyme is a slightly reduce. pt Also has Adams sign positive. We will hold intravenous Tylenol, and Hepatic toxic agent. 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 Pancreatitis is likely resolved (4) UTI Urinalysis show positive E. coli and Enterococcus. continue on antibiotics Zosyn (5) Electrolyte abnormality resolved corrected. (6) Difficult intravenous access Conclusion/Plan: Right neck central line placed yesterday. Patient really does not like it there but it has provided good access for nursing to give her all of her fluids. (7) Type 2 diabetes mellitus, controlled continue lantus, slide scale, check A1C (8) HTN (hypertension) stable (9) Depression with anxiety continue home meds, stable (10) Candidal intertrigo Conclusion/Plan: Nystatin cream (11) Iron deficiency anemia occult blood stool test is negative, continue iron pill (12) dementia with behavioral disturbance pt is still confused, pt's DPOa, Her daughter is at the bedside to help patient - Current Meds Current Meds: Current Medications Generic Name Dose Route Start Last Admin Trade Name Freq PRN Reason Stop Dose Admin Acetaminophen 500 mg 02/11/21 09:34 02/12/21 17:15 Acetaminophen 500 Mg Tablet PO 500 mg Q4HR PRN Administration Pain or Fever > 38C (100.4F) Amlodipine Besylate 5 mg 02/11/21 21:00 02/12/21 21:06 Amlodipine 5 Mg Tablet PO 5 mg BID [facility] Administration Atorvastatin Calcium 20 mg 02/11/21 21:00 02/12/21 21:06 Atorvastatin 10 Mg Tablet PO 20 mg QPM [facility] Administration Duloxetine HCl 40 mg 02/12/21 09:00 02/12/21 08:23 Duloxetine 20 Mg Capsule PO 40 mg DAILY [facility] Administration Enoxaparin Sodium 40 mg 02/10/21 09:00 02/12/21 08:23 Enoxaparin 40 Mg/0.4 Ml Syringe SUBQ 40 mg DAILY [facility] Administration Ferrous Gluconate 324 mg 02/12/21 08:00 02/12/21 08:24 Ferrous Gluconate 324 Mg Tablet PO 324 mg DAILYWM [facility] Administration Hydromorphone HCl 3 mg 02/10/21 23:10 02/13/21 04:54 Hydromorphone 2 Mg/Ml Vial IVP 3 mg Q2H PRN Administration PAIN Piperacillin Sod/Tazobactam 100 mls @ 25 mls/hr 02/10/21 16:00 02/13/21 04:46 Sod 3.375 gm/ Sodium Chloride IV Infused Q8H [facility] Infusion Sincalide 2.09 mcg/ Sodium 50 mls @ 40 mls/hr 02/13/21 14:06 02/13/21 14:07 Chloride IV 02/13/21 15:20 40 mls/hr ONCE ONE Administration Insulin Aspart 3 unit 02/11/21 17:00 02/13/21 12:03 Insulin Aspart 300 Unit/3 Ml Pen SUBQ Not Given TIDWM [facility] Insulin Aspart 3 - 11 unit 02/12/21 17:00 02/13/21 12:03 Insulin Aspart 300 Unit/3 Ml Pen SUBQ Not Given 0800,1200,1700,2100 [facility] Protocol Insulin Glargine 35 unit 02/11/21 08:00 02/13/21 07:55 Insulin Glargine 300 Unit/3 Ml Pen SUBQ Not Given QDBREAKFAST [facility] Insulin Glargine 35 unit 02/10/21 21:00 02/12/21 21:07 Insulin Glargine 300 Unit/3 Ml Pen SUBQ 35 unit QPM [facility] Administration Magnesium Oxide 400 mg 02/10/21 08:00 02/12/21 08:23 Magnesium Oxide 400 Mg Tablet PO 400 mg DAILYWM [facility] Administration Nystatin 1 applic 02/10/21 13:00 02/12/21 20:46 Nystatin Powder 15 Gm TOP 1 applic BID [facility] Administration Ondansetron HCl 4 mg 02/10/21 06:21 02/12/21 09:35 Ondansetron 4 Mg/2 Ml Vial IVP 4 mg Q6HR PRN Administration Nausea / Vomiting Pantoprazole Sodium 40 mg 02/12/21 07:00 02/13/21 06:02 Pantoprazole 40 Mg Tablet PO 40 mg QDAC [facility] Administration Quetiapine Fumarate 25 mg 02/11/21 14:00 02/13/21 06:02 Quetiapine 25 Mg Tablet PO 25 mg TID [facility] Administration Saccharomyces Boulardii 250 mg 02/12/21 17:00 02/12/21 17:05 Saccharomyces Boulardii 250 Mg Capsule PO 250 mg BIDWM [facility] Administration Sodium Chloride 10 ml 02/10/21 06:21 02/13/21 00:07 Sodium Chloride Flush 0.9% 10 Ml Syringe IVP 10 ml PRN PRN Administration NEEDED PER PROVIDER ORDERS Sodium Chloride 10 ml 02/10/21 09:00 02/13/21 11:14 Sodium Chloride Flush 0.9% 10 Ml Syringe IVP 10 ml 0100,0900,1700 [facility] Administration - Lab Result Fish Bone Diagrams: 02/13/21 04:30 02/13/21 04:30 - Additional Planning My Orders: My Active Orders 02/12/21 14:56 Blood Glucose Checks - Eating [RC] 0800,1200,1700,2100 02/12/21 17:00 Insulin Aspart [NovoLOG] 3 - 11 unit SUBQ 0800,1200,1700,2100 Saccharomyces Boulardii [Florastor] 250 mg PO BIDWM 02/13/21 07:53 Miscellaenous Nursing Order [RC] ONCE 02/13/21 08:00 Neutra-Phos [K-Phos Neutral] 250 mg PO TIDWM 02/13/21 09:00 Hepatobiliary HIDA w/ Rx [NM] Stat 02/13/21 13:00 Sodium Chloride 0.9% [Normal Saline 0.9%] 1,000 ml IV 83.333 mls/hr 02/13/21 Dinner Full Liquid Diet [DIET] 02/14/21 05:00 CMP [COMPREHENSIVE METABOLIC PANEL] [CHEM] DAILYLAB CRP - C-REACTIVE PROTEIN [CHEM] DAILYLAB 02/15/21 05:00 CMP [COMPREHENSIVE METABOLIC PANEL] [CHEM] DAILYLAB CRP - C-REACTIVE PROTEIN [CHEM] DAILYLAB 02/16/21 05:00 CMP [COMPREHENSIVE METABOLIC PANEL] [CHEM] DAILYLAB CRP - C-REACTIVE PROTEIN [CHEM] DAILYLAB 02/17/21 05:00 CMP [COMPREHENSIVE METABOLIC PANEL] [CHEM] DAILYLAB CRP - C-REACTIVE PROTEIN [CHEM] DAILYLAB 02/18/21 05:00 CMP [COMPREHENSIVE METABOLIC PANEL] [CHEM] DAILYLAB Subjective - Subjective Patient Reports: Feeling Better Objective Vital Signs: Vital Signs - 24 hr 02/12/21 02/12/21 02/13/21 16:23 21:00 00:05 Temperature 36.5 C 36.6 C Heart Rate [ Brachial] Heart Rate [ 81 86 82 Monitoring electrodes] Respiratory 18 20 Rate Blood Pressure 141/69 H 146/71 H 160/76 H [Right Brachial artery] O2 Saturation 91 L 96 02/13/21 02/13/21 02/13/21 04:32 07:38 13:36 Temperature 36.7 C 36.6 C 37.2 C Heart Rate [ 100 Brachial] Heart Rate [ 85 89 Monitoring electrodes] Respiratory 18 20 20 Rate Blood Pressure 151/73 H 150/65 H 164/78 H [Right Brachial artery] O2 Saturation 95 94 92 Oxygen O2 Source Nasal cannula I&O (Last 24 Hrs): Intake and Output Totals x24h 02/11/21 02/12/21 02/13/21 23:59 23:59 23:59 Intake Total 1795 1378.61 751.39 Output Total 965 1000 910 Balance 830 378.61 -158.61 General: Alert, No acute distress HEENT: Atraumatic Neck: Supple Lymphatic: no adenopathy Neuro: Alert, Non Focal Cardiovascular: Regular rate, Normal S1, Normal S2 Respiratory: Chest non-tender, No respiratory distress Abdomen: Normal bowel sounds, Soft Extremities: Normal pulses - Results Results: Laboratory Results WBC 9.0 x10^3/uL (4.8-10.8) 02/13/21 04:30 RBC 4.01 10^6/uL (4.20-5.40) L 02/13/21 04:30 Hgb 11.4 g/dL (12.0-16.0) L 02/13/21 04:30 Hct 34.4 % (37.0-47.0) L 02/13/21 04:30 MCV 85.8 fL (81.0-99.0) 02/13/21 04:30 MCH 28.4 pg (27.0-31.0) 02/13/21 04:30 MCHC 33.1 g/dL (32.0-36.0) 02/13/21 04:30 RDW 13.8 % (12.0-15.0) 02/13/21 04:30 Plt Count 199 10^3/uL (130-450) 02/13/21 04:30 MPV 8.8 fL (7.9-10.8) 02/13/21 04:30 Neut # (Auto) 7.0 10^3/uL (1.5-6.6) H 02/13/21 04:30 Lymph # (Auto) 1.2 10^3/uL (1.5-3.5) L 02/13/21 04:30 [place] # (Auto) 0.6 10^3/uL (0.0-1.0) 02/13/21 04:30 Eos # (Auto) 0.1 10^3/uL (0.0-0.7) 02/13/21 04:30 Baso # (Auto) 0.0 10^3/uL (0.0-0.1) 02/13/21 04:30 Absolute Nucleated RBC 0.00 x10^3/uL 02/13/21 04:30 Nucleated RBC % 0.0 /100WBC 02/13/21 04:30 PT 16.8 secs (9.9-12.6) H 02/10/21 03:45 INR 1.6 (0.8-1.2) H 02/10/21 03:45 APTT 26.6 secs (24.9-33.3) 02/10/21 03:45 VBG pH 7.287 (7.31-7.41) L 02/10/21 04:15 VBG pCO2 48.6 mmHg (41-51) 02/10/21 04:15 VBG pO2 43.4 mmHg (25-47) 02/10/21 04:15 VBG HCO3 22.7 mmol/L (23-28) L 02/10/21 04:15 VBG Total CO2 24.2 mmol/L (24-29) 02/10/21 04:15 VBG O2 Saturation 75.6 % (60-80) 02/10/21 04:15 VBG Base Excess -4.2 mmol/L (-2 - +2) L 02/10/21 04:15 Sodium 133 mmol/L (135-145) L 02/13/21 04:30 Sodium 134 mmol/L (135-145) L 02/13/21 04:30 Potassium 3.5 mmol/L (3.5-5.0) 02/13/21 04:30 Potassium 3.5 mmol/L (3.5-5.0) 02/13/21 04:30 Chloride 97 mmol/L (101-111) L 02/13/21 04:30 Chloride 97 mmol/L (101-111) L 02/13/21 04:30 Carbon Dioxide 25 mmol/L (21-32) 02/13/21 04:30 Carbon Dioxide 27 mmol/L (21-32) 02/13/21 04:30 Anion Gap 9.0 (6-13) 02/13/21 04:30 Anion Gap 12.0 (6-13) 02/13/21 04:30 BUN 13 mg/dL (6-20) 02/13/21 04:30 BUN 14 mg/dL (6-20) 02/13/21 04:30 Creatinine 0.9 mg/dL (0.4-1.0) 02/13/21 04:30 Creatinine 0.9 mg/dL (0.4-1.0) 02/13/21 04:30 Estimated GFR (MDRD) 62 (>89) L 02/13/21 04:30 Estimated GFR (MDRD) 62 (>89) L 02/13/21 04:30 Glucose 144 mg/dL (70-100) H 02/13/21 04:30 Glucose 146 mg/dL (70-100) H 02/13/21 04:30 POC Whole Bld Glucose 176 mg/dL (70 - 100) H 02/13/21 14:00 Estimat Average Glucose 214 mg/dL (70-100) H 02/12/21 04:53 Hemoglobin A1c % 9.1 % (4.27-6.07) H 02/12/21 04:53 Lactic Acid 1.0 mmol/L (0.5-2.2) 02/10/21 03:40 Calcium 8.3 mg/dL (8.5-10.3) L 02/13/21 04:30 Calcium 8.3 mg/dL (8.5-10.3) L 02/13/21 04:30 Phosphorus 2.1 mg/dL (2.5-4.6) L 02/13/21 04:30 Magnesium 2.0 mg/dL (1.7-2.8) 02/13/21 04:30 Iron 15 ug/dL (28-170) L 02/10/21 04:16 TIBC 134 ug/dL (250-450) L 02/10/21 04:16 % Saturation 11 % (20-50) L 02/10/21 04:16 Transferrin 96 mg/dL (192-382) L 02/10/21 04:16 Ferritin 476.1 ng/mL (11.0-306.8) H 02/10/21 04:16 Total Bilirubin 1.6 mg/dL (0.2-1.0) H 02/13/21 04:30 Direct Bilirubin 1.1 mg/dL (0.1-0.5) H 02/12/21 04:53 AST 117 IU/L (10-42) H 02/13/21 04:30 ALT 191 IU/L (10-60) H 02/13/21 04:30 Alkaline Phosphatase 144 IU/L (42-121) H 02/13/21 04:30 C-Reactive Protein 13.0 mg/dL (0-1.0) H 02/13/21 04:30 Total Protein 6.7 g/dL (6.7-8.2) 02/13/21 04:30 Albumin 3.3 g/dL (3.2-5.5) 02/13/21 04:30 Globulin 3.4 g/dL (2.1-4.2) 02/13/21 04:30 Albumin/Globulin Ratio 1.0 (1.0-2.2) 02/13/21 04:30 Amylase 28 U/L (28-100) 02/12/21 04:53 Lipase 28 U/L (22-51) 02/13/21 04:30 Vitamin B12 294 pg/mL (180-914) 02/10/21 04:16 Folate 8.72 ng/mL (5.90 - >24.8) 02/10/21 04:16 Urine Color YELLOW 02/10/21 02:40 Urine Clarity CLEAR (CLEAR) 02/10/21 02:40 Urine pH 7.0 PH (5.0-7.5) 02/10/21 02:40 Ur Specific [place] 1.025 (1.002-1.030) 02/10/21 02:40 Urine Protein >=300 mg/dL (NEGATIVE) H 02/10/21 02:40 Urine Glucose (UA) 250 mg/dL (NEGATIVE) H 02/10/21 02:40 Urine Ketones TRACE mg/dL (NEGATIVE) 02/10/21 02:40 Urine Occult Blood SMALL (NEGATIVE) H 02/10/21 02:40 Urine Nitrite NEGATIVE (NEGATIVE) 02/10/21 02:40 Urine Bilirubin NEGATIVE (NEGATIVE) 02/10/21 02:40 Urine Urobilinogen 1 (NORMAL) E.U./dL (NORMAL) 02/10/21 02:40 Ur Leukocyte Esterase TRACE (NEGATIVE) H 02/10/21 02:40 Urine RBC 0-5 /HPF (0-5) 02/10/21 02:40 Urine WBC 6-10 /HPF (0-5) H 02/10/21 02:40 Ur Squamous Epith Cells RARE Squamous (<= Few) 02/10/21 02:40 Urine Bacteria Few /HPF (None Seen) 02/10/21 02:40 Urine Mucus Moderate Strands 02/10/21 02:40 Ur Microscopic Review INDICATED 02/10/21 02:40 Urine Culture Comments INDICATED 02/10/21 02:40 Nasal Adenovirus (PCR) NOT DETECTED 02/10/21 06:32 Nasal B. parapertussis DNA (PCR) NOT DETECTED 02/10/21 06:32 Nasal Coronavir 229E PCR NOT DETECTED 02/10/21 06:32 Nasal Coronavir HKU1 PCR NOT DETECTED 02/10/21 06:32 Nasal Coronavir NL63 PCR NOT DETECTED 02/10/21 06:32 Nasal Coronavir OC43 PCR NOT DETECTED 02/10/21 06:32 Nasal Enterovir/Rhinovir PCR NOT DETECTED 02/10/21 06:32 Nasal Influenza B PCR NOT DETECTED 02/10/21 06:32 Nasal Influenza A PCR NOT DETECTED 02/10/21 06:32 Nasal Parainfluen 1 PCR NOT DETECTED 02/10/21 06:32 Nasal Parainfluen 2 PCR NOT DETECTED 02/10/21 06:32 Nasal Parainfluen 3 PCR NOT DETECTED 02/10/21 06:32 Nasal Parainfluen 4 PCR NOT DETECTED 02/10/21 06:32 Nasal RSV (PCR) NOT DETECTED 02/10/21 06:32 Nasal Screen MRSA (PCR) NEGATIVE (NEGATIVE) 02/10/21 07:50 Nasal B.pertussis DNA PCR NOT DETECTED 02/10/21 06:32 Nasal C.pneumoniae (PCR) NOT DETECTED 02/10/21 06:32 Rickey Human Metapneumo PCR NOT DETECTED 02/10/21 06:32 Nasal M.pneumoniae (PCR) NOT DETECTED 02/10/21 06:32 Nasal SARS-CoV-2 (PCR) NOT DETECTED 02/10/21 06:32 Serum Ketones NEGATIVE (NEGATIVE) 02/10/21 03:45 Blood Type A POSITIVE 02/10/21 04:15 Antibody Screen NEGATIVE 02/10/21 04:15 Crossmatch IS Only See Detail 02/10/21 04:15 - Procedures Procedures: Procedures EXCISION OF LOWER ESOPHAGUS, ENDO, DIAGN (07/24/16) EXCISION OF STOMACH, ENDO, DIAGN (07/24/16) EXCISION OF TRANSVERSE COLON, ENDO (07/24/16) REPOSITION R UP FEMUR WITH INTRAMED FIX, OPEN APPROACH (12/21/18) ABX Reporting Has patient been on IV antibiotics over the past 48 hours?: Yes Current Medications - Current Medications Current Medications: Active Medications Albuterol (Albuterol Neb 2.5 Mg/3 Ml) 2.5 mg INH RTQ4H PRN PRN Reason: Wheezing Amlodipine Besylate (Amlodipine 5 Mg Tablet) 5 mg PO BID [facility] Last Admin: 02/12/21 21:06 Dose: 5 mg Documented by: Atorvastatin Calcium (Atorvastatin 10 Mg Tablet) 20 mg PO QPM [facility] Last Admin: 02/12/21 21:06 Dose: 20 mg Documented by: Duloxetine HCl (Duloxetine 20 Mg Capsule) 40 mg PO DAILY [facility] Last Admin: 02/12/21 08:23 Dose: 40 mg Documented by: Enoxaparin Sodium (Enoxaparin 40 Mg/0.4 Ml Syringe) 40 mg SUBQ DAILY [facility] Last Admin: 02/12/21 08:23 Dose: 40 mg Documented by: Ferrous Gluconate (Ferrous Gluconate 324 Mg Tablet) 324 mg PO DAILYWM [facility] Last Admin: 02/12/21 08:24 Dose: 324 mg Documented by: Hydromorphone HCl (Hydromorphone 2 Mg/Ml Vial) 3 mg IVP Q12H PRN PRN Reason: PAIN Hydroxyzine Pamoate (Hydroxyzine Pamoate 25 Mg Capsule) 25 mg PO Q8H PRN PRN Reason: Anxiety Piperacillin Sod/Tazobactam (Sod 3.375 gm/ Sodium Chloride) 100 mls @ 25 mls/hr IV Q8H [facility] Last Infusion: 02/13/21 04:46 Dose: Infused Documented by: Sodium Chloride (Normal Saline 0.9%) 1,000 mls @ 83.333 mls/hr IV .Q12H [facility] Stop: 02/14/21 00:59 Sincalide 2.09 mcg/ Sodium (Chloride) 50 mls @ 40 mls/hr IV ONCE ONE Stop: 02/13/21 15:20 Last Admin: 02/13/21 14:07 Dose: 40 mls/hr Documented by: Insulin Aspart (Insulin Aspart 300 Unit/3 Ml Pen) 3 unit SUBQ TIDWM [facility] Last Admin: 02/13/21 12:03 Dose: Not Given Documented by: Insulin Aspart (Insulin Aspart 300 Unit/3 Ml Pen) 3 - 11 unit SUBQ 0800,1200,1700,2100 [facility]; Protocol Last Admin: 02/13/21 12:03 Dose: Not Given Documented by: Insulin Glargine (Insulin Glargine 300 Unit/3 Ml Pen) 35 unit SUBQ QDBREAKFAST [facility] Last Admin: 02/13/21 07:55 Dose: Not Given Documented by: Insulin Glargine (Insulin Glargine 300 Unit/3 Ml Pen) 35 unit SUBQ QPM [facility] Last Admin: 02/12/21 21:07 Dose: 35 unit Documented by: Lorazepam (Lorazepam 0.5 Mg Tablet) 0.5 mg PO Q6H PRN PRN Reason: Anxiety Magnesium Oxide (Magnesium Oxide 400 Mg Tablet) 400 mg PO DAILYWM [facility] Last Admin: 02/12/21 08:23 Dose: 400 mg Documented by: Nystatin (Nystatin Powder 15 Gm) 1 applic TOP BID [facility] Last Admin: 02/12/21 20:46 Dose: 1 applic Documented by: Ondansetron HCl (Ondansetron 4 Mg/2 Ml Vial) 4 mg IVP Q6HR PRN PRN Reason: Nausea / Vomiting Last Admin: 02/12/21 09:35 Dose: 4 mg Documented by: Oxycodone HCl (Oxycodone 5 Mg Tablet) 5 mg PO TID [facility] Oxycodone HCl (Oxycodone 5 Mg Tablet) 5 mg PO Q6H PRN PRN Reason: PAIN Pantoprazole Sodium (Pantoprazole 40 Mg Tablet) 40 mg PO QDAC [facility] Last Admin: 02/13/21 06:02 Dose: 40 mg Documented by: Quetiapine Fumarate (Quetiapine 25 Mg Tablet) 25 mg PO TID [facility] Last Admin: 02/13/21 06:02 Dose: 25 mg Documented by: Saccharomyces Boulardii (Saccharomyces Boulardii 250 Mg Capsule) 250 mg PO BIDWM [facility] Last Admin: 02/12/21 17:05 Dose: 250 mg Documented by: Sodium Chloride (Sodium Chloride Flush 0.9% 10 Ml Syringe) 10 ml IVP PRN PRN PRN Reason: NEEDED PER PROVIDER ORDERS Last Admin: 02/13/21 00:07 Dose: 10 ml Documented by: Sodium Chloride (Sodium Chloride Flush 0.9% 10 Ml Syringe) 10 ml IVP 0100,0900,1700 [facility] Last Admin: 02/13/21 11:14 Dose: 10 ml Documented by: Sodium Phosphate (Neutra-Phos 250 Mg Tablet) 250 mg PO TIDWM [facility] Last Admin: 02/13/21 08:00 Dose: Not Given Documented by: Multivitamin [Multiple Vitamins] 1 tab PO DAILY 06/01/18 Acetaminophen 500 mg PO TID 02/07/19 Omeprazole 20 mg PO DAILY 02/07/19 amLODIPine [Norvasc] 5 mg PO BID 02/07/19 QUEtiapine [SEROquel] 25 mg PO TID 03/02/19 Alendronate Sodium 70 mg PO SA 12/22/19 Ascorbic Acid [Vitamin C] 500 mg PO DAILY 12/22/19 Calcium Carbonate [Calcium] 500 mg PO DAILY 12/22/19 DULoxetine [Cymbalta] 40 mg PO DAILY 12/22/19 Lisinopril/Hydrochlorothiazide [Lisinopril-Hctz 20-12.5 mg Tab] 1 tab PO BID 12/22/19 Nystatin 1 applic TP BID MDD to groin 12/22/19 Cholecalciferol (Vitamin D3) [Vitamin D3] 50 mcg DAILY 01/10/20 hydrOXYzine HCL [Hydroxyzine HCl] 25 mg PO Q8H PRN 01/17/20 oxyCODONE [Roxicodone] 5 mg PO Q6H PRN 01/17/20 oxyCODONE [Roxicodone] 5 mg PO TID 01/25/20 Insulin Glargine [Lantus Solostar] 36 units SQ QPM 11/03/20 Magnesium Hydroxide [Milk of Magnesia] 30 ml PO DAILY PRN MDD if no BM in 3 days 12/14/20 Senna [Senokot] 8.6 mg PO QPM 12/14/20 Insulin Glargine [Lantus Solostar] 40 units SUBQ DAILY 02/10/21
--- NOTE | 2021-02-13 14:19 | Nuclear Medicine Report ---
PROCEDURE: Hepatobiliary HIDA w/ Rx INDICATIONS: right upper quadran pain RADIOPHARMACEUTICAL: 0.3 mCi Tc-99m meprofenin i.v.; 2 mg of sulfate IV. And 2.09 ?g sincalide i.v. TECHNIQUE: Following intravenous administration of Tc-99m meprofenin, sequential anterior abdominal images were obtained through 60 minutes. Latter was not visualized. The images was continued for hall itation 60 minutes after intravenous administration of 2 mg morphine sulfate. To evaluate the contrac tile response of the gallbladder in response to Cholecystokinin (CCK), 2.09 microgram sincalide (0.02 ?g/kg) was administered by slow intravenous infusion approximately 120 minutes after the administrat ion of the radiopharmaceutical. Sequential imaging was continued for 60 minutes after the start of C CK infusion. Gallbladder ejection fraction was calculated. 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 FINDINGS: Biliary scan: There is normal tracer uptake and excretion by the liver. There is normal visualizati on of the intrahepatic ducts, common bile duct, and normal tracer transit into the duodenum. There i s delayed visualization of gallbladder with nonvisualization of gallbladder. Initial 60 minutes. Afte r IV injection of morphine sulfate, the gallbladder was visualized at approximately 30 minutes. The g allbladder appears small. CCK stimulation: There is normal contractile response of the gallbladder to CCK infusion. The calcu lated gallbladder ejection fraction is 38%; normal values are above 35%. IMPRESSION: 1. Delayed visualization of gallbladder which appears small. The finding may be secondary to chronic cholecystitis. 2. Normal contractile response of gallbladder to CCK infusion with gallbladder EF at 38%. The result was discussed with Dr. Lynn. Reviewed by: Elizabeth Law MD on 02/13/2021 2:18 PM PDT Approved by: Elizabeth Law MD on 02/13/2021 2:18 PM PDT Station ID: [id number]
[2021-02-13] MEDS ORDERED: HYDROmorphone 2 MG/ML VIAL IVP PRN (14:25)
[2021-02-13] MEDS ORDERED: ALBUTEROL NEB 2.5 MG/3 ML INH PRN (14:29)
[2021-02-13] MEDS: NYSTATIN POWDER 15 GM TOP SCH ×2 (14:46→20:41)
[2021-02-13] MEDS: SACCHAROMYCES BOULARDII 250 MG CAPSULE PO SCH ×2 (14:47→16:49)
[2021-02-13] MEDS: MAGNESIUM OXIDE 400 MG TABLET PO SCH (14:47)
[2021-02-13] MEDS: DULoxetine 20 MG CAPSULE PO SCH (14:47)
[2021-02-13] MEDS: ENOXAPARIN 40 MG/0.4 ML SYRINGE SUBQ SCH (14:48)
[2021-02-13] MEDS: FERROUS GLUCONATE 324 MG TABLET PO SCH (14:48)
[2021-02-13] MEDS: amLODIPine 5 MG TABLET PO SCH ×2 (14:51→20:22)
--- NOTE | 2021-02-13 16:23 | XRAY Report ---
PROCEDURE: Chest 1 View X-Ray INDICATIONS: sob TECHNIQUE: One view of the chest was acquired. COMPARISON: FINDINGS: Surgical changes and devices: Central line in normal position from right-sided approach, no pneumotho rax.. Lungs and pleura: No pleural effusions . Lungs are edematous. Mediastinum: Mediastinal contours appear normal. Heart size is at the upper limits of normal. Bones and chest wall: No suspicious bony lesions. Overlying soft tissues appear unremarkable. IMPRESSION: Alveolar edema pattern, presumably cardiogenic in origin. The heart size, however, is not significant ly enlarged. This may indicate acute CHF but alternative etiology such as atypical pneumonia should b e considered. Reviewed by: Ryan Saldivar MD on 02/13/2021 4:22 PM PDT Approved by: Ryan Saldivar MD on 02/13/2021 4:22 PM PDT Station ID: [id number]
[2021-02-13] MEDS: ATORVASTATIN 10 MG TABLET PO SCH (20:22)
[2021-02-13] MEDS: AZITHROMYCIN 250 MG TABLET PO SCH (20:22)
[2021-02-13] MEDS: oxyCODONE 5 MG TABLET PO SCH (21:23)
[2021-02-14] MEDS: ONDANSETRON 4 MG/2 ML VIAL IVP PRN (00:08)
[2021-02-14] MEDS: SODIUM CHLORIDE FLUSH 0.9% 10 ML SYRINGE IVP SCH ×4 (00:09→23:47)
[2021-02-14] MEDS: SODIUM CHLORIDE FLUSH 0.9% 10 ML SYRINGE IVP PRN (00:30)
[2021-02-14 05:37] LABS: BASOPHILS % (AUTO) 0.3 %; EOSINOPHILS # (AUTO) 0.1 10^3/uL (0.0-0.7); EOSINOPHILS % (AUTO) 1.3 %; HGB - HEMOGLOBIN 10.7 g/dL (12.0-16.0); LYMPHOCYTES # (AUTO) 1.2 10^3/uL (1.5-3.5); LYMPHOCYTES % (AUTO) 12.9 %; MEAN CORPUSCULAR HGB CONC 32.4 g/dL (32.0-36.0); MEAN CORPUSCULAR VOLUME 86.4 fL (81.0-99.0); MEAN PLATELET VOLUME 8.9 fL (7.9-10.8); MONOCYTES # (AUTO) 0.7 10^3/uL (0.0-1.0); MONOCYTES % (AUTO) 7.1 %; NEUTROPHILS # (AUTO) 7.4 10^3/uL (1.5-6.6); NEUTROPHILS % (AUTO) 77.6 %; PLT - PLATELET COUNT 196 10^3/uL (130-450); RED BLOOD COUNT 3.82 10^6/uL (4.20-5.40); RED CELL DISTRIBUTION WIDTH 13.9 % (12.0-15.0); WHITE BLOOD COUNT 9.5 x10^3/uL (4.8-10.8)
[2021-02-14] MEDS: PIPERACILLIN/TAZOBACTAM 3.375 GM in SODIUM CHLORIDE 0.9% MINIBAG 100 ML IV SCH ×3 (05:52→21:29)
[2021-02-14] MEDS: oxyCODONE 5 MG TABLET PO SCH ×3 (05:53→21:30)
[2021-02-14] MEDS: QUEtiapine 25 MG TABLET PO SCH ×3 (05:53→21:30)
[2021-02-14] MEDS: PANTOPRAZOLE 40 MG TABLET PO SCH (05:53)
[2021-02-14 05:55] LABS: ALBUMIN 3.1 g/dL (3.2-5.5); ALBUMIN/GLOBULIN RATIO 0.9 (1.0-2.2); BILIRUBIN,TOTAL 1.5 mg/dL (0.2-1.0); CALCIUM 8.2 mg/dL (8.5-10.3); CREATININE 0.8 mg/dL (0.4-1.0); CRP - C-REACTIVE PROTEIN 11.5 mg/dL (0-1.0); MAGNESIUM 2.1 mg/dL (1.7-2.8); PHOSPHORUS 2.4 mg/dL (2.5-4.6); POTASSIUM 3.4 mmol/L (3.5-5.0); TOTAL PROTEIN 6.6 g/dL (6.7-8.2)
[2021-02-14] MEDS ORDERED: POTASSIUM CHLORIDE 20 MEQ TABLET PO ONE (07:54)
[2021-02-14] MEDS: INSULIN ASPART 300 UNIT/3 ML PEN SUBQ SCH ×7 (09:09→21:38)
[2021-02-14] MEDS: INSULIN GLARGINE 300 UNIT/3 ML PEN SUBQ SCH ×2 (09:11→21:39)
[2021-02-14] MEDS: DOCUSATE SODIUM 250 MG CAPSULE PO SCH (09:13)
[2021-02-14] MEDS: SENNA 8.6 MG TABLET PO SCH ×2 (09:14→21:30)
[2021-02-14] MEDS: MAGNESIUM OXIDE 400 MG TABLET PO SCH (09:15)
[2021-02-14] MEDS: amLODIPine 5 MG TABLET PO SCH ×2 (09:15→21:31)
[2021-02-14] MEDS: DULoxetine 20 MG CAPSULE PO SCH (09:15)
[2021-02-14] MEDS: NEUTRA-PHOS 250 MG TABLET PO SCH ×3 (09:18→16:31)
[2021-02-14] MEDS: SACCHAROMYCES BOULARDII 250 MG CAPSULE PO SCH ×2 (09:19→16:31)
[2021-02-14] MEDS: FERROUS GLUCONATE 324 MG TABLET PO SCH (09:19)
[2021-02-14] MEDS: lisinopriL 20 MG TABLET PO SCH ×2 (09:19→21:35)
[2021-02-14] MEDS: AZITHROMYCIN 250 MG TABLET PO SCH (09:20)
[2021-02-14] MEDS: hydroCHLOROthiazide 12.5 MG CAPSULE PO SCH ×2 (09:20→21:30)
[2021-02-14] MEDS: ENOXAPARIN 40 MG/0.4 ML SYRINGE SUBQ SCH (09:30)
[2021-02-14] MEDS: NYSTATIN POWDER 15 GM TOP SCH ×2 (09:31→21:35)
--- NOTE | 2021-02-14 14:22 | PROVIDER PROGRESS NOTE ---
Subjective - Prog Note Date Prog Note Date: 02/14/21 - Subjective Pt reports feeling: Improved Subjective: This is a first-time, patient can have logical conversation with me. Patient is alert and orientated +2. She does not complain pain on today. She is comfortable in the bed and try to eat her breakfast. Current Medications - Current Medications Current Medications: Active Medications Albuterol (Albuterol Neb 2.5 Mg/3 Ml) 2.5 mg INH RTQ4H PRN PRN Reason: Wheezing Amlodipine Besylate (Amlodipine 5 Mg Tablet) 5 mg PO BID [facility] Last Admin: 02/14/21 09:15 Dose: 5 mg Documented by: Atorvastatin Calcium (Atorvastatin 10 Mg Tablet) 20 mg PO QPM [facility] Last Admin: 02/13/21 20:22 Dose: 20 mg Documented by: Azithromycin (Azithromycin 250 Mg Tablet) 250 mg PO DAILY [facility] Last Admin: 02/14/21 09:20 Dose: 250 mg Documented by: Docusate Sodium (Docusate Sodium 250 Mg Capsule) 250 - 500 mg PO DAILY [facility] Last Admin: 02/14/21 09:13 Dose: 500 mg Documented by: Duloxetine HCl (Duloxetine 20 Mg Capsule) 40 mg PO DAILY [facility] Last Admin: 02/14/21 09:15 Dose: 40 mg Documented by: Enoxaparin Sodium (Enoxaparin 40 Mg/0.4 Ml Syringe) 40 mg SUBQ DAILY [facility] Last Admin: 02/14/21 09:30 Dose: 40 mg Documented by: Ferrous Gluconate (Ferrous Gluconate 324 Mg Tablet) 324 mg PO DAILYWM [facility] Last Admin: 02/14/21 09:19 Dose: 324 mg Documented by: Heparin Sodium (Beef Lung) (Heparin Flush 50 Units/5 Ml Syringe) 30 - 50 unit IVP PRN PRN PRN Reason: Port Protocol (<24 hours) Hydrochlorothiazide (Hydrochlorothiazide 12.5 Mg Capsule) 12.5 mg PO BID [facility] Last Admin: 02/14/21 09:20 Dose: 12.5 mg Documented by: Hydromorphone HCl (Hydromorphone 2 Mg/Ml Vial) 2 mg IVP Q12H PRN PRN Reason: PAIN Hydroxyzine Pamoate (Hydroxyzine Pamoate 25 Mg Capsule) 25 mg PO Q8H PRN PRN Reason: Anxiety Piperacillin Sod/Tazobactam (Sod 3.375 gm/ Sodium Chloride) 100 mls @ 25 mls/hr IV Q8H [facility] Last Infusion: 02/14/21 09:58 Dose: Infused Documented by: Insulin Aspart (Insulin Aspart 300 Unit/3 Ml Pen) 3 - 11 unit SUBQ 0800,1200,1700,2100 [facility]; Protocol Last Admin: 02/14/21 12:26 Dose: 7 unit Documented by: Insulin Aspart (Insulin Aspart 300 Unit/3 Ml Pen) 5 unit SUBQ TIDWM [facility] Last Admin: 02/14/21 12:26 Dose: 5 unit Documented by: Insulin Glargine (Insulin Glargine 300 Unit/3 Ml Pen) 35 unit SUBQ QDBREAKFAST [facility] Last Admin: 02/14/21 09:11 Dose: 35 unit Documented by: Insulin Glargine (Insulin Glargine 300 Unit/3 Ml Pen) 35 unit SUBQ QPM [facility] Last Admin: 02/13/21 20:45 Dose: 35 unit Documented by: Lisinopril (Lisinopril 20 Mg Tablet) 20 mg PO BID [facility] Last Admin: 02/14/21 09:19 Dose: 20 mg Documented by: Lorazepam (Lorazepam 0.5 Mg Tablet) 0.5 mg PO Q6H PRN PRN Reason: Anxiety Magnesium Oxide (Magnesium Oxide 400 Mg Tablet) 400 mg PO DAILYWM [facility] Last Admin: 02/14/21 09:15 Dose: 400 mg Documented by: Nystatin (Nystatin Powder 15 Gm) 1 applic TOP BID [facility] Last Admin: 02/14/21 09:31 Dose: 1 applic Documented by: Ondansetron HCl (Ondansetron 4 Mg/2 Ml Vial) 4 mg IVP Q6HR PRN PRN Reason: Nausea / Vomiting Last Admin: 02/14/21 00:08 Dose: 4 mg Documented by: Oxycodone HCl (Oxycodone 5 Mg Tablet) 5 mg PO TID [facility] Last Admin: 02/14/21 05:53 Dose: 5 mg Documented by: Oxycodone HCl (Oxycodone 5 Mg Tablet) 5 mg PO Q6H PRN PRN Reason: PAIN Pantoprazole Sodium (Pantoprazole 40 Mg Tablet) 40 mg PO QDAC [facility] Last Admin: 02/14/21 05:53 Dose: 40 mg Documented by: Quetiapine Fumarate (Quetiapine 25 Mg Tablet) 25 mg PO TID [facility] Last Admin: 02/14/21 05:53 Dose: 25 mg Documented by: Saccharomyces Boulardii (Saccharomyces Boulardii 250 Mg Capsule) 250 mg PO BIDWM [facility] Last Admin: 02/14/21 09:19 Dose: 250 mg Documented by: Senna (Senna 8.6 Mg Tablet) 8.6 - 17.2 mg PO DAILY [facility] Last Admin: 02/14/21 09:14 Dose: 17.2 mg Documented by: Sodium Chloride (Sodium Chloride Flush 0.9% 10 Ml Syringe) 10 ml IVP PRN PRN PRN Reason: NEEDED PER PROVIDER ORDERS Last Admin: 02/14/21 00:30 Dose: 10 ml Documented by: Sodium Chloride (Sodium Chloride Flush 0.9% 10 Ml Syringe) 10 ml IVP 0100,0900,1700 [facility] Last Admin: 02/14/21 09:20 Dose: 10 ml Documented by: Sodium Phosphate (Neutra-Phos 250 Mg Tablet) 250 mg PO TIDWM [facility] Last Admin: 02/14/21 09:18 Dose: 250 mg Documented by: Multivitamin [Multiple Vitamins] 1 tab PO DAILY 06/01/18 Acetaminophen 500 mg PO TID 02/07/19 Omeprazole 20 mg PO DAILY 02/07/19 amLODIPine [Norvasc] 5 mg PO BID 02/07/19 QUEtiapine [SEROquel] 25 mg PO TID 03/02/19 Alendronate Sodium 70 mg PO SA 12/22/19 Ascorbic Acid [Vitamin C] 500 mg PO DAILY 12/22/19 Calcium Carbonate [Calcium] 500 mg PO DAILY 12/22/19 DULoxetine [Cymbalta] 40 mg PO DAILY 12/22/19 Lisinopril/Hydrochlorothiazide [Lisinopril-Hctz 20-12.5 mg Tab] 1 tab PO BID 12/22/19 Nystatin 1 applic TP BID MDD to groin 12/22/19 Cholecalciferol (Vitamin D3) [Vitamin D3] 50 mcg DAILY 01/10/20 hydrOXYzine HCL [Hydroxyzine HCl] 25 mg PO Q8H PRN 01/17/20 oxyCODONE [Roxicodone] 5 mg PO Q6H PRN 01/17/20 oxyCODONE [Roxicodone] 5 mg PO TID 01/25/20 Insulin Glargine [Lantus Solostar] 36 units SQ QPM 11/03/20 Magnesium Hydroxide [Milk of Magnesia] 30 ml PO DAILY PRN MDD if no BM in 3 days 12/14/20 Senna [Senokot] 8.6 mg PO QPM 12/14/20 Insulin Glargine [Lantus Solostar] 40 units SUBQ DAILY 02/10/21 Objective - Vital Signs/Intake & Output Vital Signs: Vital Signs x48h Temp Pulse Pulse Resp BP Pulse Ox 02/14/21 14:14 36.5 C 90 18 96 02/14/21 12:25 18 96 02/14/21 10:46 36.5 C 94 18 147/60 H 96 02/14/21 07:51 37.1 C 88 18 161/74 H 95 Intake & Output: Intake & Output 02/11/21 02/12/21 02/13/21 02/14/21 23:59 23:59 23:59 23:59 Intake Total 1795 1378.61 1317.39 700 Output Total 965 1000 2010 625 Balance 830 378.61 -692.61 75 - Objective General Appearance: positive: No acute distress, Alert. negative: Lethargic Eyes Bilateral: positive: Normal inspection, PERRL, No lid inflammation ENT: positive: ENT inspection nml, No signs of dehydration. negative: Purulent nasal drainage Neck: positive: Nml inspection, Trachea midline. negative: Thyromegaly, Tracheal deviation Respiratory: positive: Chest non-tender, No respiratory distress, Rales. negative: Wheezes Cardiovascular: positive: Regular rate & rhythm, No murmur. negative: Tachyc ardia, Bradycardia, Systolic murmur, Diastolic murmur Peripheral Pulses: 2+ Radial (R), 2+ Radial (L) Abdomen: positive: Non-tender, Nml bowel sounds, No distention. negative: Tenderness Back: positive: Nml inspection Skin: positive: Color nml, Warm, Dry. negative: Cyanosis, Diaphoresis Extremities: positive: Non-tender, Nml appearance. negative: Calf tenderness Neurologic/Psychiatric: positive: Motor nml, Sensation nml. negative: Weakness, Sensory loss, Facial droop, Slurred/abnml speech, Depressed mood/affect - Lab Results Fish Bones: 02/14/21 05:15 02/14/21 05:15 Other Labs: Lab Results x24hrs 02/14/21 02/14/21 02/14/21 Range/Units 12:08 07:56 05:15 WBC (4.8-10.8) x10^3/uL RBC (4.20-5.40) 10^6/uL Hgb (12.0-16.0) g/dL Hct (37.0-47.0) % MCV (81.0-99.0) fL MCH (27.0-31.0) pg MCHC (32.0-36.0) g/dL RDW (12.0-15.0) % Plt Count (130-450) 10^3/uL MPV (7.9-10.8) fL Neut # (Auto) (1.5-6.6) 10^3/uL Lymph # (Auto) (1.5-3.5) 10^3/uL Bollinger # (Auto) (0.0-1.0) 10^3/uL Eos # (Auto) (0.0-0.7) 10^3/uL Baso # (Auto) (0.0-0.1) 10^3/uL Absolute Nucleated RBC x10^3/uL Nucleated RBC % /100WBC Sodium 132 L (135-145) mmol/L Potassium 3.4 L (3.5-5.0) mmol/L Chloride 96 L (101-111) mmol/L Carbon Dioxide 28 (21-32) mmol/L Anion Gap 8.0 (6-13) BUN 12 (6-20) mg/dL Creatinine 0.8 (0.4-1.0) mg/dL Estimated GFR (MDRD) 71 L (>89) Glucose 189 H (70-100) mg/dL POC Whole Bld Glucose 229 H 190 H (70 - 100) mg/dL Calcium 8.2 L (8.5-10.3) mg/dL Phosphorus 2.4 L (2.5-4.6) mg/dL Magnesium 2.1 (1.7-2.8) mg/dL Total Bilirubin 1.5 H (0.2-1.0) mg/dL AST 75 H (10-42) IU/L ALT 136 H (10-60) IU/L Alkaline Phosphatase 155 H (42-121) IU/L C-Reactive Protein 11.5 H (0-1.0) mg/dL Total Protein 6.6 L (6.7-8.2) g/dL Albumin 3.1 L (3.2-5.5) g/dL Globulin 3.5 (2.1-4.2) g/dL Albumin/Globulin Ratio 0.9 L (1.0-2.2) Crossmatch IS Only 02/14/21 02/13/21 02/13/21 Range/Units 05:15 20:29 16:37 WBC 9.5 (4.8-10.8) x10^3/uL RBC 3.82 L (4.20-5.40) 10^6/uL Hgb 10.7 L (12.0-16.0) g/dL Hct 33.0 L (37.0-47.0) % MCV 86.4 (81.0-99.0) fL MCH 28.0 (27.0-31.0) pg MCHC 32.4 (32.0-36.0) g/dL RDW 13.9 (12.0-15.0) % Plt Count 196 (130-450) 10^3/uL MPV 8.9 (7.9-10.8) fL Neut # (Auto) 7.4 H (1.5-6.6) 10^3/uL Lymph # (Auto) 1.2 L (1.5-3.5) 10^3/uL Bollinger # (Auto) 0.7 (0.0-1.0) 10^3/uL Eos # (Auto) 0.1 (0.0-0.7) 10^3/uL Baso # (Auto) 0.0 (0.0-0.1) 10^3/uL Absolute Nucleated RBC 0.00 x10^3/uL Nucleated RBC % 0.0 /100WBC Sodium (135-145) mmol/L Potassium (3.5-5.0) mmol/L Chloride (101-111) mmol/L Carbon Dioxide (21-32) mmol/L Anion Gap (6-13) BUN (6-20) mg/dL Creatinine (0.4-1.0) mg/dL Estimated GFR (MDRD) (>89) Glucose (70-100) mg/dL POC Whole Bld Glucose 232 H 194 H (70 - 100) mg/dL Calcium (8.5-10.3) mg/dL Phosphorus (2.5-4.6) mg/dL Magnesium (1.7-2.8) mg/dL Total Bilirubin (0.2-1.0) mg/dL AST (10-42) IU/L ALT (10-60) IU/L Alkaline Phosphatase (42-121) IU/L C-Reactive Protein (0-1.0) mg/dL Total Protein (6.7-8.2) g/dL Albumin (3.2-5.5) g/dL Globulin (2.1-4.2) g/dL Albumin/Globulin Ratio (1.0-2.2) Crossmatch IS Only 02/10/21 Range/Units 04:15 WBC (4.8-10.8) x10^3/uL RBC (4.20-5.40) 10^6/uL Hgb (12.0-16.0) g/dL Hct (37.0-47.0) % MCV (81.0-99.0) fL MCH (27.0-31.0) pg MCHC (32.0-36.0) g/dL RDW (12.0-15.0) % Plt Count (130-450) 10^3/uL MPV (7.9-10.8) fL Neut # (Auto) (1.5-6.6) 10^3/uL Lymph # (Auto) (1.5-3.5) 10^3/uL Bollinger # (Auto) (0.0-1.0) 10^3/uL Eos # (Auto) (0.0-0.7) 10^3/uL Baso # (Auto) (0.0-0.1) 10^3/uL Absolute Nucleated RBC x10^3/uL Nucleated RBC % /100WBC Sodium (135-145) mmol/L Potassium (3.5-5.0) mmol/L Chloride (101-111) mmol/L Carbon Dioxide (21-32) mmol/L Anion Gap (6-13) BUN (6-20) mg/dL Creatinine (0.4-1.0) mg/dL Estimated GFR (MDRD) (>89) Glucose (70-100) mg/dL POC Whole Bld Glucose (70 - 100) mg/dL Calcium (8.5-10.3) mg/dL Phosphorus (2.5-4.6) mg/dL Magnesium (1.7-2.8) mg/dL Total Bilirubin (0.2-1.0) mg/dL AST (10-42) IU/L ALT (10-60) IU/L Alkaline Phosphatase (42-121) IU/L C-Reactive Protein (0-1.0) mg/dL Total Protein (6.7-8.2) g/dL Albumin (3.2-5.5) g/dL Globulin (2.1-4.2) g/dL Albumin/Globulin Ratio (1.0-2.2) Crossmatch IS Only See Detail ABX Reporting Has patient been on IV antibiotics over the past 48 hours?: Yes Assessment/Plan - Problem List (1) Pneumonia Impression: Patient needed oxygen support with 2 liter of O2. X-ray on yesterday show kasey lock has Atypical pneumonia with some cough. Now she is improved without O2 support on today. will continue Azithromycin, and Zosyn. If patient continue to improve, plan discharge patient to her home on tomorrow. (2) Right upper quadrant abdominal pain Assessment/Plan: 5/6 pt has no RUQ pain on today, she tolerate diet. HIDA scan reveal it May be secondarily to chronic cholecystitis. Patient may follow-up with GI surgeon as outpatient basis. 5/5 improved. Patient has good pain control. WBC and liver enzyme all reduced. We will continue finish HIDA scan on today. And advance diet as tolerated She Present right upper quadrant tenderness at the assessment, Adams sign is positive. Patient also had elevated liver enzyme, bili. CT scan did not show stones, thickened gallbladder or dilated common bile ducts. Ultrasound show questionable thickened gallbladder but without stone. Unfortunately patient is not fit to the machine size, also patient could not follow the command to finish MRCP. Consult with surgeon, surgeon recommended HIDA scan. Continue pain control, continue Zosyn antibiotics, and probiotics, clear diet. (2)elevated liver enzyme 5/6 Liver enzyme continue treated down, hold Tylenol, and Hepatic toxic agent. 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 liver enzyme reduced. hold Tylenol, and Hepatic toxic agent. 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 her liver enzyme is increased, now her liver enzyme is a slightly reduce. pt Also has Adams sign positive. We will hold intravenous Tylenol, and Hepatic toxic agent. 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 Pancreatitis is likely re solved (4) UTI Urinalysis show positive E. coli and Enterococcus. continue on antibiotics Zosyn (5) Electrolyte abnormality resolved corrected. (6) Difficult intravenous access Conclusion/Plan: Right neck central line placed yesterday. Patient really does not like it there but it has provided good access for nursing to give her all of her fluids. (7) Type 2 diabetes mellitus, controlled continue lantus, slide scale, check A1C (8) HTN (hypertension) stable (9) Depression with anxiety continue home meds, stable (10) Candidal intertrigo Conclusion/Plan: Nystatin cream (11) Iron deficiency anemia occult blood stool test is negative, continue iron pill (12) dementia with behavioral disturbance pt is still confused, pt's DPOa, Her daughter is at the bedside to help patient
[2021-02-14] MEDS: ATORVASTATIN 10 MG TABLET PO SCH (21:31)
[2021-02-14] MEDS: HYDROmorphone 2 MG/ML VIAL IVP PRN (23:47)
[2021-02-15 05:06] LABS: BASOPHILS % (AUTO) 0.3 %; EOSINOPHILS # (AUTO) 0.2 10^3/uL (0.0-0.7); HCT - HEMATOCRIT 32.1 % (37.0-47.0); HGB - HEMOGLOBIN 10.6 g/dL (12.0-16.0); LYMPHOCYTES # (AUTO) 1.6 10^3/uL (1.5-3.5); LYMPHOCYTES % (AUTO) 17.7 %; MEAN CORPUSCULAR VOLUME 84.7 fL (81.0-99.0); MEAN PLATELET VOLUME 8.7 fL (7.9-10.8); MONOCYTES # (AUTO) 0.7 10^3/uL (0.0-1.0); MONOCYTES % (AUTO) 7.7 %; NEUTROPHILS # (AUTO) 6.4 10^3/uL (1.5-6.6); NEUTROPHILS % (AUTO) 71.6 %; PLT - PLATELET COUNT 199 10^3/uL (130-450); RED BLOOD COUNT 3.79 10^6/uL (4.20-5.40); RED CELL DISTRIBUTION WIDTH 13.6 % (12.0-15.0)
[2021-02-15 05:24] LABS: ALBUMIN 2.9 g/dL (3.2-5.5); ALBUMIN/GLOBULIN RATIO 0.8 (1.0-2.2); BILIRUBIN,TOTAL 0.9 mg/dL (0.2-1.0); CALCIUM 8.4 mg/dL (8.5-10.3); CREATININE 0.9 mg/dL (0.4-1.0); CRP - C-REACTIVE PROTEIN 7.1 mg/dL (0-1.0); PHOSPHORUS 2.8 mg/dL (2.5-4.6); POTASSIUM 3.4 mmol/L (3.5-5.0); TOTAL PROTEIN 6.5 g/dL (6.7-8.2)
[2021-02-15] MEDS: PANTOPRAZOLE 40 MG TABLET PO SCH (06:14)
[2021-02-15] MEDS: PIPERACILLIN/TAZOBACTAM 3.375 GM in SODIUM CHLORIDE 0.9% MINIBAG 100 ML IV SCH ×3 (06:14→21:03)
[2021-02-15] MEDS: QUEtiapine 25 MG TABLET PO SCH ×3 (06:14→21:03)
[2021-02-15] MEDS: oxyCODONE 5 MG TABLET PO SCH ×3 (06:14→21:03)
[2021-02-15] MEDS ORDERED: hydrALAZINE INJ 20 MG/ML VIAL IVP PRN (07:43)
[2021-02-15] MEDS: SACCHAROMYCES BOULARDII 250 MG CAPSULE PO SCH ×2 (07:47→17:07)
[2021-02-15] MEDS: MAGNESIUM OXIDE 400 MG TABLET PO SCH (07:47)
[2021-02-15] MEDS: FERROUS GLUCONATE 324 MG TABLET PO SCH (07:48)
[2021-02-15] MEDS: INSULIN ASPART 300 UNIT/3 ML PEN SUBQ SCH ×7 (07:50→20:37)
[2021-02-15] MEDS: INSULIN GLARGINE 300 UNIT/3 ML PEN SUBQ SCH ×2 (07:51→20:37)
[2021-02-15] MEDS ORDERED: POTASSIUM CHLORIDE 20 MEQ TABLET PO ONE (07:59)
[2021-02-15] MEDS: polyethylene glycoL 3350 17 GM PACKET PO SCH (08:47)
[2021-02-15] MEDS: ENOXAPARIN 40 MG/0.4 ML SYRINGE SUBQ SCH (08:48)
[2021-02-15] MEDS: DOCUSATE SODIUM 250 MG CAPSULE PO SCH (08:48)
[2021-02-15] MEDS: AZITHROMYCIN 250 MG TABLET PO SCH (08:48)
[2021-02-15] MEDS: amLODIPine 5 MG TABLET PO SCH ×2 (08:48→20:31)
[2021-02-15] MEDS: DULoxetine 20 MG CAPSULE PO SCH (08:48)
[2021-02-15] MEDS: lisinopriL 20 MG TABLET PO SCH ×2 (08:48→20:31)
[2021-02-15] MEDS: hydroCHLOROthiazide 12.5 MG CAPSULE PO SCH ×2 (08:48→20:30)
[2021-02-15] MEDS: SODIUM CHLORIDE FLUSH 0.9% 10 ML SYRINGE IVP SCH ×2 (08:49→17:10)
[2021-02-15] MEDS: NYSTATIN POWDER 15 GM TOP SCH ×2 (08:52→20:32)
[2021-02-15] MEDS: NEUTRA-PHOS 250 MG TABLET PO SCH ×2 (09:46→12:22)
--- NOTE | 2021-02-15 11:05 | Discharge Plan ---
"Discharge Plan for SNF / [facility] - Discharge Plan And Transition Orders Problem Reviewed?: Yes Disposition: 03 SNF DC/Xfer Condition: Stable Allergies and Adverse Reactions: Allergies Allergy/AdvReac Type Severity Reaction Status Date / Time sulfamethoxazole Allergy Unknown Verified 02/10/21 02:30 [From Bactrim] trimethoprim [From Bactrim] Allergy Unknown Verified 02/10/21 02:30 Health Concerns: atypical pneumonia, UTI, elevated liver enzyme Plan of Treatment: pt is prescribed antibiotics Augmentin to finish the treatment course for her atypical pneumonia and UTI. Pt's liver enzyme is treading down, advise recheck pt's liver enzyme in one week. continue home health PT Care Goals: stabilization and improvement of her medical conditions Assessment: discussed care plan with her daughter at the bedside before, answered her questions. she understood. - SNF / [facility] Transition Orders Admit to (Facility): [facility] Under the care of (Name): Medical provider of Kayla, and PCP Dr. Victor Discharge Diagnosis: pneumonia, UTI, elevated liver enzyme, pancreatitis resolved, electrolyte abnormality resolved, DM2, HTN, iron deficiency anemia, dementia Medicare Certification Statement: I certify that [facility] is medically necessary on a continuing basis for any of the conditions for which she/he is receiving care during hospitalization. Notify PCP of admission and forward orders to primary provider for signature. Weight on admission and: Daily Call PCP immediately if weight increases by: 2 kg Other Notification Orders: Call PCP immediately if patient develops dyspnea, chest pain/tightness or edema. House Bowel Program: Yes Additional Bowel Program Orders: If no BM after 2 days, nurse may give M.O.M. 30ml PO PRN and/or ducolax Supp 1 NH and/or NADIYA 250mg P.O., and/or senna 1-2 tabs PO. On day 3 nurse may give repeat above order until residents constipation is resolved. Annual Influenza Vaccine (between Jun 12 and January 09): Yes Two-step PPD per [facility] [phone] or approved exception documents: Yes Treatments & Other Orders: pt is prescribed antibiotics Augmentin to finish the treatment course for her atypical pneumonia and UTI. Pt's liver enzyme is kristopher ding down, advise recheck pt's liver enzyme in one week. continue home health PT Medication Orders: PLEASE REFER TO THE DISCHARGE MEDICATION LIST. Insulin Orders?: No - Medications New Prescriptions: Amox/Clav 875/125 [Augmentin 875/125 Tab] 1 tablet PO Q12H 5 Days #10 tablet Saccharomyces Boulardii [Florastor] 250 mg PO BIDWM #10 cap - Diet Type: Geriatric Texture: Regular Liquids: Thin May have monthly special meal: Yes - Therapies | Activity Therapy: Evaluation | Treat if indicated: PT Rehabilitation Potential: Maximize functional status Activity: Activity as Tolerated"
--- NOTE | 2021-02-15 11:26 | DISCHARGE SUMMARY ---
Discharge Summary Admit Date: 02/10/21 Discharge Date: 02/15/21 Discharging Provider: Marcial Lynn Primary Care Provider: Svetlana Sewell Condition at Discharge: Stable Discharge Disposition: 03 SNF DC/Xfer Discharge Facility Name: [facility] - ALLERGIES Allergies/Adverse Reactions: Allergies Allergy/AdvReac Type Severity Reaction Status Date / Time sulfamethoxazole Allergy Unknown Verified 02/10/21 02:30 [From Bactrim] trimethoprim [From Bactrim] Allergy Unknown Verified 02/10/21 02:30 - MEDICATIONS Home Medications: Ambulatory Orders Medication Instructions Recorded Confirmed Multivitamin [Multiple Vitamins] 1 tab PO DAILY 06/01/18 02/10/21 Albuterol 2.5 mg INH RTQ4H PRN #3 neb 12/25/18 02/10/21 Atorvastatin [Lipitor] 20 mg PO QPM #30 tablet 12/25/18 02/10/21 Ondansetron Odt [Zofran Odt] 4 mg PO Q8H PRN #10 tablet 12/25/18 02/10/21 Acetaminophen 500 mg PO TID 02/07/19 02/10/21 Omeprazole 20 mg PO DAILY 02/07/19 02/10/21 amLODIPine [Norvasc] 5 mg PO BID 02/07/19 02/10/21 Ferrous Gluconate 240 mg PO DAILY #30 tablet 02/08/19 02/10/21 Magnesium Oxide [Mag Ox] 400 mg PO 0800 #30 tablet 02/08/19 02/10/21 metFORMIN [Glucophage] 1,000 mg PO BIDWM #60 tablet 02/08/19 02/10/21 polyethylene glycoL 3350 [Miralax] 17 gm PO DAILY #30 packet 02/08/19 02/10/21 QUEtiapine [SEROquel] 25 mg PO TID 03/02/19 02/10/21 Alendronate Sodium 70 mg PO SA 12/22/19 02/10/21 Ascorbic Acid [Vitamin C] 500 mg PO DAILY 12/22/19 02/10/21 Calcium Carbonate [Calcium] 500 mg PO DAILY 12/22/19 02/10/21 DULoxetine [Cymbalta] 40 mg PO DAILY 12/22/19 02/10/21 Lisinopril/Hydrochlorothiazide 1 tab PO BID 12/22/19 02/10/21 [Lisinopril-Hctz 20-12.5 mg Tab] Nystatin 1 applic TP BID MDD to groin 12/22/19 02/10/21 Cholecalciferol (Vitamin D3) 50 mcg DAILY 01/10/20 02/10/21 [Vitamin D3] hydrOXYzine HCL [Hydroxyzine HCl] 25 mg PO Q8H PRN 01/17/20 02/10/21 oxyCODONE [Roxicodone] 5 mg PO Q6H PRN 01/17/20 02/10/21 oxyCODONE [Roxicodone] 5 mg PO TID 01/25/20 02/10/21 Insulin Glargine [Lantus Solostar] 36 units SQ QPM 11/03/20 02/10/21 Magnesium Hydroxide [Milk of 30 ml PO DAILY PRN MDD if no BM in 12/14/20 02/10/21 Magnesia] 3 days Senna [Senokot] 8.6 mg PO QPM 12/14/20 02/10/21 Insulin Glargine [Lantus Solostar] 40 units SUBQ DAILY 02/10/21 02/10/21 Amox/Clav 875/125 [Augmentin 1 tablet PO Q12H 5 Days #10 tablet 02/15/21 875/125 Tab] Saccharomyces Boulardii [Florastor] 250 mg PO BIDWM #10 cap 02/15/21 - LABS Result Diagrams: 02/15/21 04:50 02/15/21 04:50
[2021-02-15] MEDS: oxyCODONE 5 MG TABLET PO PRN (12:22)
[2021-02-15 12:25] LABS: B. PARAPERTUSSIS- RESP PCR PAN NOT DETECTED; B. PERTUSSIS- RESP PCR PANEL NOT DETECTED; C. PNEUMONIAE- RESP PCR PANEL NOT DETECTED; CORONAVIRUS 229E-RESP PCR NOT DETECTED; CORONAVIRUS HKU1-RESP PCR NOT DETECTED; CORONAVIRUS NL63-RESP PCR NOT DETECTED; CORONAVIRUS OC43-RESP PCR NOT DETECTED; HUMAN METAPNEUMOVIRUS NOT DETECTED; INFLUENZA A- RESP PCR PANEL NOT DETECTED; INFLUENZA B - RESP PCR PANEL NOT DETECTED; M. PNEUMONIAE- RESP PCR PANEL NOT DETECTED; PARAINFLUENZA VIRUS 1 NOT DETECTED; PARAINFLUENZA VIRUS 2 NOT DETECTED; PARAINFLUENZA VIRUS 3 NOT DETECTED; PARAINFLUENZA VIRUS 4 NOT DETECTED; RHINOVIRUS/ENTEROVIRUS NOT DETECTED; RSV- RESP PCR PANEL NOT DETECTED; SARS-CoV-2 -RESP PCR PANEL NOT DETECTED
[2021-02-15] MEDS: HYDROmorphone 2 MG/ML VIAL IVP PRN (13:10)
--- NOTE | 2021-02-15 13:37 | XRAY Report ---
PROCEDURE: Chest 1 View X-Ray INDICATIONS: sob TECHNIQUE: One view of the chest was acquired. COMPARISON: Chest radiographs 02/13/2021. FINDINGS: Surgical changes and devices: Previously seen right internal jugular catheter is been removed. Lungs and pleura: Prominent central pulmonary vasculature and interstitial markings are again seen th at are suspicious for congestive heart failure or other volume overload state. No definite pleural ef fusion is seen. No pneumothorax. Mediastinum: Mediastinal contours appear normal. Heart size is stable and borderline in size. Mode rate aortic atherosclerotic calcifications. Bones and chest wall: No suspicious bony lesions. Overlying soft tissues appear unremarkable. Animal Caretaker robert fracture deformity involving the left proximal humerus. IMPRESSION: Prominent central pulmonary vasculature and interstitial markings are suspicious for congestive heart failure or systemic volume overload, versus possibly an atypical pneumonia. Heart size is stable. Reviewed by: Franky Craig MD on 02/15/2021 1:36 PM PDT Approved by: Franky Craig MD on 02/15/2021 1:36 PM PDT Station ID: [id number]
[2021-02-15] MEDS ORDERED: FUROSEMIDE 20 MG/2 ML VIAL IVP SCH ×2 (13:53→15:00)
--- NOTE | 2021-02-15 14:11 | PROVIDER PROGRESS NOTE ---
Subjective - Prog Note Date Prog Note Date: 02/15/21 - Subjective Pt reports feeling: Worse Subjective: nurse report pt developed some shortness of breath in this morning. RT was called for breath treatment. pt presented some respiratory distress with bila teral expiratory wheeze, crackles lung sound of right low lobe. CXR reveals prominent central pulmonary vasculature and interstitial markings are suspicious for congestive heart failure or systolic volume overloaded, versus possibly an Atypical pneumonia. Patient is given intravenous Lasix, we will also check BNP, order ECHO. Current Medications - Current Medications Current Medications: Active Medications Albuterol (Albuterol Neb 2.5 Mg/3 Ml) 2.5 mg INH RTQ4H PRN PRN Reason: Wheezing Last Admin: 02/15/21 13:03 Dose: 2.5 mg Documented by: Amlodipine Besylate (Amlodipine 5 Mg Tablet) 5 mg PO BID [facility] Last Admin: 02/15/21 08:48 Dose: 5 mg Documented by: Atorvastatin Calcium (Atorvastatin 10 Mg Tablet) 20 mg PO QPM [facility] Last Admin: 02/14/21 21:31 Dose: 20 mg Documented by: Azithromycin (Azithromycin 250 Mg Tablet) 250 mg PO DAILY [facility] Last Admin: 02/15/21 08:48 Dose: 250 mg Documented by: Docusate Sodium (Docusate Sodium 250 Mg Capsule) 250 - 500 mg PO DAILY [facility] Last Admin: 02/15/21 08:48 Dose: 250 mg Documented by: Duloxetine HCl (Duloxetine 20 Mg Capsule) 40 mg PO DAILY [facility] Last Admin: 02/15/21 08:48 Dose: 40 mg Documented by: Enoxaparin Sodium (Enoxaparin 40 Mg/0.4 Ml Syringe) 40 mg SUBQ DAILY [facility] Last Admin: 02/15/21 08:48 Dose: 40 mg Documented by: Ferrous Gluconate (Ferrous Gluconate 324 Mg Tablet) 324 mg PO DAILYWM [facility] Last Admin: 02/15/21 07:48 Dose: 324 mg Documented by: Furosemide (Furosemide 20 Mg/2 Ml Vial) 20 mg IVP BID [facility] Heparin Sodium (Beef Lung) (Heparin Flush 50 Units/5 Ml Syringe) 30 - 50 unit IVP PRN PRN PRN Reason: Port Protocol (<24 hours) Last Admin: 02/14/21 14:27 Dose: 150 unit Documented by: Hydralazine HCl (Hydralazine Inj 20 Mg/Ml Vial) 10 mg IVP QID PRN PRN Reason: Hypertensive Emergency Hydrochlorothiazide (Hydrochlorothiazide 12.5 Mg Capsule) 12.5 mg PO BID [facility] Last Admin: 02/15/21 08:48 Dose: 12.5 mg Documented by: Hydromorphone HCl (Hydromorphone 2 Mg/Ml Vial) 2 mg IVP Q12H PRN PRN Reason: PAIN Last Admin: 02/15/21 13:10 Dose: 2 mg Documented by: Hydroxyzine Pamoate (Hydroxyzine Pamoate 25 Mg Capsule) 25 mg PO Q8H PRN PRN Reason: Anxiety Piperacillin Sod/Tazobactam (Sod 3.375 gm/ Sodium Chloride) 100 mls @ 25 mls/hr IV Q8H [facility] Last Infusion: 02/15/21 10:14 Dose: Infused Documented by: Insulin Aspart (Insulin Aspart 300 Unit/3 Ml Pen) 3 - 11 unit SUBQ 0800,1200,1700,2100 [facility]; Protocol Last Admin: 02/15/21 11:53 Dose: 5 unit Documented by: Insulin Aspart (Insulin Aspart 300 Unit/3 Ml Pen) 5 unit SUBQ TIDWM [facility] Last Admin: 02/15/21 11:53 Dose: 5 unit Documented by: Insulin Glargine (Insulin Glargine 300 Unit/3 Ml Pen) 35 unit SUBQ QDBREAKFAST [facility] Last Admin: 02/15/21 07:51 Dose: 35 unit Documented by: Insulin Glargine (Insulin Glargine 300 Unit/3 Ml Pen) 35 unit SUBQ QPM [facility] Last Admin: 02/14/21 21:39 Dose: 35 unit Documented by: Lisinopril (Lisinopril 20 Mg Tablet) 20 mg PO BID [facility] Last Admin: 02/15/21 08:48 Dose: 20 mg Documented by: Lorazepam (Lorazepam 0.5 Mg Tablet) 0.5 mg PO Q6H PRN PRN Reason: Anxiety Magnesium Oxide (Magnesium Oxide 400 Mg Tablet) 400 mg PO DAILYWM [facility] Last Admin: 02/15/21 07:47 Dose: 400 mg Documented by: Nystatin (Nystatin Powder 15 Gm) 1 applic TOP BID [facility] Last Admin: 02/15/21 08:52 Dose: 1 applic Documented by: Ondansetron HCl (Ondansetron 4 Mg/2 Ml Vial) 4 mg IVP Q6HR PRN PRN Reason: Nausea / Vomiting Last Admin: 02/14/21 00:08 Dose: 4 mg Documented by: Oxycodone HCl (Oxycodone 5 Mg Tablet) 5 mg PO TID [facility] Last Admin: 02/15/21 06:14 Dose: 5 mg Documented by: Oxycodone HCl (Oxycodone 5 Mg Tablet) 5 mg PO Q6H PRN PRN Reason: PAIN Last Admin: 02/15/21 12:22 Dose: 5 mg Documented by: Pantoprazole Sodium (Pantoprazole 40 Mg Tablet) 40 mg PO QDAC [facility] Last Admin: 02/15/21 06:14 Dose: 40 mg Documented by: Polyethylene Glycol (Polyethylene Glycol 3350 17 Gm Packet) 17 gm PO DAILY [facility] Last Admin: 02/15/21 08:47 Dose: 17 gm Documented by: Quetiapine Fumarate (Quetiapine 25 Mg Tablet) 25 mg PO TID [facility] Last Admin: 02/15/21 06:14 Dose: 25 mg Documented by: Saccharomyces Boulardii (Saccharomyces Boulardii 250 Mg Capsule) 250 mg PO BIDWM [facility] Last Admin: 02/15/21 07:47 Dose: 250 mg Documented by: Senna (Senna 8.6 Mg Tablet) 8.6 - 17.2 mg PO DAILY [facility] Last Admin: 02/14/21 21:30 Dose: 17.2 mg Documented by: Sodium Chloride (Sodium Chloride Flush 0.9% 10 Ml Syringe) 10 ml IVP PRN PRN PRN Reason: NEEDED PER PROVIDER ORDERS Last Admin: 02/14/21 00:30 Dose: 10 ml Documented by: Sodium Chloride (Sodium Chloride Flush 0.9% 10 Ml Syringe) 10 ml IVP 0100,0900,1700 [facility] Last Admin: 02/15/21 08:49 Dose: 10 ml Documented by: Sodium Phosphate (Neutra-Phos 250 Mg Tablet) 250 mg PO TIDWM [facility] Last Admin: 02/15/21 12:22 Dose: 250 mg Documented by: Multivitamin [Multiple Vitamins] 1 tab PO DAILY 06/01/18 Acetaminophen 500 mg PO TID 02/07/19 Omeprazole 20 mg PO DAILY 02/07/19 amLODIPine [Norvasc] 5 mg PO BID 02/07/19 QUEtiapine [SEROquel] 25 mg PO TID 03/02/19 Alendronate Sodium 70 mg PO SA 12/22/19 Ascorbic Acid [Vitamin C] 500 mg PO DAILY 12/22/19 Calcium Carbonate [Calcium] 500 mg PO DAILY 12/22/19 DULoxetine [Cymbalta] 40 mg PO DAILY 12/22/19 Lisinopril/Hydrochlorothiazide [Lisinopril-Hctz 20-12.5 mg Tab] 1 tab PO BID 12/22/19 Nystatin 1 applic TP BID MDD to groin 12/22/19 Cholecalciferol (Vitamin D3) [Vitamin D3] 50 mcg DAILY 01/10/20 hydrOXYzine HCL [Hydroxyzine HCl] 25 mg PO Q8H PRN 01/17/20 oxyCODONE [Roxicodone] 5 mg PO Q6H PRN 01/17/20 oxyCODONE [Roxicodone] 5 mg PO TID 01/25/20 Insulin Glargine [Lantus Solostar] 36 units SQ QPM 11/03/20 Magnesium Hydroxide [Milk of Magnesia] 30 ml PO DAILY PRN MDD if no BM in 3 days 12/14/20 Senna [Senokot] 8.6 mg PO QPM 12/14/20 Insulin Glargine [Lantus Solostar] 40 units SUBQ DAILY 02/10/21 Objective - Vital Signs/Intake & Output Vital Signs: Vital Signs x48h Temp Pulse Pulse Resp BP Pulse Ox 02/15/21 13:00 76 22 02/15/21 07:42 36.7 C 76 18 152/65 H 93 Intake & Output: Intake & Output 02/12/21 02/13/21 02/14/21 02/15/21 23:59 23:59 23:59 23:59 Intake Total 1378.61 1317.39 2190 440 Output Total 999 2009 2625 1200 Balance 378.61 -692.61 -435 -760 - Objective General Appearance: positive: Alert, Mild distress. negative: Lethargic Eyes Bilateral: positive: Normal inspection, PERRL, No lid inflammation ENT: positive: ENT inspection nml, No signs of dehydration. negative: Purulent nasal drainage Neck: positive: Nml inspection, Trachea midline. negative: Thyromegaly, Tracheal deviation Respiratory: positive: Chest non-tender, Wheezes, Rales, Other (crackles on right low lobe, and bilateral expiratory wheeze) Cardiovascular: positive: Regular rate & rhythm, No murmur. negative: Tachycardia, Bradycardia, Systolic murmur, Diastolic murmur Peripheral Pulses: 2+ Radial (R), 2+ Radial (L) Abdomen: positive: Non-tender, Nml bowel sounds, No distention. negative: Tenderness Back: positive: Nml inspection Skin: positive: Color nml, Warm, Dry. negative: Cyanosis Extremities: positive: Non-tender, Nml appearance Neurologic/Psychiatric: positive: Sensation nml, Mood/affect nml. negative: Weakness, Sensory loss, Facial droop, Slurred/abnml speech - Lab Results Fish Bones: 02/15/21 04:50 02/15/21 04:50 Other Labs: Lab Results x24hrs 02/15/21 02/15/21 02/15/21 Range/Units 11:30 11:24 07:37 WBC (4.8-10.8) x10^3/uL RBC (4.20-5.40) 10^6/uL Hgb (12.0-16.0) g/dL Hct (37.0-47.0) % MCV (81.0-99.0) fL MCH (27.0-31.0) pg MCHC (32.0-36.0) g/dL RDW (12.0-15.0) % Plt Count (130-450) 10^3/uL MPV (7.9-10.8) fL Neut # (Auto) (1.5-6.6) 10^3/uL Lymph # (Auto) (1.5-3.5) 10^3/uL Carlton # (Auto) (0.0-1.0) 10^3/uL Eos # (Auto) (0.0-0.7) 10^3/uL Baso # (Auto) (0.0-0.1) 10^3/uL Absolute Nucleated RBC x10^3/uL Nucleated RBC % /100WBC Sodium (135-145) mmol/L Potassium (3.5-5.0) mmol/L Chloride (101-111) mmol/L Carbon Dioxide (21-32) mmol/L Anion Gap (6-13) BUN (6-20) mg/dL Creatinine (0.4-1.0) mg/dL Estimated GFR (MDRD) (>89) Glucose (70-100) mg/dL POC Whole Bld Glucose 188 H 196 H (70 - 100) mg/dL Calcium (8.5-10.3) mg/dL Phosphorus (2.5-4.6) mg/dL Magnesium (1.7-2.8) mg/dL Total Bilirubin (0.2-1.0) mg/dL AST (10-42) IU/L ALT (10-60) IU/L Alkaline Phosphatase (42-121) IU/L C-Reactive Protein (0-1.0) mg/dL Total Protein (6.7-8.2) g/dL Albumin (3.2-5.5) g/dL Globulin (2.1-4.2) g/dL Albumin/Globulin Ratio (1.0-2.2) Nasal Adenovirus (PCR) NOT DETECTED Nasal B. parapertussis DNA (PCR) NOT DETECTED Nasal Coronavir 229E PCR NOT DETECTED Nasal Coronavir HKU1 PCR NOT DETECTED Nasal Coronavir NL63 PCR NOT DETECTED Nasal Coronavir OC43 PCR NOT DETECTED Nasal Enterovir/Rhinovir PCR NOT DETECTED Nasal Influenza B PCR NOT DETECTED Nasal Influenza A PCR NOT DETECTED Nasal Parainfluen 1 PCR NOT DETECTED Nasal Parainfluen 2 PCR NOT DETECTED Nasal Parainfluen 3 PCR NOT DETECTED Nasal Parainfluen 4 PCR NOT DETECTED Nasal RSV (PCR) NOT DETECTED Nasal B.pertussis DNA PCR NOT DETECTED Nasal C.pneumoniae (PCR) NOT DETECTED Rickey Human Metapneumo PCR NOT DETECTED Nasal M.pneumoniae (PCR) NOT DETECTED Nasal SARS-CoV-2 (PCR) NOT DETECTED 02/15/21 02/15/21 02/14/21 Range/Units 04:50 04:50 21:07 WBC 9.0 (4.8-10.8) x10^3/uL RBC 3.79 L (4.20-5.40) 10^6/uL Hgb 10.6 L (12.0-16.0) g/dL Hct 32.1 L (37.0-47.0) % MCV 84.7 (81.0-99.0) fL MCH 28.0 (27.0-31.0) pg MCHC 33.0 (32.0-36.0) g/dL RDW 13.6 (12.0-15.0) % Plt Count 199 (130-450) 10^3/uL MPV 8.7 (7.9-10.8) fL Neut # (Auto) 6.4 (1.5-6.6) 10^3/uL Lymph # (Auto) 1.6 (1.5-3.5) 10^3/uL Carlton # (Auto) 0.7 (0.0-1.0) 10^3/uL Eos # (Auto) 0.2 (0.0-0.7) 10^3/uL Baso # (Auto) 0.0 (0.0-0.1) 10^3/uL Absolute Nucleated RBC 0.00 x10^3/uL Nucleated RBC % 0.0 /100WBC Sodium 131 L (135-145) mmol/L Potassium 3.4 L (3.5-5.0) mmol/L Chloride 93 L (101-111) mmol/L Carbon Dioxide 28 (21-32) mmol/L Anion Gap 10.0 (6-13) BUN 11 (6-20) mg/dL Creatinine 0.9 (0.4-1.0) mg/dL Estimated GFR (MDRD) 62 L (>89) Glucose 222 H (70-100) mg/dL POC Whole Bld Glucose 214 H (70 - 100) mg/dL Calcium 8.4 L (8.5-10.3) mg/dL Phosphorus 2.8 (2.5-4.6) mg/dL Magnesium 2.0 (1.7-2.8) mg/dL Total Bilirubin 0.9 (0.2-1.0) mg/dL AST 66 H (10-42) IU/L ALT 103 H (10-60) IU/L Alkaline Phosphatase 151 H (42-121) IU/L C-Reactive Protein 7.1 H (0-1.0) mg/dL Total Protein 6.5 L (6.7-8.2) g/dL Albumin 2.9 L (3.2-5.5) g/dL Globulin 3.6 (2.1-4.2) g/dL Albumin/Globulin Ratio 0.8 L (1.0-2.2) Nasal Adenovirus (PCR) Nasal B. parapertussis DNA (PCR) Nasal Coronavir 229E PCR Nasal Coronavir HKU1 PCR Nasal Coronavir NL63 PCR Nasal Coronavir OC43 PCR Nasal Enterovir/Rhinovir PCR Nasal Influenza B PCR Nasal Influenza A PCR Nasal Parainfluen 1 PCR Nasal Parainfluen 2 PCR Nasal Parainfluen 3 PCR Nasal Parainfluen 4 PCR Nasal RSV (PCR) Nasal B.pertussis DNA PCR Nasal C.pneumoniae (PCR) Rickey Human Metapneumo PCR Nasal M.pneumoniae (PCR) Nasal SARS-CoV-2 (PCR) 02/14/21 Range/Units 16:38 WBC (4.8-10.8) x10^3/uL RBC (4.20-5.40) 10^6/uL Hgb (12.0-16.0) g/dL Hct (37.0-47.0) % MCV (81.0-99.0) fL MCH (27.0-31.0) pg MCHC (32.0-36.0) g/dL RDW (12.0-15.0) % Plt Count (130-450) 10^3/uL MPV (7.9-10.8) fL Neut # (Auto) (1.5-6.6) 10^3/uL Lymph # (Auto) (1.5-3.5) 10^3/uL Carlton # (Auto) (0.0-1.0) 10^3/uL Eos # (Auto) (0.0-0.7) 10^3/uL Baso # (Auto) (0.0-0.1) 10^3/uL Absolute Nucleated RBC x10^3/uL Nucleated RBC % /100WBC Sodium (135-145) mmol/L Potassium (3.5-5.0) mmol/L Chloride (101-111) mmol/L Carbon Dioxide (21-32) mmol/L Anion Gap (6-13) BUN (6-20) mg/dL Creatinine (0.4-1.0) mg/dL Estimated GFR (MDRD) (>89) Glucose (70-100) mg/dL POC Whole Bld Glucose 203 H (70 - 100) mg/dL Calcium (8.5-10.3) mg/dL Phosphorus (2.5-4.6) mg/dL Magnesium (1.7-2.8) mg/dL Total Bilirubin (0.2-1.0) mg/dL AST (10-42) IU/L ALT (10-60) IU/L Alkaline Phosphatase (42-121) IU/L C-Reactive Protein (0-1.0) mg/dL Total Protein (6.7-8.2) g/dL Albumin (3.2-5.5) g/dL Globulin (2.1-4.2) g/dL Albumin/Globulin Ratio (1.0-2.2) Nasal Adenovirus (PCR) Nasal B. parapertussis DNA (PCR) Nasal Coronavir 229E PCR Nasal Coronavir HKU1 PCR Nasal Coronavir NL63 PCR Nasal Coronavir OC43 PCR Nasal Enterovir/Rhinovir PCR Nasal Influenza B PCR Nasal Influenza A PCR Nasal Parainfluen 1 PCR Nasal Parainfluen 2 PCR Nasal Parainfluen 3 PCR Nasal Parainfluen 4 PCR Nasal RSV (PCR) Nasal B.pertussis DNA PCR Nasal C.pneumoniae (PCR) Rickey Human Metapneumo PCR Nasal M.pneumoniae (PCR) Nasal SARS-CoV-2 (PCR) ABX Reporting Has patient been on IV antibiotics over the past 48 hours?: Yes Assessment/Plan - Problem List (1) Fluid overload Impression: Patient Presents wheezy lung sound bilaterally on expiratory and right low crackles lung sound. Chest x-ray show fluid overloaded, pulmonary vascular congestion. Patient also present some shortness of breathing. plan: order ECHO, pt had ECHO done more than one year ago revealed normal EF. check BNP, order lasix iV, lab and vital monitor pt. (2) Pneumonia Impression: 02/15 pt still present right low crackles, will continue Azithromycin, and Zosyn. Patient needed oxygen support with 2 liter of O2. X-ray on yesterday show patient has Atypical pneumonia with some cough. Now she is improved without O2 support on today. will continue Azithromycin, and Zosyn. If patient continue to improve, plan discharge patient to her home on tomorrow. (3) Right upper quadrant abdominal pain Assessment/Plan: 02/15 pt did not report RUQ abdominal pain. 02/14 pt has no RUQ pain on today, she tolerate diet. HIDA scan reveal it May be secondarily to chronic cholecystitis. Patient may follow-up with GI surgeon as outpatient basis. 5/ improved. Patient has good pain control. WBC and liver enzyme all reduced. We will continue finish HIDA scan on today. And advance diet as tolerated She Present right upper quadrant tenderness at the assessment, Adams sign is positive. Patient also had elevated liver enzyme, bili. CT scan did not show sto jodie, thickened gallbladder or dilated common bile ducts. Ultrasound show questionable thickened gallbladder but without stone. Unfortunately patient is not fit to the machine size, also patient could not follow the command to finish MRCP. Consult with surgeon, surgeon recommended HIDA scan. Continue pain control, continue Zosyn antibiotics, and probiotics, clear diet. (4)elevated liver enzyme 02/15 continue decreased liver enzyme 02/14 Liver enzyme continue treated down, hold Tylenol, and Hepatic toxic agent. 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 liver enzyme reduced. hold Tylenol, and Hepatic toxic agent. Daily senior laboratory technician She had a slightly elevated liver enzyme in the admission, after the patient had a 1000 mg Tylenol IV. her liver enzyme is increased, now her liver enzyme is a slightly reduce. pt Also has Adams sign positive. We will hold intravenous Tylenol, and Hepatic toxic agent. Daily senior laboratory technician (5) Pancreatitis Patient's lipase and amylase was in the normal range. Pancreatitis is likely resolved (6) UTI Urinalysis show positive E. coli and Enterococcus. continue on antibiotics Zosyn (7) Electrolyte abnormality resolved corrected. (8) Difficult intravenous access Conclusion/Plan: Right neck central line placed yesterday. Patient really does not like it there but it has provided good access for nursing to give her all of her fluids. (9) Type 2 diabetes mellitus, controlled 02/15 increased to 40 unites of Lantus in morning. continue slide scale. continue lantus, slide scale, check A1C (10) HTN (hypertension) stable (11) Depression with anxiety continue home meds, stable (12) Candidal intertrigo Conclusion/Plan: Nystatin cream (13) Iron deficiency anemia occult blood stool test is negative, continue iron pill (14) dementia with behavioral disturbance pt is still confused, pt's DPOa, Her daughter is at the bedside to help patient
[2021-02-15] MEDS: FUROSEMIDE 20 MG/2 ML VIAL IVP SCH (14:39)
[2021-02-15] MEDS: ATORVASTATIN 10 MG TABLET PO SCH (20:31)
[2021-02-16] MEDS: SODIUM CHLORIDE FLUSH 0.9% 10 ML SYRINGE IVP SCH ×3 (01:08→16:22)
[2021-02-16 04:53] LABS: BASOPHILS % (AUTO) 0.3 %; EOSINOPHILS # (AUTO) 0.2 10^3/uL (0.0-0.7); HCT - HEMATOCRIT 31.5 % (37.0-47.0); HGB - HEMOGLOBIN 10.3 g/dL (12.0-16.0); LYMPHOCYTES # (AUTO) 1.4 10^3/uL (1.5-3.5); LYMPHOCYTES % (AUTO) 17.8 %; MEAN CORPUSCULAR HEMOGLOBIN 27.6 pg (27.0-31.0); MEAN CORPUSCULAR HGB CONC 32.7 g/dL (32.0-36.0); MEAN CORPUSCULAR VOLUME 84.5 fL (81.0-99.0); MEAN PLATELET VOLUME 8.5 fL (7.9-10.8); MONOCYTES # (AUTO) 0.6 10^3/uL (0.0-1.0); MONOCYTES % (AUTO) 6.9 %; NEUTROPHILS # (AUTO) 5.8 10^3/uL (1.5-6.6); NEUTROPHILS % (AUTO) 72.5 %; PLT - PLATELET COUNT 188 10^3/uL (130-450); RED BLOOD COUNT 3.73 10^6/uL (4.20-5.40); RED CELL DISTRIBUTION WIDTH 13.6 % (12.0-15.0)
[2021-02-16 05:18] LABS: ALBUMIN 3.2 g/dL (3.2-5.5); ALBUMIN/GLOBULIN RATIO 0.9 (1.0-2.2); CALCIUM 8.7 mg/dL (8.5-10.3); CREATININE 0.8 mg/dL (0.4-1.0); CRP - C-REACTIVE PROTEIN 5.1 mg/dL (0-1.0); MAGNESIUM 1.9 mg/dL (1.7-2.8); PHOSPHORUS 3.2 mg/dL (2.5-4.6); POTASSIUM 3.4 mmol/L (3.5-5.0); TOTAL PROTEIN 6.8 g/dL (6.7-8.2)
[2021-02-16] MEDS: PIPERACILLIN/TAZOBACTAM 3.375 GM in SODIUM CHLORIDE 0.9% MINIBAG 100 ML IV SCH (06:33)
[2021-02-16] MEDS: oxyCODONE 5 MG TABLET PO SCH ×3 (06:38→21:56)
[2021-02-16] MEDS: QUEtiapine 25 MG TABLET PO SCH ×3 (06:38→21:55)
[2021-02-16] MEDS: SODIUM CHLORIDE FLUSH 0.9% 10 ML SYRINGE IVP PRN (06:38)
[2021-02-16] MEDS: PANTOPRAZOLE 40 MG TABLET PO SCH (06:38)
[2021-02-16] MEDS: INSULIN ASPART 300 UNIT/3 ML PEN SUBQ SCH ×7 (08:03→21:52)
[2021-02-16] MEDS: INSULIN GLARGINE 300 UNIT/3 ML PEN SUBQ SCH ×2 (08:05→21:52)
[2021-02-16] MEDS ORDERED: POTASSIUM CHLORIDE 20 MEQ TABLET PO ONE (08:05)
[2021-02-16] MEDS: polyethylene glycoL 3350 17 GM PACKET PO SCH (08:33)
[2021-02-16] MEDS: ENOXAPARIN 40 MG/0.4 ML SYRINGE SUBQ SCH (08:34)
[2021-02-16] MEDS: AZITHROMYCIN 250 MG TABLET PO SCH (08:35)
[2021-02-16] MEDS: amLODIPine 5 MG TABLET PO SCH ×2 (08:35→21:55)
[2021-02-16] MEDS: SENNA 8.6 MG TABLET PO SCH (08:35)
[2021-02-16] MEDS: lisinopriL 20 MG TABLET PO SCH ×2 (08:35→21:56)
[2021-02-16] MEDS: hydroCHLOROthiazide 12.5 MG CAPSULE PO SCH ×2 (08:35→21:55)
[2021-02-16] MEDS: DULoxetine 20 MG CAPSULE PO SCH (08:36)
[2021-02-16] MEDS: MAGNESIUM OXIDE 400 MG TABLET PO SCH (08:37)
[2021-02-16] MEDS: DOCUSATE SODIUM 250 MG CAPSULE PO SCH (08:37)
[2021-02-16] MEDS: FERROUS GLUCONATE 324 MG TABLET PO SCH (08:37)
[2021-02-16] MEDS: FUROSEMIDE 20 MG/2 ML VIAL IVP SCH (08:38)
[2021-02-16] MEDS: SACCHAROMYCES BOULARDII 250 MG CAPSULE PO SCH ×2 (08:38→16:21)
[2021-02-16] MEDS: NYSTATIN POWDER 15 GM TOP SCH ×2 (11:52→21:56)
--- NOTE | 2021-02-16 12:49 | PROVIDER PROGRESS NOTE ---
Assessment/Plan - Problem List (1) Fluid overload Assessment/Plan: Improved. Patient breathing comfortably on room air with oxygen saturation at 100% Patient received lasix IV yesterday and today. However some crackles persist on lung auscultation (2) Pneumonia Assessment/Plan: Patient had 6 days of Zosyn. Azithromycin and Zosyn discontinued On augmentin po bid for 5 days (3) Right upper quadrant abdominal pain Assessment/Plan: Improved/ Resolved HIDA scan: possible chronic cholecystitis Patient to follow up with GI outpatient Could not do MRCP due to weight limit and patient unable to follow commands (4) Pancreatitis Assessment/Plan: Resolved (5) Depression with anxiety Assessment/Plan: Continue home medications (6) Dementia Qualifiers: Dementia type: Alzheimer's disease Dementia behavioral disturbance: without behavioral disturbance Assessment/Plan: On seroquel. Ativan prn (7) HTN (hypertension) Assessment/Plan: Controlled. Stable. On hydralazine, HCTZ, Lasix, lisinopril and amlodopine. (8) Type 2 diabetes mellitus, controlled Assessment/Plan: On lantus 40 uints qam and 35 units subg qpm SSI. Accu checks qACHS (9) Candidal intertrigo Assessment/Plan: Nyastatin powder bid (10) UTI (urinary tract infection) Assessment/Plan: E. coli and E. faicalis Treated with Zosyn for 6 days (11) Iron deficiency anemia Assessment/Plan: On ferrous gluconate 324mg po daily - Current Meds Current Meds: Current Medications Generic Name Dose Route Start Last Admin Trade Name Freq PRN Reason Stop Dose Admin Albuterol 2.5 mg 02/13/21 14:29 02/15/21 13:03 Albuterol Neb 2.5 Mg/3 Ml INH 2.5 mg RTQ4H PRN Administration Wheezing Amlodipine Besylate 5 mg 02/11/21 21:00 02/16/21 08:35 Amlodipine 5 Mg Tablet PO 5 mg BID LAURENT Administration Atorvastatin Calcium 20 mg 02/11/21 21:00 02/15/21 20:31 Atorvastatin 10 Mg Tablet PO 20 mg QPM LAURENT Administration Azithromycin 250 mg 02/13/21 17:22 02/16/21 08:35 Azithromycin 250 Mg Tablet PO 250 mg DAILY LAURENT Administration Docusate Sodium 250 - 500 mg 02/14/21 09:00 02/16/21 08:37 Docusate Sodium 250 Mg Capsule PO 250 mg DAILY LAURENT Administration Duloxetine HCl 40 mg 02/12/21 09:00 02/16/21 08:36 Duloxetine 20 Mg Capsule PO 40 mg DAILY LAURENT Administration Enoxaparin Sodium 40 mg 02/10/21 09:00 02/16/21 08:34 Enoxaparin 40 Mg/0.4 Ml Syringe SUBQ 40 mg DAILY LAURENT Administration Ferrous Gluconate 324 mg 02/12/21 08:00 02/16/21 08:37 Ferrous Gluconate 324 Mg Tablet PO 324 mg DAILYWM LAURENT Administration Furosemide 20 mg 02/15/21 15:00 02/16/21 08:38 Furosemide 20 Mg/2 Ml Vial IVP 20 mg DAILY LAURENT Administration Heparin Sodium (Beef Lung) 30 - 50 unit 02/14/21 12:21 02/14/21 14:27 Heparin Flush 50 Units/5 Ml Syringe IVP 150 unit PRN PRN Administration Port Protocol (<24 hours) Hydrochlorothiazide 12.5 mg 02/14/21 09:00 02/16/21 08:35 Hydrochlorothiazide 12.5 Mg Capsule PO 12.5 mg BID LAURENT Administration Hydromorphone HCl 2 mg 02/14/21 14:19 02/15/21 13:10 Hydromorphone 2 Mg/Ml Vial IVP 2 mg Q12H PRN Administration PAIN Insulin Aspart 3 - 11 unit 02/12/21 17:00 02/16/21 11:50 Insulin Aspart 300 Unit/3 Ml Pen SUBQ 5 unit 0800,1200,1700,2100 LAURENT Administration Protocol Insulin Aspart 5 unit 02/14/21 08:00 02/16/21 11:51 Insulin Aspart 300 Unit/3 Ml Pen SUBQ 5 unit TIDWM LAURENT Administration Insulin Glargine 35 unit 02/10/21 21:00 02/15/21 20:37 Insulin Glargine 300 Unit/3 Ml Pen SUBQ 35 unit QPM LAURENT Administration Insulin Glargine 40 unit 02/16/21 08:00 02/16/21 08:05 Insulin Glargine 300 Unit/3 Ml Pen SUBQ 40 unit QDBREAKFAST LAURENT Administration Lisinopril 20 mg 02/14/21 09:00 02/16/21 08:35 Lisinopril 20 Mg Tablet PO 20 mg BID LAURENT Administration Magnesium Oxide 400 mg 02/10/21 08:00 02/16/21 08:37 Magnesium Oxide 400 Mg Tablet PO 400 mg DAILYWM LAURENT Administration Nystatin 1 applic 02/10/21 13:00 02/16/21 11:52 Nystatin Powder 15 Gm TOP 1 applic BID LAURENT Administration Ondansetron HCl 4 mg 02/10/21 06:21 02/14/21 00:08 Ondansetron 4 Mg/2 Ml Vial IVP 4 mg Q6HR PRN Administration Nausea / Vomiting Oxycodone HCl 5 mg 02/13/21 22:00 02/16/21 06:38 Oxycodone 5 Mg Tablet PO 5 mg TID LAURENT Administration Oxycodone HCl 5 mg 02/13/21 14:21 02/15/21 12:22 Oxycodone 5 Mg Tablet PO 5 mg Q6H PRN Administration PAIN Pantoprazole Sodium 40 mg 02/12/21 07:00 02/16/21 06:38 Pantoprazole 40 Mg Tablet PO 40 mg QDAC LAURENT Administration Polyethylene Glycol 17 gm 02/15/21 09:00 02/16/21 08:33 Polyethylene Glycol 3350 17 Gm Packet PO 17 gm DAILY LAURENT Administration Quetiapine Fumarate 25 mg 02/11/21 14:00 02/16/21 06:38 Quetiapine 25 Mg Tablet PO 25 mg TID LAURENT Administration Saccharomyces Boulardii 250 mg 02/12/21 17:00 02/16/21 08:38 Saccharomyces Boulardii 250 Mg Capsule PO 250 mg BIDWM LAURENT Administration Senna 8.6 - 17.2 mg 02/14/21 09:00 02/16/21 08:35 Senna 8.6 Mg Tablet PO 8.6 mg DAILY LAURENT Administration Sodium Chloride 10 ml 02/10/21 06:21 02/16/21 06:38 Sodium Chloride Flush 0.9% 10 Ml Syringe IVP 10 ml PRN PRN Administration NEEDED PER PROVIDER ORDERS Sodium Chloride 10 ml 02/10/21 09:00 02/16/21 08:43 Sodium Chloride Flush 0.9% 10 Ml Syringe IVP Not Given 0100,0900,1700 LAURENT - Lab Result Fish Bone Diagrams: 02/16/21 04:43 02/16/21 04:43 - Additional Planning My Orders: My Active Orders 02/16/21 17:00 Amox/Clav 875/125 [Augmentin 875/125 Tab] 1 tab PO BID Subjective - Subjective Patient Reports: Other (Patient was seated in the bedside chair at the time of exam. She denies chest pain, dyspnea, abd pain, fever or chills.) Objective Vital Signs: Vital Signs - 24 hr 02/15/21 02/15/21 02/15/21 13:00 16:00 20:00 Temperature 36.4 C L Heart Rate 76 88 Heart Rate [ 74 Brachial] Respiratory 22 18 20 Rate Blood Pressure 143/66 H [Right Brachial artery] O2 Saturation 92 02/15/21 02/16/21 02/16/21 20:12 00:00 06:46 Temperature 37.2 C 36.6 C Heart Rate Heart Rate [ 88 76 Brachial] Respiratory 19 18 18 Rate Blood Pressure 167/112 H 134/57 H [Right Brachial artery] O2 Saturation 95 92 93 02/16/21 02/16/21 06:47 07:29 Temperature 36.7 C Heart Rate Heart Rate [ 83 Brachial] Respiratory 19 20 Rate Blood Pressure 163/71 H [Right Brachial artery] O2 Saturation 94 94 Oxygen O2 Source Room air I&O (Last 24 Hrs): Intake and Output Totals x24h 02/14/21 02/15/21 02/16/21 23:59 23:59 23:59 Intake Total 2190 1115 880 Output Total 2625 2425 3000 Balance -435 -9841 -3451 General: Alert, Oriented x3, No acute distress HEENT: PERRLA, EOMI Neck: Supple, No JVD Neuro: Alert, Non Focal, Oriented Times 3 Cardiovascular: Regular rate Respiratory: Chest non-tender, No respiratory distress, Breath sounds nml, Rales Abdomen: Normal bowel sounds, Soft, No tenderness Extremities: No clubbing, No cyanosis, No edema, No tenderness/swelling Skin: No rashes, No breakdown - Results Results: Laboratory Results WBC 8.0 x10^3/uL (4.8-10.8) 02/16/21 04:43 RBC 3.73 10^6/uL (4.20-5.40) L 02/16/21 04:43 Hgb 10.3 g/dL (12.0-16.0) L 02/16/21 04:43 Hct 31.5 % (37.0-47.0) L 02/16/21 04:43 MCV 84.5 fL (81.0-99.0) 02/16/21 04:43 MCH 27.6 pg (27.0-31.0) 02/16/21 04:43 MCHC 32.7 g/dL (32.0-36.0) 02/16/21 04:43 RDW 13.6 % (12.0-15.0) 02/16/21 04:43 Plt Count 188 10^3/uL (130-450) 02/16/21 04:43 MPV 8.5 fL (7.9-10.8) 02/16/21 04:43 Neut # (Auto) 5.8 10^3/uL (1.5-6.6) 02/16/21 04:43 Lymph # (Auto) 1.4 10^3/uL (1.5-3.5) L 02/16/21 04:43 [place] # (Auto) 0.6 10^3/uL (0.0-1.0) 02/16/21 04:43 Eos # (Auto) 0.2 10^3/uL (0.0-0.7) 02/16/21 04:43 Baso # (Auto) 0.0 10^3/uL (0.0-0.1) 02/16/21 04:43 Absolute Nucleated RBC 0.00 x10^3/uL 02/16/21 04:43 Nucleated RBC % 0.0 /100WBC 02/16/21 04:43 PT 16.8 secs (9.9-12.6) H 02/10/21 03:45 INR 1.6 (0.8-1.2) H 02/10/21 03:45 APTT 26.6 secs (24.9-33.3) 02/10/21 03:45 VBG pH 7.287 (7.31-7.41) L 02/10/21 04:15 VBG pCO2 48.6 mmHg (41-51) 02/10/21 04:15 VBG pO2 43.4 mmHg (25-47) 02/10/21 04:15 VBG HCO3 22.7 mmol/L (23-28) L 02/10/21 04:15 VBG Total CO2 24.2 mmol/L (24-29) 02/10/21 04:15 VBG O2 Saturation 75.6 % (60-80) 02/10/21 04:15 VBG Base Excess -4.2 mmol/L (-2 - +2) L 02/10/21 04:15 Sodium 130 mmol/L (135-145) L 02/16/21 04:43 Potassium 3.4 mmol/L (3.5-5.0) L 02/16/21 04:43 Chloride 91 mmol/L (101-111) L 02/16/21 04:43 Carbon Dioxide 27 mmol/L (21-32) 02/16/21 04:43 Anion Gap 12.0 (6-13) 02/16/21 04:43 BUN 12 mg/dL (6-20) 02/16/21 04:43 Creatinine 0.8 mg/dL (0.4-1.0) 02/16/21 04:43 Estimated GFR (MDRD) 71 (>89) L 02/16/21 04:43 Glucose 228 mg/dL (70-100) H 02/16/21 04:43 POC Whole Bld Glucose 220 mg/dL (70 - 100) H 02/16/21 11:10 Estimat Average Glucose 214 mg/dL (70-100) H 02/12/21 04:53 Hemoglobin A1c % 9.1 % (4.27-6.07) H 02/12/21 04:53 Lactic Acid 1.0 mmol/L (0.5-2.2) 02/10/21 03:40 Calcium 8.7 mg/dL (8.5-10.3) 02/16/21 04:43 Phosphorus 3.2 mg/dL (2.5-4.6) 02/16/21 04:43 Magnesium 1.9 mg/dL (1.7-2.8) 02/16/21 04:43 Iron 15 ug/dL (28-170) L 02/10/21 04:16 TIBC 134 ug/dL (250-450) L 02/10/21 04:16 % Saturation 11 % (20-50) L 02/10/21 04:16 Transferrin 96 mg/dL (192-382) L 02/10/21 04:16 Ferritin 476.1 ng/mL (11.0-306.8) H 02/10/21 04:16 Total Bilirubin 1.0 mg/dL (0.2-1.0) 02/16/21 04:43 Direct Bilirubin 1.1 mg/dL (0.1-0.5) H 02/12/21 04:53 AST 44 IU/L (10-42) H 02/16/21 04:43 ALT 79 IU/L (10-60) H 02/16/21 04:43 Alkaline Phosphatase 160 IU/L (42-121) H 02/16/21 04:43 C-Reactive Protein 5.1 mg/dL (0-1.0) H 02/16/21 04:43 B-Natriuretic Peptide 59 pg/mL (5-100) 02/15/21 04:50 Total Protein 6.8 g/dL (6.7-8.2) 02/16/21 04:43 Albumin 3.2 g/dL (3.2-5.5) 02/16/21 04:43 Globulin 3.6 g/dL (2.1-4.2) 02/16/21 04:43 Albumin/Globulin Ratio 0.9 (1.0-2.2) L 02/16/21 04:43 Amylase 28 U/L (28-100) 02/12/21 04:53 Lipase 28 U/L (22-51) 02/13/21 04:30 Vitamin B12 294 pg/mL (180-914) 02/10/21 04:16 Folate 8.72 ng/mL (5.90 - >24.8) 02/10/21 04:16 Urine Color YELLOW 02/10/21 02:40 Urine Clarity CLEAR (CLEAR) 02/10/21 02:40 Urine pH 7.0 PH (5.0-7.5) 02/10/21 02:40 Ur Specific [place] 1.025 (1.002-1.030) 02/10/21 02:40 Urine Protein >=300 mg/dL (NEGATIVE) H 02/10/21 02:40 Urine Glucose (UA) 250 mg/dL (NEGATIVE) H 02/10/21 02:40 Urine Ketones TRACE mg/dL (NEGATIVE) 02/10/21 02:40 Urine Occult Blood SMALL (NEGATIVE) H 02/10/21 02:40 Urine Nitrite NEGATIVE (NEGATIVE) 02/10/21 02:40 Urine Bilirubin NEGATIVE (NEGATIVE) 02/10/21 02:40 Urine Urobilinogen 1 (NORMAL) E.U./dL (NORMAL) 02/10/21 02:40 Ur Leukocyte Esterase TRACE (NEGATIVE) H 02/10/21 02:40 Urine RBC 0-5 /HPF (0-5) 02/10/21 02:40 Urine WBC 6-10 /HPF (0-5) H 02/10/21 02:40 Ur Squamous Epith Cells RARE Squamous (<= Few) 02/10/21 02:40 Urine Bacteria Few /HPF (None Seen) 02/10/21 02:40 Urine Mucus Moderate Strands 02/10/21 02:40 Ur Microscopic Review INDICATED 02/10/21 02:40 Urine Culture Comments INDICATED 02/10/21 02:40 Nasal Adenovirus (PCR) NOT DETECTED 02/15/21 11:30 Nasal B. parapertussis DNA (PCR) NOT DETECTED 02/15/21 11:30 Nasal Coronavir 229E PCR NOT DETECTED 02/15/21 11:30 Nasal Coronavir HKU1 PCR NOT DETECTED 02/15/21 11:30 Nasal Coronavir NL63 PCR NOT DETECTED 02/15/21 11:30 Nasal Coronavir OC43 PCR NOT DETECTED 02/15/21 11:30 Nasal Enterovir/Rhinovir PCR NOT DETECTED 02/15/21 11:30 Nasal Influenza B PCR NOT DETECTED 02/15/21 11:30 Nasal Influenza A PCR NOT DETECTED 02/15/21 11:30 Nasal Parainfluen 1 PCR NOT DETECTED 02/15/21 11:30 Nasal Parainfluen 2 PCR NOT DETECTED 02/15/21 11:30 Nasal Parainfluen 3 PCR NOT DETECTED 02/15/21 11:30 Nasal Parainfluen 4 PCR NOT DETECTED 02/15/21 11:30 Nasal RSV (PCR) NOT DETECTED 02/15/21 11:30 Nasal Screen MRSA (PCR) NEGATIVE (NEGATIVE) 02/10/21 07:50 Nasal B.pertussis DNA PCR NOT DETECTED 02/15/21 11:30 Nasal C.pneumoniae (PCR) NOT DETECTED 02/15/21 11:30 Rickey Human Metapneumo PCR NOT DETECTED 02/15/21 11:30 Nasal M.pneumoniae (PCR) NOT DETECTED 02/15/21 11:30 Nasal SARS-CoV-2 (PCR) NOT DETECTED 02/15/21 11:30 Serum Ketones NEGATIVE (NEGATIVE) 02/10/21 03:45 Blood Type A POSITIVE 02/10/21 04:15 Antibody Screen NEGATIVE 02/10/21 04:15 Crossmatch IS Only See Detail 02/10/21 04:15 - Procedures Procedures: Procedures EXCISION OF LOWER ESOPHAGUS, ENDO, DIAGN (07/24/16) EXCISION OF STOMACH, ENDO, DIAGN (07/24/16) EXCISION OF TRANSVERSE COLON, ENDO (07/24/16) REPOSITION R UP FEMUR WITH INTRAMED FIX, OPEN APPROACH (12/21/18) ABX Reporting Has patient been on IV antibiotics over the past 48 hours?: No
[2021-02-16] MEDS: oxyCODONE 5 MG TABLET PO PRN (15:40)
[2021-02-16] MEDS: AMOX/CLAV 875 MG/125 MG TABLET PO SCH (16:21)
[2021-02-16] MEDS: ATORVASTATIN 10 MG TABLET PO SCH (21:55)
[2021-02-17] MEDS: SODIUM CHLORIDE FLUSH 0.9% 10 ML SYRINGE IVP SCH ×3 (03:02→17:11)
[2021-02-17 05:17] LABS: BASOPHILS % (AUTO) 0.4 %; EOSINOPHILS # (AUTO) 0.2 10^3/uL (0.0-0.7); LYMPHOCYTES # (AUTO) 1.5 10^3/uL (1.5-3.5); LYMPHOCYTES % (AUTO) 18.1 %; MEAN CORPUSCULAR HEMOGLOBIN 28.1 pg (27.0-31.0); MEAN CORPUSCULAR HGB CONC 33.3 g/dL (32.0-36.0); MEAN CORPUSCULAR VOLUME 84.4 fL (81.0-99.0); MEAN PLATELET VOLUME 8.7 fL (7.9-10.8); MONOCYTES # (AUTO) 0.7 10^3/uL (0.0-1.0); MONOCYTES % (AUTO) 8.1 %; NEUTROPHILS # (AUTO) 5.7 10^3/uL (1.5-6.6); NEUTROPHILS % (AUTO) 70.9 %; PLT - PLATELET COUNT 235 10^3/uL (130-450); RED BLOOD COUNT 3.91 10^6/uL (4.20-5.40); RED CELL DISTRIBUTION WIDTH 13.7 % (12.0-15.0); WHITE BLOOD COUNT 8.1 x10^3/uL (4.8-10.8)
[2021-02-17 05:43] LABS: ALBUMIN 3.3 g/dL (3.2-5.5); ALBUMIN/GLOBULIN RATIO 0.9 (1.0-2.2); CALCIUM 9.3 mg/dL (8.5-10.3); CREATININE 0.8 mg/dL (0.4-1.0); CRP - C-REACTIVE PROTEIN 3.2 mg/dL (0-1.0); PHOSPHORUS 3.2 mg/dL (2.5-4.6); POTASSIUM 3.5 mmol/L (3.5-5.0)
[2021-02-17] MEDS: QUEtiapine 25 MG TABLET PO SCH ×3 (06:03→22:07)
[2021-02-17] MEDS: oxyCODONE 5 MG TABLET PO SCH ×2 (06:05→14:04)
[2021-02-17] MEDS: PANTOPRAZOLE 40 MG TABLET PO SCH (06:06)
--- NOTE | 2021-02-17 07:48 | PROVIDER PROGRESS NOTE ---
Assessment/Plan - Problem List (1) Fluid overload Assessment/Plan: Continues to improve. Patient breathing comfortably on room air with oxygen saturation at 100% Continue Lasix 20mg po daily (2) Pneumonia Assessment/Plan: Patient had 6 days of Zosyn. Azithromycin and Zosyn discontinued On augmentin po bid for 4 days (3) Right upper quadrant abdominal pain Assessment/Plan: Improved/ Resolved HIDA scan: possible chronic cholecystitis Patient to follow up with GI outpatient Could not do MRCP due to weight limit and patient unable to follow commands (4) Pancreatitis Assessment/Plan: Resolved (5) Depression with anxiety Assessment/Plan: Continue home medications (6) Dementia Qualifiers: Dementia type: Alzheimer's disease Dementia behavioral disturbance: without behavioral disturbance Assessment/Plan: On seroquel. Ativan prn (7) HTN (hypertension) Assessment/Plan: Controlled. Stable. On hydralazine, HCTZ, Lasix, lisinopril and amlodopine. (8) Type 2 diabetes mellitus, controlled Assessment/Plan: On lantus 40 uints qam and 35 units subg qpm SSI. Accu checks qACHS (9) Candidal intertrigo Assessment/Plan: Nyastatin powder bid (10) UTI (urinary tract infection) Assessment/Plan: E. coli and E. faicalis Treated with Zosyn for 6 days (11) Iron deficiency anemia Assessment/Plan: On ferrous gluconate 324mg po daily - Current Meds Current Meds: Current Medications Generic Name Dose Route Start Last Admin Trade Name Freq PRN Reason Stop Dose Admin Albuterol 2.5 mg 02/13/21 14:29 02/15/21 13:03 Albuterol Neb 2.5 Mg/3 Ml INH 2.5 mg RTQ4H PRN Administration Wheezing Amlodipine Besylate 5 mg 02/11/21 21:00 02/16/21 21:55 Amlodipine 5 Mg Tablet PO 5 mg BID LAURENT Administration Amoxicillin/Clavulanate Potassium 1 tab 02/16/21 17:00 02/16/21 16:21 Amox/Clav 875 Mg/125 Mg Tablet PO 1 tab BID LAURENT Administration Atorvastatin Calcium 20 mg 02/11/21 21:00 02/16/21 21:55 Atorvastatin 10 Mg Tablet PO 20 mg QPM LAURENT Administration Azithromycin 250 mg 02/13/21 17:22 02/16/21 08:35 Azithromycin 250 Mg Tablet PO 250 mg DAILY LAURENT Administration Docusate Sodium 250 - 500 mg 02/14/21 09:00 02/16/21 08:37 Docusate Sodium 250 Mg Capsule PO 250 mg DAILY LAURENT Administration Duloxetine HCl 40 mg 02/12/21 09:00 02/16/21 08:36 Duloxetine 20 Mg Capsule PO 40 mg DAILY LAURENT Administration Enoxaparin Sodium 40 mg 02/10/21 09:00 02/16/21 08:34 Enoxaparin 40 Mg/0.4 Ml Syringe SUBQ 40 mg DAILY LAURENT Administration Ferrous Gluconate 324 mg 02/12/21 08:00 02/16/21 08:37 Ferrous Gluconate 324 Mg Tablet PO 324 mg DAILYWM LAURENT Administration Heparin Sodium (Beef Lung) 30 - 50 unit 02/14/21 12:21 02/14/21 14:27 Heparin Flush 50 Units/5 Ml Syringe IVP 150 unit PRN PRN Administration Port Protocol (<24 hours) Hydrochlorothiazide 12.5 mg 02/14/21 09:00 02/16/21 21:55 Hydrochlorothiazide 12.5 Mg Capsule PO 12.5 mg BID LAURENT Administration Hydromorphone HCl 2 mg 02/14/21 14:19 02/15/21 13:10 Hydromorphone 2 Mg/Ml Vial IVP 2 mg Q12H PRN Administration PAIN Hydroxyzine Pamoate 25 mg 02/11/21 14:09 02/16/21 19:37 Hydroxyzine Pamoate 25 Mg Capsule PO 25 mg Q8H PRN Administration Anxiety Insulin Aspart 3 - 11 unit 02/12/21 17:00 02/16/21 21:52 Insulin Aspart 300 Unit/3 Ml Pen SUBQ 7 unit 0800,1200,1700,2100 [facility] Administration Protocol Insulin Glargine 35 unit 02/10/21 21:00 02/16/21 21:52 Insulin Glargine 300 Unit/3 Ml Pen SUBQ 35 unit QPM LAURENT Administration Insulin Glargine 40 unit 02/16/21 08:00 02/16/21 08:05 Insulin Glargine 300 Unit/3 Ml Pen SUBQ 40 unit QDBREAKFAST LAURENT Administration Lisinopril 20 mg 02/14/21 09:00 02/16/21 21:56 Lisinopril 20 Mg Tablet PO 20 mg BID LAURENT Administration Lorazepam 0.5 mg 02/12/21 09:22 02/16/21 16:22 Lorazepam 0.5 Mg Tablet PO 0.5 mg Q6H PRN Administration Anxiety Magnesium Oxide 400 mg 02/10/21 08:00 02/16/21 08:37 Magnesium Oxide 400 Mg Tablet PO 400 mg DAILYWM LAURENT Administration Nystatin 1 applic 02/10/21 13:00 02/16/21 21:56 Nystatin Powder 15 Gm TOP 1 applic BID LAURENT Administration Ondansetron HCl 4 mg 02/10/21 06:21 02/14/21 00:08 Ondansetron 4 Mg/2 Ml Vial IVP 4 mg Q6HR PRN Administration Nausea / Vomiting Oxycodone HCl 5 mg 02/13/21 22:00 02/17/21 06:05 Oxycodone 5 Mg Tablet PO Not Given TID LAURENT Oxycodone HCl 5 mg 02/13/21 14:21 02/16/21 15:40 Oxycodone 5 Mg Tablet PO 5 mg Q6H PRN Administration PAIN Pantoprazole Sodium 40 mg 02/12/21 07:00 02/17/21 06:06 Pantoprazole 40 Mg Tablet PO Not Given QDAC LAURENT Polyethylene Glycol 17 gm 02/15/21 09:00 02/16/21 08:33 Polyethylene Glycol 3350 17 Gm Packet PO 17 gm DAILY LAURENT Administration Quetiapine Fumarate 25 mg 02/11/21 14:00 02/17/21 06:03 Quetiapine 25 Mg Tablet PO 25 mg TID LAURENT Administration Saccharomyces Boulardii 250 mg 02/12/21 17:00 02/16/21 16:21 Saccharomyces Boulardii 250 Mg Capsule PO 250 mg BIDWM LAURENT Administration Senna 8.6 - 17.2 mg 02/14/21 09:00 02/16/21 08:35 Senna 8.6 Mg Tablet PO 8.6 mg DAILY LAURENT Administration Sodium Chloride 10 ml 02/10/21 06:21 02/16/21 06:38 Sodium Chloride Flush 0.9% 10 Ml Syringe IVP 10 ml PRN PRN Administration NEEDED PER PROVIDER ORDERS Sodium Chloride 10 ml 02/10/21 09:00 02/17/21 03:02 Sodium Chloride Flush 0.9% 10 Ml Syringe IVP 10 ml 0100,0900,1700 LAURENT Administration - Lab Result Fish Bone Diagrams: 02/17/21 04:52 02/17/21 04:52 - Additional Planning My Orders: My Active Orders 02/16/21 17:00 Amox/Clav 875/125 [Augmentin 875/125 Tab] 1 tab PO BID 02/17/21 08:00 Insulin Aspart [NovoLOG] 7 unit SUBQ TIDWM Subjective - Subjective Patient Reports: Other (Sleeping at the time of visit. She readily wakes up to verbal stimuli. She had just eaten breakfast. She denied any complaints.) Objective Vital Signs: Vital Signs - 24 hr 02/16/21 02/16/21 02/16/21 11:00 12:53 16:32 Temperature 37.6 C Heart Rate 88 Heart Rate [ 80 87 Brachial] Respiratory 18 20 Rate Blood Pressure 143/78 H 157/75 H [Right Brachial artery] O2 Saturation 97 95 02/16/21 02/16/21 02/16/21 20:10 21:47 23:48 Temperature 37.2 C Heart Rate 91 Heart Rate [ 91 86 Brachial] Respiratory 18 20 Rate Blood Pressure 150/68 H 145/65 H [Right Brachial artery] O2 Saturation 94 02/17/21 07:21 Temperature 37.4 C Heart Rate Heart Rate [ 81 Brachial] Respiratory 20 Rate Blood Pressure 155/80 H [Right Brachial artery] O2 Saturation 94 Oxygen O2 Source Room air I&O (Last 24 Hrs): Intake and Output Totals x24h 02/15/21 02/16/21 02/17/21 23:59 23:59 23:59 Intake Total 1115 2160 Output Total 2425 7550 1450 Balance -1310 -4090 -1450 Comments/Notes: General: Alert, Oriented x3, No acute distress HEENT: PERRLA, EOMI Neck: Supple, No JVD Neuro: Alert, Non Focal, Oriented Times 3 Cardiovascular: Regular rate Respiratory: Chest non-tender, No respiratory distress, Breath sounds nml, Rales noted but improved Abdomen: Normal bowel sounds, Soft, No tenderness Extremities: No clubbing, No cyanosis, No edema, No tenderness/swelling Skin: No rashes, No breakdown - Results Results: Laboratory Results WBC 8.1 x10^3/uL (4.8-10.8) 02/17/21 04:52 RBC 3.91 10^6/uL (4.20-5.40) L 02/17/21 04:52 Hgb 11.0 g/dL (12.0-16.0) L 02/17/21 04:52 Hct 33.0 % (37.0-47.0) L 02/17/21 04:52 MCV 84.4 fL (81.0-99.0) 02/17/21 04:52 MCH 28.1 pg (27.0-31.0) 02/17/21 04:52 MCHC 33.3 g/dL (32.0-36.0) 02/17/21 04:52 RDW 13.7 % (12.0-15.0) 02/17/21 04:52 Plt Count 235 10^3/uL (130-450) 02/17/21 04:52 MPV 8.7 fL (7.9-10.8) 02/17/21 04:52 Neut # (Auto) 5.7 10^3/uL (1.5-6.6) 02/17/21 04:52 Lymph # (Auto) 1.5 10^3/uL (1.5-3.5) 02/17/21 04:52 Coles # (Auto) 0.7 10^3/uL (0.0-1.0) 02/17/21 04:52 Eos # (Auto) 0.2 10^3/uL (0.0-0.7) 02/17/21 04:52 Baso # (Auto) 0.0 10^3/uL (0.0-0.1) 02/17/21 04:52 Absolute Nucleated RBC 0.00 x10^3/uL 02/17/21 04:52 Nucleated RBC % 0.0 /100WBC 02/17/21 04:52 PT 16.8 secs (9.9-12.6) H 02/10/21 03:45 INR 1.6 (0.8-1.2) H 02/10/21 03:45 APTT 26.6 secs (24.9-33.3) 02/10/21 03:45 VBG pH 7.287 (7.31-7.41) L 02/10/21 04:15 VBG pCO2 48.6 mmHg (41-51) 02/10/21 04:15 VBG pO2 43.4 mmHg (25-47) 02/10/21 04:15 VBG HCO3 22.7 mmol/L (23-28) L 02/10/21 04:15 VBG Total CO2 24.2 mmol/L (24-29) 02/10/21 04:15 VBG O2 Saturation 75.6 % (60-80) 02/10/21 04:15 VBG Base Excess -4.2 mmol/L (-2 - +2) L 02/10/21 04:15 Sodium 132 mmol/L (135-145) L 02/17/21 04:52 Potassium 3.5 mmol/L (3.5-5.0) 02/17/21 04:52 Chloride 94 mmol/L (101-111) L 02/17/21 04:52 Carbon Dioxide 28 mmol/L (21-32) 02/17/21 04:52 Anion Gap 10.0 (6-13) 02/17/21 04:52 BUN 9 mg/dL (6-20) 02/17/21 04:52 Creatinine 0.8 mg/dL (0.4-1.0) 02/17/21 04:52 Estimated GFR (MDRD) 71 (>89) L 02/17/21 04:52 Glucose 192 mg/dL (70-100) H 02/17/21 04:52 POC Whole Bld Glucose 203 mg/dL (70 - 100) H 02/17/21 07:20 Estimat Average Glucose 214 mg/dL (70-100) H 02/12/21 04:53 Hemoglobin A1c % 9.1 % (4.27-6.07) H 02/12/21 04:53 Lactic Acid 1.0 mmol/L (0.5-2.2) 02/10/21 03:40 Calcium 9.3 mg/dL (8.5-10.3) 02/17/21 04:52 Phosphorus 3.2 mg/dL (2.5-4.6) 02/17/21 04:52 Magnesium 2.0 mg/dL (1.7-2.8) 02/17/21 04:52 Iron 15 ug/dL (28-170) L 02/10/21 04:16 TIBC 134 ug/dL (250-450) L 02/10/21 04:16 % Saturation 11 % (20-50) L 02/10/21 04:16 Transferrin 96 mg/dL (192-382) L 02/10/21 04:16 Ferritin 476.1 ng/mL (11.0-306.8) H 02/10/21 04:16 Total Bilirubin 1.0 mg/dL (0.2-1.0) 02/17/21 04:52 Direct Bilirubin 1.1 mg/dL (0.1-0.5) H 02/12/21 04:53 AST 43 IU/L (10-42) H 02/17/21 04:52 ALT 66 IU/L (10-60) H 02/17/21 04:52 Alkaline Phosphatase 166 IU/L (42-121) H 02/17/21 04:52 C-Reactive Protein 3.2 mg/dL (0-1.0) H 02/17/21 04:52 B-Natriuretic Peptide 59 pg/mL (5-100) 02/15/21 04:50 Total Protein 7.0 g/dL (6.7-8.2) 02/17/21 04:52 Albumin 3.3 g/dL (3.2-5.5) 02/17/21 04:52 Globulin 3.7 g/dL (2.1-4.2) 02/17/21 04:52 Albumin/Globulin Ratio 0.9 (1.0-2.2) L 02/17/21 04:52 Amylase 28 U/L (28-100) 02/12/21 04:53 Lipase 28 U/L (22-51) 02/13/21 04:30 Vitamin B12 294 pg/mL (180-914) 02/10/21 04:16 Folate 8.72 ng/mL (5.90 - >24.8) 02/10/21 04:16 Urine Color YELLOW 02/10/21 02:40 Urine Clarity CLEAR (CLEAR) 02/10/21 02:40 Urine pH 7.0 PH (5.0-7.5) 02/10/21 02:40 Ur Specific [place] 1.025 (1.002-1.030) 02/10/21 02:40 Urine Protein >=300 mg/dL (NEGATIVE) H 02/10/21 02:40 Urine Glucose (UA) 250 mg/dL (NEGATIVE) H 02/10/21 02:40 Urine Ketones TRACE mg/dL (NEGATIVE) 02/10/21 02:40 Urine Occult Blood SMALL (NEGATIVE) H 02/10/21 02:40 Urine Nitrite NEGATIVE (NEGATIVE) 02/10/21 02:40 Urine Bilirubin NEGATIVE (NEGATIVE) 02/10/21 02:40 Urine Urobilinogen 1 (NORMAL) E.U./dL (NORMAL) 02/10/21 02:40 Ur Leukocyte Esterase TRACE (NEGATIVE) H 02/10/21 02:40 Urine RBC 0-5 /HPF (0-5) 02/10/21 02:40 Urine WBC 6-10 /HPF (0-5) H 02/10/21 02:40 Ur Squamous Epith Cells RARE Squamous (<= Few) 02/10/21 02:40 Urine Bacteria Few /HPF (None Seen) 02/10/21 02:40 Urine Mucus Moderate Strands 02/10/21 02:40 Ur Microscopic Review INDICATED 02/10/21 02:40 Urine Culture Comments INDICATED 02/10/21 02:40 Nasal Adenovirus (PCR) NOT DETECTED 02/15/21 11:30 Nasal B. parapertussis DNA (PCR) NOT DETECTED 02/15/21 11:30 Nasal Coronavir 229E PCR NOT DETECTED 02/15/21 11:30 Nasal Coronavir HKU1 PCR NOT DETECTED 02/15/21 11:30 Nasal Coronavir NL63 PCR NOT DETECTED 02/15/21 11:30 Nasal Coronavir OC43 PCR NOT DETECTED 02/15/21 11:30 Nasal Enterovir/Rhinovir PCR NOT DETECTED 02/15/21 11:30 Nasal Influenza B PCR NOT DETECTED 02/15/21 11:30 Nasal Influenza A PCR NOT DETECTED 02/15/21 11:30 Nasal Parainfluen 1 PCR NOT DETECTED 02/15/21 11:30 Nasal Parainfluen 2 PCR NOT DETECTED 02/15/21 11:30 Nasal Parainfluen 3 PCR NOT DETECTED 02/15/21 11:30 Nasal Parainfluen 4 PCR NOT DETECTED 02/15/21 11:30 Nasal RSV (PCR) NOT DETECTED 02/15/21 11:30 Nasal Screen MRSA (PCR) NEGATIVE (NEGATIVE) 02/10/21 07:50 Nasal B.pertussis DNA PCR NOT DETECTED 02/15/21 11:30 Nasal C.pneumoniae (PCR) NOT DETECTED 02/15/21 11:30 Rickey Human Metapneumo PCR NOT DETECTED 02/15/21 11:30 Nasal M.pneumoniae (PCR) NOT DETECTED 02/15/21 11:30 Nasal SARS-CoV-2 (PCR) NOT DETECTED 02/15/21 11:30 Serum Ketones NEGATIVE (NEGATIVE) 02/10/21 03:45 Blood Type A POSITIVE 02/10/21 04:15 Antibody Screen NEGATIVE 02/10/21 04:15 Crossmatch IS Only See Detail 02/10/21 04:15 - Procedures Procedures: Procedures EXCISION OF LOWER ESOPHAGUS, ENDO, DIAGN (07/24/16) EXCISION OF STOMACH, ENDO, DIAGN (07/24/16) EXCISION OF TRANSVERSE COLON, ENDO (07/24/16) REPOSITION R UP FEMUR WITH INTRAMED FIX, OPEN APPROACH (12/21/18) ABX Reporting Has patient been on IV antibiotics over the past 48 hours?: No
[2021-02-17] MEDS: MAGNESIUM OXIDE 400 MG TABLET PO SCH (07:50)
[2021-02-17] MEDS: FERROUS GLUCONATE 324 MG TABLET PO SCH (07:50)
[2021-02-17] MEDS: SACCHAROMYCES BOULARDII 250 MG CAPSULE PO SCH ×2 (07:50→17:10)
[2021-02-17] MEDS: INSULIN GLARGINE 300 UNIT/3 ML PEN SUBQ SCH ×2 (07:51→22:04)
[2021-02-17] MEDS: INSULIN ASPART 300 UNIT/3 ML PEN SUBQ SCH ×7 (07:53→22:05)
[2021-02-17] MEDS: FUROSEMIDE 20 MG TABLET PO SCH (08:50)
[2021-02-17] MEDS: amLODIPine 5 MG TABLET PO SCH ×2 (08:50→22:07)
[2021-02-17] MEDS: DULoxetine 20 MG CAPSULE PO SCH (08:50)
[2021-02-17] MEDS: DOCUSATE SODIUM 250 MG CAPSULE PO SCH (08:50)
[2021-02-17] MEDS: SENNA 8.6 MG TABLET PO SCH (08:50)
[2021-02-17] MEDS: lisinopriL 20 MG TABLET PO SCH ×2 (08:50→22:07)
[2021-02-17] MEDS: polyethylene glycoL 3350 17 GM PACKET PO SCH (08:51)
[2021-02-17] MEDS: ENOXAPARIN 40 MG/0.4 ML SYRINGE SUBQ SCH (08:51)
[2021-02-17] MEDS: NYSTATIN POWDER 15 GM TOP SCH ×2 (08:51→22:06)
[2021-02-17] MEDS: AMOX/CLAV 875 MG/125 MG TABLET PO SCH ×2 (08:59→22:07)
[2021-02-17] MEDS: hydroCHLOROthiazide 12.5 MG CAPSULE PO SCH ×2 (08:59→22:06)
[2021-02-17] MEDS: AZITHROMYCIN 250 MG TABLET PO SCH (09:25)
[2021-02-17] MEDS: oxyCODONE 5 MG TABLET PO PRN (10:54)
[2021-02-17] MEDS: ATORVASTATIN 10 MG TABLET PO SCH (22:06)
[2021-02-18] MEDS: SODIUM CHLORIDE FLUSH 0.9% 10 ML SYRINGE IVP SCH ×2 (00:53→08:03)
[2021-02-18 05:50] LABS: BASOPHILS # (AUTO) 0.1 10^3/uL (0.0-0.1); BASOPHILS % (AUTO) 0.6 %; EOSINOPHILS # (AUTO) 0.2 10^3/uL (0.0-0.7); EOSINOPHILS % (AUTO) 2.4 %; HCT - HEMATOCRIT 33.9 % (37.0-47.0); HGB - HEMOGLOBIN 10.8 g/dL (12.0-16.0); LYMPHOCYTES # (AUTO) 1.7 10^3/uL (1.5-3.5); MEAN CORPUSCULAR HEMOGLOBIN 27.5 pg (27.0-31.0); MEAN CORPUSCULAR HGB CONC 31.9 g/dL (32.0-36.0); MEAN CORPUSCULAR VOLUME 86.3 fL (81.0-99.0); MEAN PLATELET VOLUME 8.9 fL (7.9-10.8); MONOCYTES # (AUTO) 0.7 10^3/uL (0.0-1.0); MONOCYTES % (AUTO) 7.7 %; NEUTROPHILS # (AUTO) 5.8 10^3/uL (1.5-6.6); NEUTROPHILS % (AUTO) 68.7 %; PLT - PLATELET COUNT 272 10^3/uL (130-450); RED BLOOD COUNT 3.93 10^6/uL (4.20-5.40); RED CELL DISTRIBUTION WIDTH 13.6 % (12.0-15.0); WHITE BLOOD COUNT 8.4 x10^3/uL (4.8-10.8)
[2021-02-18 06:07] LABS: ALBUMIN 3.2 g/dL (3.2-5.5); ALBUMIN/GLOBULIN RATIO 0.8 (1.0-2.2); BILIRUBIN,TOTAL 0.6 mg/dL (0.2-1.0); CALCIUM 9.7 mg/dL (8.5-10.3); CREATININE 0.9 mg/dL (0.4-1.0)
[2021-02-18] MEDS: QUEtiapine 25 MG TABLET PO SCH (06:54)
[2021-02-18] MEDS: PANTOPRAZOLE 40 MG TABLET PO SCH (06:55)
--- NOTE | 2021-02-18 07:47 | DISCHARGE SUMMARY ---
Discharge Summary Admit Date: 02/10/21 Discharge Date: 02/18/21 Discharging Provider: Kailyn Marrero Primary Care Provider: Xochitl Chen Condition at Discharge: Stable Discharge Disposition: SNF DC/Xfer Discharge Facility Name: [facility] - DIAGNOSES Admission Diagnoses: Nausea and vomiting Right upper quadrant abdominal pain Pyelonephritis Electrolyte abnormality Difficult intravenous access Type 2 diabetes mellitus, controlled Hypertension Depression with anxiety Candidal intertrigo Iron deficiency anemia Discharge Diagnoses with Status of Each Condition: Overload: Acute. Improved/ Resolved Pneumonia Acute. Improved/ Resolved Right upper quadrant abdominal pain Acute. Resolve Pancreatitis: Acute. Resolved Depression with anxiety: Chronic. Stable Dementia: Chronic Hypertension: Chronic Stable Type 2 diabetes mellitus, controlled Candidal intertrigo: Pyelonephritis: Acute. Resolved. Treated with Zosyn for 6 days then augment for 5 Iron deficiency anemia: Stable. On supplements - HPI History of Present Illness: Per HPI: 70-year-old white female who is a resident of [facility]. She has been living there since May 2018 after her unexpectedly of lung cancer in April 2018. She has had dementia for quite some time. He was her primary caregiver. Mom has significant emotional lability due to major depressive disorder. The dementia only makes it worse. She is followed by palliative care and was last seen January 24. Main problem on that review of systems was weight gain and she has up to 234.8 pounds. She has chronic lower extremity edema. For her emotional lability her Seroquel has been adjusted as of October 2020. And duloxetine was increased from 30 mg to 40 mg. This helped with reducing crying episodes. Her main problem addressed during that visit was chronic pain of the right hip and shoulder for which she is treated with acetaminophen and routine oxycodone. Has chronic hydroureter on CT. With multiple episodes of UTIs. Because of the chronic hydroureter, she has a chronic indwelling Interiano catheter. Several hours prior to admission the staff at the assisted living facility report that she began having nausea and vomiting. Loose stool. The patient herself describe diffuse abdominal pain. Due to her dementia she is really unable to contribute much more to her review of systems. She was brought in by ambulance. In the ER she was moaning, groaning. Glucose was 339 with EMS. She received a fluid bolus in the emergency room and further evaluation found her to have a very low potassium of 1.8, calcium of 4.4 with a total protein of 3.4 and an albumin of 1.8. Total bili is 1.1, AST 189, ALT 77. Phosphorus is 1.5. Magnesium is 0.6. Severely low iron level at 15 with transfer in 11. Hemoglo bin is 6.8. She did have a hemoglobin of 6.6 in December 2018. Her last hemoglobin prior to this illness was 10.5 on February 08. Nobody is reporting that she has black stool, vomiting of blood. Stool was brown in the emergency room. Preliminary CT report shows thickening of the urinary bladder with pericystic stranding, mild hydronephrosis, enhancement of the ureters and distended renal pelvis ease. Cystitis and pyelonephritis is a strong consideration. Interiano is now in place. Urinalysis had proteinuria, glucosuria, occult blood, trace leukocyte Estrace, 0-5 red cells, 6-10 white cells, rare squamous. Very few bacteria. Her gallbladder was visualized but there was no stones. Pancreas and spleen was unremarkable. She had a fat-containing umbilical hernia. No uterus. The patient is now placed in ICU for fluid resuscitation, antibiotics, transfusion, and correction of her severe electrolyte imbalance. The suddenness of symptoms with such severe electrolyte imbalance is not congruent. She does not appear to have had symptoms long enough to give her such severe electrolyte imbalance. I did speak to her daughter, Elyse, who is in [place] celebrating her birthday. Elyse gave me permission after obtaining consent for a central line and blood transfusion. I discussed blood transfusion reaction, central line complications including pneumothorax, bleeding, and Elyse said it was okay for me to do this. Beyond this intervention, judicious discussion should be had for all interventions as this patient is DNR with emphasis on palliative/comfort measures. - HOSPITAL COURSE Hospital Course: MRCP could not be done because of size limitations and the patient being unable to follow commands. The patient was seen by the general surgeon who recommended a HIDA scan done. HIDA scan was negative for any acute findings but raised the possibility of chronic cholecystitis. She was placed on Zosyn for urinary tract infection which subsequently grew E. coli and E faecalis. Zosyn was continued for 6 days. The patient subsequently had a chest x-ray which indicated atypical pneumonia. Azithromycin was added to Zosyn and patient completed a 3-day treatment. By the time of discharge she was also put on Augmentin 875/125 mg p.o. twice daily for 5 days. At admission patient's hemoglobin was 6.8. She was transfused 1 unit of packed red blood cells on 02/10/21. Hemoglobin upon discharge was 10.8. She is also on iron supplements. Iron level was 15. Her initial lipase level was 1850. By the day of discharge the lipase was 28. Patient did not have any more abdominal pain. 3 days before discharge patient had an Episode of dyspnea. Repeat chest x-ray showed some vascular congestion/fluid overload. She was put on Lasix 20 mg IV daily with significant diuresis. By the time of discharge the patient was on room air only with an oxygen saturation of 100%. Patient's liver enzymes which were mildly elevated on admission where down to normal by the day of discharge. Her hemoglobin A1c was 9.1. She required 7 units of insulin subcu with meals 3 times daily. She was also on 35 units of insulin at breakfast and 40 units at bedtime. She was also on a high dose sliding scale insulin. She was seen by physical therapy who recommended home with home health/ PT Her electrolytes were replaced appropriately during her hospital stay. By the time of discharge the patient was back to her baseline. - ALLERGIES Allergies/Adverse Reactions: Allergies Allergy/AdvReac Type Severity Reaction Status Date / Time sulfamethoxazole Allergy Unknown Verified 02/10/21 02:30 [From Bactrim] trimethoprim [From Bactrim] Allergy Unknown Verified 02/10/21 02:30 - MEDICATIONS Home Medications: Ambulatory Orders Medication Instructions Recorded Confirmed Multivitamin [Multiple Vitamins] 1 tab PO DAILY 06/01/18 02/10/21 Albuterol 2.5 mg INH RTQ4H PRN #3 neb 12/25/18 02/10/21 Atorvastatin [Lipitor] 20 mg PO QPM #30 tablet 12/25/18 02/10/21 Ondansetron Odt [Zofran Odt] 4 mg PO Q8H PRN #10 tablet 12/25/18 02/10/21 Acetaminophen 500 mg PO TID 02/07/19 02/10/21 Omeprazole 20 mg PO DAILY 02/07/19 02/10/21 amLODIPine [Norvasc] 5 mg PO BID 02/07/19 02/10/21 Ferrous Gluconate 240 mg PO DAILY #30 tablet 02/08/19 02/10/21 Magnesium Oxide [Mag Ox] 400 mg PO 0800 #30 tablet 02/08/19 02/10/21 metFORMIN [Glucophage] 1,000 mg PO BIDWM #60 tablet 02/08/19 02/10/21 polyethylene glycoL 3350 [Miralax] 17 gm PO DAILY #30 packet 02/08/19 02/10/21 QUEtiapine [SEROquel] 25 mg PO TID 03/02/19 02/10/21 Alendronate Sodium 70 mg PO SA 12/22/19 02/10/21 Ascorbic Acid [Vitamin C] 500 mg PO DAILY 12/22/19 02/10/21 Calcium Carbonate [Calcium] 500 mg PO DAILY 12/22/19 02/10/21 DULoxetine [Cymbalta] 40 mg PO DAILY 12/22/19 02/10/21 Lisinopril/Hydrochlorothiazide 1 tab PO BID 12/22/19 02/10/21 [Lisinopril-Hctz 20-12.5 mg Tab] Nystatin 1 applic TP BID MDD to groin 12/22/19 02/10/21 Cholecalciferol (Vitamin D3) 50 mcg DAILY 01/10/20 02/10/21 [Vitamin D3] hydrOXYzine HCL [Hydroxyzine HCl] 25 mg PO Q8H PRN 01/17/20 02/10/21 oxyCODONE [Roxicodone] 5 mg PO Q6H PRN 01/17/20 02/10/21 oxyCODONE [Roxicodone] 5 mg PO TID 01/25/20 02/10/21 Insulin Glargine [Lantus Solostar] 36 units SQ QPM 11/03/20 02/10/21 Magnesium Hydroxide [Milk of 30 ml PO DAILY PRN MDD if no BM in 12/14/20 02/10/21 Magnesia] 3 days Senna [Senokot] 8.6 mg PO QPM 12/14/20 02/10/21 Insulin Glargine [Lantus Solostar] 40 units SUBQ DAILY 02/10/21 02/10/21 Amox/Clav 875/125 [Augmentin 1 tablet PO Q12H 5 Days #10 tablet 05/07/21 875/125 Tab] Saccharomyces Boulardii [Florastor] 250 mg PO BIDWM #10 cap 02/15/21 - PHYSICAL EXAM AT DISCHARGE General Appearance: positive: No acute distress, Alert Eyes Bilateral: positive: PERRL, EOMI ENT: positive: No signs of dehydration Neck: positive: No JVD, Trachea midline Respiratory: positive: Chest non-tender, No respiratory distress, Breath sounds nml, Rales (very mild) Cardiovascular: positive: Regular rate & rhythm Abdomen: positive: Non-tender, No organomegaly, Nml bowel sounds, No distention. negative: Guarding, Rebound Back: positive: Nml inspection Skin: positive: Color nml, No rash, Warm, Dry Extremities: positive: Non-tender, Nml appearance, No pedal edema Neurologic/Psychiatric: positive: Oriented x3, Mood/affect nml - LABS Result Diagrams: 02/18/21 05:29 02/18/21 05:29 - TIME SPENT Time Spent in Discharge (Minutes): 20
--- NOTE | 2021-02-18 07:50 | Discharge Plan ---
Discharge Plan Problem Reviewed?: Yes Disposition: [facility] DC/Xfer Condition: Stable Prescriptions: Amox/Clav 875/125 [Augmentin 875/125 Tab] 1 tablet PO Q12H 5 Days #10 tablet Saccharomyces Boulardii [Florastor] 250 mg PO BIDWM #10 cap Diet: Diabetic Activity Restrictions: Activity as Tolerated Health Concerns: atypical pneumonia, UTI, elevated liver enzyme Plan of Treatment: pt is prescribed antibiotics Augmentin to finish the treatment course for her atypical pneumonia and UTI. Pt's liver enzyme is treading down, advise recheck pt's liver enzyme in one week. continue home health PT Care Goals: stabilization and improvement of her medical conditions Assessment: discussed care plan with her daughter at the bedside before, answered her questions. she understood. Follow-Up Care: Home Health - RN, Home Health - PT, Home Health - OT No Smoking: If you smoke, Please STOP! Call for help. Follow-up with: MINOR ISAAC ARNP [Primary Care Provider] -
[2021-02-18] MEDS: hydroCHLOROthiazide 12.5 MG CAPSULE PO SCH (08:02)
[2021-02-18] MEDS: AMOX/CLAV 875 MG/125 MG TABLET PO SCH (08:02)
[2021-02-18] MEDS: FERROUS GLUCONATE 324 MG TABLET PO SCH (08:02)
[2021-02-18] MEDS: amLODIPine 5 MG TABLET PO SCH (08:02)
[2021-02-18] MEDS: DOCUSATE SODIUM 250 MG CAPSULE PO SCH (08:02)
[2021-02-18] MEDS: DULoxetine 20 MG CAPSULE PO SCH (08:02)
[2021-02-18] MEDS: SACCHAROMYCES BOULARDII 250 MG CAPSULE PO SCH (08:02)
[2021-02-18] MEDS: SENNA 8.6 MG TABLET PO SCH (08:02)
[2021-02-18] MEDS: AZITHROMYCIN 250 MG TABLET PO SCH (08:02)
[2021-02-18] MEDS: polyethylene glycoL 3350 17 GM PACKET PO SCH (08:03)
[2021-02-18] MEDS: lisinopriL 20 MG TABLET PO SCH (08:03)
[2021-02-18] MEDS: MAGNESIUM OXIDE 400 MG TABLET PO SCH (08:03)
[2021-02-18] MEDS: FUROSEMIDE 20 MG TABLET PO SCH (08:03)
[2021-02-18] MEDS: ENOXAPARIN 40 MG/0.4 ML SYRINGE SUBQ SCH (08:03)
[2021-02-18] MEDS: NYSTATIN POWDER 15 GM TOP SCH (08:04)
[2021-02-18 08:13] VITALS: BP 149/61
[2021-02-18] MEDS: INSULIN ASPART 300 UNIT/3 ML PEN SUBQ SCH ×4 (08:15→11:49)
[2021-02-18] MEDS: INSULIN GLARGINE 300 UNIT/3 ML PEN SUBQ SCH (08:16)
[2021-02-18] MEDS: oxyCODONE 5 MG TABLET PO PRN (12:06)
== END 2021-02-18 14:30 | DRG 640 ==
LOC: EDUNIT# → ED 02:21 → ICU 06:21 → MS3 02-11 16:02 → MS2 02-16 13:53
PROVIDERS: ADMIT Internal Medicine; ATTEND Internal Medicine
PROC: 02HV33Z Insertion of Infusion Device into Superior Vena Cava, Percutaneous Approach (ICD-10-PCS; principal; 2021-02-10)
PROC: 30243N1 Transfusion of Nonautologous Red Blood Cells into Central Vein, Percutaneous Approach (ICD-10-PCS; 2021-02-10)
DX: E87.70 Fluid overload, unspecified (principal); J18.9 Pneumonia, unspecified organism; D64.9 Anemia, unspecified; K85.90 Acute pancreatitis without necrosis or infection, unspecified; N13.30 Unspecified hydronephrosis; N39.0 Urinary tract infection, site not specified; J45.909 Unspecified asthma, uncomplicated; Z68.41 Body mass index [BMI] 40.0-44.9, adult; R10.11 Right upper quadrant pain; F41.8 Other specified anxiety disorders; K21.9 Gastro-esophageal reflux disease without esophagitis; G30.9 Alzheimer's disease, unspecified; F02.80 Dementia in other diseases classified elsewhere, unspecified severity, without behavioral disturbance, psychotic disturbance, mood disturbance, and anxiety; E87.8 Other disorders of electrolyte and fluid balance, not elsewhere classified; Z66 Do not resuscitate; I10 Essential (primary) hypertension; Z99.3 Dependence on wheelchair; R11.14 Bilious vomiting; E87.6 Hypokalemia; E83.42 Hypomagnesemia; E83.51 Hypocalcemia; E83.39 Other disorders of phosphorus metabolism; E11.9 Type 2 diabetes mellitus without complications; L30.4 Erythema intertrigo; B37.2 Candidiasis of skin and nail; D50.9 Iron deficiency anemia, unspecified; R74.8 Abnormal levels of other serum enzymes; B96.20 Unspecified Escherichia coli [E. coli] as the cause of diseases classified elsewhere; B95.2 Enterococcus as the cause of diseases classified elsewhere; K81.1 Chronic cholecystitis; R06.03 Acute respiratory distress; R09.89 Other specified symptoms and signs involving the circulatory and respiratory systems; E66.01 Morbid (severe) obesity due to excess calories; Z79.4 Long term (current) use of insulin; Z87.891 Personal history of nicotine dependence; Z96.0 Presence of urogenital implants; Z20.822 Contact with and (suspected) exposure to COVID-19
CPT/HCPCS: 36415; 51702; 71045; 74177; 76705; 78227; 80048; 80053; 80076; 81001; 82009; 82150; 82272; 82607; 82728; 82746; 82803; 83036; 83540; 83605; 83690; 83735; 83880; 84100; 84466; 85025; 85027; 85610; 85730; 86140; 86850; 86900; 86901; 86920; 87040; 87077; 87086; 87181; 87631; 87640; 93005; 94640; 96365; 96375; 96376; 97162; 97164; 97530; 99281; 99285; A9270; A9537; J0131; J1170; J1650; J1815; J2060; J7040; P9016; Q9967; 0202U; 81003

== ENCOUNTER 2021-02-18 14:36 | Outpatient (CLI) | payer MEDICARE, OTHER | END 2021-02-18 14:37 | disposition home or self-care (01) | LOC: EMS 14:36 | PROVIDERS: ATTEND Internal Medicine | DX: F03.90 Unspecified dementia, unspecified severity, without behavioral disturbance, psychotic disturbance, mood disturbance, and anxiety (principal); Z74.01 Bed confinement status | CPT/HCPCS: A0425; A0428 ==

== ENCOUNTER 2021-04-22 14:00 | Outpatient (CLI) | payer MEDICARE, OTHER ==
--- NOTE | 2021-04-22 16:44 | CONSULTATION NOTE ---
Palliative Care Follow Up - Referral Referring Provider: CAITLYN Ojeda Time of Visit: Initiated 1400 Referral setting: Assisted living Referral Reason: Diabetes Mellitus type II/Dementia/Depression/Anxiety/Chronic Pain - Information Sources Records reviewed: Previous records reviewed History/Review of Systems obtained from: Patient, Nursing (ANTWAN Pop) Exam limitations: Clinical condition (Advanced Dementia) - History of Present Illness Update Brief HPI Update: This is a 70-year-old female with a history of Alzheimer's dementia who was seen in follow-up today at [facility] for her dementia, depression, anxiety, chronic pain syndrome and diabetes mellitus type 2. The patient has had a steady weight gain over the last year. Her lower extremity edema remains at baseline at approximately +1. She is on a diabetic diet. She continues to thoroughly enjoy her meals due to her underlying dementia cannot recall when she was last eating and this is supported by facility staff. She remains on small portions. IMPROVEMENT SPECIALIST reports that the last 2 weights have been weighing of the patient at twos 68 pounds which is up from her baseline by approximately 30 pounds. Unclear if this was due to a different scale being used. Patient does not visibly appear to be more edematous or volume overloaded. She has a longstanding history of depression. She does have lability in her moods and her quetiapine was last adjusted in late October 2020. She also remains on duloxetine 40 mg daily which has overall helped the patient's mood. It is hit or miss with the patient during the day regarding her mood swings. However, she is only required as needed hydroxyzine 3 times this month indicating that there is less severity in her mood swings. She is on Lantus 40 units in the morning and 36 units in the evening with blood glucose trends running in theHigh 100s to low 200s in the morning and in the evenings 100s to low 300s and would benefit for further dose adjustment of her Lantus. She also remains on Metformin. Last hemoglobin A1c was 9.1% on 02/12/2021. She continues on blood glucose checks twice daily. The patient was admitted to [facility] 02/10-02/18 with diffuse abdominal pain. She had a HIDA scan which was negative and potentially showed questionable chronic cholecystitis and was placed on Zosyn for UTI. She then had a chest x-ray that demonstrated atypical pneumonia and was placed on azithromycin and was discharged from the hospital and augmented and completed the full course. Her lipase went from 8 50-28 on discharge. Today, the patient denies any reports of abdominal pain. She has regular bowel movements on an almost daily basis not require any adjustments to her bowel regimen. The patient is seen out of bed in her wheelchair in the common area watching TV. She is conversant and in good spirits. No evidence of acute distress. Past Medical History: Patient has a past medical history of hypertension, hyperlipidemia, cardiac murmur, Alzheimer's dementia, type 2 diabetes, GERD, constipation, neurogenic bladder with chronic indwelling catheter, depression, anxiety, osteoarthritis, osteoporosis, chronic pain, anemia, right hip fracture with repair 12/25/2018, left proximal humerus fracture 01/10/2020, COVID-19 08/2020. Social History - Living Situation Living arrangement: Assisted living Living Situation: Alone Support System: Resides at [facility]. She has resided at [facility] since May 2018 after her unexpectedly due to lung cancer in April 2018. The patient's was previously her primary caregiver before his . The patient's daughter, Elyse is her D POA with contact number [phone]. Medications/Allergies - Medications Home Medications: Ambulatory Orders Medication Instructions Recorded Confirmed Multivitamin [Multiple Vitamins] 1 tab PO DAILY 06/01/18 02/10/21 Albuterol 2.5 mg INH RTQ4H PRN #3 neb 12/25/18 02/10/21 Atorvastatin [Lipitor] 20 mg PO QPM #30 tablet 12/25/18 02/10/21 Ondansetron Odt [Zofran Odt] 4 mg PO Q8H PRN #10 tablet 12/25/18 02/10/21 Acetaminophen 500 mg PO TID 02/07/19 02/10/21 Omeprazole 20 mg PO DAILY 02/07/19 02/10/21 amLODIPine [Norvasc] 5 mg PO BID 02/07/19 02/10/21 Ferrous Gluconate 240 mg PO DAILY #30 tablet 02/08/19 02/10/21 Magnesium Oxide [Mag Ox] 400 mg PO 0800 #30 tablet 02/08/19 02/10/21 metFORMIN [Glucophage] 1,000 mg PO BIDWM #60 tablet 02/08/19 02/10/21 polyethylene glycoL 3350 [Miralax] 17 gm PO DAILY #30 packet 02/08/19 02/10/21 QUEtiapine [SEROquel] 25 mg PO TID 03/02/19 02/10/21 Alendronate Sodium 70 mg PO SA 12/22/19 02/10/21 Ascorbic Acid [Vitamin C] 500 mg PO DAILY 12/22/19 02/10/21 Calcium Carbonate [Calcium] 500 mg PO DAILY 12/22/19 02/10/21 DULoxetine [Cymbalta] 40 mg PO DAILY 12/22/19 02/10/21 Lisinopril/Hydrochlorothiazide 1 tab PO BID 12/22/19 02/10/21 [Lisinopril-Hctz 20-12.5 mg Tab] Nystatin 1 applic TP BID MDD to groin 12/22/19 02/10/21 Cholecalciferol (Vitamin D3) 50 mcg DAILY 01/10/20 02/10/21 [Vitamin D3] hydrOXYzine HCL [Hydroxyzine HCl] 25 mg PO Q8H PRN 01/17/20 02/10/21 oxyCODONE [Roxicodone] 5 mg PO Q6H PRN 01/17/20 02/10/21 oxyCODONE [Roxicodone] 5 mg PO TID 01/25/20 02/10/21 Magnesium Hydroxide [Milk of 30 ml PO DAILY PRN MDD if no BM in 12/14/20 02/10/21 Magnesia] 3 days Senna [Senokot] 8.6 mg PO QPM 12/14/20 02/10/21 Insulin Glargine [Lantus Solostar] 40 units SUBQ BID 02/10/21 02/10/21 - Allergies Allergies/Adverse Reactions: Allergies Allergy/AdvReac Type Severity Reaction Status Date / Time sulfamethoxazole Allergy Unknown Verified 02/10/21 02:30 [From Bactrim] trimethoprim [From Bactrim] Allergy Unknown Verified 02/10/21 02:30 Review of Systems - Constitutional Constitutional: reports: Weight gain (268lb today; February 2021 229.9lb; 01/10/2021 234.8lb; 12/2020 230.6lb; January 2020: 220lb). denies: Fever - Eyes Eyes: reports: Corrective lenses - Ears, Nose & Throat Ears, Nose & Throat: denies: Hearing aids - Cardiovascular Cardiovascular: reports: Edema, Decr. exercise tolerance. denies: Chest pain - Respiratory Respiratory: denies: Wheezing - Gastrointestinal Gastrointestinal: reports: Good appetite. denies: Abdominal pain, Constipation (controlled, see HPI), Nausea, Vomiting - Genitourinary Genitourinary: reports: Other (carbajal catheter). denies: Hematuria - Musculoskeletal Musculoskeletal: reports: Stiffness, Limited range of motion (left shoulder after fall with proximal humerus fracture), Assistive devices (wheelchair), Transfer issues. denies: Joint pain - Integumentary Integumentary: reports: Dryness - Neurological Neurological: reports: General weakness, Memory problems - Psychiatric Psychiatric: reports: Depression (see HPI), Anxiety - Endocrine Endocrine: reports: Diabetes type 2 (Last HgA1C 9.1% on 02/12/2021). denies: Hypothyroidism - Hematologic/Lymphatic Hematologic/Lymph: reports: Anemia - All Other Systems All Other Systems: reports: Reviewed and negative (Patient is a poor historian due to dementia. Review of systems supplemented by nursing and caregiving staff.) Physical Exam - Vital Signs Temperature: 36.2 C Pulse Rate: 84 O2 Saturation: 98 (on RA) Blood Pressure: 138/70 (right arm) - Physical Exam General Appearance: positive: No acute distress, Alert, Other (overweight, OOB in wheelchair) Eyes Bilateral: positive: Other (+corrective lenses) ENT: positive: No signs of dehydration Neck: positive: Trachea midline Cardiovascular: positive: Regular rate & rhythm Respiratory: positive: No respiratory distress, Breath sounds nml, Diminished in bases Abdomen: positive: Non-tender, Soft, Nml bowel sounds, Obese (central obesity with large abdominal panus), Other ( +carbajal catheter to gravity draining yellow urine) Skin: positive: Other (general dryness) Extremities: positive: Pedal edema (+1 BLE edema without compression stockings in place), Other (denies c/o joint pain at rest) Neurologic/Psychiatric: positive: Disoriented to place, Disoriented to time, Other (In good spirits and pleasantly confused; +confabulates stories) Palliative Care - POLST Patient has POLST: Yes POLST Status: DNR, Selective Treatment Pain: No pain (controlled with oxycodone 5mg TID) Constipation: Yes, Opoid induced, Managed - Palliative Care Discussion: The patient unfortunately had a hospitalization in February 2021 for acute abdominal pain and then subsequently was treated for UTI and atypical pneumonia. No longer presents with abdominal pain. She continues to have a hearty appetite however, there is report of an approximately 30 pound weight gain that is not appreciated on examination and presently the patient is reported to weigh 268 pounds. This is likely error based on not choosing the same scale. Will request that the patient's weight be reobtained next week for monitoring and request that the same scale be used every time for continuity. The patient's blood glucose levels demonstrated a trending upward elevation and a benefit from dose adjustment of her Lantus to 40 units twice daily. Last hemoglobin A1c was 9.1% in February 2021. Impression and Recommendations - Palliative Care Impression: This is a 70-year-old female with Alzheimer's dementia with chronic pain syndrome, depression, lability in mood and diabetes mellitus type 2. Patient is demonstrating less anxieties episodes with the reduction in administration of hydroxyzine. Given her upward trends of her blood glucose levels would benefit from further adjustment of her Lantus dosage. Pain is presently controlled. Palliative care to continue to provide support for pain and symptom management, care coordination and anticipatory guidance. Recommendations/Counseling Done: 1. Diabetes mellitus type 2. Continues on Lantus in the form and. Continue Metformin as ordered. Increase Lantus to 40 units twice daily. Last hemoglobin A1c 9.1% on 02/12/2021. Given the patient's advanced age and chronic comorbidities hemoglobin A1c goal is 7 to 8%. 2. Unintentional weight gain. Present weight is reported as 268 pounds however, the patient continues to demonstrate baseline lower extremity edema and does not appear to be volume overloaded. Likely error and not using consistent scale. Request that the patient be reevaluated on 10/30/2020. The unintentional weight gain is multifactorial given the patient's hearty appetite, sedentary lifestyle and underlying dementia. She continues on small portions. Previous TSH obtained was negative for hypothyroidism. Continue to monitor weight trends. Overall, trending upwards weight is likely unavoidable given the above- mentioned states and the patient's enjoyment of food. 3. Depression and anxiety. Patient is has a longstanding history of depression was previously on fluoxetine for many years. She continues on duloxetine 40 mg daily. Continue quetiapine 25 mg 3 times daily for anxiety and labile mood. Continue hydroxyzine as needed for breakthrough anxiety. Continue to monitor and adjust regimen as needed to optimize the patient's comfort. 4. Chronic pain to right hip and left shoulder. Continues on acetaminophen 5 mg 3 times daily. Continues on routine oxycodone for pain management 5 mg 3 times daily as well as oxycodone 5 mg every 6 hours as needed for pain. And presently is controlled and will not make any adjustments at the present time. 5. Alzheimer's dementia. Chronic. Progressive. Supportive care. Fall precautions. On no disease modifying agents. No recent falls. Given the patient's dementia and chronic comorbidities a gradual decline is expected CPT 14371 Plan of care reviewed with ANTWAN Pop at the facility with understanding verbalized. Disclaimer: The chart note was formulated using voice recognition technology and unfortunately sound alike errors may occur.
== END 2021-04-22 14:01 | disposition home or self-care (01) ==
LOC: PC 14:00
PROVIDERS: ATTEND Nurse Practitioner Family
DX: Z51.5 Encounter for palliative care (principal); E11.9 Type 2 diabetes mellitus without complications; R63.5 Abnormal weight gain; F32.9 Major depressive disorder, single episode, unspecified; F41.9 Anxiety disorder, unspecified; M25.512 Pain in left shoulder; M25.551 Pain in right hip; G89.4 Chronic pain syndrome; G30.9 Alzheimer's disease, unspecified; F02.80 Dementia in other diseases classified elsewhere, unspecified severity, without behavioral disturbance, psychotic disturbance, mood disturbance, and anxiety; Z79.4 Long term (current) use of insulin; Z66 Do not resuscitate

== ENCOUNTER 2021-07-25 12:00 | Outpatient (CLI) | payer MEDICARE, OTHER ==
--- NOTE | 2021-07-25 16:30 | CONSULTATION NOTE ---
Palliative Care Follow Up - Referral Referring Provider: CAITLYN Ojeda Time of Visit: Initiated 1210 Referral setting: Assisted living Referral Reason: Diabetes Mellitus/Dementia/Anxiety/Chronic Pain - Information Sources Records reviewed: Previous records reviewed History/Review of Systems obtained from: Patient, Nursing Exam limitations: Clinical condition (Advanced Dementia) - History of Present Illness Update Brief HPI Update: This is a 71-year-old female with a history of Alzheimer's dementia who was seen in follow-up today at [facility] for her dementia, depression, anxiety, chronic pain syndrome and diabetes mellitus type 2. Provider wore N95 mask. Patient has had a steady weight gain over the last year and presently with is to 27 pounds as of 07/13. She remains on a diabetic diet. Her lower extremity edema remains at baseline. She continues to enjoy thoroughly enjoy her meals even though she cannot recall when she last ate and supported by facility staff. She remains on small portions. She is having increased difficulty with swallowing her pills that time. She also has a large burden related to medications. Nursing staff would like this to be addressed and will follow up with the patient's daughter. The patient has a longstanding history of depression. She does have lability in her moods and her anxiety appears to be more pronounced after breakfast and after lunch. It appears she has some overstimulation and does better when she lies down after meals. She continues on duloxetine 40 mg daily as well as quetiapine 25 mg 3 times daily. She has a longstanding history of diabetes mellitus. She is presently on Lantus 40 units twice daily. Blood glucose trends in the morning have been 118 2-56. Blood glucose trends in the evening have been 229 11/14/2015. This is improved from her previous blood glucose range. Last hemoglobin A1c 9.1% on 02/12/2021. She continues on blood glucose checks twice daily. She has a strong history of constipation that is presently well controlled with daily MiraLAX and senna. She has a bowel movement daily. In discussion with nursing staff about reducing as a trial of the patient's oxycodone 5 mg 3 times daily for pain was advised that she still demonstrates intermittent discomfort especially with transfers and movement and therefore will not trial dose reduction at this time to focus on the patient's comfort. Patient is seen out of bed in her wheelchair in the dining area consuming her food. She is an conversant and in good spirits. No evidence of crying or anxiety. Past Medical History: Patient has a past medical history of hypertension, hyperlipidemia, cardiac murmur, Alzheimer's dementia, type 2 diabetes, GERD, constipation, neurogenic bladder with chronic indwelling catheter, depression, anxiety, osteoarthritis, osteoporosis, chronic pain, anemia, right hip fracture with repair 12/25/2018, left proximal humerus fracture 01/10/2020, COVID-19 08/2020. Social History - Living Situation Living arrangement: Assisted living Living Situation: Alone Support System: Resides at [facility] memory care unit. She has resided at [facility] since May 2018 after her unexpectedly due to lung cancer in April 2018. The patient's was previously her primary caregiver before his . The patient's daughter, Elyse is her D POA with contact number [phone]. Facility staff report that the patient's daughter has not been in to see the patient recently. Medications/Allergies - Medications Home Medications: Ambulatory Orders Medication Instructions Recorded Confirmed Multivitamin [Multiple Vitamins] 1 tab PO DAILY 06/01/18 02/10/21 Albuterol 2.5 mg INH RTQ4H PRN #3 neb 12/25/18 02/10/21 Atorvastatin [Lipitor] 20 mg PO QPM #30 tablet 12/25/18 02/10/21 Ondansetron Odt [Zofran Odt] 4 mg PO Q8H PRN #10 tablet 12/25/18 02/10/21 Acetaminophen 500 mg PO TID 02/07/19 02/10/21 Omeprazole 20 mg PO DAILY 02/07/19 02/10/21 amLODIPine [Norvasc] 5 mg PO BID 02/07/19 02/10/21 Ferrous Gluconate 240 mg PO DAILY #30 tablet 02/08/19 02/10/21 Magnesium Oxide [Mag Ox] 400 mg PO 0800 #30 tablet 02/08/19 02/10/21 metFORMIN [Glucophage] 1,000 mg PO BIDWM #60 tablet 02/08/19 02/10/21 polyethylene glycoL 3350 [Miralax] 17 gm PO DAILY #30 packet 02/08/19 02/10/21 QUEtiapine [SEROquel] 25 mg PO TID 03/02/19 02/10/21 Alendronate Sodium 70 mg PO SA 12/22/19 02/10/21 Ascorbic Acid [Vitamin C] 500 mg PO DAILY 12/22/19 02/10/21 Calcium Carbonate [Calcium] 500 mg PO DAILY 12/22/19 02/10/21 DULoxetine [Cymbalta] 40 mg PO DAILY 12/22/19 02/10/21 Lisinopril/Hydrochlorothiazide 1 tab PO BID 12/22/19 02/10/21 [Lisinopril-Hctz 20-12.5 mg Tab] Nystatin 1 applic TP BID MDD to groin 12/22/19 02/10/21 Cholecalciferol (Vitamin D3) 50 mcg DAILY 01/10/20 02/10/21 [Vitamin D3] hydrOXYzine HCL [Hydroxyzine HCl] 25 mg PO Q8H PRN 01/17/20 02/10/21 oxyCODONE [Roxicodone] 5 mg PO Q6H PRN 01/17/20 02/10/21 oxyCODONE [Roxicodone] 5 mg PO TID 01/25/20 02/10/21 Magnesium Hydroxide [Milk of 30 ml PO DAILY PRN MDD if no BM in 12/14/20 02/10/21 Magnesia] 3 days Senna [Senokot] 8.6 mg PO QPM 12/14/20 02/10/21 Insulin Glargine [Lantus Solostar] 42 units SUBQ BID 02/10/21 02/10/21 - Allergies Allergies/Adverse Reactions: Allergies Allergy/AdvReac Type Severity Reaction Status Date / Time sulfamethoxazole Allergy Unknown Verified 02/10/21 02:30 [From Bactrim] trimethoprim [From Bactrim] Allergy Unknown Verified 02/10/21 02:30 Review of Systems - Constitutional Constitutional: reports: Other (weight 227lb 07/13/2021; 268lb today; February 2021 229.9lb; 01/10/2021 234.8lb; 12/2020 230.6lb; January 2020: 220lb). denies: Fever - Eyes Eyes: reports: Corrective lenses - Ears, Nose & Throat Ears, Nose & Throat: denies: Hearing loss, Nasal congestion - Cardiovascular Cardiovascular: reports: Edema, Decr. exercise tolerance. denies: Chest pain - Respiratory Respiratory: denies: Other (dysphagia during meals) - Gastrointestinal Gastrointestinal: reports: Good appetite. denies: Abdominal pain, Constipation (controlled, see HPI), Vomiting - Genitourinary Genitourinary: reports: Other (carbajal catheter). denies: Hematuria - Musculoskeletal Musculoskeletal: reports: Stiffness, Limited range of motion (left shoulder after fall with proximal humerus fracture), Assistive devices (wheelchair), Transfer issues. denies: Joint pain - Integumentary Integumentary: reports: Dryness - Neurological Neurological: reports: General weakness, Memory problems - Psychiatric Psychiatric: reports: Depression (see HPI), Anxiety (see HPI) - Endocrine Endocrine: reports: Diabetes type 2 (Last HgA1C 9.1% on 02/12/2021). denies: Hypothyroidism - Hematologic/Lymphatic Hematologic/Lymph: reports: Anemia - All Other Systems All Other Systems: reports: Reviewed and negative (Patient is a poor historian due to dementia. Review of systems supplemented by nursing.) Physical Exam - Vital Signs Temperature: 36.6 C Pulse Rate: 94 O2 Saturation: 96 (on RA) Blood Pressure: 157/74 - Physical Exam General Appearance: positive: No acute distress, Alert, Other (overweight, OOB in wheelchair) Eyes Bilateral: positive: Other (+corrective lenses) ENT: positive: No signs of dehydration Neck: positive: Trachea midline Cardiovascular: positive: Regular rate & rhythm Respiratory: positive: No respiratory distress, Breath sounds nml, Diminished in bases Abdomen: positive: Non-tender, Soft, Nml bowel sounds, Obese, Other ( +carbajal catheter to gravity draining yellow urine) Extremities: positive: Pedal edema (+trace BLE edema without compression stockings in place), Other (denies c/o joint pain at rest). negative: Full ROM (decreased ROM left shoulder) Neurologic/Psychiatric: positive: Disoriented to place, Disoriented to time, Other (In good spirits and pleasantly confused; +confabulates stories) Palliative Care - POLST Patient has POLST: Yes POLST Status: DNR, Selective Treatment Pain: Comment (Managed with oxycodone 5mg TID) Constipation: Opoid induced, Managed Performance Status: FAST 7C - Palliative Care Discussion: The patient would benefit from further dose adjustment of her Lantus from 40 units twice daily to 42 units twice daily. Last hemoglobin A1c was 9.1% on 02/12/2021. She has not had any hypo or hyperglycemic events. She continues on Metformin 1000 mg B I D. Did discuss with [facility] pharmacist that Metformin HCl may be crushed and made [facility] aware. Given the patient continues to have anxiety and labile mood she would benefit from further dose titration of quetiapine if DPOA is amenable. She presently is on quetiapine 25 mg three times daily in addition to duloxetine 40 mg daily for her chronic pain as well as depression and anxiety. The patient has a longstanding history of chronic pain syndrome due to her history of left hip fracture and left shoulder fracture with underlying o steoarthritis. Given she still has demonstration of discomfort would not be appropriate to trial dose reduction of oxycodone at the present time. Impression and Recommendations - Palliative Care Impression: This is a 71-year-old old female with Alzheimer's dementia with chronic pain syndrome, depression, lability in mood and diabetes mellitus type 2. She would benefit from dose adjustment of quetiapine for stabilization of mood if daughter/DPOA is in agreement. Also benefit from increase in the Lantus dosage for better control of patient's blood glucose levels from 40 units twice daily to 42 units twice daily. Palliative care to continue to provide support for pain and symptom management, care coordination and anticipatory guidance. Recommendations/Counseling Done: 1. Diabetes mellitus type 2. Increase Lantus to 42 units twice daily. Continue Metformin as ordered. Confirmed with [facility] pharmacy that Metformin HCL 1000 mg may be crushed. May need to consider in the future discontinuation of Metformin and further titrate Lantus given the patient's noted difficulty with swallowing medications. Last hemoglobin A1c 9.1% on 02/12/2021. Given the patient's advanced age and chronic comorbidities a hemoglobin A1c goal is 7 to 8%. 2. Depression and anxiety. Patient has a longstanding history of depression and was previously on fluoxetine for many years. She continues on duloxetine 40 mg daily. Would benefit from increase of quetiapine from 25 mg to 50 mg in the morning given her increased anxiety at breakfast and lunchtime. We will need to discuss with the patient's daughter/DPOA regarding increase of quetiapine. At the present time, will remain on quetiapine 25 mg 3 times daily for anxiety and labile mood. Continue hydroxyzine as needed for breakthrough anxiety. Awaiting return call from patient's daughter/JORDAN. 3. Obesity. Has had a steady weight gain and weight has now returned to a better state at 227 pounds. This is multifactorial due to the patient's appetite, sedentary lifestyle and underlying dementia. Continue small portion sizes with meals as well as a diabetic diet. Previous TSH obtained on 08/16/2020 did not demonstrate hypothyroidism as a contributing factor for weight gain. Continue to monitor. 4. Chronic pain syndrome. Specifically to left hip and left shoulder with underlying osteoarthritis. Pain is overall controlled and given with transfers and movement patient has discomfort would not benefit from trial reduction of oxycodone at this time. Continue acetaminophen 500 mg 3 times daily. Continue oxycodone 5 mg 3 times daily for pain management. Continue oxycodone 5 mg every 6 hours as needed for pain.Continue to monitor the patient's functional status and evaluate reduction in in medication for her pain regimen focusing on function and motion. 5. Alzheimer's dementia. Chronic. Progressive. Supportive care. Fall precautions. On no disease modifying agents. Given the patient's dementia and chronic comorbidities a gradual decline is expected. CPT 90692 Plan of care reviewed with RN and Eileen. Contacted the patient's daughter/JORDAN Pappas at [phone] and message left to review medication adjustments and to review medications for possible pill reduction. Awaiting return call. Disclaimer: The chart note was formulated using voice recognition technology and unfortunately sound alike errors may occur.
== END 2021-07-25 12:01 | disposition home or self-care (01) ==
LOC: PC 12:00
PROVIDERS: ATTEND Nurse Practitioner Family
DX: Z51.5 Encounter for palliative care (principal); E11.9 Type 2 diabetes mellitus without complications; Z79.84 Long term (current) use of oral hypoglycemic drugs; Z79.4 Long term (current) use of insulin; F41.9 Anxiety disorder, unspecified; F32.A Depression, unspecified; E66.9 Obesity, unspecified; G89.4 Chronic pain syndrome; M25.552 Pain in left hip; M25.512 Pain in left shoulder; M19.91 Primary osteoarthritis, unspecified site; G30.9 Alzheimer's disease, unspecified; F02.80 Dementia in other diseases classified elsewhere, unspecified severity, without behavioral disturbance, psychotic disturbance, mood disturbance, and anxiety; Z79.891 Long term (current) use of opiate analgesic; Z66 Do not resuscitate

== ENCOUNTER 2021-08-20 13:30 | Outpatient (CLI) | payer MEDICARE, OTHER ==
--- NOTE | 2021-08-20 18:34 | CONSULTATION NOTE ---
Palliative Care Follow Up - Referral Referring Provider: CAITLYN Ojeda Time of Visit: 8033-2102 Referral setting: Assisted living Referral Reason: Tongue swelling/Depression/Dementia/Chronic Pain - Information Sources Records reviewed: Previous records reviewed History/Review of Systems obtained from: Patient, Nursing (ANTWAN Russo) - History of Present Illness Update Brief HPI Update: This is a 71-year-old female with a history of Alzheimer's dementia who is seen acutely today due to swollen tongue, oxygen saturation and follow-up regarding medication management in [facility] with ANTWAN Russo present. Provider wore N95 mask. Notify it this morning that the patient had a swollen tongue and in her oxygen saturations to approximately 86%. Staff placed her on 2 L via nasal cannula and her oxygen went up to 94%. She had not had any of her morning medications outside of her Lantus before the tongue enlargement was noted. The patient was able to consume her breakfast. Requested that hydroxyzine 25 mg to be administered this morning. Also requested that her medications be held. Aide MONCADA reports that this morning into early afternoon the patient has seemed quite off." After noting the swollen tongue the patient had been with ANTWAN most of the morning out of bed in her wheelchair. After lunch she returned to her bed and her coloring has improved per ANTWAN Noble's report. Aide MONCADA reports that she consumed the majority of her lunch and there has been a reduction in her tongue size when this morning was noted to be "fat and round" and now has a pointed tip. The patient is able to speak and have confabulated stories with being able to understand her words. Daughter/JORDAN Pappas reports this is not occurred before but does relay that the patient may have a sensitivity to walnuts that she had previously reported. The patient has a longstanding history of depression. She does have lability in her moods and her anxiety appears to be more pronounced after breakfast and after lunch. It appears she has some overstimulation and does better when she lies down after meals. She continues on duloxetine 40 mg daily as well as quetiapine 25 mg 3 times daily. Today, she had a reported crying episode and was given her oxycodone for possible pain with noted improvement. Caregiving staff report that the patient becomes tearful due to the amount of medications that are required to be administered despite being crushed. This is an almost daily occurrence that the patient becomes tearful. Will look at medication reduction. Patient is seen sitting up resting in bed. Coloring at baseline. Able to communicate and no evidence of acute distress including respiratory distress. Initially supplemental oxygen via nasal cannula was in place and removed with the patient demonstrating her oxygen saturation 94 to 96% on room air. Past Medical History: Patient has a past medical history of hypertension, hyperlipidemia, cardiac murmur, Alzheimer's dementia, type 2 diabetes, GERD, constipation, neurogenic bladder with chronic indwelling catheter, depression, anxiety, osteoarthritis, osteoporosis, chronic pain, anemia, right hip fracture with repair 12/25/2018, left proximal humerus fracture 01/10/2020, COVID-19 08/2020. Social History - Living Situation Living arrangement: Assisted living Living Situation: Alone Support System: Resides at [facility] memory care unit. She has resided at [facility] since May 2018 after her unexpectedly due to lung cancer in April 2018. The patient's was previously her primary caregiver before his . The patient's daughter, Elyse is her D POA with contact number [phone]. Patient's daughter reports her last visit approximately 2 weeks ago the patient became tearful when she left. She is planning on coming after work on Tuesdays at after 4 PM moving forward for scheduled visits. Medications/Allergies - Medications Home Medications: Ambulatory Orders Medication Instructions Recorded Confirmed Albuterol 2.5 mg INH RTQ4H PRN #3 neb 12/25/18 02/10/21 Ondansetron Odt [Zofran Odt] 4 mg PO Q8H PRN #10 tablet 12/25/18 02/10/21 Acetaminophen 500 mg PO BID 02/07/19 02/10/21 Omeprazole 20 mg PO DAILY 02/07/19 02/10/21 amLODIPine [Norvasc] 5 mg PO BID 02/07/19 02/10/21 Ferrous Gluconate 240 mg PO DAILY #30 tablet 02/08/19 02/10/21 metFORMIN [Glucophage] 1,000 mg PO BIDWM #60 tablet 02/08/19 02/10/21 polyethylene glycoL 3350 [Miralax] 17 gm PO DAILY #30 packet 02/08/19 02/10/21 QUEtiapine [SEROquel] 25 mg PO .AFTERNOON AND QPM 03/02/19 02/10/21 Alendronate Sodium 70 mg PO SA 12/22/19 02/10/21 Calcium Carbonate [Calcium] 500 mg PO DAILY 12/22/19 02/10/21 DULoxetine [Cymbalta] 20 mg PO DAILY 12/22/19 02/10/21 Nystatin 1 applic TP BID MDD to groin 12/22/19 02/10/21 Cholecalciferol (Vitamin D3) 50 mcg DAILY 01/10/20 02/10/21 [Vitamin D3] hydrOXYzine HCL [Hydroxyzine HCl] 25 mg PO Q8H PRN 01/17/20 02/10/21 oxyCODONE [Roxicodone] 5 mg PO Q6H PRN 01/17/20 02/10/21 oxyCODONE [Roxicodone] 5 mg PO TID 01/25/20 02/10/21 Magnesium Hydroxide [Milk of 30 ml PO DAILY PRN MDD if no BM in 12/14/20 02/10/21 Magnesia] 3 days Senna [Senokot] 8.6 mg PO QPM 12/14/20 02/10/21 Insulin Glargine [Lantus Solostar] 42 units SUBQ BID 02/10/21 02/10/21 QUEtiapine [SEROquel] 37.5 mg PO .MORNING 08/20/21 08/20/21 hydrOXYzine HCL [Hydroxyzine HCl] 25 mg PO BID MDD x3 days 08/20/21 08/20/21 hydroCHLOROthiazide [Hydrodiuril] 12.5 mg PO BID 08/20/21 08/20/21 - Allergies Allergies/Adverse Reactions: Allergies Allergy/AdvReac Type Severity Reaction Status Date / Time sulfamethoxazole Allergy Unknown Verified 02/10/21 02:30 [From Bactrim] trimethoprim [From Bactrim] Allergy Unknown Verified 02/10/21 02:30 Review of Systems - Constitutional Constitutional: reports: Other (weight 227lb 07/13/2021; 268lb today; February 2021 229.9lb; 01/10/2021 234.8lb; 12/2020 230.6lb; January 2020: 220lb). denies: Fever, Poor appetite - Eyes Eyes: reports: Corrective lenses - Ears, Nose & Throat Ears, Nose & Throat: reports: Other (swollen tongue--improved, see HPI). denies : Sore throat, Mouth lesions, Bleeding gums - Cardiovascular Cardiovascular: reports: Edema. denies: Chest pain - Respiratory Respiratory: denies: Cough, Wheezing, SOB at rest - Gastrointestinal Gastrointestinal: reports: Good appetite. denies: Constipation (controlled, see HPI), Nausea, Vomiting - Genitourinary Genitourinary: reports: Other (carbajal catheter) - Musculoskeletal Musculoskeletal: reports: Stiffness, Limited range of motion (left shoulder after fall with proximal humerus fracture--baseline), Assistive devices (wheelchair), Transfer issues. denies: Joint pain - Integumentary Integumentary: reports: Dryness - Neurological Neurological: reports: General weakness, Memory problems - Psychiatric Psychiatric: reports: Depression (see HPI), Anxiety (see HPI) - Endocrine Endocrine: reports: Diabetes type 2 (Last HgA1C 9.1% on 02/12/2021) - Hematologic/Lymphatic Hematologic/Lymph: reports: Anemia (Iron deficiency anemia) - All Other Systems All Other Systems: reports: Reviewed and negative (Patient is a poor historian due to dementia. Review of systems supplemented by nursing.) Physical Exam - Vital Signs Temperature: 36.7 C Pulse Rate: 95 Respiratory Rate: 20 O2 Saturation: 95 (on RA) Blood Pressure: 130/66 - Physical Exam General Appearance: positive: No acute distress, Alert, Other (overweight, resting in bed) Eyes Bilateral: positive: Normal inspection, Other (+corrective lenses) ENT: positive: No signs of dehydration, Other (+Tongue sitting back in palate when at rest but not visibling edematous and able to visualize pharynx.) Neck: positive: Trachea midline. negative: Lymphadenopathy (R), Lymphadenopathy (L) Cardiovascular: positive: Regular rate & rhythm. negative: Systolic murmur Respiratory: positive: No respiratory distress, Breath sounds nml, Diminished in bases Abdomen: positive: Non-tender, Soft, Nml bowel sounds, Obese, Other ( +carbajal catheter to gravity draining yellow urine) Skin: positive: Dryness Extremities: positive: Pedal edema (+trace BLE edema without compression stockings in place), Other (denies c/o joint pain at rest). negative: Full ROM (decreased ROM left shoulder) Neurologic/Psychiatric: positive: Disoriented to place, Disoriented to time, Weakness (LUE due to history of left humerus fracture; strong, equal lap winder bilaterally. Able to elevated BLE off the bed against gravity, equal.), Unintelligible speech (Some difficulty with articulating words with distinction due to placement of tongue on hard palate noted.), Other (In good spirits, smiling and pleasantly confused; +confabulates stories) Palliative Care - POLST Patient has POLST: Yes POLST Status: DNR, Selective Treatment Pain: Comment (Controlled with routine oxycodone) - Palliative Care Discussion: Patient had acute swelling to the tongue today that responded to hydroxyzine and required supplemental oxygen. She has had reduction in swelling of her tongue and there has been no change in her oral intake and she remains alert and engaged. 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 We will add lisinopril to her list of allergies and this has been discontinued. Blood pressure has been stable with out lisinopril and will only add back HCTZ 12.5 mg twice daily and continue to follow the patient's blood pressure trends to determine need to add an ARB for management of her blood pressure. The patient is on multiple medications and able to have a lengthy discussion today with the patient's daughter who wishes to focus on comfort and in agreement for reduction of medications as noted in plan of care. Patient's daughter recognizes the patient has been clotted during through her a goal of her dementia and multiple comorbidities and is amenable to having a visit between herself, patient and this palliative care DIRECTOR OF SOCIAL SERVICES to continue to tease out goals of care and management moving forward. Impression and Recommendations - Palliative Care Impression: This is a 71-year-old female with acute tongue swelling today possibly due to ADDIE inhibitor improving, with no evidence of respiratory distress in the setting of Alzheimer's dementia, chronic pain syndrome, hyperlipidemia, and diabetes mellitus type 2. We will continue hydroxyzine 25 mg twice daily x3 days for antihistamine response. We will also increase the patient's quetiapine morning dose as the patient has more mood lability between breakfast and lunch to 37.5 mg. Dose reduction of medications as outlined below with daughter in agreement. Palliative care will continue to provide care coordination, tease out goals of care, pain and symptom management as well as anticipatory guidance. Recommendations/Counseling Done: 1. Tongue swelling. Potential causative agent lisinopril as ADDIE inhibitor. Discontinue lisinopril/HCTZ. Add lisinopril to patient's list of allergies. Improved. Patient has been able to consume meals. Oxygen saturation stable without supplemental oxygen at 94 to 96% on room air. No evidence of respiratory distress. Initiate hydroxyzine 25 mg twice daily starting this evening for 3 days. Would continue to expect gradual resolution with discon tinuation of lisinopril/HCTZ. 2. Hypertension. Discontinue lisinopril/HCTZ given possible allergic response to lisinopril. Continue amlodipine 5 mg twice daily. Initiate HCTZ 12.5 mg twice daily. Request that patient's blood pressure and heart rate be obtained daily x7 days and fax results to palliative care DIRECTOR OF SOCIAL SERVICES to review and will determine based on blood pressure trends if ARB needs to be added to antihypertensive regimen. Continue to monitor. 3. Depression and anxiety. Patient has a longstanding history of depression and was previously on fluoxetine for many years. Presently on duloxetine 40 mg daily, adding to pill burden. Decrease duloxetine to 20 mg daily. Consider titrating to an SSRI such as citalopram. Increase quetiapine in the a.m. from 25 mg to 37.5 mg for mood stabilization and continue quetiapine 25 mg in the afternoon and 25 mg in the evening. Continue hydroxyzine as needed through breakthrough anxiety. 4. Iron deficiency anemia. Patient presently on ferrous gluconate to 40 mg once daily. Discontinue vitamin C supplementation. Request that CBC and ferritin level be obtained on 09/02/2021. If H&H is stable and ferritin level within normal range will discontinue ferrous gluconate if adequate ferritin level stores. 5. Diabetes mellitus type 2. Continue Lantus to 42 units twice daily. Continue Metformin as ordered and may be crushed. Last hemoglobin A1c 9.1% on 02/12/2021. Given the patient's advanced age and chronic comorbidities a hemoglobin A1c goal is 7 to 8%. Request evaluation of HgA1C on 09/02/2021 by facility. 6. Hyperlipidemia. Discontinue atorvastatin as not contributing to patient's comfort and daughter in agreement. Given time to benefit also appropriate to discontinue atorvastatin. 7. Chronic pain syndrome. Specifically to left hip and left shoulder with underlying osteoarthritis. Reduce acetaminophen to 500mg BID to reduce pill burden and monitor if can discontinue acetaminophen via celena slowly moving forward vs re-initiation based on pain response. Continue oxycodone 5 mg 3 times daily for pain management. Continue oxycodone 5 mg every 6 hours as needed for pain.Continue to monitor the patient's functional status and evaluate reduction in in medication for her pain regimen focusing on function and motion. 8. Alzheimer's dementia. Chronic. Progressive. Supportive care. Fall precautions. On no disease modifying agents. Given the patient's dementia and chronic comorbidities a gradual decline is expected. 9. Advance care planning. Patient has POLST in place as DN R with selective interventions. Daughter wishes to focus on comfort and will continue to work with daughter to tease out further goals of care and expectations moving forward. Plan to have a joint visit with daughter and patient in the near future to further tease out these goals of care. Discontinue magnesium oxide and multivitamin to reduce pill burden. Supportive and empathetic listening provided to the patient's daughter. Total time spent 60 minutes with greater than 50% of the spent in counseling and coordination of care with the patient, ANTWAN Noble, and patient's daughter/DPNORI Elyse in the presence of the patient; examination of the patient; pain and symptom management; and anticipatory guidance. Contacted the patient's daughter Elyse who is DPOA at [phone] and reviewed plan of care and questions answered and addressed and agreed to move forward with plan. Plan of care also reviewed with ANTWAN Noble with questions answered and addressed. Disclaimer: The chart note was formulated using voice recognition technology and unfortunately sound alike errors may occur.
== END 2021-08-20 13:31 | disposition home or self-care (01) ==
LOC: PC 13:30
PROVIDERS: ATTEND Nurse Practitioner Family
DX: Z51.5 Encounter for palliative care (principal); K14.8 Other diseases of tongue; G30.9 Alzheimer's disease, unspecified; F02.80 Dementia in other diseases classified elsewhere, unspecified severity, without behavioral disturbance, psychotic disturbance, mood disturbance, and anxiety; G89.4 Chronic pain syndrome; F32.9 Major depressive disorder, single episode, unspecified; E11.9 Type 2 diabetes mellitus without complications; D50.9 Iron deficiency anemia, unspecified; Z66 Do not resuscitate; I10 Essential (primary) hypertension; F41.9 Anxiety disorder, unspecified; N31.9 Neuromuscular dysfunction of bladder, unspecified; Z91.81 History of falling; Z79.4 Long term (current) use of insulin; Z79.84 Long term (current) use of oral hypoglycemic drugs; Z79.891 Long term (current) use of opiate analgesic

== ENCOUNTER 2021-09-18 14:30 | Outpatient (CLI) | payer MEDICARE, OTHER ==
--- NOTE | 2021-09-18 19:10 | CONSULTATION NOTE ---
Palliative Care Follow Up - Referral Referring Provider: CAITLYN Ojeda Time of Visit: Initiated 1430 Referral setting: Assisted living Referral Reason: HTN/Diabetes Mellitus/Dementia - Information Sources Records reviewed: Previous records reviewed History/Review of Systems obtained from: Patient, Nursing (MIK Ruiz) Exam limitations: Clinical condition (Advanced Dementia) - History of Present Illness Update Brief HPI Update: This is a 71-year-old female with a history of Alzheimer's dementia who was seen in follow-up today due to hypertension, diabetes mellitus type 2, and constipation. Provider wore N95 mask. Patient had acute tongue swelling in early August 2021 possibly due to her ADDIE inhibitor and her lisinopril was discontinued. She has had resolution of her previous symptoms. She is now on amlodipine and HCTZ. No cardiac complaints reported. Edema appears to be stable at trace on assessment without compression hose in place. She has a longstanding history of diabetes mellitus and is presently on Lantus 42 units twice a day. Her blood glucose levels in the morning have been as follows 154, 140, 218, 211, 250 25, 223, 160, 161. Her blood glucose levels in the evening have been 202, 11/16/1977, 249, 311, 267, 266, 323. She is also on Metformin 1000 mg twice a day which can be crushed. Patient has a request for labs pending which include evaluation of her hemoglobin A1c however, the patient is a difficult labs drawl and thus far has not been able to be obtained. Patient bowel regimen is presently well controlled. She typically has a bowel movement on an almost daily basis. Patient is seen out of bed in her wheelchair in the dining area watching the [place] decorations be placed ON the [place] tree. She is in good spirits and no evidence of acute distress. Past Medical History: Patient has a past medical history of hypertension, hyperlipidemia, cardiac murmur, Alzheimer's dementia, type 2 diabetes, GERD, constipation, neurogenic bladder with chronic indwelling catheter, depression, anxiety, osteoarthritis, osteoporosis, chronic pain, anemia, right hip fracture with repair 12/25/2018, left proximal humerus fracture 01/10/2020, COVID-19 08/2020. Social History - Living Situation Living arrangement: Assisted living Living Situation: Alone Support System: Resides at [facility] memory care unit. She has resided at [facility] since May 2018 after her unexpectedly due to lung cancer in April 2018. The patient's was previously her primary caregiver before his . The patient's daughter, Elyse is her D IVANIAA with contact number [phone]. Elyse and this CREDIT REPORTER was scheduled for a family meeting at the facility on 09/17, but she did not present. Medications/Allergies - Medications Home Medications: Ambulatory Orders Medication Instructions Recorded Confirmed Albuterol 2.5 mg INH RTQ4H PRN #3 neb 12/25/18 02/10/21 Ondansetron Odt [Zofran Odt] 4 mg PO Q8H PRN #10 tablet 12/25/18 02/10/21 Acetaminophen 500 mg PO BID 02/07/19 02/10/21 Omeprazole 20 mg PO DAILY 02/07/19 02/10/21 amLODIPine [Norvasc] 5 mg PO BID 02/07/19 02/10/21 Ferrous Gluconate 240 mg PO DAILY #30 tablet 02/08/19 02/10/21 metFORMIN [Glucophage] 1,000 mg PO BIDWM #60 tablet 02/08/19 02/10/21 polyethylene glycoL 3350 [Miralax] 17 gm PO DAILY #30 packet 02/08/19 02/10/21 QUEtiapine [SEROquel] 25 mg PO .AFTERNOON AND QPM 03/02/19 02/10/21 Alendronate Sodium 70 mg PO SA 12/22/19 02/10/21 Calcium Carbonate [Calcium] 500 mg PO DAILY 12/22/19 02/10/21 DULoxetine [Cymbalta] 20 mg PO DAILY 12/22/19 02/10/21 Nystatin 1 applic TP BID MDD to groin 12/22/19 02/10/21 Cholecalciferol (Vitamin D3) 50 mcg DAILY 01/10/20 02/10/21 [Vitamin D3] hydrOXYzine HCL [Hydroxyzine HCl] 25 mg PO Q8H PRN 01/17/20 02/10/21 oxyCODONE [Roxicodone] 5 mg PO Q6H PRN 01/17/20 02/10/21 oxyCODONE [Roxicodone] 5 mg PO TID 01/25/20 02/10/21 Magnesium Hydroxide [Milk of 30 ml PO DAILY PRN MDD if no BM in 12/14/20 02/10/21 Magnesia] 3 days Senna [Senokot] 8.6 mg PO QPM 12/14/20 02/10/21 Insulin Glargine [Lantus Solostar] 42 units SUBQ BID 02/10/21 02/10/21 QUEtiapine [SEROquel] 37.5 mg PO .MORNING 08/20/21 08/20/21 hydrOXYzine HCL [Hydroxyzine HCl] 25 mg PO BID MDD x3 days 08/20/21 08/20/21 hydroCHLOROthiazide [Hydrodiuril] 12.5 mg PO BID 08/20/21 08/20/21 - Allergies Allergies/Adverse Reactions: Allergies Allergy/AdvReac Type Severity Reaction Status Date / Time lisinopril Allergy Edema Verified 08/20/21 19:36 sulfamethoxazole Allergy Unknown Verified 02/10/21 02:30 [From Bactrim] trimethoprim [From Bactrim] Allergy Unknown Verified 02/10/21 02:30 walnut Allergy Unknown Verified 08/20/21 19:36 Review of Systems - Constitutional Constitutional: reports: Other (weight 189.5 09/14/2021; weight 227lb 07/13/2021; 268lb today; February 2021 229.9lb; 01/10/2021 234.8lb; 12/2020 230.6lb; January 2020: 220lb). denies: Fever, Poor appetite - Eyes Eyes: reports: Corrective lenses - Ears, Nose & Throat Ears, Nose & Throat: denies: Hearing aids - Cardiovascular Cardiovascular: reports: Edema. denies: Chest pain - Respiratory Respiratory: denies: Wheezing - Gastrointestinal Gastrointestinal: reports: Good appetite. denies: Abdominal pain, Constipation (controlled, see HPI), Vomiting - Genitourinary Genitourinary: reports: Other (carbajal catheter). denies: Hematuria - Musculoskeletal Musculoskeletal: reports: Stiffness, Limited range of motion (left shoulder after fall with proximal humerus fracture--baseline), Assistive devices (wheelchair), Transfer issues. denies: Joint pain - Integumentary Integumentary: reports: Dryness - Neurological Neurological: reports: General weakness, Memory problems - Psychiatric Psychiatric: reports: Depression, Anxiety - Endocrine Endocrine: reports: Diabetes type 2 (Last HgA1C 9.1% on 02/12/2021) - Hematologic/Lymphatic Hematologic/Lymph: reports: Anemia (Iron deficiency anemia) - All Other Systems All Other Systems: reports: Reviewed and negative (Patient is a poor historian due to dementia. Review of systems supplemented by nursing.) Physical Exam - Vital Signs Temperature: 36.5 C Pulse Rate: 82 O2 Saturation: 82 Blood Pressure: 123/69 (left wrist) - Physical Exam General Appearance: positive: No acute distress, Alert, Other (overweight, OOB in wheelchair) Eyes Bilateral: positive: Normal inspection, Other (+corrective lenses) ENT: positive: No signs of dehydration Neck: positive: Trachea midline Cardiovascular: positive: Regular rate & rhythm. negative: Systolic murmur Respiratory: positive: No respiratory distress, Breath sounds nml, Diminished in bases Abdomen: positive: Non-tender, Soft, Nml bowel sounds, Obese, Other ( +carbajal catheter to gravity draining yellow urine) Skin: positive: Other (Visible skin intact) Extremities: positive: Pedal edema (+trace BLE edema without compression stockings in place), Other (denies c/o joint pain at rest). negative: Full ROM (+decreased ROM left shoulder) Neurologic/Psychiatric: positive: Disoriented to place, Disoriented to time, Weakness, Other (In good spirits, smiling and pleasantly confused; +confabulates stories) Palliative Care - POLST Patient has POLST: Yes POLST Status: DNR, Selective Treatment Pain: Pain unchanged (Controlled with oxycodone 5mg TID) Constipation: Opoid induced, Managed Performance Status: FAST 7C - Palliative Care Discussion: Patient has tolerated increase of HCTZ to 12.5 mg twice daily after dis continuation of ADDIE inhibitor due to tongue swelling with this added to her list of allergies. No cardiac awareness reported. She has tolerated this transition well. Patient continues to have elevated blood glucose levels most pacifically in the evening and would benefit from dose increase of her morning Lantus from 42 to 44 units. She is pending reevaluation of her hemoglobin A1c when lab work is able to be obtained. Results - Lab Results Lab and Imaging Results: Labwork requested and pending once obtained Impression and Recommendations - Palliative Care Impression: This is a 71-year-old female with Alzheimer's dementia with chronic pain syndrome, diabetes mellitus type 2, constipation and hypertension. She would benefit from dose increase of her morning Lantus from 42 units to 44 units. Blood pressures well controlled. Palliative care to continue to provide support for pain and symptom management, care coordination and anticipatory guidance. Recommendations/Counseling Done: 1. Diabetes mellitus type 2. Increase a.m. dose of Lantus to 44 units. Continue Lantus 42 units in the evening. Continue Metformin 1000 mg twice a day. Last hemoglobin A1c 9.1% on 02/12/2021. Hemoglobin A1c requested and result pending once lab work is obtained. Given the patient's advanced age and chronic comorbidities a goal hemoglobin A1c is 7 to 8%. 2. Hypertension. No cardiac awareness. Continue HCTZ 12.5 mg twice daily. Continue amlodipine 5 mg twice daily. Goal blood pressure less than 150/90. Had tongue swelling due to lisinopril and was discontinued. Continue to monitor blood pressure to determine if ARB needs to be added to antihypertensive regimen. Continue to monitor. 3. Iron deficiency anemia. Presently on ferrous gluconate once daily. Pending CBC with ferritin level once lab work is obtained. If H&H is stable with adequate ferritin level will discontinue ferrous gluconate. 4. Chronic pain syndrome. Specifically to the patient's left hip and left shoulder with underlying osteoarthritis. Continue acetaminophen 500 mg twice daily. Continue oxycodone 5 mg 3 times daily for pain management. Continue oxycodone 5 mg every 6 hours as needed for pain. Continue to monitor patient's functional status and evaluate reduction in medication of her pain management focusing on function and comfort moving forward. 5. Alzheimer's dementia. Chronic. Progressive. Supportive care. Fall precautions. Under disease modifying agents. Given the patient's dementia and chronic comorbidities a gradual decline is expected. CPT 49338 Message left for patient's daughter/JORDAN Pappas at [phone] regarding medication adjustments, pending lab work, and request for rescheduling a family meeting. Awaiting a return call. Disclaimer: The chart note was formulated using voice recognition technology and unfortunately sound alike errors may occur.
== END 2021-09-18 14:31 | disposition home or self-care (01) ==
LOC: PC 14:30
PROVIDERS: ATTEND Nurse Practitioner Family
DX: Z51.5 Encounter for palliative care (principal); G30.9 Alzheimer's disease, unspecified; F02.80 Dementia in other diseases classified elsewhere, unspecified severity, without behavioral disturbance, psychotic disturbance, mood disturbance, and anxiety; G89.4 Chronic pain syndrome; M16.12 Unilateral primary osteoarthritis, left hip; M19.012 Primary osteoarthritis, left shoulder; E11.65 Type 2 diabetes mellitus with hyperglycemia; Z79.4 Long term (current) use of insulin; Z79.84 Long term (current) use of oral hypoglycemic drugs; I10 Essential (primary) hypertension; D50.9 Iron deficiency anemia, unspecified; Z66 Do not resuscitate

== ENCOUNTER 2021-11-05 16:10 | Outpatient (CLI) | payer MEDICARE, OTHER ==
--- NOTE | 2021-11-05 18:13 | CONSULTATION NOTE ---
Palliative Care Follow Up - Referral Referring Provider: CAITLYN Ojeda Time of Visit: Intiated 1610 Referral setting: Assisted living Referral Reason: BLE edema/Diabetes Mellitus/ - Information Sources Records reviewed: Previous records reviewed History/Review of Systems obtained from: Family (daughter, Daphne via phone), Nursing (ANTWAN Bravo) Exam limitations: Clinical condition (Advanced Dementia) - History of Present Illness Update Brief HPI Update: This is a 71-year-old female with a history of Alzheimer's dementia who was seen in follow-up today due to diabetes mellitus type 2, anxiety and depression, lower extremity edema, and dementia. Provider wore N95 mask. Patient has a longstanding history of diabetes mellitus and is presently on 44 units in the morning and 42 units in the evening of Lantus. Lantus was last adjusted in early September 2021 with an improvement of the patient's fasting blood glucose levels. Patient's blood glucose levels in the morning have ranged 93-2 08. In the evening the patient's blood glucose levels have ranged 1 86-3 03. She is also on Metformin 1000 mg twice a day which may be crossed. No recent hemoglobin A1c on record given the patient is a difficult lab draw despite multiple attempts. Will reevaluate if facility can obtain. Patient presently on HCTZ 12.5 mg twice a day which was increased after lisinopril was discontinued due to possible allergic response to ADDIE inhibitor but given the patient continues to have some signs of lower extremity edema not appropriate to discontinue at this time. Blood pressure remains well controlled. Patient has a history of anxiety and depression with mood fluctuations. She is a longstanding history of depression. Her quetiapine was last adjusted August 2021. The patient will have crying outbursts typically occurring if they occur, after breakfast or lunch. She is required hydroxyzine for breakthrough anxiety only twice this month demonstrating overall control in her mood fluctuations. Patient is seen out of bed in the wheelchair in the common area singing to songs playing on the radio. No evidence of acute distress. Past Medical History: Patient has a past medical history of hypertension, hyperlipidemia, cardiac murmur, Alzheimer's dementia, type 2 diabetes, GERD, constipation, neurogenic bladder with chronic indwelling catheter, depression, anxiety, osteoarthritis, osteoporosis, chronic pain, anemia, right hip fracture with repair 12/25/2018, left proximal humerus fracture 01/10/2020, COVID-19 08/2020. Social History - Living Situation Living arrangement: Assisted living Living Situation: Alone Support System: Resides at [facility]. She has resided at [facility] since May 2018 after her unexpectedly due to lung cancer in April 2018. The patient's was previously her primary caregiver before his . The patient's daughter, Elyse is her D POA with contact number [phone]. Daughter/DPOA, Elyse to be present today at the facility however, due to Covid19 exposure appropriate to remain outside of the facility and will reschedule joint meeting at a later date. Medications/Allergies - Medications Home Medications: Ambulatory Orders Medication Instructions Recorded Confirmed Albuterol 2.5 mg INH RTQ4H PRN #3 neb 12/25/18 02/10/21 Ondansetron Odt [Zofran Odt] 4 mg PO Q8H PRN #10 tablet 12/25/18 02/10/21 Acetaminophen 500 mg PO BID 02/07/19 02/10/21 Omeprazole 20 mg PO DAILY 02/07/19 02/10/21 amLODIPine [Norvasc] 5 mg PO BID 02/07/19 02/10/21 Ferrous Gluconate 240 mg PO DAILY #30 tablet 02/08/19 02/10/21 metFORMIN [Glucophage] 1,000 mg PO BIDWM #60 tablet 02/08/19 02/10/21 polyethylene glycoL 3350 [Miralax] 17 gm PO DAILY #30 packet 02/08/19 02/10/21 QUEtiapine [SEROquel] 25 mg PO .AFTERNOON AND QPM 03/02/19 02/10/21 Alendronate Sodium 70 mg PO SA 12/22/19 02/10/21 Calcium Carbonate [Calcium] 500 mg PO DAILY 12/22/19 02/10/21 DULoxetine [Cymbalta] 20 mg PO DAILY 12/22/19 02/10/21 Nystatin 1 applic TP BID MDD to groin 12/22/19 02/10/21 Cholecalciferol (Vitamin D3) 50 mcg DAILY 01/10/20 02/10/21 [Vitamin D3] hydrOXYzine HCL [Hydroxyzine HCl] 25 mg PO Q8H PRN 01/17/20 02/10/21 oxyCODONE [Roxicodone] 5 mg PO Q6H PRN 01/17/20 02/10/21 oxyCODONE [Roxicodone] 5 mg PO TID 01/25/20 02/10/21 Magnesium Hydroxide [Milk of 30 ml PO DAILY PRN MDD if no BM in 12/14/20 02/10/21 Magnesia] 3 days Senna [Senokot] 8.6 mg PO QPM 12/14/20 02/10/21 Insulin Glargine [Lantus Solostar] 42 units SUBQ QPM 02/10/21 02/10/21 QUEtiapine [SEROquel] 37.5 mg PO .MORNING 08/20/21 08/20/21 hydroCHLOROthiazide [Hydrodiuril] 12.5 mg PO BID 08/20/21 08/20/21 Insulin Glargine [Lantus Solostar] 46 units SUBQ .MORNING 11/05/21 11/05/21 - Allergies Allergies/Adverse Reactions: Allergies Allergy/AdvReac Type Severity Reaction Status Date / Time lisinopril Allergy Edema Verified 08/20/21 19:36 sulfamethoxazole Allergy Unknown Verified 02/10/21 02:30 [From Bactrim] trimethoprim [From Bactrim] Allergy Unknown Verified 02/10/21 02:30 walnut Allergy Unknown Verified 08/20/21 19:36 Review of Systems - Constitutional Constitutional: reports: Other (weight 213.1lb 11/04/21; weight 189.5 09/14/2021; weight 227lb 07/13/2021; 268lb today; February 2021 229.9lb; 01/10/2021 234.8lb; 12/2020 230.6lb; January 2020: 220lb). denies: Fever, Poor appetite - Eyes Eyes: reports: Corrective lenses - Ears, Nose & Throat Ears, Nose & Throat: denies: Hearing aids, Dentures - Cardiovascular Cardiovascular: reports: Edema. denies: Chest pain - Respiratory Respiratory: denies: Cough - Gastrointestinal Gastrointestinal: reports: Good appetite. denies: Abdominal pain, Abdominal distention, Constipation, Vomiting - Genitourinary Genitourinary: reports: Other (carbajal catheter) - Musculoskeletal Musculoskeletal: reports: Stiffness, Limited range of motion (left shoulder after fall with proximal humerus fracture--baseline), Assistive devices (wheelchair), Transfer issues - Integumentary Integumentary: reports: Dryness - Neurological Neurological: reports: General weakness, Memory problems - Psychiatric Psychiatric: reports: Depression, Anxiety - Endocrine Endocrine: reports: Diabetes type 2 (Last HgA1C 9.1% on 02/12/2021) - Hematologic/Lymphatic Hematologic/Lymph: reports: Anemia (Iron deficiency anemia, history of iron infusions in the past per daughter) - All Other Systems All Other Systems: reports: Reviewed and negative (Patient is a poor historian due to dementia. Review of systems supplemented by nursing and daughter.) Physical Exam - Vital Signs Temperature: 36.5 C Pulse Rate: 77 O2 Saturation: 96 (on RA) Blood Pressure: 125/62 (right wrist) - Physical Exam General Appearance: positive: No acute distress, Alert, Other (overweight, OOB in wheelchair) Eyes Bilateral: positive: Normal inspection ENT: positive: No signs of dehydration Neck: positive: Trachea midline Cardiovascular: positive: Regular rate & rhythm Respiratory: positive: No respiratory distress, Breath sounds nml Abdomen: positive: Non-tender, Soft, Nml bowel sounds, Obese, Other ( +carbajal catheter to gravity draining yellow urine) Skin: positive: Other (Visible skin intact) Extremities: positive: Pedal edema (+trace BLE edema without compression stockings in place), Other (denies c/o joint pain at rest). negative: Full ROM (+decreased ROM left shoulder) Neurologic/Psychiatric: positive: Disoriented to place, Disoriented to time, Weakness, Other (In good spirits singing along to songs and is pleasantly confused.) Palliative Care - POLST Patient has POLST: Yes POLST Status: DNR, Selective Treatment Pain: Comment (controlled with oxycodone 5mg TID) Performance Status: FAST 7C - Palliative Care Discussion: Patient continues to have elevated blood glucose levels in the evening. Would benefit from increase of Lantus from 44 units to 46 units in the morning. Would continue 42 units in the evening given the patient's fasting blood glucose trends are significantly improved with the last dose adjustment of Lantus. Will request that hemoglobin A1c be attempted to be obtained again by facility staff which has been unsuccessful by multiple parties in the past given the patient is a difficult lab draw. The goal remains to reduce polypharmacy as much as possible and this was reviewed again today with the patient's daughter. Moving forward, would recommend discontinuation of ferrous sulfate however, wish to obtain ferritin level before discontinuation given patient's history of iron deficiency anemia. Continues to have a longstanding history of depression and anxiety however, presently stable. In the future, may consider transitioning to a different SSRI versus increase of quetiapine for management of mood lability. Impression and Recommendations - Palliative Care Impression: This is a 71-year-old female with Alzheimer's dementia with diabetes mellitus type 2, lower extremity edema, with longstanding depression and anxiety. Patient would benefit from dose increase of her Lantus from 44 units to 46 units. Palliative care will continue to provide support for pain and symptom management, care coordination and anticipatory guidance. Recommendations/Counseling Done: 1.Diabetes mellitus type 2. Increase a.m. dose of Lantus to 46 units. Continue Lantus 42 units in the evening. Continue Metformin 1000 mg twice a day. Last hemoglobin A1c 9.1% on 02/12/2021. Requested hemoglobin A1c again to be obtained at facility however, patient is a difficult lab draw. Given the patient's advanced age and chronic comorbidities a hemoglobin A1c of 6 to 8% is appropriate. 2. Bilateral lower extremity edema in the setting of hypertension. Patient continues to have some mild lower extremity edema and therefore, will continue HCTZ 12.5 mg twice daily versus reduction to once daily dosing. We will continue to monitor and titrate HCTZ accordingly. 3. Depression and anxiety. Patient has a longstanding history of depression and was previously on fluoxetine for many years. Presently on duloxetine 20 mg daily. Continue on quetiapine 37 5.5 mg in the morning, quetiapine 25 mg in the afternoon, quetiapine 25 mg in the evening. Patient has hydroxyzine as needed for breakthrough anxiety. If mood fluctuations reemerge consider titrating to an SSRI such as citalopram versus dose increase of quetiapine. Continue to monitor. 4. Iron deficiency anemia. Patient presently on ferrous gluconate 240 mg once daily. We requested CBC with ferritin level to be obtained and follow with results. Patient previously received iron transfusions in the past. If H&H stable and ferritin level within normal range will discontinue ferrous gluconate and daughter in agreement. 5. Alzheimer's dementia. Chronic. Progressive. Supportive care. Fall precautions. 1 no disease modifying agents. Given the patient's dementia and chronic comorbidities a gradual decline is expected. CPT 75923 Plan of care reviewed with ANTWAN Cordon at facility with questions answered and addressed. Spoke to patient's daughter/JORDAN Pappas at length with plan of care reviewed. Disclaimer: The chart note was formulated using voice recognition technology and unfortunately sound alike errors may occur.
== END 2021-11-05 16:11 | disposition home or self-care (01) ==
LOC: PC 16:10
PROVIDERS: ATTEND Nurse Practitioner Family
DX: Z51.5 Encounter for palliative care (principal); G30.9 Alzheimer's disease, unspecified; F02.80 Dementia in other diseases classified elsewhere, unspecified severity, without behavioral disturbance, psychotic disturbance, mood disturbance, and anxiety; E11.9 Type 2 diabetes mellitus without complications; R60.0 Localized edema; I10 Essential (primary) hypertension; F41.9 Anxiety disorder, unspecified; F32.A Depression, unspecified; D50.9 Iron deficiency anemia, unspecified; G89.29 Other chronic pain; Z79.899 Other long term (current) drug therapy; Z79.84 Long term (current) use of oral hypoglycemic drugs; Z79.4 Long term (current) use of insulin; Z79.891 Long term (current) use of opiate analgesic; Z86.16 Personal history of COVID-19; Z66 Do not resuscitate

== ENCOUNTER 2022-01-20 13:15 | Outpatient (CLI) | payer MEDICARE, OTHER ==
--- NOTE | 2022-01-20 15:02 | CONSULTATION NOTE ---
Palliative Care Follow Up - Referral Referring Provider: CAITLYN Ojeda Time of Visit: Intiatied 1315 Referral setting: Assisted living Referral Reason: Diabetes Mellutis type II/Medication changes/Chronic Pain/Dementia - Information Sources Records reviewed: Previous records reviewed History/Review of Systems obtained from: Patient, Nursing ([facility] Hickey) Exam limitations: Clinical condition (Advanced Dementia) - History of Present Illness Update Brief HPI Update: This is a 71-year-old female with a history of Alzheimer's dementia who was seen in follow-up today due to diabetes mellitus type 2, dementia, osteoporosis, and chronic pain. Provider wore N95 mask and face shield. Patient has a history of longstanding history of diabetes mellitus and is presently on Lantus 46 units in the morning and 32 units in the evening. She also continues on Metformin 1000 mg twice a day. Last hemoglobin A1c obtained on 02/12/2021 was 9.1%. Several attempts have been made to obtain the patient's hemoglobin A1c which have previously failed. Upon review of the patient's blood glucose levels in the a.m. her blood glucose levels are 10 3-1 65. In the evening her blood glucose levels range 112 2-78. She continues to have a stable appetite. Last weight 210 pounds on 01/16/2022. She has a history of constipation and is presently on MiraLAX and senna. She is typically having a bowel movement every other day. Patient has a history of osteoporosis with fractures in the past. However, due to her nonambulatory state and being nonweightbearing unlikely that Fosamax would be contributing and given her difficulty in swallowing pills this was discontinued on 12/21. The patient also has a history of iron deficiency anemia and had been on ferrous gluconate for some time. However, due to her inability to swallow pills and this not being able to be crushed was discontinued on 12/21. Past Medical History: Patient has a past medical history of hypertension, hyperlipidemia, cardiac murmur, Alzheimer's dementia, type 2 diabetes, GERD, constipation, neurogenic bladder with chronic indwelling catheter, depression, anxiety, osteoarthritis, osteoporosis, chronic pain, anemia, right hip fracture with repair 12/25/2018, left proximal humerus fracture 01/10/2020, COVID-19 08/2020. Social History - Living Situation Living arrangement: Assisted living Living Situation: Alone Support System: Resides at [facility] care unit. She has resided at [facility] since May 2018 after her unexpectedly due to lung cancer in April 2018. The patient's was previously her primary caregiver before his . The patient's daughter, Elyse is her D POA with contact number [phone]. Medications/Allergies - Medications Home Medications: Ambulatory Orders Medication Instructions Recorded Confirmed Albuterol 2.5 mg INH RTQ4H PRN #3 neb 12/25/18 02/10/21 Ondansetron Odt [Zofran Odt] 4 mg PO Q8H PRN #10 tablet 12/25/18 02/10/21 Acetaminophen 500 mg PO BID 02/07/19 02/10/21 Omeprazole 20 mg PO DAILY 02/07/19 02/10/21 amLODIPine [Norvasc] 5 mg PO BID 02/07/19 02/10/21 metFORMIN [Glucophage] 1,000 mg PO BIDWM #60 tablet 02/08/19 02/10/21 polyethylene glycoL 3350 [Miralax] 17 gm PO DAILY #30 packet 02/08/19 02/10/21 QUEtiapine [SEROquel] 25 mg PO .AFTERNOON AND QPM 03/02/19 02/10/21 Calcium Carbonate [Calcium] 500 mg PO DAILY 12/22/19 02/10/21 DULoxetine [Cymbalta] 20 mg PO DAILY 12/22/19 02/10/21 Nystatin 1 applic TP BID MDD to groin 12/22/19 02/10/21 Cholecalciferol (Vitamin D3) 50 mcg DAILY 01/10/20 02/10/21 [Vitamin D3] hydrOXYzine HCL [Hydroxyzine HCl] 25 mg PO Q8H PRN 01/17/20 02/10/21 oxyCODONE [Roxicodone] 5 mg PO Q6H PRN 01/17/20 02/10/21 oxyCODONE [Roxicodone] 5 mg PO TID 01/25/20 02/10/21 Magnesium Hydroxide [Milk of 30 ml PO DAILY PRN MDD if no BM in 12/14/20 02/10/21 Magnesia] 3 days Senna [Senokot] 8.6 mg PO QPM 12/14/20 02/10/21 Insulin Glargine [Lantus Solostar] 42 units SUBQ QPM 02/10/21 02/10/21 QUEtiapine [SEROquel] 37.5 mg PO .MORNING 08/20/21 08/20/21 hydroCHLOROthiazide [Hydrodiuril] 12.5 mg PO BID 08/20/21 08/20/21 Insulin Glargine [Lantus Solostar] 46 units SUBQ .MORNING 11/05/21 11/05/21 - Allergies Allergies/Adverse Reactions: Allergies Allergy/AdvReac Type Severity Reaction Status Date / Time lisinopril Allergy Edema Verified 08/20/21 19:36 sulfamethoxazole Allergy Unknown Verified 02/10/21 02:30 [From Bactrim] trimethoprim [From Bactrim] Allergy Unknown Verified 02/10/21 02:30 walnut Allergy Unknown Verified 08/20/21 19:36 Review of Systems - Constitutional Constitutional: reports: Other (weight 210lb 01/16/2022; weight 213.1lb 11/04/21; weight 189.5 09/14/2021; weight 227lb 07/13/2021; 268lb today; February 2021 229.9lb; 01/10/2021 234.8lb; 12/2020 230.6lb; January 2020: 220lb). denies: Fever, Poor appetite - Eyes Eyes: reports: Corrective lenses - Ears, Nose & Throat Ears, Nose & Throat: denies: Hearing aids, Dentures - Cardiovascular Cardiovascular: reports: Edema. denies: Chest pain - Respiratory Respiratory: denies: Wheezing - Gastrointestinal Gastrointestinal: reports: Good appetite. denies: Abdominal pain, Constipation (see HPI), Vomiting - Genitourinary Genitourinary: reports: Other (carbajal catheter) - Musculoskeletal Musculoskeletal: reports: Stiffness, Limited range of motion (left shoulder after fall with proximal humerus fracture--baseline), Assistive devices (wheelchair), Transfer issues (using a martin lift to transfer) - Integumentary Integumentary: reports: Dryness - Neurological Neurological: reports: General weakness, Memory problems - Psychiatric Psychiatric: reports: Depression, Anxiety - Endocrine Endocrine: reports: Diabetes type 2 (Last HgA1C 9.1% on 02/12/2021) - Hematologic/Lymphatic Hematologic/Lymph: reports: Anemia (Iron deficiency anemia, history of iron infusions in the past per daughter; ferrous gluconate stopped 12/21/21.) - All Other Systems All Other Systems: reports: Reviewed and negative (Patient is a poor historian due to dementia. Review of systems supplemented by nursing.) Physical Exam - Vital Signs Temperature: 36.5 C Pulse Rate: 82 O2 Saturation: 94 (on RA) Blood Pressure: 143/82 (left wrist) - Physical Exam General Appearance: positive: No acute distress, Alert, Other (overweight, OOB in wheelchair) Eyes Bilateral: positive: Normal inspection ENT: positive: No signs of dehydration Neck: positive: Trachea midline Cardiovascular: positive: Regular rate & rhythm Respiratory: positive: No respiratory distress, Breath sounds nml Abdomen: positive: Non-tender, Soft, Nml bowel sounds, Obese, Other ( +carbajal catheter to gravity draining yellow urine) Extremities: positive: Pedal edema (+trace BLE edema without compression stockings in place). negative: Full ROM (+decreased ROM left shoulder) Neurologic/Psychiatric: positive: Disoriented to place, Disoriented to time, Weakness, Other (Confabulates stories--today spoke about her daughter, Elyse coming to the facility and being the one to paint her nails) Palliative Care - POLST Patient has POLST: Yes POLST Status: DNR, Selective Treatment Pain: Comment (Pain controlled with oxycodone 5mg TID) Performance Status: FAST 7C - Palliative Care Discussion: Patient has been having difficulty with swallowing medications and therefore on 12/21 her ferrous gluconate and Fosamax were discontinued as these were not to be crushed her pharmacist. There have been multiple attempts made to obtain lab work on the patient's that have failed previously. Today however, able to obtain blood work to be sent off and follow with results most pacifically related to the patient's hemoglobin A1c. Overall, her blood glucose levels appear to be controlled and continues with Lantus 46 units in the morning and 42 units in the evening. Results - Lab Results Lab and Imaging Results: 01/20/22 Labs drawn today and pending Impression and Recommendations - Palliative Care Impression: This is a 71-year-old female with Alzheimer's dementia with diabetes mellitus type 2, lower extremity edema, longstanding history of depression anxiety, osteoporosis, and iron deficiency anemia. Blood work obtained today and will follow with results. Palliative care will continue to provide support for pain and symptom management, care coordination and anticipatory guidance. Recommendations/Counseling Done: 1. Diabetes mellitus type 2. Continue Lantus 46 units in the morning and 42 units in the evening. Continue Metformin 1000 mg twice daily and may be crushed. Last hemoglobin A1c 9.1% on 02/12/2021. Hemoglobin A1c obtained today will follow with results. Given the patient's advanced age and chronic comorbidities a hemoglobin A1c of 7 to 8% is goal and appropriate. 2. Osteoporosis. Patient has a history of fractures. However, due to her inability to ambulate or remain standing to take Fosamax this was discontinued on 12/21 given ability to find this appropriate for continuation and given the p atient's difficulty with swallowing medications this is not a medication that would be able to be crushed. 3. Iron deficiency anemia. Patient's ferrous gluconate 240 mg once daily was discontinued on 12/21 given her inability to swallow and that it may not be crushed. Will obtain CBC and ferritin level today and follow with results. 4. Constipation. Sedentary lifestyle and opioid therapy contributing. Continue MiraLAX 17 g daily and 1 senna daily. Continue to monitor bowel regimen and adjust accordingly to promote defecation. 5. Chronic pain syndrome. Specifically to the patient's left hip and left shoulder with underlying osteoarthritis. Continue acetaminophen 500 mg twice daily. Continue oxycodone 5 mg 3 times daily for pain management. Continue oxycodone 5 mg every 6 hours as needed for pain. Continue to monitor the patient's functional status and evaluate periodically for dose reduction with a focus on function and comfort moving forward. 6. Alzheimer's dementia. Chronic. Progressive. Supportive care. Fall precautions. On no disease modifying agents. Given the patient's dementia and chronic comorbidities a gradual decline is expected. CPT 74146 Updated patient's PCP regarding lab work obtainment. Assistance was provided by facility are and with management of blood work to be sent to [facility]. Disclaimer: The chart note was formulated using voice recognition technology and unfortunately sound alike errors may occur.
== END 2022-01-20 13:16 | disposition home or self-care (01) ==
LOC: PC 13:15
PROVIDERS: ATTEND Nurse Practitioner Family
DX: Z51.5 Encounter for palliative care (principal); G30.9 Alzheimer's disease, unspecified; F02.80 Dementia in other diseases classified elsewhere, unspecified severity, without behavioral disturbance, psychotic disturbance, mood disturbance, and anxiety; E11.9 Type 2 diabetes mellitus without complications; Z79.4 Long term (current) use of insulin; M81.0 Age-related osteoporosis without current pathological fracture; D50.9 Iron deficiency anemia, unspecified; K59.00 Constipation, unspecified; G89.4 Chronic pain syndrome; M17.12 Unilateral primary osteoarthritis, left knee; M19.012 Primary osteoarthritis, left shoulder; R60.0 Localized edema; F32.A Depression, unspecified; F41.9 Anxiety disorder, unspecified; I10 Essential (primary) hypertension; N31.9 Neuromuscular dysfunction of bladder, unspecified; Z66 Do not resuscitate